=== PATIENT | female | born 1955 | race Asian ===

== ENCOUNTER 2018-09-01 14:28 | Inpatient (IN) | payer MEDICAID ==
[2018-09-01 15:23] LABS: % BASOPHILS 0.1 % (0.0-2.0); % EOSINOPHILS 0.6 % (0.0-5.0); % LYMPHOCYTES 20.6 % (20.0-50.0); % MONOCYTES 8.9 % (2.0-10.0); % NEUTROPHILS 69.8 % (40.0-80.0); HEMATOCRIT 28.8 % (41.0-60); HEMOGLOBIN 9.9 gm/dL (12-16); LYMPHOCYTE ABSOLUTE 0.7 Th/cmm (1.5-3.0); MEAN CELL VOLUME 86.1 fl (81-100); MEAN CORPUSCULAR HEMOGLOBIN 29.5 pg (27.0-31.0); MEAN CORPUSCULAR HGB CONC 34.3 pg (28.0-36.0); MEAN PLATELET VOLUME 7.8 fl; MONOCYTE ABSOLUTE 0.3 Th/cmm (0.3-1.0); NEUTROPHILE ABSOLUTE 2.4 Th/cmm (1.8-8.0); PLATELET COUNT 125 Th/cmm (150-400); RED BLOOD COUNT 3.35 Mil/cmm (3.80-5.10); RED CELL DISTRIBUTION WIDTH 17.7 % (11.5-20.0)
[2018-09-01 15:27] LABS: WHITE BLOOD COUNT 3.4 Th/cmm (4.8-10.8)
[2018-09-01 15:31] LABS: INR 1.22 (0.5-1.4); PROTHROMBIN TIME (TEST) 12.6 SECONDS (9.5-11.5)
[2018-09-01 15:37] LABS: ALB/GLOB RATIO 0.9 (1.0-1.8); ALBUMIN 3.8 gm/dL (3.7-5.3); ANION GAP 12.5 (7.0-16.0); BILIRUBIN,TOTAL 1.5 mg/dL (0.3-1.0); CALCIUM SERUM 9.8 mg/dL (8.6-10.3); CARBON DIOXIDE 23.5 mEq/L (21.0-31.0); CREATININE - SERUM 1.9 mg/dL (0.6-1.2); GFR AFRICAN-AMERICAN 34.4 ml/min (>90); GFR NON AFRICAN-AMERICAN 28.5 ml/min; MAGNESIUM 2.3 mg/dL (1.9-2.7); TOTAL PROTEIN,SERUM 7.9 gm/dL (6.0-8.3)
--- NOTE | 2018-09-01 18:28 | ED Physician Chart ---
ED Chief Complaint/HPI - Patient Information Date Seen:: 09/01/18 Time Seen:: 15:08 Chief Complaint:: facial, LUE & BLE swelling History of Present Illness:: facial, LUE & BLE swelling Allergies:: Allergies Allergy/AdvReac Type Severity Reaction Status Date / Time No Known Allergies Allergy Verified 09/01/18 14:47 Vitals:: Vital Signs - 8 hr 09/01/18 09/01/18 09/01/18 15:08 16:10 16:11 Temp 98.6 F 98.2 F HR 80 78 RR 16 11 BP 144/100 138/95 138/95 O2 Sat % 96 97 Historian:: EMS, Medical Records Review:: Nurse's Note Reviewed, Transfer documents Reviewed ED Review of Systems - Review of Systems General/Constitutional: No fever, No chills, No weight loss, No weakness, No diaphoresis, No edema, No loss of appetite Skin: Other (facial swelling, LUE and BLE swelling) Head: No headache, No light-headedness Eyes: No loss of vision, No pain, No diplopia ENT: No earache, No nasal drainage, No sore throat, No tinnitus Neck: No neck pain, No swelling, No thyromegaly, No stiffness, No mass noted Cardio Vascular: No chest pain, No palpitations, No PND, No orthopnea, No edema Pulmonary: SOB GI: No nausea, No vomiting, No diarrhea, No pain, No melena, No hematochezia, No constipation, No hematemesis G/U: No dysuria, No frequency, No hematuria Musculoskeletal: No bone or joint pain, No back pain, No muscle pain, Other ( LUE and BLE swelling) Endocrine: No polyuria, No polydipsia Psychiatric: No prior psych history, No depression, No anxiety, No suicidal ideation Hematopoietic: No bruising, No lymphadenopathy Allergic/Immuno: No urticaria, No angioedema Neurological: No syncope, No focal symptoms, No weakness, No paresthesia, No headache, No seizure, No dizziness, No confusion, No vertigo ED Past Medical History - Past Medical History Past Medical History: HTN, DM, CVA/TIA, Dyslipidemia, Seizures, Other (chronic kidney disease; atrial fibrillation; iron defician anemia; hemiplegia) Family Medical History - Family Member Mother History Unknown: Yes ED Physical Exam - Physical Examination Head: Atraumatic Eyes: Lids, conjuctiva normal, PERRL, EOMI Other Skin comments:: left radical mastectomy and skin graft to the left supraclavicular area slight erythema of the facial area near the eyelids. ENMT: External ears, nose nl Neck: Nontender, Full ROM w/o pain, No JVD, No nuchal rigidity, No bruit, No mass, No stridor Respiratory: Nl effort/Exclusion, Clear to Auscultation, No Wheeze/Rhonchi/Rales Cardio Vascular: RRR, No murmur, gallop, rubs, NL S1 S2 GI: No tenderness/rebounding/guarding, No organomegaly, No hernia, Normal BS's, Nondistended, No mass/bruits, No McBurney tenderness : No CVA tenderness Extremities: No tenderness or effusion, Full ROM, normal strength in all extremities, No edema, Normal digits & nails Other Extremities comments:: BLE with edema (2+) and tense calves. Equivocal Kerri's sign. NV intact Left upper extremity is swollen and tense. NV intact Neuro/Psych: Alert/oriented Misc: Normal back, No paraspinal tenderness ED Labs/Radiology/EKG Results - Lab Results Results: Laboratory Tests 09/01/18 09/01/18 09/01/18 15:07 15:07 15:07 WBC 3.4 L RBC 3.35 L Hgb 9.9 L Hct 28.8 L MCV 86.1 MCH 29.5 MCHC Differential 34.3 RDW 17.7 Plt Count 125 L MPV 7.8 Neutrophils % 69.8 Lymphocytes % 20.6 Monocytes % 8.9 Eosinophils % 0.6 Basophils % 0.1 PT INR PTT (Actin FS) D-Dimer 1290 H Sodium 135 L Potassium 4.0 Chloride 103 Carbon Dioxide 23.5 Anion Gap 12.5 BUN 35 H Creatinine 1.9 H Est GFR ( Amer) 34.4 Est GFR (Non-Af Amer) 28.5 BUN/Creatinine Ratio 18.4 Glucose 208 H Whole Bld Lactic Acid Calcium 9.8 Phosphorus Magnesium 2.3 Total Bilirubin 1.5 H AST 26 ALT 21 Alkaline Phosphatase 304 H Troponin I B-Natriuretic Peptide 764.0 H Total Protein 7.9 Albumin 3.8 Globulin 4.1 Albumin/Globulin Ratio 0.9 L 09/01/18 09/01/18 09/01/18 15:07 15:07 15:07 WBC RBC Hgb Hct MCV MCH MCHC Differential RDW Plt Count MPV Neutrophils % Lymphocytes % Monocytes % Eosinophils % Basophils % PT 12.6 H INR 1.22 PTT (Actin FS) 30.5 D-Dimer Sodium Potassium Chloride Carbon Dioxide Anion Gap BUN Creatinine Est GFR ( Amer) Est GFR (Non-Af Amer) BUN/Creatinine Ratio Glucose Whole Bld Lactic Acid Calcium Phosphorus 3.6 Magnesium Total Bilirubin AST ALT Alkaline Phosphatase Troponin I 0.02 B-Natriuretic Peptide Total Protein Albumin Globulin Albumin/Globulin Ratio 09/01/18 15:07 WBC RBC Hgb Hct MCV MCH MCHC Differential RDW Plt Count MPV Neutrophils % Lymphocytes % Monocytes % Eosinophils % Basophils % PT INR PTT (Actin FS) D-Dimer Sodium Potassium Chloride Carbon Dioxide Anion Gap BUN Creatinine Est GFR ( Amer) Est GFR (Non-Af Amer) BUN/Creatinine Ratio Glucose Whole Bld Lactic Acid 0.62 Calcium Phosphorus Magnesium Total Bilirubin AST ALT Alkaline Phosphatase Troponin I B-Natriuretic Peptide Total Protein Albumin Globulin Albumin/Globulin Ratio ED Assessment - Assessment General Assessment: EKG from 14:55:46 p.m.: atrial fibrillation, no ischemic changes. movement artifact. Assessment/Comments:: sign out given to Dr. Meraz at 7:10 p.m. Brian (warehouse coordinator) called the nuclear equipment sales engineer in from home. ED Septic Shock - . Is Septic Shock (SBP<90, OR Lactate>4 mmol\L) present?: No - <6hrs of presentation: Vital Signs: Vital Signs - 8 hr 09/01/18 09/01/18 09/01/18 15:08 16:10 16:11 Temp 98.6 F 98.2 F HR 80 78 RR 16 11 BP 144/100 138/95 138/95 O2 Sat % 96 97 ED Reassessment (Disposition) - Reassessment Reassessment Condition:: Improved - Diagnosis Diagnosis:: Contact dermatitis of the face. No clots of the LUE and BLE. Elevated d-dimer with an elevated creatinine. VQ scan ordered to rule out a PE. - Patient Disposition Condition at Disposition:: Stable, Improved
[2018-09-01] MEDS: INSULIN ASPART SLIDING SCALE 100 UNITS/ML UNIT SUBQ SCH (23:40)
[2018-09-02] MEDS ORDERED: Influenza Vaccine (5 yr & older) 0.5 ml Syr IM ONE (01:13)
[2018-09-02 06:33] VITALS: BP 167/97
[2018-09-02] MEDS: INSULIN ASPART SLIDING SCALE 100 UNITS/ML UNIT SUBQ SCH ×4 (06:49→21:09)
--- NOTE | 2018-09-02 08:32 | Diagnostic Imaging Report ---
Bilateral lower extremity Doppler venous ultrasound exam HISTORY: Pain/swelling Sonographic sector images were obtained through the deep venous systems of both legs. Associated Doppler data was obtained. The exam demonstrates patency of the common femoral, superficial femoral, popliteal, and posterior tibial veins bilaterally. Specifically, no thrombus is seen. There are normal compressibility and augmentation responses. IMPRESSION: Negative exam for deep vein thrombophlebitis.
--- NOTE | 2018-09-02 08:32 | Diagnostic Imaging Report ---
Left upper extremity Doppler venous ultrasound exam HISTORY: Swelling Sonographic sector images were obtained through the venous system of the left arm. Associated Doppler data was obtained. The exam demonstrates patency of the left internal jugular, subclavian, axillary, brachial, basilic, and cephalic veins. No thrombus identified. Normal compressibility and augmentation responses. IMPRESSION: No evidence of thrombophlebitis
--- NOTE | 2018-09-02 08:48 | History and Physical ---
History of Present Illness - HPI Chief Complaint: Left Upper Extremity, Bilateral Lower Extremity Edema, with facial swelling HPI: 62 y/o female who presents to [facility] ER for elevated D- dimer, CHF and Diabetes mellitus. Patient has a previous history of lymphoma with presence of skin grafts with lower extremity edema. Patient had a V/Q scan which was negative. Patient has a previous medical history of HTN, DM, CVA/TIA, Dyslipidemia, Seizures, Other (chronic kidney disease; atrial fibrillation; iron defician anemia; hemiplegia Initial labwork revealed WBC 3.4 H/H 9.9/28.8 plat 125 D-dimer 1290 Na 135 K 4.0 Bun/Cr 35/1.9 Glu 208 BNP 764 VQ scan negative chest xray cardiomegaly UE venous doppler neg LE venous doppler neg Patient was subsequently admitted for possible CHF. Vital Signs: Last Vital Signs Temp 99.6 F 09/02/18 04:00 Pulse 79 09/02/18 04:00 Resp 20 09/02/18 04:00 BP 167/97 09/02/18 06:33 Pulse Ox 95 09/02/18 04:00 Past Medical History Cardiovascular: Report: AFIB, CHF, HTN, Hyperlipidemia Pulmonary: Report: No Pertinent Hx USED [employer]: Report: CVA, TIA GI: Report: GI Bleed Psych: Report: No Pertinent Hx Musculoskeletal: Report: No Pertinent Hx Rheumatologic: Report: No pertinent Hx Infectious Disease: Report: No Pertinent Hx Renal/: Report: Chronic Renal Insuff Endocrine: Report: Diabetes Dermatology: Report: No Pertinent Hx Other History: iron deficiency anemia - Past Surgical History Past Surgical History: Mastectomy (radical mastectomy left breast secondary to lymphoma) Family Medical History - Family Member Mother History Unknown: Yes Social History Smoke: No Alcohol: None Drugs: None Lives: Long Term - Medications Home Medications: Home Medication Medication Instructions Recorded Type Atorvastatin Calcium [Lipitor] 80 mg PO HS 09/01/18 History Carvedilol [Coreg] 25 mg PO BID 09/01/18 History Ferrous Sulfate [Iron] 325 mg PO BID 09/01/18 History Hydralazine HCl 100 mg PO TID 09/01/18 History Insulin Lispro [Humalog] 1 unit SQ ACHS 09/01/18 History Levetiracetam [Keppra] 500 mg PO Q12HR 09/01/18 History Melatonin 3 mg PO HS 09/01/18 History Multivitamin w/ Minerals 1 tab PO DAILY 09/01/18 History [Theragran M] Pantoprazole Sodium [Protonix] 40 mg PO AC 09/01/18 History - Allergies Allergies/Adverse Reactions: Allergies Allergy/AdvReac Type Severity Reaction Status Date / Time No Known Allergies Allergy Verified 09/01/18 14:47 Review of Systems - Review of Systems Constitutional: Report: No Significant Eyes: Report: No Significant ENT: Report: No Significant Respiratory: Report: No Significant Cardiovascular: Report: No Significant Gastrointestinal: Report: No Significant Genitourinary: Report: No Significant Musculoskeletal: Report: No Significant Skin: Report: No Significant Neurological: Report: No Significant Physical Exam - Physical Exam HEENT: Report: Ears Nose Throat within normal limits, Pharnyx within normal limits Neck: Report: Within normal limits. Denies: Thyromegaly Cardiovascular Systems: Report: +s1/s2 noted, Regular, Rate and Rhythm Respiratory: Report: Other (decrease breath sounds) Abdomen: Report: Non-tender to palpation Back: Report: Inspection of back is within normal limits. Extremities: Report: Non-tender to palpation. Skin: Report: Color of skin is within normal limits Neuro/Psych: Report: Mood affect is within normal limits - Lab Results All Lab Results last 24 hours: Laboratory Results - last 24 hr 09/01/18 09/01/18 09/01/18 15:07 15:07 15:07 WBC 3.4 L RBC 3.35 L Hgb 9.9 L Hct 28.8 L MCV 86.1 MCH 29.5 MCHC Differential 34.3 RDW 17.7 Plt Count 125 L MPV 7.8 Neutrophils % 69.8 Lymphocytes % 20.6 Monocytes % 8.9 Eosinophils % 0.6 Basophils % 0.1 PT INR PTT (Actin FS) D-Dimer 1290 H Sodium 135 L Potassium 4.0 Chloride 103 Carbon Dioxide 23.5 Anion Gap 12.5 BUN 35 H Creatinine 1.9 H Est GFR ( Amer) 34.4 Est GFR (Non-Af Amer) 28.5 BUN/Creatinine Ratio 18.4 Glucose 208 H POC Glucose Whole Bld Lactic Acid Calcium 9.8 Phosphorus Magnesium 2.3 Total Bilirubin 1.5 H AST 26 ALT 21 Alkaline Phosphatase 304 H Troponin I B-Natriuretic Peptide 764.0 H Total Protein 7.9 Albumin 3.8 Globulin 4.1 Albumin/Globulin Ratio 0.9 L 09/01/18 09/01/18 09/01/18 15:07 15:07 15:07 WBC RBC Hgb Hct MCV MCH MCHC Differential RDW Plt Count MPV Neutrophils % Lymphocytes % Monocytes % Eosinophils % Basophils % PT 12.6 H INR 1.22 PTT (Actin FS) 30.5 D-Dimer Sodium Potassium Chloride Carbon Dioxide Anion Gap BUN Creatinine Est GFR ( Amer) Est GFR (Non-Af Amer) BUN/Creatinine Ratio Glucose POC Glucose Whole Bld Lactic Acid Calcium Phosphorus 3.6 Magnesium Total Bilirubin AST ALT Alkaline Phosphatase Troponin I 0.02 B-Natriuretic Peptide Total Protein Albumin Globulin Albumin/Globulin Ratio 09/01/18 09/02/18 15:07 06:48 WBC RBC Hgb Hct MCV MCH MCHC Differential RDW Plt Count MPV Neutrophils % Lymphocytes % Monocytes % Eosinophils % Basophils % PT INR PTT (Actin FS) D-Dimer Sodium Potassium Chloride Carbon Dioxide Anion Gap BUN Creatinine Est GFR ( Amer) Est GFR (Non-Af Amer) BUN/Creatinine Ratio Glucose POC Glucose 129 H Whole Bld Lactic Acid 0.62 Calcium Phosphorus Magnesium Total Bilirubin AST ALT Alkaline Phosphatase Troponin I B-Natriuretic Peptide Total Protein Albumin Globulin Albumin/Globulin Ratio - Assessment Assessment: CHF HTN Acute on Chronic Renal insuffiency h/o lymphoma diabetes mellitus elevated BNP anemia hyperlipidemia seizure disorder - Plan Plan: Cardiology consult nephrology consult Hem/Onc consult repeat labwork continue home meds
--- NOTE | 2018-09-02 09:32 | Diagnostic Imaging Report ---
Radionuclide perfusion/ventilation lung scan HISTORY: Shortness of breath 3.3 mCi technetium macroaggregated albumin used in the perfusion portion of the exam. 41.0 mCi technetium DTPA aerosol used in the ventilation portion of the study. There is a normal distribution nuclide throughout both lungs on both perfusion and ventilation images. No focal abnormalities. Specifically, no segmental defects. There are no perfusion/ventilation mismatches. Findings consistent with cardiomegaly noted. IMPRESSION: 1. No scintigraphic evidence of pulmonary embolism (low probability) 2. Findings consistent with cardiomegaly
--- NOTE | 2018-09-02 09:32 | Diagnostic Imaging Report ---
Portable chest x-ray HISTORY: Shortness of breath There is marked cardiomegaly. There is a globular cardiac contour. This appearance may be associated with a pericardial effusion, cardiomyopathy, or multivalvular disease. Clinical correlation is needed. There is a degree of pulmonary vascular redistribution consistent with marginal cardiac decompensation. No robyn pulmonary edema. No pleural fluid is seen. Surgical clips noted adjacent to the left chest wall along with deformity of the left shoulder. IMPRESSION: 1. Marked cardiomegaly with a globular cardiac contour. The appearance may be associated with pericardial fluid, cardiomyopathy, or multivalvular disease. Clinical correlation needed. Associated changes consistent with marginal cardiac decompensation without robyn pulmonary edema.
[2018-09-02 09:35] LABS: ALB/GLOB RATIO 0.9 (1.0-1.8); ALBUMIN 3.6 gm/dL (3.7-5.3); ANION GAP 12.7 (7.0-16.0); BILIRUBIN,TOTAL 1.6 mg/dL (0.3-1.0); CARBON DIOXIDE 24.8 mEq/L (21.0-31.0); GFR AFRICAN-AMERICAN 32.5 ml/min (>90); GFR NON AFRICAN-AMERICAN 26.8 ml/min; POTASSIUM SERUM 3.5 mEq/L (3.5-5.1); TOTAL PROTEIN,SERUM 7.6 gm/dL (6.0-8.3)
[2018-09-02] MEDS: Multivitamin w/ Minerals Tab PO SCH (10:21)
[2018-09-02] MEDS: Pantoprazole 40 mg EC Tab PO SCH (10:21)
[2018-09-02] MEDS: Ferrous Sulfate 325 MG TAB PO SCH ×2 (10:21→17:19)
[2018-09-02 10:43] LABS: % BASOPHILS 0.1 % (0.0-2.0); % EOSINOPHILS 0.8 % (0.0-5.0); % LYMPHOCYTES 20.8 % (20.0-50.0); % MONOCYTES 8.1 % (2.0-10.0); % NEUTROPHILS 70.2 % (40.0-80.0); HEMOGLOBIN 9.6 gm/dL (12-16); LYMPHOCYTE ABSOLUTE 0.7 Th/cmm (1.5-3.0); MEAN CELL VOLUME 86.2 fl (81-100); MEAN CORPUSCULAR HEMOGLOBIN 29.6 pg (27.0-31.0); MEAN CORPUSCULAR HGB CONC 34.4 pg (28.0-36.0); MEAN PLATELET VOLUME 8.4 fl; MONOCYTE ABSOLUTE 0.3 Th/cmm (0.3-1.0); NEUTROPHILE ABSOLUTE 2.5 Th/cmm (1.8-8.0); PLATELET COUNT 124 Th/cmm (150-400); RED BLOOD COUNT 3.25 Mil/cmm (3.80-5.10); RED CELL DISTRIBUTION WIDTH 17.2 % (11.5-20.0)
[2018-09-02 10:48] LABS: WHITE BLOOD COUNT 3.5 Th/cmm (4.8-10.8)
[2018-09-02] MEDS ORDERED: Non-Formulary Item 1 EA (Insulin Lispro [Humalog] 1 UNIT) SQ SCH (11:30)
--- NOTE | 2018-09-02 11:56 | Diagnostic Imaging Report ---
Portable chest x-ray HISTORY: Shortness of breath Compared with the prior exam of 09/01/2018, there remains cardiomegaly with a globular cardiac contour previously noted. No focal prominent processes. There is a degree of pulmonary vascular redistribution and may reflect marginal cardiac decompensation. No robyn pulmonary edema. No other focal processes. IMPRESSION: 1. No change from 09/01/2018 as noted above.
--- NOTE | 2018-09-02 14:06 | History & Physical ---
ADMIT DATE: HEMATOLOGY ONCOLOGY CONSULTATION REFERRING PHYSICIAN: Dr. Alonzo Cisneros. REASON FOR CONSULTATION: Lymphoma. HISTORY OF PRESENT ILLNESS: The patient is a 62-year-old female with history of lymphoma in 2013. She presented with a mass in the left breast and she underwent extensive surgery and after removal of the mass, it turned out to be a lymphoma and the patient did not receive any radiation or chemotherapy after that. She presented to the hospital with shortness of breath and found to be in congestive heart failure. Her D-dimer was elevated and a V/Q scan was negative for pulmonary embolism, also upper and lower extremity venous duplex was negative. PAST MEDICAL HISTORY: Hypertension, dyslipidemia, anemia, diabetes. MEDICATIONS: Reviewed including Lipitor, Coreg, iron, insulin, hemoglobin, Keppra. PHYSICAL EXAMINATION: GENERAL: She is awake. Feels less short of breath now, compared to admission. VITAL SIGNS: Diastolic 100, still elevated this morning; systolic 160, afebrile. HEENT: Atraumatic. NECK: No lymphadenopathy. CHEST: Left breast resection with mass with the scar of surgery extensively in supraclavicular area extending to the sternal area. No palpable masses. No peripheral lymphadenopathy. Right breast unremarkable. ABDOMEN: Obese, soft, no masses. EXTREMITIES: No edema in the upper and lower extremities. LABORATORY DATA: Hemoglobin 9.9, white count 3.4, platelets 125, creatinine 1.9. ASSESSMENT: 1. Lymphoma, status post resection. 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 There was no evidence of recurrence since 2013. The patient may be followed with the scan and LDH as outpatient. 2. Mild cytopenia. I will obtain workup, B12, folic acid, and abdominal ultrasound for further evaluation. 3. Chronic kidney disease likely secondary to hypertension and diabetes. We will check the iron studies and determine whether the patient is a candidate for iron supplementation and folate supplementation. 4. Deep venous thrombosis prophylaxis, heparin during the hospital stay. Thank you, Dr. Cisneros for the opportunity to participate in the care of this interesting case. JOB# [id number]
[2018-09-02] MEDS ORDERED: Non-Formulary Item 1 EA (Melatonin [Melatonin] 3 MG) PO SCH (21:00)
[2018-09-03] MEDS: Pantoprazole 40 mg EC Tab PO SCH (06:41)
[2018-09-03 07:16] LABS: ANION GAP 10.9 (7.0-16.0); CALCIUM SERUM 9.8 mg/dL (8.6-10.3); CARBON DIOXIDE 26.6 mEq/L (21.0-31.0); GFR AFRICAN-AMERICAN 32.5 ml/min (>90); GFR NON AFRICAN-AMERICAN 26.8 ml/min; POTASSIUM SERUM 3.5 mEq/L (3.5-5.1)
[2018-09-03] MEDS: INSULIN ASPART SLIDING SCALE 100 UNITS/ML UNIT SUBQ SCH ×4 (08:00→21:12)
[2018-09-03] MEDS: Multivitamin w/ Minerals Tab PO SCH (08:34)
[2018-09-03] MEDS: Ferrous Sulfate 325 MG TAB PO SCH ×2 (08:35→17:00)
--- NOTE | 2018-09-03 08:56 | General Progress Note ---
Subjective - Review of Systems Service Date: 09/03/18 Subjective: Patient was seen and examined this morning. Awake, Alert, no acute distress. denies SOB. slight hematuria this AM. Objective - Results Result Diagrams: 09/02/18 09:15 09/03/18 05:25 Recent Labs: Laboratory Last Values WBC 3.5 Th/cmm (4.8-10.8) L 09/02/18 09:15 RBC 3.25 Mil/cmm (3.80-5.10) L 09/02/18 09:15 Hgb 9.6 gm/dL (12-16) L 09/02/18 09:15 Hct 28.0 % (41.0-60) L 09/02/18 09:15 MCV 86.2 fl (81-100) 09/02/18 09:15 MCH 29.6 pg (27.0-31.0) 09/02/18 09:15 MCHC Differential 34.4 pg (28.0-36.0) 09/02/18 09:15 RDW 17.2 % (11.5-20.0) 09/02/18 09:15 Plt Count 124 Th/cmm (150-400) L 09/02/18 09:15 MPV 8.4 fl 09/02/18 09:15 Neutrophils % 70.2 % (40.0-80.0) 09/02/18 09:15 Lymphocytes % 20.8 % (20.0-50.0) 09/02/18 09:15 Monocytes % 8.1 % (2.0-10.0) 09/02/18 09:15 Eosinophils % 0.8 % (0.0-5.0) 09/02/18 09:15 Basophils % 0.1 % (0.0-2.0) 09/02/18 09:15 PT 12.6 SECONDS (9.5-11.5) H 09/01/18 15:07 INR 1.22 (0.5-1.4) 09/01/18 15:07 PTT (Actin FS) 30.5 SECONDS (26.0-38.0) 09/01/18 15:07 D-Dimer 1290 ng/mL (100-400) H 09/01/18 15:07 Sodium 137 mEq/L (136-145) 09/03/18 05:25 Potassium 3.5 mEq/L (3.5-5.1) 09/03/18 05:25 Chloride 103 mEq/L (98-107) 09/03/18 05:25 Carbon Dioxide 26.6 mEq/L (21.0-31.0) 09/03/18 05:25 Anion Gap 10.9 (7.0-16.0) 09/03/18 05:25 BUN 32 mg/dL (7-25) H 09/03/18 05:25 Creatinine 2.0 mg/dL (0.6-1.2) H 09/03/18 05:25 Est GFR ( Amer) 32.5 ml/min (>90) 09/03/18 05:25 Est GFR (Non-Af Amer) 26.8 ml/min 09/03/18 05:25 BUN/Creatinine Ratio 16.0 09/03/18 05:25 Glucose 171 mg/dL (70-105) H 09/03/18 05:25 POC Glucose 172 MG/DL (70 - 105) H 09/03/18 05:55 Whole Bld Lactic Acid 0.62 mmol/L (0.60-1.99) 09/01/18 15:07 Calcium 9.8 mg/dL (8.6-10.3) 09/03/18 05:25 Phosphorus 3.6 mg/dL (2.5-5.0) 09/01/18 15:07 Magnesium 2.3 mg/dL (1.9-2.7) 09/01/18 15:07 Total Bilirubin 1.6 mg/dL (0.3-1.0) H 09/02/18 09:15 AST 23 U/L (13-39) 09/02/18 09:15 ALT 18 U/L (7-52) 09/02/18 09:15 Alkaline Phosphatase 275 U/L (34-104) H 09/02/18 09:15 Troponin I 0.02 ng/mL (0.01-0.05) 09/01/18 15:07 B-Natriuretic Peptide 832.0 pg/mL (5.0-100.0) H 09/03/18 05:25 Total Protein 7.6 gm/dL (6.0-8.3) 09/02/18 09:15 Albumin 3.6 gm/dL (3.7-5.3) L 09/02/18 09:15 Globulin 4.0 gm/dL 09/02/18 09:15 Albumin/Globulin Ratio 0.9 (1.0-1.8) L 09/02/18 09:15 Triglycerides 58 mg/dL (<150) 09/02/18 09:15 Cholesterol 107 mg/dL (<200) 09/02/18 09:15 LDL Cholesterol Direct 32 mg/dL (75-193) L 09/02/18 09:15 HDL Cholesterol 49 mg/dL (23-92) 09/02/18 09:15 TSH 5.66 uIU/ml (0.34-5.60) H 09/02/18 09:15 - Physical Exam Vitals and I&O: Vital Signs Temp 99.7 F 09/03/18 08:00 Pulse 87 09/03/18 08:35 Resp 18 09/03/18 08:00 BP 131/80 09/03/18 08:35 Pulse Ox 98 09/03/18 08:00 Intake & Output 09/02/18 09/03/18 09/03/18 18:59 06:59 18:59 Intake Total 950 240 Output Total 1200 350 Balance -250 -110 Weight (lbs) 83.461 kg 83.461 kg Intake: Oral 950 240 Output: Urine 1200 350 Other: # Bowel Movements 0 Weight Source Bedscale Bedscale Active Medications: Current Medications Atorvastatin Calcium (Lipitor) 80 mg PO HS [facility]; Protocol Stop: 11/01/18 20:59 Last Admin: 09/02/18 21:02 Dose: 80 mg Carvedilol (Coreg) 25 mg PO BID [facility] Stop: 11/01/18 08:59 Last Admin: 09/03/18 08:35 Dose: 25 mg Ferrous Sulfate (Iron) 325 mg PO BID [facility] Stop: 11/01/18 08:59 Last Admin: 09/03/18 08:35 Dose: 325 mg Heparin Sodium (Porcine) (Heparin) 5,000 units SUBQ Q12HR [facility] Stop: 11/01/18 10:59 Last Admin: 09/03/18 08:44 Dose: Not Given Hydralazine HCl (Apresoline) 100 mg PO TID [facility] Stop: 11/01/18 08:59 Last Admin: 09/03/18 08:34 Dose: 100 mg Insulin Aspart (Novolog Insulin Sliding Scale) 0 units SUBQ ACHS [facility]; Protocol Stop: 11/01/18 11:29 Last Admin: 09/03/18 08:00 Dose: 2 units Levetiracetam (Keppra) 500 mg PO Q12HR [facility] Stop: 11/01/18 08:59 Last Admin: 09/03/18 08:34 Dose: 500 mg Miscellaneous (Melatonin [Melatonin]) 3 mg PO HS [facility] Stop: 11/01/18 20:59 Pantoprazole Sodium (Protonix) 40 mg PO QDAC [facility] Stop: 11/01/18 08:59 Last Admin: 09/03/18 06:41 Dose: 40 mg General: Alert, Oriented x3 HEENT: Atraumatic, PERRLA, EOMI Neck: Supple Cardiovascular: Regular rate, Normal S1, Normal S2 Lungs: Clear to auscultation Abdomen: Bowel sounds, Soft Extremities: Edema (+1), no Clubbing, no Cyanosis Assessment/Plan - Assessment Assessment: CHF HTN Acute on Chronic Renal insuffiency h/o lymphoma diabetes mellitus elevated BNP anemia hyperlipidemia seizure disorder hematuria - Plan Plan: Cardiology consult nephrology consult Hem/Onc consult CBC this AM will hold Heparin continue home meds Nutritional Asmnt/Malnutr-PDOC - Dietary Evaluation Malnutrition Findings (Please click <Entered> for more info): Nutritional Asmnt/Malnutrition Start: 09/02/18 15: 42 Text: Status: Complete Freq: Protocol: Document 09/02/18 15:53 ALICIA (Rec: 09/02/18 16:37 ALICIA DOYLE) Nutritional Asmnt/Malnutrition Patient General Information Nutritional Screening High Risk Consult Diagnosis Possible CHF Pertinent Medical Hx/Surgical Hx lymphoma, HTN, dyslipidemia, anemia, DM, CVA/TIA, seizures, chronic kidney disease, atrial fibrillation, hemiplegia Subjective Information Pt was sleeping in bed at time of visit. Pt was NPO at lunch d/t U/S scheduled in the afternoon. Current Diet Order/ Nutrition Support CCHO 45g Pertinent Medications lipitor, iron, heparin, novolog, keppra, protonix Pertinent Labs 09/02: glucose 166, BUN 33, Cr 2.0, POC 129, Alb 3.6 09/01: Na 135, BUN 35, Cr 1.9, glucose 208 Nutritional Hx/Data Height 1.6 m Height (Calculated Centimeters) 160.0 Current Weight (lbs) 83.461 kg Weight (Calculated Kilograms) 83.5 Weight (Calculated Grams) 75918.0 [place] Body Weight 115 lb Body Mass Index (BMI) 32.5 Weight Status Obese GI Symptoms GI Symptoms None Last BM none noted Difficult in: None Food Allergies No Skin Integrity/Comment: reddened left foot, pressure area to right foot, non- pitting 3+ edema to right leg, non-pitting 3+ edema to left arm Estimated Nutritional Goals BEE in Kcals: Using Current wt Calories/Kcals/Kg 20-25 Kcals Calculated 2797-1923 Protein: Using Current wt Protein g/k.8 Protein Calculated 67 g Fluid: ml per MD Nutritional Problem 1. Problem Problem Altered nutrition related lab values Etiology possible renal dysfunction Signs/Symptoms: BUN 33, Cr 2.0 Malnutrition Alert Is there a minimum of two criteria No selected? Query Text:Check all the applicable criteria. A minimum of two criteria are recommended for diagnosis of either severe or non-severe malnutrition. Malnutrition Related to Morbid Obesity Malnutrition related to morbid obesity No Intervention/Recommendation Comments 1. Recommend to start low sodium (2 gm) diet in combination with current CCHO 45g diet order d/t non-pitting 3+ edema to right leg and non -pitting 3+ edema to left arm 2. Monitor renal labs and edema of left arm and right leg 3. F/U as moderate risk, 09/05 -09/07; PO check 09/04 Expected Outcomes/Goals Expected Outcomes/Goals 1. PO intake at least 75% of all meals. 2. Renal labs to approach normal limits and reduction of edema on left arm and right leg Reviewed by Mikaela Jensen
[2018-09-03 09:09] LABS: % EOSINOPHILS 0.7 % (0.0-5.0); % LYMPHOCYTES 23.6 % (20.0-50.0); % MONOCYTES 9.7 % (2.0-10.0); HEMATOCRIT 27.8 % (41.0-60); HEMOGLOBIN 9.5 gm/dL (12-16); LYMPHOCYTE ABSOLUTE 0.9 Th/cmm (1.5-3.0); MEAN CELL VOLUME 87.1 fl (81-100); MEAN CORPUSCULAR HEMOGLOBIN 29.6 pg (27.0-31.0); MEAN PLATELET VOLUME 8.2 fl; MONOCYTE ABSOLUTE 0.4 Th/cmm (0.3-1.0); NEUTROPHILE ABSOLUTE 2.5 Th/cmm (1.8-8.0); PLATELET COUNT 129 Th/cmm (150-400); RED BLOOD COUNT 3.19 Mil/cmm (3.80-5.10); RED CELL DISTRIBUTION WIDTH 17.6 % (11.5-20.0)
[2018-09-03 09:17] LABS: WHITE BLOOD COUNT 3.8 Th/cmm (4.8-10.8)
--- NOTE | 2018-09-03 11:28 | Diagnostic Imaging Report ---
Abdominal ultrasound HISTORY: Splenomegaly, pain The liver is enlarged. There is a heterogeneous parenchyma. No obvious focal lesions are seen. Small amount of ascites noted. The exam of the gallbladder demonstrates generalized wall thickening. The findings may be associated with ascites and hyperproteinemia. A 5 mm intraluminal density is noted along the dependent wall. A small calculus or possibly a cholesterol polyp cannot be excluded. The common bile duct could not be visualized. Pancreas cannot be well seen due to bowel gas. The right kidney is generous in size (12.0 x 5.7 x 6.5 cm). No definite focal lesions or hydronephrosis. Suboptimal delineation of the entire margins of the left kidney. No definite focal lesions or hydronephrosis. The spleen measures 10.9 x 5.5 x 4.1 cm. No other retroperitoneal or intra-abdominal abnormalities. IMPRESSION: 1. Small amount of ascites 2. Hepatomegaly along with a heterogeneous hepatic parenchyma. The finding should be correlated with liver function tests. 3. 5 mm intraluminal density within the gallbladder. Question small calculus or possibly a cholesterol polyp.
--- NOTE | 2018-09-03 14:01 | Cardiology ---
09/02/[address] Cisneros. M-MODE ECHOCARDIOGRAM: Mitral valve, anterior leaflet of mitral valve shows normal excursion, EF velocity. Posterior leaflet of the mitral valve shows normal excursion. Left ventricular posterior wall shows increased thickness, normal excursion. Interventricular septum shows increased thickness, normal excursion, hypertrophy of the left ventricle, ejection fraction 70%. Left atrium enlarged 5.4 cm. Aortic root showed normal dimension, normal excursion of aortic leaflets. CONCLUSION: Hypertrophy of the left ventricle, left atrial enlargement, ejection fraction 70%. 2D ECHO: Long axis view showed normal sized left ventricle with hypertrophy of the left ventricle. Left atrium enlarged. Aortic root shows normal dimension, normal excursion of aortic leaflets. Short axis view of mitral valve normal. Short axis view of aortic valve normal. Apical four chamber view showed normal sized left ventricle with hypertrophy of the left ventricle. Left atrium enlarged. Right ventricular cavity normal. Right atrial enlargement, right ventricle enlarged. Right atrial enlargement. CONCLUSION: Left atrial enlargement, right atrial enlargement, right ventricle enlargement. Hypertrophy of the left ventricle, ejection fraction 70%. Doppler study shows moderate mitral regurgitation, severe tricuspid regurgitation, moderate pulmonary regurgitation, right ventricular systolic pressure 68 mmHg with severe pulmonary hypertension. JOB# [id number]
[2018-09-03 14:23] LABS: FERRITIN 332 ng/mL (15-150); FOLIC ACID >20.0 ng/mL (>3.0); IRON LC 51 ug/dL (27-139); TIBC (LC) 268 ug/dL (250-450); UIBC 217 ug/dL (118-369)
--- NOTE | 2018-09-03 16:55 | General Progress Note ---
Subjective - Review of Systems Service Date: 09/03/18 Objective - Results Result Diagrams: 09/03/18 05:25 09/03/18 05:25 Recent Labs: Laboratory Last Values WBC 3.8 Th/cmm (4.8-10.8) L 09/03/18 05:25 RBC 3.19 Mil/cmm (3.80-5.10) L 09/03/18 05:25 Hgb 9.5 gm/dL (12-16) L 09/03/18 05:25 Hct 27.8 % (41.0-60) L 09/03/18 05:25 MCV 87.1 fl (81-100) 09/03/18 05:25 MCH 29.6 pg (27.0-31.0) 09/03/18 05:25 MCHC Differential 34.0 pg (28.0-36.0) 09/03/18 05:25 RDW 17.6 % (11.5-20.0) 09/03/18 05:25 Plt Count 129 Th/cmm (150-400) L 09/03/18 05:25 MPV 8.2 fl 09/03/18 05:25 Neutrophils % 66.0 % (40.0-80.0) 09/03/18 05:25 Lymphocytes % 23.6 % (20.0-50.0) 09/03/18 05:25 Monocytes % 9.7 % (2.0-10.0) 09/03/18 05:25 Eosinophils % 0.7 % (0.0-5.0) 09/03/18 05:25 Basophils % 0.0 % (0.0-2.0) 09/03/18 05:25 PT 12.6 SECONDS (9.5-11.5) H 09/01/18 15:07 INR 1.22 (0.5-1.4) 09/01/18 15:07 PTT (Actin FS) 30.5 SECONDS (26.0-38.0) 09/01/18 15:07 D-Dimer 1290 ng/mL (100-400) H 09/01/18 15:07 Sodium 137 mEq/L (136-145) 09/03/18 05:25 Potassium 3.5 mEq/L (3.5-5.1) 09/03/18 05:25 Chloride 103 mEq/L (98-107) 09/03/18 05:25 Carbon Dioxide 26.6 mEq/L (21.0-31.0) 09/03/18 05:25 Anion Gap 10.9 (7.0-16.0) 09/03/18 05:25 BUN 32 mg/dL (7-25) H 09/03/18 05:25 Creatinine 2.0 mg/dL (0.6-1.2) H 09/03/18 05:25 Est GFR ( Amer) 32.5 ml/min (>90) 09/03/18 05:25 Est GFR (Non-Af Amer) 26.8 ml/min 09/03/18 05:25 BUN/Creatinine Ratio 16.0 09/03/18 05:25 Glucose 171 mg/dL (70-105) H 09/03/18 05:25 POC Glucose 144 MG/DL (70 - 105) H 09/03/18 12:00 Whole Bld Lactic Acid 0.62 mmol/L (0.60-1.99) 09/01/18 15:07 Calcium 9.8 mg/dL (8.6-10.3) 09/03/18 05:25 Phosphorus 3.6 mg/dL (2.5-5.0) 09/01/18 15:07 Magnesium 2.3 mg/dL (1.9-2.7) 09/01/18 15:07 Iron 51 ug/dL (27-139) 09/02/18 09:15 TIBC 268 ug/dL (250-450) 09/02/18 09:15 Iron Saturation 19 % (15-55) 09/02/18 09:15 Unsaturated IBC 217 ug/dL (118-369) 09/02/18 09:15 Ferritin 332 ng/mL (15-150) H 09/02/18 09:15 Total Bilirubin 1.6 mg/dL (0.3-1.0) H 09/02/18 09:15 AST 23 U/L (13-39) 09/02/18 09:15 ALT 18 U/L (7-52) 09/02/18 09:15 Alkaline Phosphatase 275 U/L (34-104) H 09/02/18 09:15 Troponin I 0.02 ng/mL (0.01-0.05) 09/01/18 15:07 B-Natriuretic Peptide 832.0 pg/mL (5.0-100.0) H 09/03/18 05:25 Total Protein 7.6 gm/dL (6.0-8.3) 09/02/18 09:15 Albumin 3.6 gm/dL (3.7-5.3) L 09/02/18 09:15 Globulin 4.0 gm/dL 09/02/18 09:15 Albumin/Globulin Ratio 0.9 (1.0-1.8) L 09/02/18 09:15 Triglycerides 58 mg/dL (<150) 09/02/18 09:15 Cholesterol 107 mg/dL (<200) 09/02/18 09:15 LDL Cholesterol Direct 32 mg/dL (75-193) L 09/02/18 09:15 HDL Cholesterol 49 mg/dL (23-92) 09/02/18 09:15 Vitamin B12 970 pg/mL (232-1245) 09/02/18 09:15 Folic Acid >20.0 ng/mL (>3.0) 09/02/18 09:15 TSH 5.66 uIU/ml (0.34-5.60) H 09/02/18 09:15 - Physical Exam Vitals and I&O: Vital Signs Temp 98.4 F 09/03/18 12:00 Pulse 82 09/03/18 13:17 Resp 18 09/03/18 12:00 BP 140/69 09/03/18 13:17 Pulse Ox 98 09/03/18 12:00 Intake & Output 09/02/18 09/03/18 09/03/18 18:59 06:59 18:59 Intake Total 950 240 Output Total 1200 350 Balance -250 -110 Weight (lbs) 83.461 kg 83.461 kg Intake: Oral 950 240 Output: Urine 1200 350 Other: # Bowel Movements 0 Weight Source Bedscale Bedscale Active Medications: Current Medications Atorvastatin Calcium (Lipitor) 80 mg PO HS [facility]; Protocol Stop: 11/01/18 20:59 Last Admin: 09/02/18 21:02 Dose: 80 mg Carvedilol (Coreg) 25 mg PO BID [facility] Stop: 11/01/18 08:59 Last Admin: 09/03/18 08:35 Dose: 25 mg Ferrous Sulfate (Iron) 325 mg PO BID [facility] Stop: 11/01/18 08:59 Last Admin: 09/03/18 08:35 Dose: 325 mg Furosemide (Lasix) 40 mg IVP DAILY [facility] Stop: 11/03/18 08:59 Hydralazine HCl (Apresoline) 100 mg PO TID [facility] Stop: 11/01/18 08:59 Last Admin: 09/03/18 13:17 Dose: 100 mg Insulin Aspart (Novolog Insulin Sliding Scale) 0 units SUBQ ACHS [facility]; Protocol Stop: 11/01/18 11:29 Last Admin: 09/03/18 13:13 Dose: Not Given Levetiracetam (Keppra) 500 mg PO Q12HR [facility] Stop: 11/01/18 08:59 Last Admin: 09/03/18 08:34 Dose: 500 mg Miscellaneous (Melatonin [Melatonin]) 3 mg PO HS [facility] Stop: 11/01/18 20:59 Mupirocin (Bactroban Oint) 1 appl NS BID [facility] Stop: 09/08/18 09:01 Pantoprazole Sodium (Protonix) 40 mg PO QDAC [facility] Stop: 11/01/18 08:59 Last Admin: 09/03/18 06:41 Dose: 40 mg General: Alert, Oriented x3 HEENT: Atraumatic, PERRLA, EOMI Neck: Supple Cardiovascular: Regular rate, Normal S1, Normal S2 Lungs: Clear to auscultation Abdomen: Bowel sounds, Soft Extremities: Edema (+1), no Clubbing, no Cyanosis Assessment/Plan - Assessment Assessment: *H/O lymphoma; MARIBETH *CYtopenia; normal size spleen, follow B12, folate *Monitor cbc Nutritional Asmnt/Malnutr-PDOC - Dietary Evaluation Malnutrition Findings (Please click <Entered> for more info): Nutritional Asmnt/Malnutrition Start: 09/02/18 15: 42 Text: Status: Complete Freq: Protocol: Document 09/02/18 15:53 ALICIA (Rec: 09/02/18 16:37 ALICIA DOYLE) Nutritional Asmnt/Malnutrition Patient General Information Nutritional Screening High Risk Consult Diagnosis Possible CHF Pertinent Medical Hx/Surgical Hx lymphoma, HTN, dyslipidemia, anemia, DM, CVA/TIA, seizures, chronic kidney disease, atrial fibrillation, hemiplegia Subjective Information Pt was sleeping in bed at time of visit. Pt was NPO at lunch d/t U/S scheduled in the afternoon. Current Diet Order/ Nutrition Support CCHO 45g Pertinent Medications lipitor, iron, heparin, novolog, keppra, protonix Pertinent Labs 09/02: glucose 166, BUN 33, Cr 2.0, POC 129, Alb 3.6 09/01: Na 135, BUN 35, Cr 1.9, glucose 208 Nutritional Hx/Data Height 1.6 m Height (Calculated Centimeters) 160.0 Current Weight (lbs) 83.461 kg Weight (Calculated Kilograms) 83.5 Weight (Calculated Grams) 04328.0 Mobile Body Weight 115 lb Body Mass Index (BMI) 32.5 Weight Status Obese GI Symptoms GI Symptoms None Last BM none noted Difficult in: None Food Allergies No Skin Integrity/Comment: reddened left foot, pressure area to right foot, non- pitting 3+ edema to right leg, non-pitting 3+ edema to left arm Estimated Nutritional Goals BEE in Kcals: Using Current wt Calories/Kcals/Kg 20-25 Kcals Calculated 4083-0655 Protein: Using Current wt Protein g/k.8 Protein Calculated 67 g Fluid: ml per MD Nutritional Problem 1. Problem Problem Altered nutrition related lab values Etiology possible renal dysfunction Signs/Symptoms: BUN 33, Cr 2.0 Malnutrition Alert Is there a minimum of two criteria No selected? Query Text:Check all the applicable criteria. A minimum of two criteria are recommended for diagnosis of either severe or non-severe malnutrition. Malnutrition Related to Morbid Obesity Malnutrition related to morbid obesity No Intervention/Recommendation Comments 1. Recommend to start low sodium (2 gm) diet in combination with current CCHO 45g diet order d/t non-pitting 3+ edema to right leg and non -pitting 3+ edema to left arm 2. Monitor renal labs and edema of left arm and right leg 3. F/U as moderate risk, 09/05 -09/07; PO check 09/04 Expected Outcomes/Goals Expected Outcomes/Goals 1. PO intake at least 75% of all meals. 2. Renal labs to approach normal limits and reduction of edema on left arm and right leg Reviewed by Mikaela Jensen
--- NOTE | 2018-09-03 18:00 | Consultation ---
DATE OF CONSULTATION: 09/02/2018 The patient Alonzo Cisneros. HISTORY OF PRESENT ILLNESS: This is a 62-year-old female patient who came to the Emergency Room complaining of shortness of breath. The patient has no history of PND, orthopnea. The patient had a V/Q scan, which is negative. Following this, the patient has been admitted. 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 FAMILY HISTORY: Unremarkable. SOCIAL HISTORY: No history of smoking, alcohol abuse. ALLERGIES: No known allergies. PHYSICAL EXAMINATION: VITAL SIGNS: Blood pressure 160/90, pulse 70, respirations 20. HEAD: Normocephalic. No lumps or bumps. EYES: Pupils equal, reactive to light. Fundi show AV nicking, sclerae white, conjunctivae pink. NECK: Carotid 2+. Normal upstroke. JVD 10 cm above sternal angle. Thyroid not palpable. Lymph nodes not palpable. CHEST: Shows increased AP diameter. No kyphosis, scoliosis. LUNGS: Bilateral rales. Decreased breath sounds both the bases. HEART: PMI sixth intercostal space with lateral to midclavicular line. S1, S2, S3, S4, soft systolic murmur radiating to left axilla. ABDOMEN: Soft. Liver, spleen not palpable. Hepatojugular reflux positive. EXTREMITIES: Peripheral pulses 1+, no pedal edema. CLINICAL IMPRESSION: Congestive heart failure, diastolic dysfunction, acute atrial fibrillation, hypertension, hyperlipidemia, cerebrovascular accident with late effect, lymphoma, diabetes mellitus type 2 insulin-dependent, hypothyroidism, iron deficiency anemia, and seizure disorder. PLAN: Admit the patient. We will continue present care. Diuretics. The patient's echocardiogram showed ejection fraction 70%, left ventricular hypertrophy with moderate mitral regurgitation, moderate pulmonary regurgitation, severe tricuspid regurgitation, right ventricular systolic pressure 67 mmHg with severe pulmonary hypertension. Plan, we will continue present care. Give Lasix. Monitor the patient closely on telemetry bed. JOB# [id number]
--- NOTE | 2018-09-03 20:19 | Consultation ---
DATE OF CONSULTATION: 09/03/2018 ATTENDING PHYSICIAN: Alonzo Cisneros MD FOX RAISER: Dr. Roderick Fontenot. REASON FOR CONSULTATION: Worsening kidney function, electrolyte imbalance, and fluid management. HISTORY OF PRESENT ILLNESS: This is a 62-year-old Citizen Of [place] with past medical history of chronic kidney disease, who came in because of respiratory distress. A few hours prior to admission, the patient experienced progressive shortness of breath. This was associated with facial and bilateral lower extremity edema. A few hours prior to admission, her condition worsened. She was subsequently brought to the Emergency Room. A chest x-ray revealed a globular heart with marginal cardiac decompensation. Bilateral lower extremity duplex scan was negative for DVT. V/Q scan showed low probability for PE. Her BNP level was 626. She had a history of chronic kidney disease. Labs drawn a month ago showed a BUN/creatinine of 36/1.5. She was admitted with a BUN/creatinine of 33/2. Her BUN/creatinine today were 32/2. She denied any nausea and vomiting as well as diarrhea. PAST MEDICAL HISTORY: 1. Chronic kidney disease. 2. Type 2 diabetes mellitus. 3. Essential hypertension. 4. Epilepsy. 5. Iron deficiency anemia. 6. Status post CVA with right hemiparesis. 7. Dyslipidemia. 8. DJD. 9. GERD. 10. Mild lymphoma. 11. Paroxysmal AFib. PAST SURGICAL HISTORY: Status post radical left mastectomy. CURRENT MEDICATIONS: She is currently on atorvastatin, carvedilol, ferrous sulfate, furosemide, hydralazine, levetiracetam, mupirocin, melatonin, pantoprazole. ALLERGIES: No known drug allergies. SOCIAL HISTORY: Denied any history of alcohol or tobacco abuse. 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 FAMILY HISTORY: Noncontributory to present illness. REVIEW OF SYSTEMS: GENERAL: She does have occasional weakness. Appetite had been fair. No fever or chills. HEENT: No headaches, no dizziness. She has blurry vision as well as diminished hearing acuity due to her age. CARDIORESPIRATORY: She has a history of hypertension, paroxysmal AFib, status post CVA with right hemiplegia. However, she did complain of shortness of breath, but no chest pain, palpitations, diaphoresis, nor cough. GASTROINTESTINAL: She had no nausea, vomiting, abdominal pain or cramping, hematemesis, melena, hematochezia, nor diarrhea. She has GERD. MUSCULOSKELETAL: She has DJD. ENDOCRINE: She has a history of diabetes and dyslipidemia, but no thyroid abnormalities. HEMATOLOGIC: Iron deficiency anemia as well as mild form of lymphoma. NEUROPSYCH: History of epilepsy. However, she does not have any recent seizure activity, no neuropathy. PHYSICAL EXAMINATION: GENERAL: The patient is alert, in mild respiratory distress. VITAL SIGNS: Her blood pressure is 125/75, pulse 95, temperature 98.9 degrees. SKIN: Poor turgor, warm, no rash, no jaundice appreciated. HEENT: Head normocephalic, atraumatic. Eyes: Extraocular muscles intact. Pupils equal, round, reactive to light and accommodates. Anicteric sclerae. Pale conjunctivae. Nose, midline nasal septum. Mouth, dry mucosa. Poor dentition. NECK: Supple, no adenopathy, no thyromegaly, no bruits, no JVD. CHEST AND CARDIOVASCULAR: S1, S2. No rub, murmur, or gallop appreciated. Point of maximal impulse fifth intercostal space, left midclavicular line. No abdominal or femoral bruits appreciated. LUNGS: Equal expansion. No use of accessory muscles. No supraclavicular retractions, few rhonchi, but no rales nor wheezes appreciated. Right breast, no discharge. Left chest, she has had extensive scar, although away from the left axillary to supraclavicular area. ABDOMEN: Obese, soft, positive for bowel sounds. No bruits either diastolic or systolic. RECTAL: The patient refused. GENITOURINARY: Normal appearing female genitalia with indwelling Lai catheter. Urine at this point is coffee colored. EXTREMITIES: No evidence of any edema, cyanosis nor clubbing with palpable femoral, but unable to fully appreciate popliteal and dorsalis pedis pulses. MUSCULOSKELETAL: No effusions present in her joints with adequate range of motion. NEUROLOGIC: The patient is alert, verbal, motor is 5/5. Cranial nerves 3-12 intact. Sensory intact. LABORATORY DATA: Did reveal white count 3.8, hemoglobin 9.6, hematocrit 27.8, platelets 129. Sodium 137, potassium 3.5, chloride 103, bicarbonate 26, BUN 32, creatinine is 2, glucose 171, calcium 9.8. BNP 832. IMPRESSION: 1. Chronic kidney disease, MDRD GFR of 26 mL per minute, stage 4. The patient's chronic kidney disease is secondary to diabetic nephropathy with some underlying hypertensive nephrosclerosis. The possibility of membranous glomerulonephritis should be considered with history of carcinoma in the past. 2. Respiratory distress secondary to severe pulmonary hypertension as well as mild congestive heart failure. 3. Globular cardiac contour secondary to multivalvular disease and severe pulmonary hypertension. 4. Elevated BNP secondary to chronic kidney disease, severe pulmonary hypertension, valvular heart disease as well as mild congestive heart failure. 5. Gross hematuria secondary to trauma with heparin. 6. Mild form of lymphoma, status post resection. 7. Type 2 diabetes mellitus with chronic kidney disease. 8. Essential hypertension with chronic kidney disease. 9. Epilepsy. 10. Iron deficiency anemia. 11. Status post cerebrovascular accident with right hemiplegia. 12. Dyslipidemia. 13. Degenerative joint disease. 14. Gastroesophageal reflux disease. 15. Paroxysmal atrial fibrillation. PLAN: 1. Continue with diuretics for now. 2. Urinalysis. 3. Urine spot sodium, eosinophils, and creatinine. 4. Urine microalbumin to creatinine ratio. 5. Fluid restriction. 6. Daily weights. 7. Add nitrates to hopefully decrease preload. 8. Follow up chest x-ray. JOB# [id number]
[2018-09-03 22:39] LABS: URINE SOURCE FOLEY PORT
[2018-09-03 22:41] LABS: URINE BILIRUBIN NEGATIVE (NEGATIVE); URINE BLOOD SMALL (NEGATIVE); URINE GLUCOSE (UA) NEGATIVE (NEGATIVE); URINE KETONE NEGATIVE (NEGATIVE); URINE LEUKOCYTE ESTERASE NEGATIVE (NEGATIVE); URINE MICROSCOPIC INDICATED? YES; URINE NITRATE NEGATIVE (NEGATIVE); URINE PH 5.5 (4.6 - 8.0); URINE PROTEIN 30 mg/dL (NEGATIVE); URINE UROBILINOGEN 0.2 E.U./dL (0.2 - 1.0)
[2018-09-03 22:54] LABS: URINE CLARITY HAZY (CLEAR); URINE COLOR YELLOW
[2018-09-03 22:56] LABS: URINE BACTERIA NONE SEEN /hpf (NONE SEEN); URINE EPITHELIAL CELLS OCCASIONAL /lpf (FEW); URINE WBC 0-2 /hpf (0-5)
[2018-09-04 05:17] LABS: % BASOPHILS 0.2 % (0.0-2.0); % EOSINOPHILS 1.4 % (0.0-5.0); % MONOCYTES 9.8 % (2.0-10.0); % NEUTROPHILS 64.6 % (40.0-80.0); EOSINOPHILE ABSOLUTE 0.1 Th/cmm (0.1-0.4); HEMATOCRIT 28.8 % (41.0-60); HEMOGLOBIN 9.7 gm/dL (12-16); LYMPHOCYTE ABSOLUTE 0.9 Th/cmm (1.5-3.0); MEAN CELL VOLUME 86.7 fl (81-100); MEAN CORPUSCULAR HEMOGLOBIN 29.2 pg (27.0-31.0); MEAN CORPUSCULAR HGB CONC 33.6 pg (28.0-36.0); MEAN PLATELET VOLUME 7.3 fl; MONOCYTE ABSOLUTE 0.4 Th/cmm (0.3-1.0); NEUTROPHILE ABSOLUTE 2.3 Th/cmm (1.8-8.0); PLATELET COUNT 135 Th/cmm (150-400); RED BLOOD COUNT 3.32 Mil/cmm (3.80-5.10); RED CELL DISTRIBUTION WIDTH 17.4 % (11.5-20.0)
[2018-09-04 05:22] LABS: EOSINOPHIL SMEAR SOURCE URINE; EOSINOPHILS SMEAR COUNT NONE SEEN (NONE SEEN)
[2018-09-04 05:23] LABS: WHITE BLOOD COUNT 3.7 Th/cmm (4.8-10.8)
[2018-09-04 06:06] LABS: CALCIUM SERUM 9.5 mg/dL (8.6-10.3); CARBON DIOXIDE 26.5 mEq/L (21.0-31.0); CREATININE - SERUM 1.9 mg/dL (0.6-1.2); GFR AFRICAN-AMERICAN 34.4 ml/min (>90); GFR NON AFRICAN-AMERICAN 28.5 ml/min; MAGNESIUM 2.2 mg/dL (1.9-2.7); PHOSPHOROUS 3.2 mg/dL (2.5-5.0); POTASSIUM SERUM 3.5 mEq/L (3.5-5.1)
[2018-09-04] MEDS: INSULIN ASPART SLIDING SCALE 100 UNITS/ML UNIT SUBQ SCH ×3 (06:53→17:04)
[2018-09-04] MEDS: Pantoprazole 40 mg EC Tab PO SCH (06:56)
--- NOTE | 2018-09-04 08:20 | General Progress Note ---
Subjective - Review of Systems Service Date: 09/04/18 Subjective: Patient was seen and examined this morning. Awake, Alert, no acute distress. denies SOB. clinically stable. feeling better. Objective - Results Result Diagrams: 09/04/18 04:45 09/04/18 04:45 Recent Labs: Laboratory Last Values WBC 3.7 Th/cmm (4.8-10.8) L 09/04/18 04:45 RBC 3.32 Mil/cmm (3.80-5.10) L 09/04/18 04:45 Hgb 9.7 gm/dL (12-16) L 09/04/18 04:45 Hct 28.8 % (41.0-60) L 09/04/18 04:45 MCV 86.7 fl (81-100) 09/04/18 04:45 MCH 29.2 pg (27.0-31.0) 09/04/18 04:45 MCHC Differential 33.6 pg (28.0-36.0) 09/04/18 04:45 RDW 17.4 % (11.5-20.0) 09/04/18 04:45 Plt Count 135 Th/cmm (150-400) L 09/04/18 04:45 MPV 7.3 fl 09/04/18 04:45 Neutrophils % 64.6 % (40.0-80.0) 09/04/18 04:45 Lymphocytes % 24.0 % (20.0-50.0) 09/04/18 04:45 Monocytes % 9.8 % (2.0-10.0) 09/04/18 04:45 Eosinophils % 1.4 % (0.0-5.0) 09/04/18 04:45 Basophils % 0.2 % (0.0-2.0) 09/04/18 04:45 Eos Smear Source URINE 09/03/18 22:28 Eos Smear Total Cells NONE SEEN (NONE SEEN) 09/03/18 22:28 PT 12.6 SECONDS (9.5-11.5) H 09/01/18 15:07 INR 1.22 (0.5-1.4) 09/01/18 15:07 PTT (Actin FS) 30.5 SECONDS (26.0-38.0) 09/01/18 15:07 D-Dimer 1290 ng/mL (100-400) H 09/01/18 15:07 Sodium 136 mEq/L (136-145) 09/04/18 04:45 Potassium 3.5 mEq/L (3.5-5.1) 09/04/18 04:45 Chloride 102 mEq/L (98-107) 09/04/18 04:45 Carbon Dioxide 26.5 mEq/L (21.0-31.0) 09/04/18 04:45 Anion Gap 11.0 (7.0-16.0) 09/04/18 04:45 BUN 34 mg/dL (7-25) H 09/04/18 04:45 Creatinine 1.9 mg/dL (0.6-1.2) H 09/04/18 04:45 Est GFR ( Amer) 34.4 ml/min (>90) 09/04/18 04:45 Est GFR (Non-Af Amer) 28.5 ml/min 09/04/18 04:45 BUN/Creatinine Ratio 17.9 09/04/18 04:45 Glucose 136 mg/dL (70-105) H 09/04/18 04:45 POC Glucose 139 MG/DL (70 - 105) H 09/04/18 05:53 Whole Bld Lactic Acid 0.62 mmol/L (0.60-1.99) 09/01/18 15:07 Calcium 9.5 mg/dL (8.6-10.3) 09/04/18 04:45 Phosphorus 3.2 mg/dL (2.5-5.0) 09/04/18 04:45 Magnesium 2.2 mg/dL (1.9-2.7) 09/04/18 04:45 Iron 51 ug/dL (27-139) 09/02/18 09:15 TIBC 268 ug/dL (250-450) 09/02/18 09:15 Iron Saturation 19 % (15-55) 09/02/18 09:15 Unsaturated IBC 217 ug/dL (118-369) 09/02/18 09:15 Ferritin 332 ng/mL (15-150) H 09/02/18 09:15 Total Bilirubin 1.6 mg/dL (0.3-1.0) H 09/02/18 09:15 AST 23 U/L (13-39) 09/02/18 09:15 ALT 18 U/L (7-52) 09/02/18 09:15 Alkaline Phosphatase 275 U/L (34-104) H 09/02/18 09:15 Troponin I 0.02 ng/mL (0.01-0.05) 09/01/18 15:07 B-Natriuretic Peptide 786.0 pg/mL (5.0-100.0) H 09/04/18 04:45 Total Protein 7.6 gm/dL (6.0-8.3) 09/02/18 09:15 Albumin 3.6 gm/dL (3.7-5.3) L 09/02/18 09:15 Globulin 4.0 gm/dL 09/02/18 09:15 Albumin/Globulin Ratio 0.9 (1.0-1.8) L 09/02/18 09:15 Triglycerides 58 mg/dL (<150) 09/02/18 09:15 Cholesterol 107 mg/dL (<200) 09/02/18 09:15 LDL Cholesterol Direct 32 mg/dL (75-193) L 09/02/18 09:15 HDL Cholesterol 49 mg/dL (23-92) 09/02/18 09:15 Vitamin B12 970 pg/mL (232-1245) 09/02/18 09:15 Folic Acid >20.0 ng/mL (>3.0) 09/02/18 09:15 TSH 5.66 uIU/ml (0.34-5.60) H 09/02/18 09:15 Urine Source [place] 09/03/18 22:28 Urine Color YELLOW 09/03/18 22:28 Urine Clarity HAZY (CLEAR) 09/03/18 22:28 Urine pH 5.5 (4.6 - 8.0) 09/03/18 22:28 Ur Specific [place] 1.025 (1.005-1.030) 09/03/18 22:28 Urine Protein 30 mg/dL (NEGATIVE) H 09/03/18 22:28 Urine Glucose (UA) NEGATIVE mg/dL (NEGATIVE) 09/03/18 22:28 Urine Ketones NEGATIVE mg/dL (NEGATIVE) 09/03/18 22:28 Urine Blood SMALL (NEGATIVE) H 09/03/18 22:28 Urine Nitrate NEGATIVE (NEGATIVE) 09/03/18 22:28 Urine Bilirubin NEGATIVE (NEGATIVE) 09/03/18 22:28 Urine Urobilinogen 0.2 E.U./dL (0.2 - 1.0) 09/03/18 22:28 Ur Leukocyte Esterase NEGATIVE (NEGATIVE) 09/03/18 22:28 Urine RBC 5-10 /hpf (0-5) H 09/03/18 22:28 Urine WBC 0-2 /hpf (0-5) 09/03/18 22:28 Ur Epithelial Cells OCCASIONAL /lpf (FEW) 09/03/18 22:28 Urine Bacteria NONE SEEN /hpf (NONE SEEN) 09/03/18 22:28 Ur Random Sodium 85 mmol/L 09/03/18 22:28 Urine Creatinine 87.0 mg/dl (28.0-217.0) 09/03/18 22:28 - Physical Exam Vitals and I&O: Vital Signs Temp 98.1 F 09/04/18 04:00 Pulse 75 09/04/18 04:00 Resp 18 09/04/18 04:00 BP 148/88 09/04/18 04:00 Pulse Ox 98 09/04/18 04:00 Intake & Output 09/03/18 09/04/18 09/04/18 18:59 06:59 18:59 Intake Total 600 360 Output Total 350 550 Balance 250 -190 Weight (lbs) 83.461 kg 85.91 kg Intake: Oral 600 360 Output: Urine 350 550 Other: # Bowel Movements 0 Weight Source Bedscale Bedscale Active Medications: Current Medications Atorvastatin Calcium (Lipitor) 80 mg PO HS [facility]; Protocol Stop: 11/01/18 20:59 Last Admin: 09/03/18 21:12 Dose: 80 mg Carvedilol (Coreg) 25 mg PO BID [facility] Stop: 11/01/18 08:59 Last Admin: 09/03/18 17:00 Dose: 25 mg Diphenhydramine HCl (Benadryl) 25 mg PO Q6HR PRN PRN Reason: Itching Stop: 11/03/18 03:05 Last Admin: 09/04/18 04:14 Dose: 25 mg Ferrous Sulfate (Iron) 325 mg PO BID [facility] Stop: 11/01/18 08:59 Last Admin: 09/03/18 17:00 Dose: 325 mg Furosemide (Lasix) 40 mg IVP DAILY [facility] Stop: 11/03/18 08:59 Hydralazine HCl (Apresoline) 100 mg PO TID [facility] Stop: 11/01/18 08:59 Last Admin: 09/03/18 21:12 Dose: 100 mg Insulin Aspart (Novolog Insulin Sliding Scale) 0 units SUBQ ACHS [facility]; Protocol Stop: 11/01/18 11:29 Last Admin: 09/04/18 06:53 Dose: Not Given Isosorbide Dinitrate (Isordil) 20 mg PO BID [facility] Stop: 11/02/18 19:59 Last Admin: 09/04/18 01:18 Dose: Not Given Levetiracetam (Keppra) 500 mg PO Q12HR [facility] Stop: 11/01/18 08:59 Last Admin: 09/03/18 21:12 Dose: 500 mg Miscellaneous (Melatonin [Melatonin]) 3 mg PO HS [facility] Stop: 11/01/18 20:59 Mupirocin (Bactroban Oint) 1 appl NS BID [facility] Stop: 09/08/18 09:01 Last Admin: 09/03/18 17:15 Dose: 1 appl Pantoprazole Sodium (Protonix) 40 mg PO QDAC [facility] Stop: 11/01/18 08:59 Last Admin: 09/04/18 06:56 Dose: 40 mg General: Alert, Oriented x3 HEENT: Atraumatic, PERRLA, EOMI Neck: Supple Cardiovascular: Regular rate, Normal S1, Normal S2 Lungs: Clear to auscultation Abdomen: Bowel sounds, Soft Extremities: Edema (+1), no Clubbing, no Cyanosis Assessment/Plan - Assessment Assessment: CHF pulmonary hypertension HTN Acute on Chronic Renal insufficiency 2 to Diabetic Neuropathy CVA w/ Right hemiplegia DJD GERD paroxsymal Atrial Fib h/o lymphoma diabetes mellitus elevated BNP anemia hyperlipidemia seizure disorder hematuria - Plan Plan: will discharge patient to SNF continue home meds. Nutritional Asmnt/Malnutr-PDOC - Dietary Evaluation Malnutrition Findings (Please click <Entered> for more info): Nutritional Asmnt/Malnutrition Start: 09/02/18 15: 42 Text: Status: Complete Freq: Protocol: Document 09/02/18 15:53 ALICIA (Rec: 09/02/18 16:37 ALICIA DOYLE) Nutritional Asmnt/Malnutrition Patient General Information Nutritional Screening High Risk Consult Diagnosis Possible CHF Pertinent Medical Hx/Surgical Hx lymphoma, HTN, dyslipidemia, anemia, DM, CVA/TIA, seizures, chronic kidney disease, atrial fibrillation, hemiplegia Subjective Information Pt was sleeping in bed at time of visit. Pt was NPO at lunch d/t U/S scheduled in the afternoon. Current Diet Order/ Nutrition Support CCHO 45g Pertinent Medications lipitor, iron, heparin, novolog, keppra, protonix Pertinent Labs 09/02: glucose 166, BUN 33, Cr 2.0, POC 129, Alb 3.6 09/01: Na 135, BUN 35, Cr 1.9, glucose 208 Nutritional Hx/Data Height 1.6 m Height (Calculated Centimeters) 160.0 Current Weight (lbs) 83.461 kg Weight (Calculated Kilograms) 83.5 Weight (Calculated Grams) 60032.0 [place] Body Weight 115 lb Body Mass Index (BMI) 32.5 Weight Status Obese GI Symptoms GI Symptoms None Last BM none noted Difficult in: None Food Allergies No Skin Integrity/Comment: reddened left foot, pressure area to right foot, non- pitting 3+ edema to right leg, non-pitting 3+ edema to left arm Estimated Nutritional Goals BEE in Kcals: Using Current wt Calories/Kcals/Kg 20-25 Kcals Calculated 2960-1170 Protein: Using Current wt Protein g/k.8 Protein Calculated 67 g Fluid: ml per MD Nutritional Problem 1. Problem Problem Altered nutrition related lab values Etiology possible renal dysfunction Signs/Symptoms: BUN 33, Cr 2.0 Malnutrition Alert Is there a minimum of two criteria No selected? Query Text:Check all the applicable criteria. A minimum of two criteria are recommended for diagnosis of either severe or non-severe malnutrition. Malnutrition Related to Morbid Obesity Malnutrition related to morbid obesity No Intervention/Recommendation Comments 1. Recommend to start low sodium (2 gm) diet in combination with current CCHO 45g diet order d/t non-pitting 3+ edema to right leg and non -pitting 3+ edema to left arm 2. Monitor renal labs and edema of left arm and right leg 3. F/U as moderate risk, 09/05 -09/07; PO check 09/04 Expected Outcomes/Goals Expected Outcomes/Goals 1. PO intake at least 75% of all meals. 2. Renal labs to approach normal limits and reduction of edema on left arm and right leg Reviewed by Mikaela Jensen
[2018-09-04] MEDS: Multivitamin w/ Minerals Tab PO SCH (08:44)
[2018-09-04] MEDS: Ferrous Sulfate 325 MG TAB PO SCH ×2 (08:45→16:22)
--- NOTE | 2018-09-04 09:00 | Diagnostic Imaging Report ---
CHEST X-RAY: AP view INDICATION: CHF COMPARISON: 09/02/2018 Findings: Mild increased initial lung markings are noted. No focal consolidation or effusions. Marked cardiomegaly is noted. Postsurgical changes are noted. IMPRESSION: No focal consolidation identified. There may be a marginal degree of congestion Marked cardiomegaly. Please correlate clinically.
--- NOTE | 2018-09-04 10:18 | General Progress Note ---
Subjective - Review of Systems Service Date: 09/04/18 Objective - Results Result Diagrams: 09/04/18 04:45 09/04/18 04:45 Recent Labs: Laboratory Last Values WBC 3.7 Th/cmm (4.8-10.8) L 09/04/18 04:45 RBC 3.32 Mil/cmm (3.80-5.10) L 09/04/18 04:45 Hgb 9.7 gm/dL (12-16) L 09/04/18 04:45 Hct 28.8 % (41.0-60) L 09/04/18 04:45 MCV 86.7 fl (81-100) 09/04/18 04:45 MCH 29.2 pg (27.0-31.0) 09/04/18 04:45 MCHC Differential 33.6 pg (28.0-36.0) 09/04/18 04:45 RDW 17.4 % (11.5-20.0) 09/04/18 04:45 Plt Count 135 Th/cmm (150-400) L 09/04/18 04:45 MPV 7.3 fl 09/04/18 04:45 Neutrophils % 64.6 % (40.0-80.0) 09/04/18 04:45 Lymphocytes % 24.0 % (20.0-50.0) 09/04/18 04:45 Monocytes % 9.8 % (2.0-10.0) 09/04/18 04:45 Eosinophils % 1.4 % (0.0-5.0) 09/04/18 04:45 Basophils % 0.2 % (0.0-2.0) 09/04/18 04:45 Eos Smear Source URINE 09/03/18 22:28 Eos Smear Total Cells NONE SEEN (NONE SEEN) 09/03/18 22:28 PT 12.6 SECONDS (9.5-11.5) H 09/01/18 15:07 INR 1.22 (0.5-1.4) 09/01/18 15:07 PTT (Actin FS) 30.5 SECONDS (26.0-38.0) 09/01/18 15:07 D-Dimer 1290 ng/mL (100-400) H 09/01/18 15:07 Sodium 136 mEq/L (136-145) 09/04/18 04:45 Potassium 3.5 mEq/L (3.5-5.1) 09/04/18 04:45 Chloride 102 mEq/L (98-107) 09/04/18 04:45 Carbon Dioxide 26.5 mEq/L (21.0-31.0) 09/04/18 04:45 Anion Gap 11.0 (7.0-16.0) 09/04/18 04:45 BUN 34 mg/dL (7-25) H 09/04/18 04:45 Creatinine 1.9 mg/dL (0.6-1.2) H 09/04/18 04:45 Est GFR ( Amer) 34.4 ml/min (>90) 09/04/18 04:45 Est GFR (Non-Af Amer) 28.5 ml/min 09/04/18 04:45 BUN/Creatinine Ratio 17.9 09/04/18 04:45 Glucose 136 mg/dL (70-105) H 09/04/18 04:45 POC Glucose 139 MG/DL (70 - 105) H 09/04/18 05:53 Whole Bld Lactic Acid 0.62 mmol/L (0.60-1.99) 09/01/18 15:07 Calcium 9.5 mg/dL (8.6-10.3) 09/04/18 04:45 Phosphorus 3.2 mg/dL (2.5-5.0) 09/04/18 04:45 Magnesium 2.2 mg/dL (1.9-2.7) 09/04/18 04:45 Iron 51 ug/dL (27-139) 09/02/18 09:15 TIBC 268 ug/dL (250-450) 09/02/18 09:15 Iron Saturation 19 % (15-55) 09/02/18 09:15 Unsaturated IBC 217 ug/dL (118-369) 09/02/18 09:15 Ferritin 332 ng/mL (15-150) H 09/02/18 09:15 Total Bilirubin 1.6 mg/dL (0.3-1.0) H 09/02/18 09:15 AST 23 U/L (13-39) 09/02/18 09:15 ALT 18 U/L (7-52) 09/02/18 09:15 Alkaline Phosphatase 275 U/L (34-104) H 09/02/18 09:15 Troponin I 0.02 ng/mL (0.01-0.05) 09/01/18 15:07 B-Natriuretic Peptide 786.0 pg/mL (5.0-100.0) H 09/04/18 04:45 Total Protein 7.6 gm/dL (6.0-8.3) 09/02/18 09:15 Albumin 3.6 gm/dL (3.7-5.3) L 09/02/18 09:15 Globulin 4.0 gm/dL 09/02/18 09:15 Albumin/Globulin Ratio 0.9 (1.0-1.8) L 09/02/18 09:15 Triglycerides 58 mg/dL (<150) 09/02/18 09:15 Cholesterol 107 mg/dL (<200) 09/02/18 09:15 LDL Cholesterol Direct 32 mg/dL (75-193) L 09/02/18 09:15 HDL Cholesterol 49 mg/dL (23-92) 09/02/18 09:15 Vitamin B12 970 pg/mL (232-1245) 09/02/18 09:15 Folic Acid >20.0 ng/mL (>3.0) 09/02/18 09:15 TSH 5.66 uIU/ml (0.34-5.60) H 09/02/18 09:15 Urine Source [place] 09/03/18 22:28 Urine Color YELLOW 09/03/18 22:28 Urine Clarity HAZY (CLEAR) 09/03/18 22:28 Urine pH 5.5 (4.6 - 8.0) 09/03/18 22:28 Ur Specific [place] 1.025 (1.005-1.030) 09/03/18 22:28 Urine Protein 30 mg/dL (NEGATIVE) H 09/03/18 22:28 Urine Glucose (UA) NEGATIVE mg/dL (NEGATIVE) 09/03/18 22:28 Urine Ketones NEGATIVE mg/dL (NEGATIVE) 09/03/18 22:28 Urine Blood SMALL (NEGATIVE) H 09/03/18 22:28 Urine Nitrate NEGATIVE (NEGATIVE) 09/03/18 22:28 Urine Bilirubin NEGATIVE (NEGATIVE) 09/03/18 22:28 Urine Urobilinogen 0.2 E.U./dL (0.2 - 1.0) 09/03/18 22:28 Ur Leukocyte Esterase NEGATIVE (NEGATIVE) 09/03/18 22:28 Urine RBC 5-10 /hpf (0-5) H 09/03/18 22:28 Urine WBC 0-2 /hpf (0-5) 09/03/18 22:28 Ur Epithelial Cells OCCASIONAL /lpf (FEW) 09/03/18 22:28 Urine Bacteria NONE SEEN /hpf (NONE SEEN) 09/03/18 22:28 Ur Random Sodium 85 mmol/L 09/03/18 22:28 Urine Creatinine 87.0 mg/dl (28.0-217.0) 09/03/18 22:28 - Physical Exam Vitals and I&O: Vital Signs Temp 97.9 F 09/04/18 08:00 Pulse 80 09/04/18 08:45 Resp 18 09/04/18 08:00 BP 154/94 09/04/18 08:46 Pulse Ox 94 09/04/18 08:00 Intake & Output 09/03/18 09/04/18 09/04/18 18:59 06:59 18:59 Intake Total 600 360 Output Total 350 550 Balance 250 -190 Weight (lbs) 83.461 kg 85.91 kg Intake: Oral 600 360 Output: Urine 350 550 Other: # Bowel Movements 0 Weight Source Bedscale Bedscale Active Medications: Current Medications Atorvastatin Calcium (Lipitor) 80 mg PO HS [facility]; Protocol Stop: 11/01/18 20:59 Last Admin: 09/03/18 21:12 Dose: 80 mg Carvedilol (Coreg) 25 mg PO BID [facility] Stop: 11/01/18 08:59 Last Admin: 09/04/18 08:44 Dose: 25 mg Diphenhydramine HCl (Benadryl) 25 mg PO Q6HR PRN PRN Reason: Itching Stop: 11/03/18 03:05 Last Admin: 09/04/18 04:14 Dose: 25 mg Ferrous Sulfate (Iron) 325 mg PO BID [facility] Stop: 11/01/18 08:59 Last Admin: 09/04/18 08:45 Dose: 325 mg Furosemide (Lasix) 40 mg IVP DAILY [facility] Stop: 11/03/18 08:59 Last Admin: 09/04/18 08:46 Dose: 40 mg Hydralazine HCl (Apresoline) 100 mg PO TID [facility] Stop: 11/01/18 08:59 Last Admin: 09/04/18 08:45 Dose: 100 mg Insulin Aspart (Novolog Insulin Sliding Scale) 0 units SUBQ ACHS [facility]; Protocol Stop: 11/01/18 11:29 Last Admin: 09/04/18 06:53 Dose: Not Given Isosorbide Dinitrate (Isordil) 20 mg PO BID [facility] Stop: 11/02/18 19:59 Last Admin: 09/04/18 08:45 Dose: 20 mg Levetiracetam (Keppra) 500 mg PO Q12HR [facility] Stop: 11/01/18 08:59 Last Admin: 09/04/18 08:45 Dose: 500 mg Miscellaneous (Melatonin [Melatonin]) 3 mg PO HS [facility] Stop: 11/01/18 20:59 Mupirocin (Bactroban Oint) 1 appl NS BID [facility] Stop: 09/08/18 09:01 Last Admin: 09/04/18 09:00 Dose: 1 appl Pantoprazole Sodium (Protonix) 40 mg PO QDAC [facility] Stop: 11/01/18 08:59 Last Admin: 09/04/18 06:56 Dose: 40 mg General: Alert, Oriented x3 HEENT: Atraumatic, PERRLA, EOMI Neck: Supple Cardiovascular: Regular rate, Normal S1, Normal S2 Lungs: Clear to auscultation Abdomen: Bowel sounds, Soft Extremities: Edema (+1), no Clubbing, no Cyanosis Assessment/Plan - Assessment Assessment: *H/O lymphoma; MARIBETH *CYtopenia; normal size spleen, follow B12, folate *hematuria improved off heparin Nutritional Asmnt/Malnutr-PDOC - Dietary Evaluation Malnutrition Findings (Please click <Entered> for more info): Nutritional Asmnt/Malnutrition Start: 09/02/18 15: 42 Text: Status: Complete Freq: Protocol: Document 09/02/18 15:53 ALICIA (Rec: 09/02/18 16:37 ALICIA DOYLE) Nutritional Asmnt/Malnutrition Patient General Information Nutritional Screening High Risk Consult Diagnosis Possible CHF Pertinent Medical Hx/Surgical Hx lymphoma, HTN, dyslipidemia, anemia, DM, CVA/TIA, seizures, chronic kidney disease, atrial fibrillation, hemiplegia Subjective Information Pt was sleeping in bed at time of visit. Pt was NPO at lunch d/t U/S scheduled in the afternoon. Current Diet Order/ Nutrition Support CCHO 45g Pertinent Medications lipitor, iron, heparin, novolog, keppra, protonix Pertinent Labs 09/02: glucose 166, BUN 33, Cr 2.0, POC 129, Alb 3.6 09/01: Na 135, BUN 35, Cr 1.9, glucose 208 Nutritional Hx/Data Height 1.6 m Height (Calculated Centimeters) 160.0 Current Weight (lbs) 83.461 kg Weight (Calculated Kilograms) 83.5 Weight (Calculated Grams) 69654.0 [place] Body Weight 115 lb Body Mass Index (BMI) 32.5 Weight Status Obese GI Symptoms GI Symptoms None Last BM none noted Difficult in: None Food Allergies No Skin Integrity/Comment: reddened left foot, pressure area to right foot, non- pitting 3+ edema to right leg, non-pitting 3+ edema to left arm Estimated Nutritional Goals BEE in Kcals: Using Current wt Calories/Kcals/Kg 20-25 Kcals Calculated 0104-1128 Protein: Using Current wt Protein g/k.8 Protein Calculated 67 g Fluid: ml per MD Nutritional Problem 1. Problem Problem Altered nutrition related lab values Etiology possible renal dysfunction Signs/Symptoms: BUN 33, Cr 2.0 Malnutrition Alert Is there a minimum of two criteria No selected? Query Text:Check all the applicable criteria. A minimum of two criteria are recommended for diagnosis of either severe or non-severe malnutrition. Malnutrition Related to Morbid Obesity Malnutrition related to morbid obesity No Intervention/Recommendation Comments 1. Recommend to start low sodium (2 gm) diet in combination with current CCHO 45g diet order d/t non-pitting 3+ edema to right leg and non -pitting 3+ edema to left arm 2. Monitor renal labs and edema of left arm and right leg 3. F/U as moderate risk, 09/05 -09/07; PO check 09/04 Expected Outcomes/Goals Expected Outcomes/Goals 1. PO intake at least 75% of all meals. 2. Renal labs to approach normal limits and reduction of edema on left arm and right leg Reviewed by Mikaela Jensen
--- NOTE | 2018-09-04 14:13 | General Progress Note ---
Subjective - Review of Systems Service Date: 09/04/18 Subjective: alert, denied sob Objective - Results Result Diagrams: 09/04/18 04:45 09/04/18 04:45 Recent Labs: Laboratory Last Values WBC 3.7 Th/cmm (4.8-10.8) L 09/04/18 04:45 RBC 3.32 Mil/cmm (3.80-5.10) L 09/04/18 04:45 Hgb 9.7 gm/dL (12-16) L 09/04/18 04:45 Hct 28.8 % (41.0-60) L 09/04/18 04:45 MCV 86.7 fl (81-100) 09/04/18 04:45 MCH 29.2 pg (27.0-31.0) 09/04/18 04:45 MCHC Differential 33.6 pg (28.0-36.0) 09/04/18 04:45 RDW 17.4 % (11.5-20.0) 09/04/18 04:45 Plt Count 135 Th/cmm (150-400) L 09/04/18 04:45 MPV 7.3 fl 09/04/18 04:45 Neutrophils % 64.6 % (40.0-80.0) 09/04/18 04:45 Lymphocytes % 24.0 % (20.0-50.0) 09/04/18 04:45 Monocytes % 9.8 % (2.0-10.0) 09/04/18 04:45 Eosinophils % 1.4 % (0.0-5.0) 09/04/18 04:45 Basophils % 0.2 % (0.0-2.0) 09/04/18 04:45 Eos Smear Source URINE 09/03/18 22:28 Eos Smear Total Cells NONE SEEN (NONE SEEN) 09/03/18 22:28 PT 12.6 SECONDS (9.5-11.5) H 09/01/18 15:07 INR 1.22 (0.5-1.4) 09/01/18 15:07 PTT (Actin FS) 30.5 SECONDS (26.0-38.0) 09/01/18 15:07 D-Dimer 1290 ng/mL (100-400) H 09/01/18 15:07 Sodium 136 mEq/L (136-145) 09/04/18 04:45 Potassium 3.5 mEq/L (3.5-5.1) 09/04/18 04:45 Chloride 102 mEq/L (98-107) 09/04/18 04:45 Carbon Dioxide 26.5 mEq/L (21.0-31.0) 09/04/18 04:45 Anion Gap 11.0 (7.0-16.0) 09/04/18 04:45 BUN 34 mg/dL (7-25) H 09/04/18 04:45 Creatinine 1.9 mg/dL (0.6-1.2) H 09/04/18 04:45 Est GFR ( Amer) 34.4 ml/min (>90) 09/04/18 04:45 Est GFR (Non-Af Amer) 28.5 ml/min 09/04/18 04:45 BUN/Creatinine Ratio 17.9 09/04/18 04:45 Glucose 136 mg/dL (70-105) H 09/04/18 04:45 POC Glucose 183 MG/DL (70 - 105) H 09/04/18 11:25 Whole Bld Lactic Acid 0.62 mmol/L (0.60-1.99) 09/01/18 15:07 Calcium 9.5 mg/dL (8.6-10.3) 09/04/18 04:45 Phosphorus 3.2 mg/dL (2.5-5.0) 09/04/18 04:45 Magnesium 2.2 mg/dL (1.9-2.7) 09/04/18 04:45 Iron 51 ug/dL (27-139) 09/02/18 09:15 TIBC 268 ug/dL (250-450) 09/02/18 09:15 Iron Saturation 19 % (15-55) 09/02/18 09:15 Unsaturated IBC 217 ug/dL (118-369) 09/02/18 09:15 Ferritin 332 ng/mL (15-150) H 09/02/18 09:15 Total Bilirubin 1.6 mg/dL (0.3-1.0) H 09/02/18 09:15 AST 23 U/L (13-39) 09/02/18 09:15 ALT 18 U/L (7-52) 09/02/18 09:15 Alkaline Phosphatase 275 U/L (34-104) H 09/02/18 09:15 Troponin I 0.02 ng/mL (0.01-0.05) 09/01/18 15:07 B-Natriuretic Peptide 786.0 pg/mL (5.0-100.0) H 09/04/18 04:45 Total Protein 7.6 gm/dL (6.0-8.3) 09/02/18 09:15 Albumin 3.6 gm/dL (3.7-5.3) L 09/02/18 09:15 Globulin 4.0 gm/dL 09/02/18 09:15 Albumin/Globulin Ratio 0.9 (1.0-1.8) L 09/02/18 09:15 Triglycerides 58 mg/dL (<150) 09/02/18 09:15 Cholesterol 107 mg/dL (<200) 09/02/18 09:15 LDL Cholesterol Direct 32 mg/dL (75-193) L 09/02/18 09:15 HDL Cholesterol 49 mg/dL (23-92) 09/02/18 09:15 Vitamin B12 970 pg/mL (232-1245) 09/02/18 09:15 Folic Acid >20.0 ng/mL (>3.0) 09/02/18 09:15 TSH 5.66 uIU/ml (0.34-5.60) H 09/02/18 09:15 Urine Source [place] 09/03/18 22:28 Urine Color YELLOW 09/03/18 22:28 Urine Clarity HAZY (CLEAR) 09/03/18 22:28 Urine pH 5.5 (4.6 - 8.0) 09/03/18 22:28 Ur Specific [place] 1.025 (1.005-1.030) 09/03/18 22:28 Urine Protein 30 mg/dL (NEGATIVE) H 09/03/18 22:28 Urine Glucose (UA) NEGATIVE mg/dL (NEGATIVE) 09/03/18 22:28 Urine Ketones NEGATIVE mg/dL (NEGATIVE) 09/03/18 22:28 Urine Blood SMALL (NEGATIVE) H 09/03/18 22:28 Urine Nitrate NEGATIVE (NEGATIVE) 09/03/18 22:28 Urine Bilirubin NEGATIVE (NEGATIVE) 09/03/18 22:28 Urine Urobilinogen 0.2 E.U./dL (0.2 - 1.0) 09/03/18 22:28 Ur Leukocyte Esterase NEGATIVE (NEGATIVE) 09/03/18 22:28 Urine RBC 5-10 /hpf (0-5) H 09/03/18 22:28 Urine WBC 0-2 /hpf (0-5) 09/03/18 22:28 Ur Epithelial Cells OCCASIONAL /lpf (FEW) 09/03/18 22:28 Urine Bacteria NONE SEEN /hpf (NONE SEEN) 09/03/18 22:28 Ur Random Sodium 85 mmol/L 09/03/18 22:28 Urine Creatinine 87.0 mg/dl (28.0-217.0) 09/03/18 22:28 - Physical Exam Vitals and I&O: Vital Signs Temp 98.9 F 09/04/18 12:08 Pulse 85 09/04/18 12:08 Resp 18 09/04/18 12:08 BP 135/81 09/04/18 12:08 Pulse Ox 97 09/04/18 12:08 Intake & Output 09/03/18 09/04/18 09/04/18 18:59 06:59 18:59 Intake Total 600 360 Output Total 350 550 Balance 250 -190 Weight (lbs) 83.461 kg 85.91 kg Intake: Oral 600 360 Output: Urine 350 550 Other: # Bowel Movements 0 Weight Source Bedscale Bedscale Active Medications: Current Medications Atorvastatin Calcium (Lipitor) 80 mg PO HS [facility]; Protocol Stop: 11/01/18 20:59 Last Admin: 09/03/18 21:12 Dose: 80 mg Carvedilol (Coreg) 25 mg PO BID [facility] Stop: 11/01/18 08:59 Last Admin: 09/04/18 08:44 Dose: 25 mg Diphenhydramine HCl (Benadryl) 25 mg PO Q6HR PRN PRN Reason: Itching Stop: 11/03/18 03:05 Last Admin: 09/04/18 04:14 Dose: 25 mg Ferrous Sulfate (Iron) 325 mg PO BID [facility] Stop: 11/01/18 08:59 Last Admin: 09/04/18 08:45 Dose: 325 mg Furosemide (Lasix) 40 mg IVP DAILY [facility] Stop: 11/03/18 08:59 Last Admin: 10/10/18 08:46 Dose: 40 mg Hydralazine HCl (Apresoline) 100 mg PO TID [facility] Stop: 11/01/18 08:59 Last Admin: 09/04/18 08:45 Dose: 100 mg Insulin Aspart (Novolog Insulin Sliding Scale) 0 units SUBQ ACHS [facility]; Protocol Stop: 11/01/18 11:29 Last Admin: 09/04/18 12:58 Dose: 2 units Isosorbide Dinitrate (Isordil) 20 mg PO BID [facility] Stop: 11/02/18 19:59 Last Admin: 09/04/18 08:45 Dose: 20 mg Levetiracetam (Keppra) 500 mg PO Q12HR [facility] Stop: 11/01/18 08:59 Last Admin: 09/04/18 08:45 Dose: 500 mg Miscellaneous (Melatonin [Melatonin]) 3 mg PO HS [facility] Stop: 11/01/18 20:59 Mupirocin (Bactroban Oint) 1 appl NS BID [facility] Stop: 09/08/18 09:01 Last Admin: 09/04/18 09:00 Dose: 1 appl Pantoprazole Sodium (Protonix) 40 mg PO QDAC [facility] Stop: 11/01/18 08:59 Last Admin: 09/04/18 06:56 Dose: 40 mg General: Alert, Oriented x3 HEENT: Atraumatic, PERRLA, EOMI Neck: Supple Cardiovascular: Regular rate, Normal S1, Normal S2 Lungs: Clear to auscultation Abdomen: Bowel sounds, Soft Extremities: Edema (+1), no Clubbing, no Cyanosis Neurological: Sensation intact Skin: no Rash Psych/Mental Status: Mood NL Assessment/Plan - Assessment Assessment: CKD Severe Pulm Htn Globular Cardiac contour Gross hematuria resolved mild form of Lymphoma - Plan Plan: Lab - Result Diagrams 09/04/18 04:45 09/04/18 04:45 Current Medications Atorvastatin Calcium (Lipitor) 80 mg PO HS [facility]; Protocol Stop: 11/01/18 20:59 Last Admin: 09/03/18 21:12 Dose: 80 mg Carvedilol (Coreg) 25 mg PO BID [facility] Stop: 11/01/18 08:59 Last Admin: 09/04/18 08:44 Dose: 25 mg Diphenhydramine HCl (Benadryl) 25 mg PO Q6HR PRN PRN Reason: Itching Stop: 11/03/18 03:05 Last Admin: 09/04/18 04:14 Dose: 25 mg Ferrous Sulfate (Iron) 325 mg PO BID [facility] Stop: 11/01/18 08:59 Last Admin: 09/04/18 08:45 Dose: 325 mg Furosemide (Lasix) 40 mg IVP DAILY [facility] Stop: 11/03/18 08:59 Last Admin: 09/04/18 08:46 Dose: 40 mg Hydralazine HCl (Apresoline) 100 mg PO TID [facility] Stop: 11/01/18 08:59 Last Admin: 09/04/18 08:45 Dose: 100 mg Insulin Aspart (Novolog Insulin Sliding Scale) 0 units SUBQ ACHS [facility]; Protocol Stop: 11/01/18 11:29 Last Admin: 09/04/18 12:58 Dose: 2 units Isosorbide Dinitrate (Isordil) 20 mg PO BID [facility] Stop: 11/02/18 19:59 Last Admin: 09/04/18 08:45 Dose: 20 mg Levetiracetam (Keppra) 500 mg PO Q12HR [facility] Stop: 11/01/18 08:59 Last Admin: 09/04/18 08:45 Dose: 500 mg Miscellaneous (Melatonin [Melatonin]) 3 mg PO HS [facility] Stop: 11/01/18 20:59 Mupirocin (Bactroban Oint) 1 appl NS BID SCHkidney fnc basically the same w/ BUN/CR of Pantoprazole Sodium (Protonix) 40 mg PO QDAC [facility] Stop: 11/01/18 08:59 Last Admin: 09/04/18 06:56 Dose: 40 mg Lab - Result Diagrams 09/04/18 04:45 09/04/18 04:45 kidney fnc basically the same w/ BUN/CR of 34/1.9 possible DC today continue lasix 40 mg po x 3 days f/u w/ me Nutritional Asmnt/Malnutr-PDOC - Dietary Evaluation Malnutrition Findings (Please click <Entered> for more info): Nutritional Asmnt/Malnutrition Start: 09/02/18 15: 42 Text: Status: Complete Freq: Protocol: Document 09/02/18 15:53 ALICIA (Rec: 09/02/18 16:37 ALICIA DOYLE) Nutritional Asmnt/Malnutrition Patient General Information Nutritional Screening High Risk Consult Diagnosis Possible CHF Pertinent Medical Hx/Surgical Hx lymphoma, HTN, dyslipidemia, anemia, DM, CVA/TIA, seizures, chronic kidney disease, atrial fibrillation, hemiplegia Subjective Information Pt was sleeping in bed at time of visit. Pt was NPO at lunch d/t U/S scheduled in the afternoon. Current Diet Order/ Nutrition Support CCHO 45g Pertinent Medications lipitor, iron, heparin, novolog, keppra, protonix Pertinent Labs 09/02: glucose 166, BUN 33, Cr 2.0, POC 129, Alb 3.6 09/01: Na 135, BUN 35, Cr 1.9, glucose 208 Nutritional Hx/Data Height 1.6 m Height (Calculated Centimeters) 160.0 Current Weight (lbs) 83.461 kg Weight (Calculated Kilograms) 83.5 Weight (Calculated Grams) 82595.0 [place] Body Weight 115 lb Body Mass Index (BMI) 32.5 Weight Status Obese GI Symptoms GI Symptoms None Last BM none noted Difficult in: None Food Allergies No Skin Integrity/Comment: reddened left foot, pressure area to right foot, non- pitting 3+ edema to right leg, non-pitting 3+ edema to left arm Estimated Nutritional Goals BEE in Kcals: Using Current wt Calories/Kcals/Kg 20-25 Kcals Calculated [id number] Protein: Using Current wt Protein g/k.8 Protein Calculated 67 g Fluid: ml per MD Nutritional Problem 1. Problem Problem Altered nutrition related lab values Etiology possible renal dysfunction Signs/Symptoms: BUN 33, Cr 2.0 Malnutrition Alert Is there a minimum of two criteria No selected? Query Text:Check all the applicable criteria. A minimum of two criteria are recommended for diagnosis of either severe or non-severe malnutrition. Malnutrition Related to Morbid Obesity Malnutrition related to morbid obesity No Intervention/Recommendation Comments 1. Recommend to start low sodium (2 gm) diet in combination with current CCHO 45g diet order d/t non-pitting 3+ edema to right leg and non -pitting 3+ edema to left arm 2. Monitor renal labs and edema of left arm and right leg 3. F/U as moderate risk, 09/05 -09/07; PO check 09/04 Expected Outcomes/Goals Expected Outcomes/Goals 1. PO intake at least 75% of all meals. 2. Renal labs to approach normal limits and reduction of edema on left arm and right leg Reviewed by Mikaela Jensen
== END 2018-09-04 16:30 | DRG 194 ==
LOC: ER 14:28 → TELE 21:10
PROVIDERS: ADMIT Family Medicine; ATTEND Family Medicine
DX: I13.0 Hypertensive heart and chronic kidney disease with heart failure and stage 1 through stage 4 chronic kidney disease, or unspecified chronic kidney disease (principal); E11.21 Type 2 diabetes mellitus with diabetic nephropathy; E11.40 Type 2 diabetes mellitus with diabetic neuropathy, unspecified; I08.1 Rheumatic disorders of both mitral and tricuspid valves; N18.4 Chronic kidney disease, stage 4 (severe); I27.20 Pulmonary hypertension, unspecified; I48.0 Paroxysmal atrial fibrillation; G40.909 Epilepsy, unspecified, not intractable, without status epilepticus; I50.33 Acute on chronic diastolic (congestive) heart failure; D50.9 Iron deficiency anemia, unspecified; E11.22 Type 2 diabetes mellitus with diabetic chronic kidney disease; I69.951 Hemiplegia and hemiparesis following unspecified cerebrovascular disease affecting right dominant side; M19.90 Unspecified osteoarthritis, unspecified site; D75.9 Disease of blood and blood-forming organs, unspecified; E78.5 Hyperlipidemia, unspecified; R31.9 Hematuria, unspecified; L25.9 Unspecified contact dermatitis, unspecified cause; Z90.12 Acquired absence of left breast and nipple; Z79.4 Long term (current) use of insulin; Z85.72 Personal history of non-Hodgkin lymphomas
CPT/HCPCS: 36415-UA; 71045-TC; 76700-TC; 80048-TC; 80053-TC; 80061-TC; 81001-TC; 81015-TC; 82043-90; 82570-TC; 82607-90; 82728-90; 82746-90; 82948-90; 83036-90; 83540-90; 83550-90; 83605; 83735-TC; 83880-TC; 84100-TC; 84300-TC; 84443-TC; 84484-TC; 85025-TC; 85379-TC; 85610-TC; 93005; 93970-TC-50; 96374; 97971-TC-LT; A9540; A9567; J1644; J1815; J1940; Z7610

== ENCOUNTER 2018-10-25 13:07 | Inpatient (IN) | payer MEDICAID ==
--- NOTE | 2018-10-25 13:42 | ED Physician Chart ---
ED Chief Complaint/HPI - Patient Information Date Seen:: 10/25/18 Time Seen:: 13:17 Chief Complaint:: abd distention & dyspnea History of Present Illness:: abd distention & dyspnea in a patient who had chronic renal insufficiency which is worsening. She also has a h/o cardiomegaly and CHF which is worsening. She has scleral edema today. Denies dysuria. No N, Allergies:: Allergies Allergy/AdvReac Type Severity Reaction Status Date / Time No Known Allergies Allergy Verified 09/01/18 14:47 Vitals:: Vital Signs - 8 hr 10/25/18 13:17 Temp 97.6 F HR 82 RR 17 BP 142/92 O2 Sat % 96 Historian:: Patient, Family Member Review:: Nurse's Note Reviewed, Transfer documents Reviewed ED Review of Systems - Review of Systems General/Constitutional: No fever, No chills, No weight loss, No weakness, No diaphoresis, No edema, No loss of appetite Skin: No skin lesions, No rash, No bruising Head: No headache, No light-headedness Eyes: No loss of vision, No pain, No diplopia ENT: No earache, No nasal drainage, No sore throat, No tinnitus Neck: No neck pain, No swelling, No thyromegaly, No stiffness, No mass noted Cardio Vascular: No chest pain, No palpitations, No PND, No orthopnea, No edema Pulmonary: No SOB, No cough, No sputum, No wheezing GI: Other (abd distention) G/U: No dysuria, No frequency, No hematuria Musculoskeletal: No bone or joint pain, No back pain, No muscle pain Endocrine: No polyuria, No polydipsia Psychiatric: No prior psych history, No depression, No anxiety, No suicidal ideation Hematopoietic: No bruising, No lymphadenopathy Allergic/Immuno: No urticaria, No angioedema Neurological: No syncope, No focal symptoms, No weakness, No paresthesia, No headache, No seizure, No dizziness, No confusion, No vertigo ED Past Medical History - Past Medical History Obtainable: No Past Medical History: HTN, DM, CAD, CHF, Dyslipidemia, Seizures, Other ( paroxysmal atrial fibrillation; chronic kidney disease; iron deficiency anemia; hemipelgai following CVA R side) Surgical History: other (left radical mastectomy secondary to lymphoma) Family Medical History - Family Member Mother History Unknown: Yes ED Physical Exam - Physical Examination General/Constitutional: Awake Other Gen/Cons comments:: chronically ill appearing female who is slightly jaundiced and pale appearing. Head: Atraumatic Eyes: PERRL, EOMI Other Eyes comments:: sclerae slightly edematous. Other Skin comments:: slightly jaundiced. L neck scarring. ENMT: External ears, nose nl Neck: Nontender, No nuchal rigidity, No stridor Other Respiratory comments:: rales bilaterally. Other Cardio Vascular comments:: irregularly irregular GI: No tenderness/rebounding/guarding, No organomegaly, No hernia, Normal BS's, Nondistended, No mass/bruits Other GI comments:: very distended. Nontender throughout (patient states that she is hungry). : No CVA tenderness Other Extremities comments:: 4+ pitting edema. Edema more on the right than on the left. tender calves to palpation. RLE looks larger on the right than on the left. Neuro/Psych: Alert/oriented, Mood normal Other Neuro/Psych comments:: RUE contracture. Misc: Normal back ED Assessment - Assessment General Assessment: EKG from 13:38:59 p.m. reveals atrial fibrillation with poor r wave progression. BLE ultrasound came back negative for DVT. CXR: CHF. presented case to Dr. Cisneros who will admit the patient to med/surg. ED Septic Shock - . Is Septic Shock (SBP<90, OR Lactate>4 mmol\L) present?: No - <6hrs of presentation: Vital Signs: Vital Signs - 8 hr 10/25/18 13:17 Temp 97.6 F HR 82 RR 17 BP 142/92 O2 Sat % 96 ED Reassessment (Disposition) - Reassessment Reassessment Condition:: Unchanged - Diagnosis Diagnosis:: Worsening CHF Renal failure in a setting of chronic kidney disease; Paroxysmal atrial fibrillation iron deficiency anemia hemipelgia following CVA R side Diabetes mellitus Unspecified convulsions Hypertension Hyperlipidemia Osteoarthritis - Patient Disposition Discharge/Transfer:: Acute Care w/in this hosp Admitted to:: Med/Surg Condition at Disposition:: Stable, Unchanged
[2018-10-25 13:53] LABS: % BASOPHILS 0.5 % (0.0-2.0); % EOSINOPHILS 0.7 % (0.0-5.0); % LYMPHOCYTES 12.4 % (20.0-50.0); % MONOCYTES 8.9 % (2.0-10.0); % NEUTROPHILS 77.5 % (40.0-80.0); HEMATOCRIT 26.4 % (41.0-60); HEMOGLOBIN 9.1 gm/dL (12-16); LYMPHOCYTE ABSOLUTE 0.5 Th/cmm (1.5-3.0); MEAN CELL VOLUME 89.9 fl (81-100); MEAN CORPUSCULAR HEMOGLOBIN 31.1 pg (27.0-31.0); MEAN CORPUSCULAR HGB CONC 34.6 pg (28.0-36.0); MEAN PLATELET VOLUME 7.4 fl; MONOCYTE ABSOLUTE 0.4 Th/cmm (0.3-1.0); NEUTROPHILE ABSOLUTE 3.1 Th/cmm (1.8-8.0); PLATELET COUNT 128 Th/cmm (150-400); RED BLOOD COUNT 2.93 Mil/cmm (3.80-5.10); RED CELL DISTRIBUTION WIDTH 16.8 % (11.5-20.0)
[2018-10-25 14:06] LABS: ALBUMIN 3.8 gm/dL (3.7-5.3); ANION GAP 15.7 (7.0-16.0); BILIRUBIN,TOTAL 1.8 mg/dL (0.3-1.0); CALCIUM SERUM 9.6 mg/dL (8.6-10.3); CARBON DIOXIDE 23.4 mEq/L (21.0-31.0); GFR AFRICAN-AMERICAN 20.3 ml/min (>90); GFR NON AFRICAN-AMERICAN 16.8 ml/min; MAGNESIUM 3.2 mg/dL (1.9-2.7); PHOSPHOROUS 3.8 mg/dL (2.5-5.0); POTASSIUM SERUM 5.1 mEq/L (3.5-5.1); TOTAL PROTEIN,SERUM 7.5 gm/dL (6.0-8.3)
[2018-10-25 14:16] LABS: AMYLASE SERUM 67 U/L (29-103); LIPASE 59 U/L (11-82)
--- NOTE | 2018-10-25 14:17 | Diagnostic Imaging Report ---
CHEST X-RAY: AP view INDICATION: Shortness of breath COMPARISON: 09/04/2018 FINDINGS: Mild increased interstitial lung markings are noted. There is no focal consolidation or pleural effusions postsurgical changes of the left axillary region and left neck region are noted. Marked cardiomegaly is noted. Degenerative changes of the spine are noted. IMPRESSION: Mild increased interstitial lung markings which may represent a slight degree of congestion. Please correlate clinically. No focal consolidation identified Marked cardiomegaly. Postsurgical changes.
--- NOTE | 2018-10-25 14:32 | Diagnostic Imaging Report ---
Bilateral lower extremity DVT study HISTORY: Bilateral lower extremity swelling COMPARISON: None Technique: Longitudinal and transverse sonographic images of the bilateral lower extremity veins were obtained with doppler analysis. FINDINGS: There is normal compressibility, augmentation and phasicity of the bilateral common femoral, superficial femoral, popliteal, and posterior tibial veins. No thrombus is visualized. IMPRESSION: No evidence of thrombus within the bilateral lower extremity veins.
[2018-10-25 14:39] LABS: INR 1.25 (0.5-1.4); PROTHROMBIN TIME (TEST) 12.9 SECONDS (9.5-11.5)
[2018-10-25 15:48] LABS: URINE SOURCE CATH
[2018-10-25 16:17] LABS: URINE BILIRUBIN NEGATIVE (NEGATIVE); URINE BLOOD NEGATIVE (NEGATIVE); URINE GLUCOSE (UA) NEGATIVE (NEGATIVE); URINE KETONE NEGATIVE (NEGATIVE); URINE LEUKOCYTE ESTERASE NEGATIVE (NEGATIVE); URINE NITRATE NEGATIVE (NEGATIVE); URINE PH 5.5 (4.6 - 8.0); URINE PROTEIN 30 mg/dL (NEGATIVE); URINE UROBILINOGEN 0.2 E.U./dL (0.2 - 1.0)
[2018-10-25 16:18] LABS: URINE CLARITY CLOUDY (CLEAR); URINE COLOR YELLOW; URINE MICROSCOPIC INDICATED? YES
[2018-10-25 16:22] LABS: URINE RBC NONE SEEN /hpf (0-5); URINE WBC 0-2 /hpf (0-5)
[2018-10-25 16:23] LABS: URINE AMORPHOUS SEDIMENT FEW URATES (NONE SEEN); URINE BACTERIA MODERATE /hpf (NONE SEEN); URINE EPITHELIAL CELLS FEW /lpf (FEW)
[2018-10-25 16:24] LABS: AMPHETAMINE URINE NEGATIVE (NEGATIVE); BARBITURATES URINE NEGATIVE (NEGATIVE); BENZODIAZEPINES QUAL URINE NEGATIVE (NEGATIVE); CANNABINOID THC NEGATIVE (NEGATIVE); COCAINE METABOLITE QUAL URINE NEGATIVE (NEGATIVE); METHADONE URINE NEGATIVE (NEGATIVE); METHAMPHETAMINES QUAL URINE NEGATIVE (NEGATIVE); OPIATES (MORPHINE) QUAL. URINE NEGATIVE (NEGATIVE); PHENCYCLIDINE (PCP) URINE NEGATIVE (NEGATIVE); TRICYCLICS (TCA) QUAL. URINE NEGATIVE (NEGATIVE)
[2018-10-25] MEDS ORDERED: Sodium Chloride 0.9% 1,000 ML IV SCH (18:45)
[2018-10-25 18:47] VITALS: BP 123/88
[2018-10-25] MEDS: INSULIN ASPART SLIDING SCALE 100 UNITS/ML UNIT SUBQ SCH (21:28)
--- NOTE | 2018-10-26 06:37 | History and Physical ---
History of Present Illness - HPI Chief Complaint: abd distention & dyspnea HPI: 62 y/o female who presents to [facility] ER from SNF for increasing abdominal distension and dyspnea noted by the nursing staff and increased scleral icterus. Patient has a previous history of HTN, DM, CAD, CHF, Dyslipidemia, Seizure disorder, Paraxysmal AF, Chronic Kidney Disease, Iron Deficiency anemia, CVA with right sided weakness. Initial labwork revealed ... WBC 4.0 H/h 9.1/26.4 plat 128K Na 132 K 5.1 Bun/Cr 72/3.0 glu 207 Ammonia 137 BNP 1020 UA cloudy bact moderate CXR revealed ... 1) mild increased interstitial lung markings which may represent a slight degree of congestion 2) no focal consolidation 3) marked cardiomegaly Doppler US Lower ext revealed ... 1)no evidence of thrombus within the bilateral lower extremity Patient was subsequently admitted for further evaluation and treatment. 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 GI: Report: Other (hepatic encephalopathy) Psych: Report: No Pertinent Hx Musculoskeletal: Report: No Pertinent Hx Rheumatologic: Report: No pertinent Hx Infectious Disease: Report: No Pertinent Hx Renal/: Report: Acute Renal Failure, Chronic Renal Failure, UTI Endocrine: Report: Diabetes Dermatology: Report: No Pertinent Hx - Past Surgical History Past Surgical History: No pertinent Hx Family Medical History - Family Member Mother History Unknown: Yes Social History Smoke: No Alcohol: None Drugs: None Lives: Jail - Medications Home Medications: Home Medication Medication Instructions Recorded Type Atorvastatin Calcium [Lipitor] 80 mg PO HS 09/01/18 History Carvedilol [Coreg] 25 mg PO BID 09/01/18 History Ferrous Sulfate [Iron] 325 mg PO BID 09/01/18 History Hydralazine HCl 100 mg PO TID 09/01/18 History Insulin Lispro [Humalog] 1 unit SQ ACHS 09/01/18 History Levetiracetam [Keppra] 500 mg PO Q12HR 09/01/18 History Multivitamin w/ Minerals 1 tab PO DAILY 09/01/18 History [Theragran M] Pantoprazole Sodium [Protonix] 40 mg PO DAILY 09/01/18 History Acetaminophen [Tylenol] 650 mg PO Q6H PRN 10/25/18 History Dextrose [Glucose Gel] 15 gm PO PRN PRN 10/25/18 History Folic Acid [Folate*] 1 mg PO DAILY 10/25/18 History Glucagon,Human Recombinant 1 mg IJ PRN PRN 10/25/18 History [Glucagon Emergency Kit] Mylanta 30 ml PO Q6H PRN 10/25/18 History - Allergies Allergies/Adverse Reactions: Allergies Allergy/AdvReac Type Severity Reaction Status Date / Time No Known Allergies Allergy Verified 09/01/18 14:47 Review of Systems - Review of Systems Constitutional: Report: No Significant Eyes: Report: No Significant ENT: Report: No Significant Respiratory: Report: Shortness of Breath Cardiovascular: Report: No Significant Gastrointestinal: Report: No Significant, Other (abd distension) Genitourinary: Report: No Significant Musculoskeletal: Report: No Significant Skin: Report: No Significant Neurological: Report: No Significant Physical Exam - Physical Exam HEENT: Report: Ears Nose Throat within normal limits, Pharnyx within normal limits, Ectectic Sclera Neck: Report: Within normal limits Cardiovascular Systems: Report: +s1/s2 noted, Regular, Rate and Rhythm Respiratory: Report: Breath Sounds are within normal limits Abdomen: Report: Other (abd distension) Back: Report: Inspection of back is within normal limits. Extremities: Report: Non-tender to palpation. Skin: Report: Color of skin is within normal limits Neuro/Psych: Report: Mood affect is within normal limits, A+Ox3 - Lab Results All Lab Results last 24 hours: Laboratory Results - last 24 hr 10/25/18 10/25/18 10/25/18 13:40 13:40 13:40 WBC 4.0 L RBC 2.93 L Hgb 9.1 L Hct 26.4 L MCV 89.9 MCH 31.1 H MCHC Differential 34.6 RDW 16.8 Plt Count 128 L MPV 7.4 Neutrophils % 77.5 Lymphocytes % 12.4 L Monocytes % 8.9 Eosinophils % 0.7 Basophils % 0.5 PT INR PTT (Actin FS) Sodium 132 L Potassium 5.1 Chloride 98 Carbon Dioxide 23.4 Anion Gap 15.7 BUN 72 H Creatinine 3.0 H Est GFR ( Amer) 20.3 Est GFR (Non-Af Amer) 16.8 BUN/Creatinine Ratio 24.0 Glucose 207 H POC Glucose Whole Bld Lactic Acid Calcium 9.6 Phosphorus 3.8 Magnesium 3.2 H Total Bilirubin 1.8 H AST 31 ALT 22 Alkaline Phosphatase 299 H Ammonia Troponin I B-Natriuretic Peptide 1020.0 H Total Protein 7.5 Albumin 3.8 Globulin 3.7 Albumin/Globulin Ratio 1.0 Amylase Lipase Urine Source Urine Color Urine Clarity Urine pH Ur Specific [place] Urine Protein Urine Glucose (UA) Urine Ketones Urine Blood Urine Nitrate Urine Bilirubin Urine Urobilinogen Ur Leukocyte Esterase Urine RBC Urine WBC Ur Epithelial Cells Amorphous Sediment Urine Bacteria Urine Opiates Screen Urine Methadone Screen Ur Barbiturates Screen Ur Tricyclics Screen Ur Phencyclidine Scrn Amphetamines Screen U Methamphetamines Scrn U Benzodiazepines Scrn U Cocaine Metab Screen U Cannabinoids Screen 10/25/18 10/25/18 10/25/18 13:40 13:40 13:40 WBC RBC Hgb Hct MCV MCH MCHC Differential RDW Plt Count MPV Neutrophils % Lymphocytes % Monocytes % Eosinophils % Basophils % PT INR PTT (Actin FS) Sodium Potassium Chloride Carbon Dioxide Anion Gap BUN Creatinine Est GFR ( Amer) Est GFR (Non-Af Amer) BUN/Creatinine Ratio Glucose POC Glucose Whole Bld Lactic Acid 0.77 Calcium Phosphorus Magnesium Total Bilirubin AST ALT Alkaline Phosphatase Ammonia 137 H Troponin I 0.02 B-Natriuretic Peptide Total Protein Albumin Globulin Albumin/Globulin Ratio Amylase Lipase Urine Source Urine Color Urine Clarity Urine pH Ur Specific [place] Urine Protein Urine Glucose (UA) Urine Ketones Urine Blood Urine Nitrate Urine Bilirubin Urine Urobilinogen Ur Leukocyte Esterase Urine RBC Urine WBC Ur Epithelial Cells Amorphous Sediment Urine Bacteria Urine Opiates Screen Urine Methadone Screen Ur Barbiturates Screen Ur Tricyclics Screen Ur Phencyclidine Scrn Amphetamines Screen U Methamphetamines Scrn U Benzodiazepines Scrn U Cocaine Metab Screen U Cannabinoids Screen 10/25/18 10/25/18 10/25/18 13:40 13:40 15:20 WBC RBC Hgb Hct MCV MCH MCHC Differential RDW Plt Count MPV Neutrophils % Lymphocytes % Monocytes % Eosinophils % Basophils % PT 12.9 H INR 1.25 PTT (Actin FS) 29.2 Sodium Potassium Chloride Carbon Dioxide Anion Gap BUN Creatinine Est GFR ( Amer) Est GFR (Non-Af Amer) BUN/Creatinine Ratio Glucose POC Glucose Whole Bld Lactic Acid Calcium Phosphorus Magnesium Total Bilirubin AST ALT Alkaline Phosphatase Ammonia Troponin I B-Natriuretic Peptide Total Protein Albumin Globulin Albumin/Globulin Ratio Amylase 67 Lipase 59 Urine Source Urine Color Urine Clarity Urine pH Ur Specific [place] Urine Protein Urine Glucose (UA) Urine Ketones Urine Blood Urine Nitrate Urine Bilirubin Urine Urobilinogen Ur Leukocyte Esterase Urine RBC Urine WBC Ur Epithelial Cells Amorphous Sediment Urine Bacteria Urine Opiates Screen NEGATIVE Urine Methadone Screen NEGATIVE Ur Barbiturates Screen NEGATIVE Ur Tricyclics Screen NEGATIVE Ur Phencyclidine Scrn NEGATIVE Amphetamines Screen NEGATIVE U Methamphetamines Scrn NEGATIVE U Benzodiazepines Scrn NEGATIVE U Cocaine Metab Screen NEGATIVE U Cannabinoids Screen NEGATIVE 10/25/18 10/25/18 15:20 21:23 WBC RBC Hgb Hct MCV MCH MCHC Differential RDW Plt Count MPV Neutrophils % Lymphocytes % Monocytes % Eosinophils % Basophils % PT INR PTT (Actin FS) Sodium Potassium Chloride Carbon Dioxide Anion Gap BUN Creatinine Est GFR ( Amer) Est GFR (Non-Af Amer) BUN/Creatinine Ratio Glucose POC Glucose 232 H Whole Bld Lactic Acid Calcium Phosphorus Magnesium Total Bilirubin AST ALT Alkaline Phosphatase Ammonia Troponin I B-Natriuretic Peptide Total Protein Albumin Globulin Albumin/Globulin Ratio Amylase Lipase Urine Source CATH Urine Color YELLOW Urine Clarity CLOUDY H Urine pH 5.5 Ur Specific [place] 1.025 Urine Protein 30 H Urine Glucose (UA) NEGATIVE Urine Ketones NEGATIVE Urine Blood NEGATIVE Urine Nitrate NEGATIVE Urine Bilirubin NEGATIVE Urine Urobilinogen 0.2 Ur Leukocyte Esterase NEGATIVE Urine RBC NONE SEEN Urine WBC 0-2 Ur Epithelial Cells FEW Amorphous Sediment FEW URATES Urine Bacteria MODERATE H Urine Opiates Screen Urine Methadone Screen Ur Barbiturates Screen Ur Tricyclics Screen Ur Phencyclidine Scrn Amphetamines Screen U Methamphetamines Scrn U Benzodiazepines Scrn U Cocaine Metab Screen U Cannabinoids Screen - Assessment Assessment: Current Active Problems Problem Status Onset ABDOMINAL DISTENTION Acute elevated BNP CHF JODIE w/ CKD hyponatremia UTI Paroxysmal atrial fibrillation iron deficiency anemia hemipelgia following CVA R side Diabetes mellitus Unspecified convulsions Hypertension Hyperlipidemia Osteoarthritis hepatic encephalopathy - Plan Plan: will order CBC,CMP,ammonia,BNP u/s abd Renal consult Cardiology consult GI consult
[2018-10-26] MEDS ORDERED: Non-Formulary Item 1 EA (Glucagon,Human Recombinant [Glucagon Emergency Kit] 1 MG) IJ PRN (06:43)
[2018-10-26] MEDS ORDERED: Non-Formulary Item 1 EA (Acetaminophen [Tylenol] 650 MG) PO PRN (06:43)
[2018-10-26 06:58] LABS: HEMOGLOBIN 8.5 gm/dL (12-16); MEAN CELL VOLUME 91.6 fl (81-100); MEAN CORPUSCULAR HEMOGLOBIN 31.3 pg (27.0-31.0); MEAN CORPUSCULAR HGB CONC 34.2 pg (28.0-36.0); MEAN PLATELET VOLUME 7.7 fl; PLATELET COUNT 127 Th/cmm (150-400); RED BLOOD COUNT 2.73 Mil/cmm (3.80-5.10); RED CELL DISTRIBUTION WIDTH 17.3 % (11.5-20.0)
[2018-10-26 07:12] LABS: WHITE BLOOD COUNT 3.5 Th/cmm (4.8-10.8)
[2018-10-26] MEDS ORDERED: GLUCAGON HCl 1 MG KIT IM PRN (07:25)
[2018-10-26] MEDS ORDERED: Non-Formulary Item 1 EA (Insulin Lispro [Humalog] 1 UNIT) SQ SCH (07:30)
[2018-10-26] MEDS ORDERED: INSULIN ASPART SLIDING SCALE 100 UNITS/ML UNIT SUBQ SCH (07:30)
[2018-10-26 07:52] LABS: ALBUMIN 3.7 gm/dL (3.7-5.3); ANION GAP 14.4 (7.0-16.0); BILIRUBIN,TOTAL 1.4 mg/dL (0.3-1.0); CALCIUM SERUM 9.4 mg/dL (8.6-10.3); CARBON DIOXIDE 24.5 mEq/L (21.0-31.0); CREATININE - SERUM 3.1 mg/dL (0.6-1.2); GFR AFRICAN-AMERICAN 19.6 ml/min (>90); GFR NON AFRICAN-AMERICAN 16.2 ml/min; POTASSIUM SERUM 4.9 mEq/L (3.5-5.1); TOTAL PROTEIN,SERUM 7.3 gm/dL (6.0-8.3)
[2018-10-26 08:26] LABS: BAND NEUTROPHILE 0 % (0-10); EOSINOPHIL 2 % (0-5); LYMPHOCYTE 20 % (20-50); MONOCYTE 9 % (2-10); NEUTROPHILS 69 % (40-80)
[2018-10-26 08:27] LABS: BASOPHIL 0 % (0-3)
[2018-10-26] MEDS: INSULIN ASPART SLIDING SCALE 100 UNITS/ML UNIT SUBQ SCH ×4 (08:27→21:41)
[2018-10-26] MEDS ORDERED: Non-Formulary Item 1 EA (Carvedilol [Coreg] 25 MG) PO SCH (09:00)
[2018-10-26] MEDS ORDERED: PANTOPRAZOLE SODIUM 40 MG PO SCH (09:00)
[2018-10-26] MEDS ORDERED: Non-Formulary Item 1 EA (Hydralazine Hcl [Hydralazine Hcl] 100 MG) PO SCH (09:00)
[2018-10-26] MEDS: Ferrous Sulfate 325 MG TAB PO SCH ×3 (09:28→17:36)
[2018-10-26] MEDS: Lactulose 10 Gm/15 mL 30mL UDC PO SCH ×2 (09:29→09:37)
[2018-10-26] MEDS: Pantoprazole 40 mg/Packet PO SCH ×2 (09:30→09:42)
--- NOTE | 2018-10-26 18:42 | Consultation ---
DATE OF CONSULTATION: 10/26/2018 ATTENDING PHYSICIAN: Milagros Cisneros MD LINOTYPE MACHINIST: Dr. Roderick Fontenot. REASON FOR CONSULTATION: Worsening kidney function, electrolyte imbalance, and fluid management. HISTORY OF PRESENT ILLNESS: This is a 62-year-old Ethiopian with past medical history of chronic kidney disease, who came in because of abdominal distention. One week prior to admission, the patient developed increasing abdominal girth. Five days prior to admission, she had a good bowel movement. Since then, she had several bowel movements, but consisted mostly of small rounded stools. A few hours prior to admission, her abdominal girth has increased significantly associated this time with shortness of breath. She noted that she had to use more pillows as well as wakes up at night due to progressive shortness of breath. Thus, she was brought to the Emergency Room. Chest x-ray revealed increasing interstitial markings. BNP level was 1020 with a troponin of 0.02. She also had bilateral lower extremity edema, which turned out to be negative for DVT on duplex scan. She denied any chest pain, palpitations, diaphoresis, cough nor congestion. She has a history of coronary artery disease and was admitted this time around with a BUN/creatinine of 72/3. Repeat labs today revealed a BUN/creatinine of 76/3.1. PAST MEDICAL HISTORY: 1. Chronic kidney disease. 2. Essential hypertension. 3. Type 2 diabetes mellitus. 4. Coronary artery disease. 5. History of CHF. 6. Dyslipidemia. 7. Epilepsy. 8. Paroxysmal atrial fibrillation. 9. Iron deficiency anemia. 10. Status post cerebrovascular accident with right hemiparesis. 11. Left upper extremity lymphoma. 12. Morbid obesity. CURRENT MEDICATIONS: She is currently on acetaminophen, carvedilol, ferrous sulfate, furosemide, glucagon, hydralazine, insulin aspart, lactulose, levetiracetam, morphine sulfate, pantoprazole, temazepam. ALLERGIES: No known drug allergies. SOCIAL HISTORY: Denied any history of alcohol or tobacco use. She currently resides at [facility]. FAMILY HISTORY: Noncontributory to present illness. REVIEW OF SYSTEMS: GENERAL: She still has occasional weakness. No fever or chills. Appetite had deteriorated due to her abdominal distention. HEENT: Denied any headaches, no dizziness. CARDIORESPIRATORY: She does have shortness of breath with lying supine. This is occasionally associated with some wheezing. She denied any chest pain, palpitations, or diaphoresis. PULMONARY: No cough nor congestion. GASTROINTESTINAL: She came in complaining of increasing abdominal girth. This is associated with discomfort. Bowel movement has diminished. However, she did not have any diarrhea. No mention of hematochezia, nor melena. GENITOURINARY: She has a history of kidney failure likely due to her diabetes. At this point, denied any dysuria nor hematuria. ENDOCRINE: Has a history of diabetes and dyslipidemia, but no thyroid abnormalities. MUSCULOSKELETAL: Multiple joint arthralgias. HEMATOLOGIC: History of iron deficiency anemia, on chronic disease. NEUROPSYCH: No syncopal episode nor seizure activity. She has diabetic neuropathy. PHYSICAL EXAMINATION: GENERAL: The patient is obese, she is in mild respiratory distress. VITAL SIGNS: Blood pressure is 128/71, pulse 71, temperature 98 degrees. SKIN: Good turgor, warm, no rash, no jaundice appreciated. HEENT: Head normocephalic, atraumatic. Eyes: Extraocular muscles intact. Pupils equal, round, reactive to light and accommodates. Anicteric sclerae. Pale conjunctivae. Nose, midline nasal septum. Mouth: Dry mucosa, adequate dentition. NECK: Supple, no adenopathy, no thyromegaly, no bruits. Trachea palpated in the midline. CHEST AND CARDIOVASCULAR: S1, S2. Distant heart sound, but no rub, murmur nor gallop appreciated. Point of maximal impulse, unable to assess due to size. LUNGS: Equal expansion. Minimal to moderate use of accessory muscles. No supraclavicular retractions. She has some expiratory wheezes on auscultation. BREASTS: She has a left mastectomy and right breast has no drainage. ABDOMEN: Obese, firm, diminished bowel sounds, nonspecific diffuse tenderness on palpation, but no muscle guarding nor rebound. No bruits either diastolic or systolic. RECTAL: She refused. GENITOURINARY: Normal appearing female genitalia. MUSCULOSKELETAL: No effusions present in her joints, but unable to assess her range of motion. EXTREMITIES: She has edema on her left upper extremity, no edema on the right upper extremity. She has also no edema on both lower extremities. She has a palpable femoral, but unable to fully appreciate popliteal and dorsalis pedis pulses. NEUROLOGIC: The patient is alert, verbal. Motor: Right side is about I would say 3/5. Left side is about 5/5. Sensory intact. Cranial nerves 2-12 intact. LABORATORY DATA: Labs did reveal white count of 3.5, hemoglobin 8.5, hematocrit 25, platelets 127, sodium 134, potassium 4.9, chloride 100, CO2 of 24, BUN 76, creatinine 3.1, glucose 209. Lactic acid 0.77, calcium 9.4, phosphorus 3.8, magnesium 3.2, total bili 1.4, AST 30, ALT 22, alkaline phosphatase 288, albumin 3.7, ammonia 137. IMPRESSION: 1. Chronic kidney disease, MDRD GFR 16.2 mL per minute, stage 4. The patient's BUN/creatinine are reflective of a natural progression of the patient's chronic kidney disease. This is likely due to longstanding history of diabetes giving rise to diabetic nephropathy. She may also have some underlying hypertensive nephrosclerosis. 2. Abdominal distention secondary to constipation brought about by diabetic gastroparesis, or ileus or even her long list of medications. 3. Acute decompensated on chronic congestive heart failure. 4. Possible obesity hypoventilation syndrome/obstructive sleep apnea. 5. Pancytopenia secondary to chronic disease such as kidney failure, liver failure. 6. Elevated ammonia with possible hepatic encephalopathy. 7. Chronic extrahepatic cholestasis. 8. Essential hypertension with chronic kidney disease. 9. Type 2 diabetes mellitus with chronic kidney disease. 10. Coronary artery disease. 11. Dyslipidemia. 12. Epilepsy. 13. Paroxysmal atrial fibrillation. 14. Iron deficiency anemia. 15. Status post cerebrovascular accident with right hemiparesis. 16. 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 17. Morbid obesity. PLAN: 1. Urine sodium, eosinophils, and creatinine. 2. Urine microalbumin to creatinine ratio. 3. KUB. 4. Continue gentle diuresis due to decompensated congestive heart failure, but expect patient's kidney function to deteriorate. 5. Left upper extremity duplex scan. 6. Follow up electrolytes, CBC, and GGT. Thank you, Dr. Cisneros, for this consult. We will follow the patient closely with you. JOB# [id number]
--- NOTE | 2018-10-26 18:45 | Consultation ---
DATE OF CONSULTATION: 10/26/[address] Alonzo Cisneros. HISTORY OF PRESENT ILLNESS: This is a 62-year-old female patient who was brought in from SNF due to abdominal distention, shortness of breath, no complaint of chest pain, no palpitation. PAST MEDICAL HISTORY: The patient has history of hypertension, diabetes mellitus type 2, diabetic CKD stage IV, hyperlipidemia, congestive heart failure, seizure disorder, lymphoma, chronic atrial fibrillation, iron deficiency anemia, CVA with late effect, right-sided weakness, and hepatic encephalopathy. FAMILY HISTORY: Unremarkable. SOCIAL HISTORY: No history of smoking, alcohol abuse. ALLERGIES: No known allergies. PHYSICAL EXAMINATION: VITAL SIGNS: Blood pressure 134/80, pulse 60 irregular, respirations 28. HEAD: Normocephalic. No lumps or bumps. EYES: Pupils equal, reactive to light. Fundi show AV nicking, sclerae white, conjunctivae pink. NECK: Carotid 2+. Normal upstroke. JVD 10 cm above sternal angle. Thyroid not palpable. Lymph nodes not palpable. CHEST: Shows increased AP diameter. No kyphosis, scoliosis. LUNGS: Bilateral rales. Decreased breath sounds both the bases. HEART: PMI sixth intercostal space with lateral to midclavicular line. S1, S2, S3, S4. S1 irregular. Systolic murmur, grade 2/6, lower left sternal border without radiation. ABDOMEN: Soft. There is distention. NEUROLOGIC: Right-sided weakness. EXTREMITIES: Peripheral pulses 1+, pedal edema 2+. CLINICAL IMPRESSION: Abdominal distention, etiology unknown; congestive heart failure, diastolic dysfunction acute; chronic atrial fibrillation; hypertension; diabetes mellitus type 2; diabetic chronic kidney disease stage IV; hyperlipidemia; seizure disorder; lymphoma; iron deficiency anemia; CVA with right-sided weakness; and hepatic encephalopathy. PLAN: The patient to get on Lasix, lactulose, echocardiogram, control the heart rate and anticoagulate the patient due to chronic atrial fibrillation and a history of stroke. JOB# [id number]
[2018-10-26] MEDS ORDERED: Albuterol/Ipratropium Neb 3 ML AERS HHN SCH (19:00)
[2018-10-26] MEDS: Albuterol/Ipratropium Neb 3 ML AERS HHN SCH (19:19)
[2018-10-26] MEDS: Morphine Sulfate 2 mg/mL 1mL Syr IV PRN (21:21)
--- NOTE | 2018-10-26 23:39 | Consultation ---
DATE OF CONSULTATION: 10/26/2018 GASTROENTEROLOGY CONSULTATION REQUESTING PHYSICIAN: Alonzo Cisneros M.D. REASON FOR CONSULTATION: Abdominal distention. HISTORY OF PRESENT ILLNESS: A 62-year-old female with a chronic kidney disease, previously on dialysis last being about a year ago, presenting with a 3-day history of increased abdominal girth and distention. She already has obesity. She had some mild shortness of breath. She is also noted to have scleral icterus. PAST MEDICAL HISTORY: Notable for diabetes mellitus, hypertension, coronary artery disease, CHF, dyslipidemia, seizure disorder, paroxysmal atrial fibrillation, chronic kidney disease, chronic anemia, old stroke with right-sided weakness, lymphoma, status post left mastectomy. MEDICATIONS: Here are DuoNeb nebulizer, carvedilol, iron, Lasix 40 mg IV push daily, hydralazine, insulin sliding scale, lactulose 30 grams daily, Keppra, morphine, Protonix, Restoril p.r.n. ALLERGIES: No known drug allergies. SOCIAL HISTORY: No recent tobacco, alcohol or drugs. FAMILY HISTORY: Noncontributory. REVIEW OF SYSTEMS: Negative. PHYSICAL EXAMINATION: VITAL SIGNS: Temperature of 98.1, blood pressure 121/78, pulse of 70, respirations 17, O2 sat 99%. GENERAL: The patient is well-developed, obese female, in no acute distress. HEENT: Sclerae nonicteric. Oropharynx is clear. CARDIOVASCULAR: Regular rate and rhythm. LUNGS: With occasional rhonchi at the bases. ABDOMEN: Soft, nontender, slightly distended, obese habitus. Mild subcutaneous edema. EXTREMITIES: Pedal edema. RECTAL: Deferred. LABORATORY DATA AND IMAGING: WBC 3.5, hemoglobin 8.5, platelet count is 127. INR is 1.25, BUN 76, creatinine 3.1, bilirubin 1.4, AST 30, ALT 22, alkaline phosphatase 288 and ammonia is 135. BNP 1020. Amylase and lipase normal. Urine toxicology screen negative. IMPRESSION: 1. Abdominal distention, rule out ascites versus anasarca, perhaps for fluid overload. 2. History of congestive heart failure. 3. History of diabetes mellitus. 4. Hypertension. 5. Chronic kidney disease. 6. History of lymphoma, status post mastectomy. 7. Chronic anemia. 8. History of hyperlipidemia. 9. Mildly abnormal liver enzymes, perhaps from nonalcoholic steatohepatitis and/or liver congestion. 10. History of seizure disorder. RECOMMENDATIONS: 1. Check CT of the abdomen and pelvis. 2. Diuresis as per Nephrology. 3. May need hemodialysis as per Nephrology. 4. Check liver labs. 5. 2 gram sodium diet. 6. Check anemia labs and stool OB. 7. Consider endoscopic workup if not done previously. This can also be done as an outpatient. Thank you, Dr. Alonzo Cisneros for involving us in the care of your patient. If you have any further questions, please call us. JOB# [id number]
--- NOTE | 2018-10-27 05:40 | General Progress Note ---
Subjective - Review of Systems Service Date: 10/27/18 Subjective: 62 y/o awake, alert. no acute distress. for U/S and CT abd/pelvis pending. LUE doppler U/S pending . KUB. results pending. abd pain. Objective - Results Result Diagrams: 10/26/18 05:16 10/26/18 05:16 Recent Labs: Laboratory Last Values WBC 3.5 Th/cmm (4.8-10.8) L 10/26/18 05:16 RBC 2.73 Mil/cmm (3.80-5.10) L 10/26/18 05:16 Hgb 8.5 gm/dL (12-16) L 10/26/18 05:16 Hct 25.0 % (41.0-60) L 10/26/18 05:16 MCV 91.6 fl (81-100) 10/26/18 05:16 MCH 31.3 pg (27.0-31.0) H 10/26/18 05:16 MCHC Differential 34.2 pg (28.0-36.0) 10/26/18 05:16 RDW 17.3 % (11.5-20.0) 10/26/18 05:16 Plt Count 127 Th/cmm (150-400) L 10/26/18 05:16 MPV 7.7 fl 10/26/18 05:16 Add Manual Diff YES 10/26/18 05:16 Neutrophils % 77.5 % (40.0-80.0) 10/25/18 13:40 Band Neutrophils % 0 % (0-10) 10/26/18 05:16 Lymphocytes % 12.4 % (20.0-50.0) L 10/25/18 13:40 Monocytes % 8.9 % (2.0-10.0) 10/25/18 13:40 Eosinophils % 0.7 % (0.0-5.0) 10/25/18 13:40 Basophils % 0.5 % (0.0-2.0) 10/25/18 13:40 Neutrophils (Manual) 69 % (40-80) 10/26/18 05:16 Lymphocytes 20 % (20-50) 10/26/18 05:16 Monocytes 9 % (2-10) 10/26/18 05:16 Eosinophils 2 % (0-5) 10/26/18 05:16 Basophils 0 % (0-3) 10/26/18 05:16 PT 12.9 SECONDS (9.5-11.5) H 10/25/18 13:40 INR 1.25 (0.5-1.4) 10/25/18 13:40 PTT (Actin FS) 29.2 SECONDS (26.0-38.0) 10/25/18 13:40 Sodium 134 mEq/L (136-145) L 10/26/18 05:16 Potassium 4.9 mEq/L (3.5-5.1) 10/26/18 05:16 Chloride 100 mEq/L (98-107) 10/26/18 05:16 Carbon Dioxide 24.5 mEq/L (21.0-31.0) 10/26/18 05:16 Anion Gap 14.4 (7.0-16.0) 10/26/18 05:16 BUN 76 mg/dL (7-25) H 10/26/18 05:16 Creatinine 3.1 mg/dL (0.6-1.2) H 10/26/18 05:16 Est GFR ( Amer) 19.6 ml/min (>90) 10/26/18 05:16 Est GFR (Non-Af Amer) 16.2 ml/min 10/26/18 05:16 BUN/Creatinine Ratio 24.5 10/26/18 05:16 Glucose 209 mg/dL (70-105) H 10/26/18 05:16 POC Glucose 170 MG/DL (70 - 105) H 10/26/18 21:37 Whole Bld Lactic Acid 0.77 mmol/L (0.60-1.99) 10/25/18 13:40 Calcium 9.4 mg/dL (8.6-10.3) 10/26/18 05:16 Phosphorus 3.8 mg/dL (2.5-5.0) 10/25/18 13:40 Magnesium 3.2 mg/dL (1.9-2.7) H 10/25/18 13:40 Total Bilirubin 1.4 mg/dL (0.3-1.0) H 10/26/18 05:16 AST 30 U/L (13-39) 10/26/18 05:16 ALT 22 U/L (7-52) 10/26/18 05:16 Alkaline Phosphatase 288 U/L (34-104) H 10/26/18 05:16 Ammonia 135 umol/L (16-53) H 10/26/18 05:16 Troponin I 0.02 ng/mL (0.01-0.05) 10/25/18 13:40 B-Natriuretic Peptide 734.0 pg/mL (5.0-100.0) H 10/26/18 05:16 Total Protein 7.3 gm/dL (6.0-8.3) 10/26/18 05:16 Albumin 3.7 gm/dL (3.7-5.3) 10/26/18 05:16 Globulin 3.6 gm/dL 10/26/18 05:16 Albumin/Globulin Ratio 1.0 (1.0-1.8) 10/26/18 05:16 Amylase 67 U/L (29-103) 10/25/18 13:40 Lipase 59 U/L (11-82) 10/25/18 13:40 Urine Source CATH 10/25/18 15:20 Urine Color YELLOW 10/25/18 15:20 Urine Clarity CLOUDY (CLEAR) H 10/25/18 15:20 Urine pH 5.5 (4.6 - 8.0) 10/25/18 15:20 Ur Specific [place] 1.025 (1.005-1.030) 10/25/18 15:20 Urine Protein 30 mg/dL (NEGATIVE) H 10/25/18 15:20 Urine Glucose (UA) NEGATIVE mg/dL (NEGATIVE) 10/25/18 15:20 Urine Ketones NEGATIVE mg/dL (NEGATIVE) 10/25/18 15:20 Urine Blood NEGATIVE (NEGATIVE) 10/25/18 15:20 Urine Nitrate NEGATIVE (NEGATIVE) 10/25/18 15:20 Urine Bilirubin NEGATIVE (NEGATIVE) 10/25/18 15:20 Urine Urobilinogen 0.2 E.U./dL (0.2 - 1.0) 10/25/18 15:20 Ur Leukocyte Esterase NEGATIVE (NEGATIVE) 10/25/18 15:20 Urine RBC NONE SEEN /hpf (0-5) 10/25/18 15:20 Urine WBC 0-2 /hpf (0-5) 10/25/18 15:20 Ur Epithelial Cells FEW /lpf (FEW) 10/25/18 15:20 Amorphous Sediment FEW URATES (NONE SEEN) 10/25/18 15:20 Urine Bacteria MODERATE /hpf (NONE SEEN) H 10/25/18 15:20 Urine Opiates Screen NEGATIVE (NEGATIVE) 10/25/18 15:20 Urine Methadone Screen NEGATIVE (NEGATIVE) 10/25/18 15:20 Ur Barbiturates Screen NEGATIVE (NEGATIVE) 10/25/18 15:20 Ur Tricyclics Screen NEGATIVE (NEGATIVE) 10/25/18 15:20 Ur Phencyclidine Scrn NEGATIVE (NEGATIVE) 10/25/18 15:20 Amphetamines Screen NEGATIVE (NEGATIVE) 10/25/18 15:20 U Methamphetamines Scrn NEGATIVE (NEGATIVE) 10/25/18 15:20 U Benzodiazepines Scrn NEGATIVE (NEGATIVE) 10/25/18 15:20 U Cocaine Metab Screen NEGATIVE (NEGATIVE) 10/25/18 15:20 U Cannabinoids Screen NEGATIVE (NEGATIVE) 10/25/18 15:20 - Physical Exam Vitals and I&O: Vital Signs Temp 98 F 10/27/18 04:00 Pulse 69 10/27/18 04:00 Resp 18 10/27/18 04:00 BP 127/84 10/27/18 04:00 Pulse Ox 100 10/27/18 04:00 Intake & Output 10/26/18 10/26/18 10/27/18 06:59 18:59 06:59 Intake Total 440 500 Balance 440 500 Weight (lbs) 95.708 kg 95.708 kg 94.801 kg Intake: Oral 440 500 Other: # Voids 1 3 # Bowel Movements 0 1 Weight Source Bedscale Bedscale Bedscale Active Medications: Current Medications Acetaminophen (Tylenol) 650 mg PO Q6H PRN PRN Reason: Milid Pain 1-3 or Fever >101 Stop: 12/24/18 18:46 Last Admin: 10/26/18 00:11 Dose: 650 mg Albuterol/Ipratropium (Duoneb Neb) 3 ml HHN Q6HRT [facility] Stop: 12/25/18 18:59 Last Admin: 10/26/18 19:19 Dose: 3 ml Carvedilol (Coreg) 25 mg PO BID [facility] Stop: 12/24/18 19:59 Last Admin: 12/01/18 17:36 Dose: 25 mg Dextrose (Glutose 40%) 15 gm PO PRN PRN PRN Reason: BLOOD GLUCOSE <60 Stop: 12/25/18 06:42 Ferrous Sulfate (Iron) 325 mg PO BID [facility] Stop: 12/25/18 08:59 Last Admin: 10/26/18 17:36 Dose: 325 mg Furosemide (Lasix) 40 mg IVP DAILY [facility] Stop: 12/26/18 08:59 Glucagon (Glucagen) 1 mg IM PRN PRN PRN Reason: BLOOD GLUCOSE < 60 Stop: 12/25/18 07:24 Hydralazine HCl (Apresoline) 100 mg PO TID [facility] Stop: 12/24/18 20:59 Last Admin: 10/26/18 20:42 Dose: 100 mg Insulin Aspart (Novolog Insulin Sliding Scale) 0 units SUBQ ACHS [facility]; Protocol Stop: 12/24/18 20:59 Last Admin: 10/26/18 21:41 Dose: 2 units Lactulose (Cephulac) 30 gm PO DAILY [facility] Stop: 12/25/18 08:59 Last Admin: 10/26/18 09:37 Dose: 30 gm Levetiracetam (Keppra) 500 mg PO BID [facility] Stop: 12/24/18 19:59 Last Admin: 10/26/18 17:36 Dose: 500 mg Morphine Sulfate (Morphine) 1 mg IV Q4HR PRN PRN Reason: Abdominal Pain Stop: 12/25/18 12:48 Last Admin: 10/26/18 21:21 Dose: 1 mg Pantoprazole Sodium (Protonix) 40 mg PO DAILY [facility] Stop: 12/26/18 08:59 Temazepam (Restoril) 15 mg PO HS PRN; Protocol PRN Reason: Insomnia Stop: 12/25/18 00:39 General: Alert, No acute distress HEENT: Atraumatic, PERRLA Neck: Supple Cardiovascular: Regular rate, Normal S1, Normal S2 Lungs: Clear to auscultation Abdomen: Bowel sounds, Distended Extremities: Edema Assessment/Plan - Problem List Patient Problems: All Active Problems ABDOMINAL DISTENTION (Acute) - Assessment Assessment: Current Active Problems Problem Status Onset ABDOMINAL DISTENTION Acute elevated BNP abd pain CHF JODIE w/ CKD hyponatremia UTI Paroxysmal atrial fibrillation iron deficiency anemia hemipelgia following CVA R side Diabetes mellitus Unspecified convulsions Hypertension Hyperlipidemia Osteoarthritis hepatic encephalopathy - Plan Plan: continue current treatment.
[2018-10-27] MEDS: INSULIN ASPART SLIDING SCALE 100 UNITS/ML UNIT SUBQ SCH ×4 (06:37→21:39)
[2018-10-27] MEDS: Albuterol/Ipratropium Neb 3 ML AERS HHN SCH ×3 (06:52→18:41)
[2018-10-27 07:02] LABS: % BASOPHILS 0.4 % (0.0-2.0); % EOSINOPHILS 1.3 % (0.0-5.0); % LYMPHOCYTES 15.4 % (20.0-50.0); % MONOCYTES 11.5 % (2.0-10.0); % NEUTROPHILS 71.4 % (40.0-80.0); HEMATOCRIT 26.5 % (41.0-60); HEMOGLOBIN 8.8 gm/dL (12-16); LYMPHOCYTE ABSOLUTE 0.6 Th/cmm (1.5-3.0); MEAN CELL VOLUME 92.6 fl (81-100); MEAN CORPUSCULAR HEMOGLOBIN 30.9 pg (27.0-31.0); MEAN CORPUSCULAR HGB CONC 33.3 pg (28.0-36.0); MONOCYTE ABSOLUTE 0.4 Th/cmm (0.3-1.0); NEUTROPHILE ABSOLUTE 2.6 Th/cmm (1.8-8.0); PLATELET COUNT 132 Th/cmm (150-400); RED BLOOD COUNT 2.86 Mil/cmm (3.80-5.10)
[2018-10-27 07:06] LABS: WHITE BLOOD COUNT 3.6 Th/cmm (4.8-10.8)
[2018-10-27 08:05] LABS: HEP A AB IGM Negative (Negative); HEP B CORE IGM Negative (Negative); HEP B SURFACE AG QL Negative (Negative); HEP C ANTIBODY 0.1 s/co ratio (0.0-0.9)
[2018-10-27 08:23] LABS: ALB/GLOB RATIO 0.9 (1.0-1.8); ALBUMIN 3.7 gm/dL (3.7-5.3); ANION GAP 13.9 (7.0-16.0); BILIRUBIN,TOTAL 1.5 mg/dL (0.3-1.0); CALCIUM SERUM 9.5 mg/dL (8.6-10.3); CREATININE - SERUM 2.9 mg/dL (0.6-1.2); GFR AFRICAN-AMERICAN 21.1 ml/min (>90); GFR NON AFRICAN-AMERICAN 17.5 ml/min; MAGNESIUM 3.3 mg/dL (1.9-2.7); POTASSIUM SERUM 4.9 mEq/L (3.5-5.1)
[2018-10-27] MEDS: Pantoprazole 40 mg EC Tab PO SCH (08:58)
[2018-10-27] MEDS: Lactulose 10 Gm/15 mL 30mL UDC PO SCH ×3 (08:58→21:37)
[2018-10-27] MEDS: Ferrous Sulfate 325 MG TAB PO SCH ×2 (08:58→16:24)
--- NOTE | 2018-10-27 09:46 | Diagnostic Imaging Report ---
KUB single view HISTORY: Distention. COMPARISON: CT abdomen and pelvis on 10/27/2018 FINDINGS: There is copious amount of stool throughout the colon. Exam is limited body habitus. Degenerative changes of the spine are noted. IMPRESSION: Copious amount of stool throughout the colon. Correlate clinically for constipation.
--- NOTE | 2018-10-27 09:50 | Diagnostic Imaging Report ---
Ultrasound abdomen HISTORY: Abdominal distention COMPARISON: Abdominal ultrasound on 09/02/2018 Technique: Sonography of the abdomen was performed in multiple planes. FINDINGS: Exam is limited due to body habitus and bowel gas. The liver demonstrates mildly heterogeneous echotexture measures 19.6 cm. No discrete focal lesions. Mild to moderate Ascites is noted. There is generalized gallbladder wall thickening measuring up to 7 mm with small echogenic foci along the gallbladder wall measuring up to 5 mm. The common bile duct was not visualized. The pancreas is also not well visualized. There is also suboptimal assessment of the kidneys. No evidence of hydronephrosis. The spleen measures 11.7 cm. Atherosclerosis is noted. IMPRESSION: Limited exam. Mild to moderate ascites is noted Hepatomegaly with heterogenous echogenicity which may be reflect hepatocellular disease, correlate clinically. Small echogenic foci along the gallbladder wall which may represent gallbladder wall polyps. Nonmobile gallstones are less likely. Consider short-term follow-up repeat ultrasound. Thickened gallbladder wall measuring up to 7 mm. This is nonspecific and may be related to patient's ascites. Suboptimal assessment of the kidneys. Atherosclerosis.
--- NOTE | 2018-10-27 11:29 | Diagnostic Imaging Report ---
CT abdomen and pelvis without intravenous contrast Indication: Abdominal pain and distention Comparison: Ultrasound abdomen on 10/26/2018, Technique: Axial images were obtained from the lung bases to the bilateral proximal femurs without IV contrast. Coronal reconstructions were made. total DLP: [id number], CTDI18.5 FINDINGS: Hypoventilatory and atelectatic changes of lung bases are seen with minimal passive atelectatic changes. Exam is limited due to body habitus and patient positioning. Assessment of the solid organs also limited due to lack of IV contrast. Hepatomegaly is noted. No discrete focal hepatic lesions. Punctate calcification of the splenic hilum may be vascular. Assessment of pancreas and adrenal glands is nondiagnostic. No evidence of hydronephrosis or nephrolithiasis. Diverticulosis is noted. Assessment for diverticulitis is limited due to patient's diffuse ascites. The appendix is not well-visualized. Diffuse abdominal and pelvic ascites is noted. Diffuse anasarca is noted. Degenerative changes of the spine are noted with. Uterine calcifications are noted which may be due to fibrotic changes.. Degenerative changes of pelvis are noted. IMPRESSION: Diffuse abdominal and pelvic ascites and extensive anasarca. Diverticulosis. Hepatomegaly Uterine calcifications which may be due to fibroid changes. Atherosclerotic vascular disease.
--- NOTE | 2018-10-27 12:53 | General Progress Note ---
Subjective - Review of Systems Service Date: 10/27/18 Subjective: alert, still has noyola, abd discomfort Objective - Results Result Diagrams: 10/27/18 05:41 10/27/18 05:41 Recent Labs: Laboratory Last Values WBC 3.6 Th/cmm (4.8-10.8) L 10/27/18 05:41 RBC 2.86 Mil/cmm (3.80-5.10) L 10/27/18 05:41 Hgb 8.8 gm/dL (12-16) L 10/27/18 05:41 Hct 26.5 % (41.0-60) L 10/27/18 05:41 MCV 92.6 fl (81-100) 10/27/18 05:41 MCH 30.9 pg (27.0-31.0) 10/27/18 05:41 MCHC Differential 33.3 pg (28.0-36.0) 10/27/18 05:41 RDW 17.0 % (11.5-20.0) 10/27/18 05:41 Plt Count 132 Th/cmm (150-400) L 10/27/18 05:41 MPV 8.0 fl 10/27/18 05:41 Add Manual Diff YES 10/26/18 05:16 Neutrophils % 71.4 % (40.0-80.0) 10/27/18 05:41 Band Neutrophils % 0 % (0-10) 10/26/18 05:16 Lymphocytes % 15.4 % (20.0-50.0) L 10/27/18 05:41 Monocytes % 11.5 % (2.0-10.0) H 10/27/18 05:41 Eosinophils % 1.3 % (0.0-5.0) 10/27/18 05:41 Basophils % 0.4 % (0.0-2.0) 10/27/18 05:41 Neutrophils (Manual) 69 % (40-80) 10/26/18 05:16 Lymphocytes 20 % (20-50) 10/26/18 05:16 Monocytes 9 % (2-10) 10/26/18 05:16 Eosinophils 2 % (0-5) 10/26/18 05:16 Basophils 0 % (0-3) 10/26/18 05:16 PT 12.9 SECONDS (9.5-11.5) H 10/25/18 13:40 INR 1.25 (0.5-1.4) 10/25/18 13:40 PTT (Actin FS) 29.2 SECONDS (26.0-38.0) 10/25/18 13:40 Sodium 133 mEq/L (136-145) L 10/27/18 05:41 Potassium 4.9 mEq/L (3.5-5.1) 10/27/18 05:41 Chloride 99 mEq/L (98-107) 10/27/18 05:41 Carbon Dioxide 25.0 mEq/L (21.0-31.0) 10/27/18 05:41 Anion Gap 13.9 (7.0-16.0) 10/27/18 05:41 BUN 76 mg/dL (7-25) H 10/27/18 05:41 Creatinine 2.9 mg/dL (0.6-1.2) H 10/27/18 05:41 Est GFR ( Amer) 21.1 ml/min (>90) 10/27/18 05:41 Est GFR (Non-Af Amer) 17.5 ml/min 10/27/18 05:41 BUN/Creatinine Ratio 26.2 10/27/18 05:41 Glucose 141 mg/dL (70-105) H 10/27/18 05:41 POC Glucose 193 MG/DL (70 - 105) H 10/27/18 11:14 Whole Bld Lactic Acid 0.77 mmol/L (0.60-1.99) 10/25/18 13:40 Calcium 9.5 mg/dL (8.6-10.3) 10/27/18 05:41 Phosphorus 4.0 mg/dL (2.5-5.0) 10/27/18 05:41 Magnesium 3.3 mg/dL (1.9-2.7) H 10/27/18 05:41 Total Bilirubin 1.5 mg/dL (0.3-1.0) H 10/27/18 05:41 AST 27 U/L (13-39) 10/27/18 05:41 ALT 21 U/L (7-52) 10/27/18 05:41 Alkaline Phosphatase 286 U/L (34-104) H 10/27/18 05:41 Ammonia 176 umol/L (16-53) H 10/27/18 05:45 Troponin I 0.02 ng/mL (0.01-0.05) 10/25/18 13:40 B-Natriuretic Peptide 1140.0 pg/mL (5.0-100.0) H 10/27/18 05:41 Total Protein 8.0 gm/dL (6.0-8.3) 10/27/18 05:41 Albumin 3.7 gm/dL (3.7-5.3) 10/27/18 05:41 Globulin 4.3 gm/dL 10/27/18 05:41 Albumin/Globulin Ratio 0.9 (1.0-1.8) L 10/27/18 05:41 Amylase 67 U/L (29-103) 10/25/18 13:40 Lipase 59 U/L (11-82) 10/27/18 05:41 Urine Source CATH 10/25/18 15:20 Urine Color YELLOW 10/25/18 15:20 Urine Clarity CLOUDY (CLEAR) H 10/25/18 15:20 Urine pH 5.5 (4.6 - 8.0) 10/25/18 15:20 Ur Specific [place] 1.025 (1.005-1.030) 10/25/18 15:20 Urine Protein 30 mg/dL (NEGATIVE) H 10/25/18 15:20 Urine Glucose (UA) NEGATIVE mg/dL (NEGATIVE) 10/25/18 15:20 Urine Ketones NEGATIVE mg/dL (NEGATIVE) 10/25/18 15:20 Urine Blood NEGATIVE (NEGATIVE) 10/25/18 15:20 Urine Nitrate NEGATIVE (NEGATIVE) 10/25/18 15:20 Urine Bilirubin NEGATIVE (NEGATIVE) 10/25/18 15:20 Urine Urobilinogen 0.2 E.U./dL (0.2 - 1.0) 10/25/18 15:20 Ur Leukocyte Esterase NEGATIVE (NEGATIVE) 10/25/18 15:20 Urine RBC NONE SEEN /hpf (0-5) 10/25/18 15:20 Urine WBC 0-2 /hpf (0-5) 10/25/18 15:20 Ur Epithelial Cells FEW /lpf (FEW) 10/25/18 15:20 Amorphous Sediment FEW URATES (NONE SEEN) 10/25/18 15:20 Urine Bacteria MODERATE /hpf (NONE SEEN) H 10/25/18 15:20 Urine Opiates Screen NEGATIVE (NEGATIVE) 10/25/18 15:20 Urine Methadone Screen NEGATIVE (NEGATIVE) 10/25/18 15:20 Ur Barbiturates Screen NEGATIVE (NEGATIVE) 10/25/18 15:20 Ur Tricyclics Screen NEGATIVE (NEGATIVE) 10/25/18 15:20 Ur Phencyclidine Scrn NEGATIVE (NEGATIVE) 10/25/18 15:20 Amphetamines Screen NEGATIVE (NEGATIVE) 10/25/18 15:20 U Methamphetamines Scrn NEGATIVE (NEGATIVE) 10/25/18 15:20 U Benzodiazepines Scrn NEGATIVE (NEGATIVE) 10/25/18 15:20 U Cocaine Metab Screen NEGATIVE (NEGATIVE) 10/25/18 15:20 U Cannabinoids Screen NEGATIVE (NEGATIVE) 10/25/18 15:20 Hepatitis A IgM Ab Negative (Negative) 10/26/18 07:43 Hep Bs Antigen Negative (Negative) 10/26/18 07:43 Hep B Core IgM Ab Negative (Negative) 10/26/18 07:43 Hepatitis C Antibody 0.1 s/co ratio (0.0-0.9) 10/26/18 07:43 - Physical Exam Vitals and I&O: Vital Signs Temp 97.9 F 10/27/18 12:00 Pulse 68 10/27/18 12:00 Resp 18 10/27/18 12:00 BP 118/67 10/27/18 12:00 Pulse Ox 100 10/27/18 12:00 Intake & Output 10/26/18 10/27/18 10/27/18 18:59 06:59 18:59 Intake Total 500 Balance 500 Weight (lbs) 95.708 kg 94.801 kg Intake: Oral 500 Other: # Voids 3 # Bowel Movements 1 Weight Source Bedscale Bedscale Active Medications: Current Medications Acetaminophen (Tylenol) 650 mg PO Q6H PRN PRN Reason: Milid Pain 1-3 or Fever >101 Stop: 12/24/18 18:46 Last Admin: 10/26/18 00:11 Dose: 650 mg Albuterol/Ipratropium (Duoneb Neb) 3 ml HHN Q6HRT [facility] Stop: 12/25/18 18:59 Last Admin: 10/27/18 06:52 Dose: 3 ml Carvedilol (Coreg) 25 mg PO BID [facility] Stop: 12/24/18 19:59 Last Admin: 10/27/18 08:58 Dose: 25 mg Dextrose (Glutose 40%) 15 gm PO PRN PRN PRN Reason: BLOOD GLUCOSE <60 Stop: 12/25/18 06:42 Ferrous Sulfate (Iron) 325 mg PO BID [facility] Stop: 12/25/18 08:59 Last Admin: 10/27/18 08:58 Dose: 325 mg Furosemide (Lasix) 40 mg IVP DAILY [facility] Stop: 12/26/18 08:59 Last Admin: 10/27/18 08:57 Dose: 40 mg Glucagon (Glucagen) 1 mg IM PRN PRN PRN Reason: BLOOD GLUCOSE < 60 Stop: 12/25/18 07:24 Hydralazine HCl (Apresoline) 100 mg PO TID [facility] Stop: 12/24/18 20:59 Last Admin: 10/27/18 08:58 Dose: 100 mg Insulin Aspart (Novolog Insulin Sliding Scale) 0 units SUBQ ACHS [facility]; Protocol Stop: 12/24/18 20:59 Last Admin: 10/27/18 11:55 Dose: 2 units Lactulose (Cephulac) 30 gm PO TID [facility] Stop: 12/26/18 13:59 Levetiracetam (Keppra) 500 mg PO BID [facility] Stop: 12/24/18 19:59 Last Admin: 10/27/18 08:58 Dose: 500 mg Morphine Sulfate (Morphine) 1 mg IV Q4HR PRN PRN Reason: Abdominal Pain Stop: 12/25/18 12:48 Last Admin: 10/26/18 21:21 Dose: 1 mg Pantoprazole Sodium (Protonix) 40 mg PO DAILY [facility] Stop: 12/26/18 08:59 Last Admin: 10/27/18 08:58 Dose: 40 mg Temazepam (Restoril) 15 mg PO HS PRN; Protocol PRN Reason: Insomnia Stop: 12/25/18 00:39 General: Alert, Mild distress HEENT: Atraumatic, PERRLA, Mucous membr. moist/pink Neck: Supple, +2 carotid pulse wo bruit Cardiovascular: Regular rate, Normal S1, Normal S2, Systolic murmurs Lungs: Other (decreased BS, few rhonchi) Abdomen: Bowel sounds, Soft (left UE), Distended Extremities: Edema Neurological: Sensation intact Skin: no Rash Psych/Mental Status: Mood NL Assessment/Plan - Problem List Patient Problems: All Active Problems ABDOMINAL DISTENTION (Acute) - Assessment Assessment: CKD Abd Distension Constipation OHS/ALDA Pancytopenia Elevated NH3 Chronic Extrahepatic Cholestasis Obesity Ascites Constipation - Plan Plan: Lab - Result Diagrams 10/27/18 05:41 10/27/18 05:41 Current Medications Acetaminophen (Tylenol) 650 mg PO Q6H PRN PRN Reason: Milid Pain 1-3 or Fever >101 Stop: 12/24/18 18:46 Last Admin: 10/26/18 00:11 Dose: 650 mg Albuterol/Ipratropium (Duoneb Neb) 3 ml HHN Q6HRT [facility] Stop: 12/25/18 18:59 Last Admin: 10/27/18 06:52 Dose: 3 ml Carvedilol (Coreg) 25 mg PO BID [facility] Stop: 12/24/18 19:59 Last Admin: 10/27/18 08:58 Dose: 25 mg Dextrose (Glutose 40%) 15 gm PO PRN PRN PRN Reason: BLOOD GLUCOSE <60 Stop: 12/25/18 06:42 Ferrous Sulfate (Iron) 325 mg PO BID [facility] Stop: 12/25/18 08:59 Last Admin: 10/27/18 08:58 Dose: 325 mg Furosemide (Lasix) 40 mg IVP DAILY [facility] Stop: 12/26/18 08:59 Last Admin: 10/27/18 08:57 Dose: 40 mg Glucagon (Glucagen) 1 mg IM PRN PRN PRN Reason: BLOOD GLUCOSE < 60 Stop: 12/25/18 07:24 Hydralazine HCl (Apresoline) 100 mg PO TID [facility] Stop: 12/24/18 20:59 Last Admin: 10/27/18 08:58 Dose: 100 mg Insulin Aspart (Novolog Insulin Sliding Scale) 0 units SUBQ ACHS [facility]; Protocol Stop: 12/24/18 20:59 Last Admin: 10/27/18 11:55 Dose: 2 units Lactulose (Cephulac) 30 gm PO TID [facility] Stop: 12/26/18 13:59 Levetiracetam (Keppra) 500 mg PO BID [facility] Stop: 12/24/18 19:59 Last Admin: 10/27/18 08:58 Dose: 500 mg Morphine Sulfate (Morphine) 1 mg IV Q4HR PRN PRN Reason: Abdominal Pain Stop: 12/25/18 12:48 Last Admin: 10/26/18 21:21 Dose: 1 mg Pantoprazole Sodium (Protonix) 40 mg PO DAILY [facility] Stop: 12/26/18 08:59 Last Admin: 10/27/18 08:58 Dose: 40 mg Temazepam (Restoril) 15 mg PO HS PRN; Protocol PRN Reason: Insomnia Stop: 12/25/18 00:39 Lab - Result Diagrams 10/27/18 05:41 10/27/18 05:41 no change kidney fnc w/ BUN/CR of 76/2.9 increase Lactulose for hyperammonemia, constiption liver failure workup in [place] continue Lasix for now due to persisitent CHF f/u electrolytes, cbc, CXR
[2018-10-27 18:43] LABS: EOSINOPHIL SMEAR SOURCE URINE
[2018-10-27 18:44] LABS: EOSINOPHILS SMEAR COUNT NONE SEEN (NONE SEEN)
--- NOTE | 2018-10-27 21:27 | GI Progress Note ---
Subjective - Review of Systems Service Date: 10/27/18 Subjective: EVENTS NOTED. Objective - Results Result Diagrams: 10/27/18 05:41 10/27/18 05:41 Recent Labs: Laboratory Last Values WBC 3.6 Th/cmm (4.8-10.8) L 10/27/18 05:41 RBC 2.86 Mil/cmm (3.80-5.10) L 10/27/18 05:41 Hgb 8.8 gm/dL (12-16) L 10/27/18 05:41 Hct 26.5 % (41.0-60) L 10/27/18 05:41 MCV 92.6 fl (81-100) 10/27/18 05:41 MCH 30.9 pg (27.0-31.0) 10/27/18 05:41 MCHC Differential 33.3 pg (28.0-36.0) 10/27/18 05:41 RDW 17.0 % (11.5-20.0) 10/27/18 05:41 Plt Count 132 Th/cmm (150-400) L 10/27/18 05:41 MPV 8.0 fl 10/27/18 05:41 Add Manual Diff YES 10/26/18 05:16 Neutrophils % 71.4 % (40.0-80.0) 10/27/18 05:41 Band Neutrophils % 0 % (0-10) 10/26/18 05:16 Lymphocytes % 15.4 % (20.0-50.0) L 10/27/18 05:41 Monocytes % 11.5 % (2.0-10.0) H 10/27/18 05:41 Eosinophils % 1.3 % (0.0-5.0) 10/27/18 05:41 Basophils % 0.4 % (0.0-2.0) 10/27/18 05:41 Neutrophils (Manual) 69 % (40-80) 10/26/18 05:16 Lymphocytes 20 % (20-50) 10/26/18 05:16 Monocytes 9 % (2-10) 10/26/18 05:16 Eosinophils 2 % (0-5) 10/26/18 05:16 Basophils 0 % (0-3) 10/26/18 05:16 Eos Smear Source URINE 10/27/18 17:00 Eos Smear Total Cells NONE SEEN (NONE SEEN) 10/27/18 17:00 PT 12.9 SECONDS (9.5-11.5) H 10/25/18 13:40 INR 1.25 (0.5-1.4) 10/25/18 13:40 PTT (Actin FS) 29.2 SECONDS (26.0-38.0) 10/25/18 13:40 Sodium 133 mEq/L (136-145) L 10/27/18 05:41 Potassium 4.9 mEq/L (3.5-5.1) 10/27/18 05:41 Chloride 99 mEq/L (98-107) 10/27/18 05:41 Carbon Dioxide 25.0 mEq/L (21.0-31.0) 10/27/18 05:41 Anion Gap 13.9 (7.0-16.0) 10/27/18 05:41 BUN 76 mg/dL (7-25) H 10/27/18 05:41 Creatinine 2.9 mg/dL (0.6-1.2) H 10/27/18 05:41 Est GFR ( Amer) 21.1 ml/min (>90) 10/27/18 05:41 Est GFR (Non-Af Amer) 17.5 ml/min 10/27/18 05:41 BUN/Creatinine Ratio 26.2 10/27/18 05:41 Glucose 141 mg/dL (70-105) H 10/27/18 05:41 POC Glucose 182 MG/DL (70 - 105) H 10/27/18 16:18 Whole Bld Lactic Acid 0.77 mmol/L (0.60-1.99) 10/25/18 13:40 Calcium 9.5 mg/dL (8.6-10.3) 10/27/18 05:41 Phosphorus 4.0 mg/dL (2.5-5.0) 10/27/18 05:41 Magnesium 3.3 mg/dL (1.9-2.7) H 10/27/18 05:41 Total Bilirubin 1.5 mg/dL (0.3-1.0) H 10/27/18 05:41 AST 27 U/L (13-39) 10/27/18 05:41 ALT 21 U/L (7-52) 10/27/18 05:41 Alkaline Phosphatase 286 U/L (34-104) H 10/27/18 05:41 Ammonia 176 umol/L (16-53) H 10/27/18 05:45 Troponin I 0.02 ng/mL (0.01-0.05) 10/25/18 13:40 B-Natriuretic Peptide 1140.0 pg/mL (5.0-100.0) H 10/27/18 05:41 Total Protein 8.0 gm/dL (6.0-8.3) 10/27/18 05:41 Albumin 3.7 gm/dL (3.7-5.3) 10/27/18 05:41 Globulin 4.3 gm/dL 10/27/18 05:41 Albumin/Globulin Ratio 0.9 (1.0-1.8) L 10/27/18 05:41 Amylase 67 U/L (29-103) 10/25/18 13:40 Lipase 59 U/L (11-82) 10/27/18 05:41 Urine Source CATH 10/25/18 15:20 Urine Color YELLOW 10/25/18 15:20 Urine Clarity CLOUDY (CLEAR) H 10/25/18 15:20 Urine pH 5.5 (4.6 - 8.0) 10/25/18 15:20 Ur Specific [place] 1.025 (1.005-1.030) 10/25/18 15:20 Urine Protein 30 mg/dL (NEGATIVE) H 10/25/18 15:20 Urine Glucose (UA) NEGATIVE mg/dL (NEGATIVE) 10/25/18 15:20 Urine Ketones NEGATIVE mg/dL (NEGATIVE) 10/25/18 15:20 Urine Blood NEGATIVE (NEGATIVE) 10/25/18 15:20 Urine Nitrate NEGATIVE (NEGATIVE) 10/25/18 15:20 Urine Bilirubin NEGATIVE (NEGATIVE) 10/25/18 15:20 Urine Urobilinogen 0.2 E.U./dL (0.2 - 1.0) 10/25/18 15:20 Ur Leukocyte Esterase NEGATIVE (NEGATIVE) 10/25/18 15:20 Urine RBC NONE SEEN /hpf (0-5) 10/25/18 15:20 Urine WBC 0-2 /hpf (0-5) 10/25/18 15:20 Ur Epithelial Cells FEW /lpf (FEW) 10/25/18 15:20 Amorphous Sediment FEW URATES (NONE SEEN) 10/25/18 15:20 Urine Bacteria MODERATE /hpf (NONE SEEN) H 10/25/18 15:20 Ur Random Sodium 41 mmol/L 10/27/18 17:00 Urine Creatinine 78.0 mg/dl (28.0-217.0) 10/27/18 17:00 Urine Opiates Screen NEGATIVE (NEGATIVE) 10/25/18 15:20 Urine Methadone Screen NEGATIVE (NEGATIVE) 10/25/18 15:20 Ur Barbiturates Screen NEGATIVE (NEGATIVE) 10/25/18 15:20 Ur Tricyclics Screen NEGATIVE (NEGATIVE) 10/25/18 15:20 Ur Phencyclidine Scrn NEGATIVE (NEGATIVE) 10/25/18 15:20 Amphetamines Screen NEGATIVE (NEGATIVE) 10/25/18 15:20 U Methamphetamines Scrn NEGATIVE (NEGATIVE) 10/25/18 15:20 U Benzodiazepines Scrn NEGATIVE (NEGATIVE) 10/25/18 15:20 U Cocaine Metab Screen NEGATIVE (NEGATIVE) 10/25/18 15:20 U Cannabinoids Screen NEGATIVE (NEGATIVE) 10/25/18 15:20 Hepatitis A IgM Ab Negative (Negative) 10/26/18 07:43 Hep Bs Antigen Negative (Negative) 10/26/18 07:43 Hep B Core IgM Ab Negative (Negative) 10/26/18 07:43 Hepatitis C Antibody 0.1 s/co ratio (0.0-0.9) 10/26/18 07:43 - Physical Exam Vitals and I&O: Vital Signs Temp 97.6 F 10/27/18 15:59 Pulse 77 10/27/18 18:41 Resp 20 10/27/18 18:41 BP 111/66 10/27/18 16:24 Pulse Ox 100 10/27/18 18:41 Intake & Output 10/27/18 10/27/18 10/28/18 06:59 18:59 06:59 Intake Total 500 Output Total 850 Balance -350 Weight (lbs) 94.801 kg 94.801 kg Intake: Oral 500 Output: Urine 850 Other: # Bowel Movements 1 Weight Source Bedscale Bedscale Active Medications: Current Medications Acetaminophen (Tylenol) 650 mg PO Q6H PRN PRN Reason: Milid Pain 1-3 or Fever >101 Stop: 12/24/18 18:46 Last Admin: 10/26/18 00:11 Dose: 650 mg Albuterol/Ipratropium (Duoneb Neb) 3 ml HHN Q6HRT [facility] Stop: 12/25/18 18:59 Last Admin: 10/27/18 18:41 Dose: 3 ml Carvedilol (Coreg) 25 mg PO BID [facility] Stop: 12/24/18 19:59 Last Admin: 10/27/18 16:24 Dose: 25 mg Dextrose (Glutose 40%) 15 gm PO PRN PRN PRN Reason: BLOOD GLUCOSE <60 Stop: 12/25/18 06:42 Epoetin [place] (Epogen) 10,000 units SUBQ MoWeFr [facility] Stop: 12/27/18 13:05 Ferrous Sulfate (Iron) 325 mg PO BID [facility] Stop: 12/25/18 08:59 Last Admin: 10/27/18 16:24 Dose: 325 mg Furosemide (Lasix) 40 mg IVP DAILY [facility] Stop: 12/26/18 08:59 Last Admin: 10/27/18 08:57 Dose: 40 mg Glucagon (Glucagen) 1 mg IM PRN PRN PRN Reason: BLOOD GLUCOSE < 60 Stop: 12/25/18 07:24 Hydralazine HCl (Apresoline) 100 mg PO TID [facility] Stop: 12/24/18 20:59 Last Admin: 10/27/18 13:49 Dose: 100 mg Insulin Aspart (Novolog Insulin Sliding Scale) 0 units SUBQ ACHS [facility]; Protocol Stop: 12/24/18 20:59 Last Admin: 10/27/18 16:55 Dose: 2 units Lactulose (Cephulac) 30 gm PO TID [facility] Stop: 12/26/18 13:59 Last Admin: 10/27/18 13:49 Dose: 30 gm Levetiracetam (Keppra) 500 mg PO BID [facility] Stop: 12/24/18 19:59 Last Admin: 10/27/18 16:24 Dose: 500 mg Morphine Sulfate (Morphine) 1 mg IV Q4HR PRN PRN Reason: Abdominal Pain Stop: 12/25/18 12:48 Last Admin: 10/26/18 21:21 Dose: 1 mg Pantoprazole Sodium (Protonix) 40 mg PO DAILY [facility] Stop: 12/26/18 08:59 Last Admin: 10/27/18 08:58 Dose: 40 mg Temazepam (Restoril) 15 mg PO HS PRN; Protocol PRN Reason: Insomnia Stop: 12/25/18 00:39 General: Alert, Mild distress HEENT: Atraumatic, Mucous membr. moist/pink Neck: Supple Cardiovascular: Regular rate Lungs: Normal air movement Abdomen: Bowel sounds, Soft (left UE), Distended, no Tender Extremities: Edema Skin: no Rash Assessment/Plan - Problem List Patient Problems: All Active Problems ABDOMINAL DISTENTION (Acute) - Assessment Assessment: IMPRESSION: 1. Abdominal distention, rule out ascites versus anasarca, perhaps for fluid overload. Likely due to renal failure and/or CHF and/or chronic liver disease. CT A/P showed ascites and anasarca. 2. History of congestive heart failure. 3. History of diabetes mellitus. 4. Hypertension. 5. Chronic kidney disease. 6. History of lymphoma, status post mastectomy. 7. Chronic anemia. 8. History of hyperlipidemia. 9. Mildly abnormal liver enzymes, perhaps from nonalcoholic steatohepatitis and/or liver congestion. Rule out chronic liver disease or cirrhosis. 10. History of seizure disorder. RECOMMENDATIONS: 1. Consider paracentesis if feasible as per Rads. 2. Diuresis as per Nephrology. 3. May need hemodialysis as per Nephrology. 4. Check liver labs. 5. 2 gram sodium diet. 6. Check anemia labs and stool OB. 7. Consider endoscopic workup if not done previously. This can also be done as an outpatient once anasarca is better.
[2018-10-27] MEDS: Morphine Sulfate 2 mg/mL 1mL Syr IV PRN (21:36)
[2018-10-28] MEDS: Albuterol/Ipratropium Neb 3 ML AERS HHN SCH ×4 (00:44→18:53)
[2018-10-28 04:57] LABS: % BASOPHILS 0.7 % (0.0-2.0); % EOSINOPHILS 1.3 % (0.0-5.0); % LYMPHOCYTES 13.9 % (20.0-50.0); % MONOCYTES 10.2 % (2.0-10.0); % NEUTROPHILS 73.9 % (40.0-80.0); EOSINOPHILE ABSOLUTE 0.1 Th/cmm (0.1-0.4); HEMATOCRIT 25.1 % (41.0-60); HEMOGLOBIN 8.6 gm/dL (12-16); LYMPHOCYTE ABSOLUTE 0.6 Th/cmm (1.5-3.0); MEAN CELL VOLUME 91.8 fl (81-100); MEAN CORPUSCULAR HEMOGLOBIN 31.6 pg (27.0-31.0); MEAN CORPUSCULAR HGB CONC 34.4 pg (28.0-36.0); MEAN PLATELET VOLUME 7.4 fl; MONOCYTE ABSOLUTE 0.4 Th/cmm (0.3-1.0); NEUTROPHILE ABSOLUTE 2.9 Th/cmm (1.8-8.0); PLATELET COUNT 131 Th/cmm (150-400); RED BLOOD COUNT 2.73 Mil/cmm (3.80-5.10); RED CELL DISTRIBUTION WIDTH 17.3 % (11.5-20.0)
[2018-10-28 05:29] LABS: ALB/GLOB RATIO 0.8 (1.0-1.8); ALBUMIN 3.6 gm/dL (3.7-5.3); ANION GAP 12.9 (7.0-16.0); BILIRUBIN,TOTAL 1.5 mg/dL (0.3-1.0); CALCIUM SERUM 9.6 mg/dL (8.6-10.3); CARBON DIOXIDE 25.5 mEq/L (21.0-31.0); GFR AFRICAN-AMERICAN 20.3 ml/min (>90); GFR NON AFRICAN-AMERICAN 16.8 ml/min; POTASSIUM SERUM 4.4 mEq/L (3.5-5.1); TOTAL PROTEIN,SERUM 7.9 gm/dL (6.0-8.3)
--- NOTE | 2018-10-28 07:01 | GI Progress Note ---
Subjective - Review of Systems Service Date: 10/28/18 Subjective: EVENTS NOTED. FEELS BETTER. INALL RENAL DIET. Objective - Results Result Diagrams: 10/28/18 04:30 10/28/18 04:30 Recent Labs: Laboratory Last Values WBC 4.0 Th/cmm (4.8-10.8) L 10/28/18 04:30 RBC 2.73 Mil/cmm (3.80-5.10) L 10/28/18 04:30 Hgb 8.6 gm/dL (12-16) L 10/28/18 04:30 Hct 25.1 % (41.0-60) L 10/28/18 04:30 MCV 91.8 fl (81-100) 10/28/18 04:30 MCH 31.6 pg (27.0-31.0) H 10/28/18 04:30 MCHC Differential 34.4 pg (28.0-36.0) 10/28/18 04:30 RDW 17.3 % (11.5-20.0) 10/28/18 04:30 Plt Count 131 Th/cmm (150-400) L 10/28/18 04:30 MPV 7.4 fl 10/28/18 04:30 Add Manual Diff YES 10/26/18 05:16 Neutrophils % 73.9 % (40.0-80.0) 10/28/18 04:30 Band Neutrophils % 0 % (0-10) 10/26/18 05:16 Lymphocytes % 13.9 % (20.0-50.0) L 10/28/18 04:30 Monocytes % 10.2 % (2.0-10.0) H 10/28/18 04:30 Eosinophils % 1.3 % (0.0-5.0) 10/28/18 04:30 Basophils % 0.7 % (0.0-2.0) 10/28/18 04:30 Neutrophils (Manual) 69 % (40-80) 10/26/18 05:16 Lymphocytes 20 % (20-50) 10/26/18 05:16 Monocytes 9 % (2-10) 10/26/18 05:16 Eosinophils 2 % (0-5) 10/26/18 05:16 Basophils 0 % (0-3) 10/26/18 05:16 Eos Smear Source URINE 10/27/18 17:00 Eos Smear Total Cells NONE SEEN (NONE SEEN) 10/27/18 17:00 PT 12.9 SECONDS (9.5-11.5) H 10/25/18 13:40 INR 1.25 (0.5-1.4) 10/25/18 13:40 PTT (Actin FS) 29.2 SECONDS (26.0-38.0) 10/25/18 13:40 Sodium 134 mEq/L (136-145) L 10/28/18 04:30 Potassium 4.4 mEq/L (3.5-5.1) 10/28/18 04:30 Chloride 100 mEq/L (98-107) 10/28/18 04:30 Carbon Dioxide 25.5 mEq/L (21.0-31.0) 10/28/18 04:30 Anion Gap 12.9 (7.0-16.0) 10/28/18 04:30 BUN 77 mg/dL (7-25) H 10/28/18 04:30 Creatinine 3.0 mg/dL (0.6-1.2) H 10/28/18 04:30 Est GFR ( Amer) 20.3 ml/min (>90) 10/28/18 04:30 Est GFR (Non-Af Amer) 16.8 ml/min 10/28/18 04:30 BUN/Creatinine Ratio 25.7 10/28/18 04:30 Glucose 139 mg/dL (70-105) H 10/28/18 04:30 POC Glucose 131 MG/DL (70 - 105) H 10/28/18 05:59 Whole Bld Lactic Acid 0.77 mmol/L (0.60-1.99) 10/25/18 13:40 Calcium 9.6 mg/dL (8.6-10.3) 10/28/18 04:30 Phosphorus 4.0 mg/dL (2.5-5.0) 10/27/18 05:41 Magnesium 3.3 mg/dL (1.9-2.7) H 10/27/18 05:41 Total Bilirubin 1.5 mg/dL (0.3-1.0) H 10/28/18 04:30 AST 30 U/L (13-39) 10/28/18 04:30 ALT 23 U/L (7-52) 10/28/18 04:30 Alkaline Phosphatase 297 U/L (34-104) H 10/28/18 04:30 Ammonia 176 umol/L (16-53) H 10/27/18 05:45 Troponin I 0.02 ng/mL (0.01-0.05) 10/25/18 13:40 B-Natriuretic Peptide 941.0 pg/mL (5.0-100.0) H 10/28/18 04:30 Total Protein 7.9 gm/dL (6.0-8.3) 10/28/18 04:30 Albumin 3.6 gm/dL (3.7-5.3) L 10/28/18 04:30 Globulin 4.3 gm/dL 10/28/18 04:30 Albumin/Globulin Ratio 0.8 (1.0-1.8) L 10/28/18 04:30 Amylase 67 U/L (29-103) 10/25/18 13:40 Lipase 59 U/L (11-82) 10/27/18 05:41 Urine Source CATH 10/25/18 15:20 Urine Color YELLOW 10/25/18 15:20 Urine Clarity CLOUDY (CLEAR) H 10/25/18 15:20 Urine pH 5.5 (4.6 - 8.0) 10/25/18 15:20 Ur Specific [place] 1.025 (1.005-1.030) 10/25/18 15:20 Urine Protein 30 mg/dL (NEGATIVE) H 10/25/18 15:20 Urine Glucose (UA) NEGATIVE mg/dL (NEGATIVE) 10/25/18 15:20 Urine Ketones NEGATIVE mg/dL (NEGATIVE) 10/25/18 15:20 Urine Blood NEGATIVE (NEGATIVE) 10/25/18 15:20 Urine Nitrate NEGATIVE (NEGATIVE) 10/25/18 15:20 Urine Bilirubin NEGATIVE (NEGATIVE) 10/25/18 15:20 Urine Urobilinogen 0.2 E.U./dL (0.2 - 1.0) 10/25/18 15:20 Ur Leukocyte Esterase NEGATIVE (NEGATIVE) 10/25/18 15:20 Urine RBC NONE SEEN /hpf (0-5) 10/25/18 15:20 Urine WBC 0-2 /hpf (0-5) 10/25/18 15:20 Ur Epithelial Cells FEW /lpf (FEW) 10/25/18 15:20 Amorphous Sediment FEW URATES (NONE SEEN) 10/25/18 15:20 Urine Bacteria MODERATE /hpf (NONE SEEN) H 10/25/18 15:20 Ur Random Sodium 41 mmol/L 10/27/18 17:00 Urine Creatinine 78.0 mg/dl (28.0-217.0) 10/27/18 17:00 Urine Opiates Screen NEGATIVE (NEGATIVE) 10/25/18 15:20 Urine Methadone Screen NEGATIVE (NEGATIVE) 10/25/18 15:20 Ur Barbiturates Screen NEGATIVE (NEGATIVE) 10/25/18 15:20 Ur Tricyclics Screen NEGATIVE (NEGATIVE) 10/25/18 15:20 Ur Phencyclidine Scrn NEGATIVE (NEGATIVE) 10/25/18 15:20 Amphetamines Screen NEGATIVE (NEGATIVE) 10/25/18 15:20 U Methamphetamines Scrn NEGATIVE (NEGATIVE) 10/25/18 15:20 U Benzodiazepines Scrn NEGATIVE (NEGATIVE) 10/25/18 15:20 U Cocaine Metab Screen NEGATIVE (NEGATIVE) 10/25/18 15:20 U Cannabinoids Screen NEGATIVE (NEGATIVE) 10/25/18 15:20 Hepatitis A IgM Ab Negative (Negative) 10/26/18 07:43 Hep Bs Antigen Negative (Negative) 10/26/18 07:43 Hep B Core IgM Ab Negative (Negative) 10/26/18 07:43 Hepatitis C Antibody 0.1 s/co ratio (0.0-0.9) 10/26/18 07:43 - Physical Exam Vitals and I&O: Vital Signs Temp 97.3 F 10/28/18 00:00 Pulse 79 10/28/18 00:45 Resp 18 10/28/18 00:45 BP 115/84 10/28/18 00:00 Pulse Ox 98 10/28/18 00:45 Intake & Output 10/27/18 10/27/18 10/28/18 06:59 18:59 06:59 Intake Total 500 Output Total 850 Balance -350 Weight (lbs) 94.801 kg 94.801 kg Intake: Oral 500 Output: Urine 850 Other: # Bowel Movements 1 Weight Source Bedscale Bedscale Active Medications: Current Medications Acetaminophen (Tylenol) 650 mg PO Q6H PRN PRN Reason: Milid Pain 1-3 or Fever >101 Stop: 01/29/19 18:46 Last Admin: 10/26/18 00:11 Dose: 650 mg Albuterol/Ipratropium (Duoneb Neb) 3 ml HHN Q6HRT [facility] Stop: 12/25/18 18:59 Last Admin: 10/28/18 00:44 Dose: 3 ml Carvedilol (Coreg) 25 mg PO BID [facility] Stop: 12/24/18 19:59 Last Admin: 10/27/18 16:24 Dose: 25 mg Dextrose (Glutose 40%) 15 gm PO PRN PRN PRN Reason: BLOOD GLUCOSE <60 Stop: 12/25/18 06:42 Epoetin [place] (Epogen) 10,000 units SUBQ MoWeFr [facility] Stop: 12/27/18 13:05 Ferrous Sulfate (Iron) 325 mg PO BID [facility] Stop: 12/25/18 08:59 Last Admin: 10/27/18 16:24 Dose: 325 mg Furosemide (Lasix) 40 mg IVP DAILY [facility] Stop: 12/26/18 08:59 Last Admin: 10/27/18 08:57 Dose: 40 mg Glucagon (Glucagen) 1 mg IM PRN PRN PRN Reason: BLOOD GLUCOSE < 60 Stop: 12/25/18 07:24 Hydralazine HCl (Apresoline) 100 mg PO TID [facility] Stop: 12/24/18 20:59 Last Admin: 10/27/18 21:37 Dose: 100 mg Insulin Aspart (Novolog Insulin Sliding Scale) 0 units SUBQ ACHS [facility]; Protocol Stop: 12/24/18 20:59 Last Admin: 10/27/18 21:39 Dose: 2 units Lactulose (Cephulac) 30 gm PO TID [facility] Stop: 12/26/18 13:59 Last Admin: 10/27/18 21:37 Dose: 30 gm Levetiracetam (Keppra) 500 mg PO BID [facility] Stop: 12/24/18 19:59 Last Admin: 10/27/18 16:24 Dose: 500 mg Morphine Sulfate (Morphine) 1 mg IV Q4HR PRN PRN Reason: Abdominal Pain Stop: 12/25/18 12:48 Last Admin: 10/27/18 21:36 Dose: 1 mg Pantoprazole Sodium (Protonix) 40 mg PO DAILY [facility] Stop: 12/26/18 08:59 Last Admin: 10/27/18 08:58 Dose: 40 mg Temazepam (Restoril) 15 mg PO HS PRN; Protocol PRN Reason: Insomnia Stop: 12/25/18 00:39 General: Alert, Mild distress HEENT: Atraumatic, Mucous membr. moist/pink Neck: Supple Cardiovascular: Regular rate Lungs: Normal air movement Abdomen: Bowel sounds, Soft (left UE), Distended, no Tender Extremities: Edema Neurological: Sensation intact Skin: no Rash Psych/Mental Status: Mood NL Assessment/Plan - Problem List Patient Problems: All Active Problems ABDOMINAL DISTENTION (Acute) - Assessment Assessment: IMPRESSION: 1. Abdominal distention, rule out ascites versus anasarca, perhaps for fluid overload. Likely due to renal failure and/or CHF and less likely chronic liver disease. CT A/P showed ascites and anasarca. 2. History of congestive heart failure, perhaps R sided from obesity/ALDA. 3. History of diabetes mellitus. 4. Hypertension. 5. Chronic kidney disease. 6. History of lymphoma, status post mastectomy. 7. Chronic anemia. 8. History of hyperlipidemia. 9. Mildly abnormal liver enzymes, perhaps from nonalcoholic steatohepatitis and/or liver congestion from R CHF. Less likely chronic liver disease or cirrhosis. 10. History of seizure disorder. RECOMMENDATIONS: 1. May need paracentesis if feasible as per Rads. 2. Diuresis as per Nephrology. 3. May need hemodialysis as per Nephrology. 4. F/U chronic liver labs. 5. 2 gram sodium diet/Renal diet. 6. F/U anemia labs and stool OB. 7. Consider endoscopic workup if not done previously. This is best done as an outpatient once anasarca is better.
[2018-10-28] MEDS: INSULIN ASPART SLIDING SCALE 100 UNITS/ML UNIT SUBQ SCH ×4 (07:30→20:50)
--- NOTE | 2018-10-28 08:16 | General Progress Note ---
Subjective - Review of Systems Service Date: 10/28/18 Subjective: 62 y/o awake, alert. no acute distress. Objective - Results Result Diagrams: 10/28/18 04:30 10/28/18 04:30 Recent Labs: Laboratory Last Values WBC 4.0 Th/cmm (4.8-10.8) L 10/28/18 04:30 RBC 2.73 Mil/cmm (3.80-5.10) L 10/28/18 04:30 Hgb 8.6 gm/dL (12-16) L 10/28/18 04:30 Hct 25.1 % (41.0-60) L 10/28/18 04:30 MCV 91.8 fl (81-100) 10/28/18 04:30 MCH 31.6 pg (27.0-31.0) H 10/28/18 04:30 MCHC Differential 34.4 pg (28.0-36.0) 10/28/18 04:30 RDW 17.3 % (11.5-20.0) 10/28/18 04:30 Plt Count 131 Th/cmm (150-400) L 10/28/18 04:30 MPV 7.4 fl 10/28/18 04:30 Add Manual Diff YES 10/26/18 05:16 Neutrophils % 73.9 % (40.0-80.0) 10/28/18 04:30 Band Neutrophils % 0 % (0-10) 10/26/18 05:16 Lymphocytes % 13.9 % (20.0-50.0) L 10/28/18 04:30 Monocytes % 10.2 % (2.0-10.0) H 10/28/18 04:30 Eosinophils % 1.3 % (0.0-5.0) 10/28/18 04:30 Basophils % 0.7 % (0.0-2.0) 10/28/18 04:30 Neutrophils (Manual) 69 % (40-80) 10/26/18 05:16 Lymphocytes 20 % (20-50) 10/26/18 05:16 Monocytes 9 % (2-10) 10/26/18 05:16 Eosinophils 2 % (0-5) 10/26/18 05:16 Basophils 0 % (0-3) 10/26/18 05:16 Eos Smear Source URINE 10/27/18 17:00 Eos Smear Total Cells NONE SEEN (NONE SEEN) 10/27/18 17:00 PT 12.9 SECONDS (9.5-11.5) H 10/25/18 13:40 INR 1.25 (0.5-1.4) 10/25/18 13:40 PTT (Actin FS) 29.2 SECONDS (26.0-38.0) 10/25/18 13:40 Sodium 134 mEq/L (136-145) L 10/28/18 04:30 Potassium 4.4 mEq/L (3.5-5.1) 10/28/18 04:30 Chloride 100 mEq/L (98-107) 10/28/18 04:30 Carbon Dioxide 25.5 mEq/L (21.0-31.0) 10/28/18 04:30 Anion Gap 12.9 (7.0-16.0) 10/28/18 04:30 BUN 77 mg/dL (7-25) H 10/28/18 04:30 Creatinine 3.0 mg/dL (0.6-1.2) H 10/28/18 04:30 Est GFR ( Amer) 20.3 ml/min (>90) 10/28/18 04:30 Est GFR (Non-Af Amer) 16.8 ml/min 10/28/18 04:30 BUN/Creatinine Ratio 25.7 10/28/18 04:30 Glucose 139 mg/dL (70-105) H 10/28/18 04:30 POC Glucose 131 MG/DL (70 - 105) H 10/28/18 05:59 Whole Bld Lactic Acid 0.77 mmol/L (0.60-1.99) 10/25/18 13:40 Calcium 9.6 mg/dL (8.6-10.3) 10/28/18 04:30 Phosphorus 4.0 mg/dL (2.5-5.0) 10/27/18 05:41 Magnesium 3.3 mg/dL (1.9-2.7) H 10/27/18 05:41 Total Bilirubin 1.5 mg/dL (0.3-1.0) H 10/28/18 04:30 GGTP 642 IU/L (0-60) H 10/27/18 05:41 AST 30 U/L (13-39) 10/28/18 04:30 ALT 23 U/L (7-52) 10/28/18 04:30 Alkaline Phosphatase 297 U/L (34-104) H 10/28/18 04:30 Ammonia 176 umol/L (16-53) H 10/27/18 05:45 Troponin I 0.02 ng/mL (0.01-0.05) 10/25/18 13:40 B-Natriuretic Peptide 941.0 pg/mL (5.0-100.0) H 10/28/18 04:30 Total Protein 7.9 gm/dL (6.0-8.3) 10/28/18 04:30 Albumin 3.6 gm/dL (3.7-5.3) L 10/28/18 04:30 Globulin 4.3 gm/dL 10/28/18 04:30 Albumin/Globulin Ratio 0.8 (1.0-1.8) L 10/28/18 04:30 Amylase 67 U/L (29-103) 10/25/18 13:40 Lipase 59 U/L (11-82) 10/27/18 05:41 Urine Source CATH 10/25/18 15:20 Urine Color YELLOW 10/25/18 15:20 Urine Clarity CLOUDY (CLEAR) H 10/25/18 15:20 Urine pH 5.5 (4.6 - 8.0) 10/25/18 15:20 Ur Specific [place] 1.025 (1.005-1.030) 10/25/18 15:20 Urine Protein 30 mg/dL (NEGATIVE) H 10/25/18 15:20 Urine Glucose (UA) NEGATIVE mg/dL (NEGATIVE) 10/25/18 15:20 Urine Ketones NEGATIVE mg/dL (NEGATIVE) 10/25/18 15:20 Urine Blood NEGATIVE (NEGATIVE) 10/25/18 15:20 Urine Nitrate NEGATIVE (NEGATIVE) 10/25/18 15:20 Urine Bilirubin NEGATIVE (NEGATIVE) 10/25/18 15:20 Urine Urobilinogen 0.2 E.U./dL (0.2 - 1.0) 10/25/18 15:20 Ur Leukocyte Esterase NEGATIVE (NEGATIVE) 10/25/18 15:20 Urine RBC NONE SEEN /hpf (0-5) 10/25/18 15:20 Urine WBC 0-2 /hpf (0-5) 10/25/18 15:20 Ur Epithelial Cells FEW /lpf (FEW) 10/25/18 15:20 Amorphous Sediment FEW URATES (NONE SEEN) 10/25/18 15:20 Urine Bacteria MODERATE /hpf (NONE SEEN) H 10/25/18 15:20 Ur Random Sodium 41 mmol/L 10/27/18 17:00 Urine Creatinine 78.0 mg/dl (28.0-217.0) 10/27/18 17:00 Microalb/Creat Ratio 317.5 mg/g creat (0.0-30.0) H 10/27/18 17:00 Urine Opiates Screen NEGATIVE (NEGATIVE) 10/25/18 15:20 Urine Methadone Screen NEGATIVE (NEGATIVE) 10/25/18 15:20 Ur Barbiturates Screen NEGATIVE (NEGATIVE) 10/25/18 15:20 Ur Tricyclics Screen NEGATIVE (NEGATIVE) 10/25/18 15:20 Ur Phencyclidine Scrn NEGATIVE (NEGATIVE) 10/25/18 15:20 Amphetamines Screen NEGATIVE (NEGATIVE) 10/25/18 15:20 U Methamphetamines Scrn NEGATIVE (NEGATIVE) 10/25/18 15:20 U Benzodiazepines Scrn NEGATIVE (NEGATIVE) 10/25/18 15:20 U Cocaine Metab Screen NEGATIVE (NEGATIVE) 10/25/18 15:20 U Cannabinoids Screen NEGATIVE (NEGATIVE) 10/25/18 15:20 Hepatitis A IgM Ab Negative (Negative) 10/26/18 07:43 Hep Bs Antigen Negative (Negative) 10/26/18 07:43 Hep B Core IgM Ab Negative (Negative) 10/26/18 07:43 Hepatitis C Antibody 0.1 s/co ratio (0.0-0.9) 10/26/18 07:43 - Physical Exam Vitals and I&O: Vital Signs Temp 97.4 F 10/28/18 07:41 Pulse 72 10/28/18 07:41 Resp 18 10/28/18 07:41 BP 115/72 10/28/18 07:41 Pulse Ox 100 10/28/18 07:41 Intake & Output 10/27/18 10/28/18 10/28/18 18:59 06:59 18:59 Intake Total 740 Output Total 1200 Balance -460 Weight (lbs) 94.347 kg Intake: Oral 740 Output: Urine 1200 Other: # Bowel Movements 2 Stool Characteristics Soft Black Weight Source Bedscale Active Medications: Current Medications Acetaminophen (Tylenol) 650 mg PO Q6H PRN PRN Reason: Milid Pain 1-3 or Fever >101 Stop: 12/24/18 18:46 Last Admin: 10/26/18 00:11 Dose: 650 mg Albuterol/Ipratropium (Duoneb Neb) 3 ml HHN Q6HRT [facility] Stop: 12/25/18 18:59 Last Admin: 10/28/18 07:02 Dose: 3 ml Carvedilol (Coreg) 25 mg PO BID [facility] Stop: 12/24/18 19:59 Last Admin: 10/27/18 16:24 Dose: 25 mg Dextrose (Glutose 40%) 15 gm PO PRN PRN PRN Reason: BLOOD GLUCOSE <60 Stop: 12/25/18 06:42 Epoetin [place] (Epogen) 10,000 units SUBQ MoWeFr [facility] Stop: 12/27/18 13:05 Ferrous Sulfate (Iron) 325 mg PO BID [facility] Stop: 12/25/18 08:59 Last Admin: 10/27/18 16:24 Dose: 325 mg Furosemide (Lasix) 40 mg IVP DAILY [facility] Stop: 12/26/18 08:59 Last Admin: 10/27/18 08:57 Dose: 40 mg Glucagon (Glucagen) 1 mg IM PRN PRN PRN Reason: BLOOD GLUCOSE < 60 Stop: 12/25/18 07:24 Hydralazine HCl (Apresoline) 100 mg PO TID [facility] Stop: 12/24/18 20:59 Last Admin: 10/27/18 21:37 Dose: 100 mg Insulin Aspart (Novolog Insulin Sliding Scale) 0 units SUBQ ACHS [facility]; Protocol Stop: 12/24/18 20:59 Last Admin: 10/28/18 07:30 Dose: Not Given Lactulose (Cephulac) 30 gm PO TID [facility] Stop: 12/26/18 13:59 Last Admin: 10/27/18 21:37 Dose: 30 gm Levetiracetam (Keppra) 500 mg PO BID [facility] Stop: 12/24/18 19:59 Last Admin: 10/27/18 16:24 Dose: 500 mg Morphine Sulfate (Morphine) 1 mg IV Q4HR PRN PRN Reason: Abdominal Pain Stop: 12/25/18 12:48 Last Admin: 10/27/18 21:36 Dose: 1 mg Pantoprazole Sodium (Protonix) 40 mg PO DAILY [facility] Stop: 12/26/18 08:59 Last Admin: 10/27/18 08:58 Dose: 40 mg Temazepam (Restoril) 15 mg PO HS PRN; Protocol PRN Reason: Insomnia Stop: 12/25/18 00:39 General: Alert, Mild distress HEENT: Atraumatic, Mucous membr. moist/pink Neck: Supple Cardiovascular: Regular rate Lungs: Normal air movement Abdomen: Bowel sounds, Soft (left UE), Distended, no Tender Extremities: Edema Neurological: Sensation intact Skin: no Rash Psych/Mental Status: Mood NL Assessment/Plan - Problem List Patient Problems: All Active Problems ABDOMINAL DISTENTION (Acute) - Assessment Assessment: Current Active Problems Problem Status Onset ABDOMINAL DISTENTION Acute elevated BNP abd pain CHF JODIE w/ CKD hyponatremia UTI Paroxysmal atrial fibrillation iron deficiency anemia hemipelgia following CVA R side Diabetes mellitus Unspecified convulsions Hypertension Hyperlipidemia Osteoarthritis hepatic encephalopathy - Plan Plan: continue current treatment.
--- NOTE | 2018-10-28 08:29 | Diagnostic Imaging Report ---
Portable chest x-ray Time: 0 [id number] History: Infiltrate Results evidence for cardiomegaly No focal pulmonary parenchymal processes. No hilar or mediastinal abnormalities. Impression: No acute abnormalities. Cardiomegaly.
[2018-10-28] MEDS: Pantoprazole 40 mg EC Tab PO SCH (08:54)
[2018-10-28] MEDS: Lactulose 10 Gm/15 mL 30mL UDC PO SCH ×3 (08:55→21:07)
[2018-10-28] MEDS: Ferrous Sulfate 325 MG TAB PO SCH ×2 (08:56→16:59)
--- NOTE | 2018-10-28 09:15 | Diagnostic Imaging Report ---
Left upper extremity Doppler venous ultrasound exam HISTORY: Swelling Sonographic sector images were obtained through the venous system of the left arm. Associated Doppler data was obtained. The exam demonstrates patency of the left internal jugular, subclavian, axillary, brachial, basilic, and cephalic veins. No thrombus identified. Normal compressibility and augmentation responses. IMPRESSION: Negative exam for thrombophlebitis
[2018-10-28] MEDS ORDERED: Epoetin Alfa 20000 Units/mL Vial SUBQ SCH (13:06)
--- NOTE | 2018-10-28 15:08 | General Progress Note ---
Subjective - Review of Systems Service Date: 10/28/18 Subjective: alert, still has noyola, abd discomfort, had BM last nite Objective - Results Result Diagrams: 10/28/18 04:30 10/28/18 04:30 Recent Labs: Laboratory Last Values WBC 4.0 Th/cmm (4.8-10.8) L 10/28/18 04:30 RBC 2.73 Mil/cmm (3.80-5.10) L 10/28/18 04:30 Hgb 8.6 gm/dL (12-16) L 10/28/18 04:30 Hct 25.1 % (41.0-60) L 10/28/18 04:30 MCV 91.8 fl (81-100) 10/28/18 04:30 MCH 31.6 pg (27.0-31.0) H 10/28/18 04:30 MCHC Differential 34.4 pg (28.0-36.0) 10/28/18 04:30 RDW 17.3 % (11.5-20.0) 10/28/18 04:30 Plt Count 131 Th/cmm (150-400) L 10/28/18 04:30 MPV 7.4 fl 10/28/18 04:30 Add Manual Diff YES 10/26/18 05:16 Neutrophils % 73.9 % (40.0-80.0) 10/28/18 04:30 Band Neutrophils % 0 % (0-10) 10/26/18 05:16 Lymphocytes % 13.9 % (20.0-50.0) L 10/28/18 04:30 Monocytes % 10.2 % (2.0-10.0) H 10/28/18 04:30 Eosinophils % 1.3 % (0.0-5.0) 10/28/18 04:30 Basophils % 0.7 % (0.0-2.0) 10/28/18 04:30 Neutrophils (Manual) 69 % (40-80) 10/26/18 05:16 Lymphocytes 20 % (20-50) 10/26/18 05:16 Monocytes 9 % (2-10) 10/26/18 05:16 Eosinophils 2 % (0-5) 10/26/18 05:16 Basophils 0 % (0-3) 10/26/18 05:16 Eos Smear Source URINE 10/27/18 17:00 Eos Smear Total Cells NONE SEEN (NONE SEEN) 10/27/18 17:00 PT 12.9 SECONDS (9.5-11.5) H 10/25/18 13:40 INR 1.25 (0.5-1.4) 10/25/18 13:40 PTT (Actin FS) 29.2 SECONDS (26.0-38.0) 10/25/18 13:40 Sodium 134 mEq/L (136-145) L 10/28/18 04:30 Potassium 4.4 mEq/L (3.5-5.1) 10/28/18 04:30 Chloride 100 mEq/L (98-107) 10/28/18 04:30 Carbon Dioxide 25.5 mEq/L (21.0-31.0) 10/28/18 04:30 Anion Gap 12.9 (7.0-16.0) 10/28/18 04:30 BUN 77 mg/dL (7-25) H 10/28/18 04:30 Creatinine 3.0 mg/dL (0.6-1.2) H 10/28/18 04:30 Est GFR ( Amer) 20.3 ml/min (>90) 10/28/18 04:30 Est GFR (Non-Af Amer) 16.8 ml/min 10/28/18 04:30 BUN/Creatinine Ratio 25.7 10/28/18 04:30 Glucose 139 mg/dL (70-105) H 10/28/18 04:30 POC Glucose 167 MG/DL (70 - 105) H 10/28/18 11:58 Whole Bld Lactic Acid 0.77 mmol/L (0.60-1.99) 10/25/18 13:40 Calcium 9.6 mg/dL (8.6-10.3) 10/28/18 04:30 Phosphorus 4.0 mg/dL (2.5-5.0) 10/27/18 05:41 Magnesium 3.3 mg/dL (1.9-2.7) H 10/27/18 05:41 Total Bilirubin 1.5 mg/dL (0.3-1.0) H 10/28/18 04:30 GGTP 642 IU/L (0-60) H 10/27/18 05:41 AST 30 U/L (13-39) 10/28/18 04:30 ALT 23 U/L (7-52) 10/28/18 04:30 Alkaline Phosphatase 297 U/L (34-104) H 10/28/18 04:30 Ammonia 176 umol/L (16-53) H 10/27/18 05:45 Troponin I 0.02 ng/mL (0.01-0.05) 10/25/18 13:40 B-Natriuretic Peptide 941.0 pg/mL (5.0-100.0) H 10/28/18 04:30 Total Protein 7.9 gm/dL (6.0-8.3) 10/28/18 04:30 Albumin 3.6 gm/dL (3.7-5.3) L 10/28/18 04:30 Globulin 4.3 gm/dL 10/28/18 04:30 Albumin/Globulin Ratio 0.8 (1.0-1.8) L 10/28/18 04:30 Amylase 67 U/L (29-103) 10/25/18 13:40 Lipase 59 U/L (11-82) 10/27/18 05:41 Urine Source CATH 10/25/18 15:20 Urine Color YELLOW 10/25/18 15:20 Urine Clarity CLOUDY (CLEAR) H 10/25/18 15:20 Urine pH 5.5 (4.6 - 8.0) 10/25/18 15:20 Ur Specific [place] 1.025 (1.005-1.030) 10/25/18 15:20 Urine Protein 30 mg/dL (NEGATIVE) H 10/25/18 15:20 Urine Glucose (UA) NEGATIVE mg/dL (NEGATIVE) 10/25/18 15:20 Urine Ketones NEGATIVE mg/dL (NEGATIVE) 10/25/18 15:20 Urine Blood NEGATIVE (NEGATIVE) 10/25/18 15:20 Urine Nitrate NEGATIVE (NEGATIVE) 10/25/18 15:20 Urine Bilirubin NEGATIVE (NEGATIVE) 10/25/18 15:20 Urine Urobilinogen 0.2 E.U./dL (0.2 - 1.0) 10/25/18 15:20 Ur Leukocyte Esterase NEGATIVE (NEGATIVE) 10/25/18 15:20 Urine RBC NONE SEEN /hpf (0-5) 10/25/18 15:20 Urine WBC 0-2 /hpf (0-5) 10/25/18 15:20 Ur Epithelial Cells FEW /lpf (FEW) 10/25/18 15:20 Amorphous Sediment FEW URATES (NONE SEEN) 10/25/18 15:20 Urine Bacteria MODERATE /hpf (NONE SEEN) H 10/25/18 15:20 Ur Random Sodium 41 mmol/L 10/27/18 17:00 Urine Creatinine 78.0 mg/dl (28.0-217.0) 10/27/18 17:00 Microalb/Creat Ratio 317.5 mg/g creat (0.0-30.0) H 10/27/18 17:00 Urine Opiates Screen NEGATIVE (NEGATIVE) 10/25/18 15:20 Urine Methadone Screen NEGATIVE (NEGATIVE) 10/25/18 15:20 Ur Barbiturates Screen NEGATIVE (NEGATIVE) 10/25/18 15:20 Ur Tricyclics Screen NEGATIVE (NEGATIVE) 10/25/18 15:20 Ur Phencyclidine Scrn NEGATIVE (NEGATIVE) 10/25/18 15:20 Amphetamines Screen NEGATIVE (NEGATIVE) 10/25/18 15:20 U Methamphetamines Scrn NEGATIVE (NEGATIVE) 10/25/18 15:20 U Benzodiazepines Scrn NEGATIVE (NEGATIVE) 10/25/18 15:20 U Cocaine Metab Screen NEGATIVE (NEGATIVE) 10/25/18 15:20 U Cannabinoids Screen NEGATIVE (NEGATIVE) 10/25/18 15:20 Hepatitis A IgM Ab Negative (Negative) 10/26/18 07:43 Hep Bs Antigen Negative (Negative) 10/26/18 07:43 Hep B Core IgM Ab Negative (Negative) 10/26/18 07:43 Hepatitis C Antibody 0.1 s/co ratio (0.0-0.9) 10/26/18 07:43 - Physical Exam Vitals and I&O: Vital Signs Temp 97.3 F 10/28/18 11:55 Pulse 64 10/28/18 13:32 Resp 18 10/28/18 13:32 BP 120/74 10/28/18 11:55 Pulse Ox 96 10/28/18 13:32 Intake & Output 10/27/18 10/28/18 10/28/18 18:59 06:59 18:59 Intake Total 740 Output Total 1200 Balance -460 Weight (lbs) 94.347 kg Intake: Oral 740 Output: Urine 1200 Other: # Bowel Movements 2 Stool Characteristics Soft Soft Black Black Weight Source Bedscale Active Medications: Current Medications Acetaminophen (Tylenol) 650 mg PO Q6H PRN PRN Reason: Milid Pain 1-3 or Fever >101 Stop: 12/24/18 18:46 Last Admin: 10/26/18 00:11 Dose: 650 mg Albuterol/Ipratropium (Duoneb Neb) 3 ml HHN Q6HRT [facility] Stop: 12/25/18 18:59 Last Admin: 10/28/18 13:32 Dose: 3 ml Carvedilol (Coreg) 25 mg PO BID [facility] Stop: 12/24/18 19:59 Last Admin: 10/28/18 08:54 Dose: 25 mg Dextrose (Glutose 40%) 15 gm PO PRN PRN PRN Reason: BLOOD GLUCOSE <60 Stop: 12/25/18 06:42 Epoetin [place] (Epogen) 10,000 units SUBQ MoWeFr [facility] Stop: 12/27/18 13:05 Ferrous Sulfate (Iron) 325 mg PO BID [facility] Stop: 12/25/18 08:59 Last Admin: 10/28/18 08:56 Dose: 325 mg Furosemide (Lasix) 40 mg IVP DAILY [facility] Stop: 12/26/18 08:59 Last Admin: 10/28/18 08:55 Dose: 40 mg Glucagon (Glucagen) 1 mg IM PRN PRN PRN Reason: BLOOD GLUCOSE < 60 Stop: 12/25/18 07:24 Hydralazine HCl (Apresoline) 100 mg PO TID [facility] Stop: 12/24/18 20:59 Last Admin: 10/28/18 08:53 Dose: 100 mg Insulin Aspart (Novolog Insulin Sliding Scale) 0 units SUBQ ACHS [facility]; Protocol Stop: 12/24/18 20:59 Last Admin: 10/28/18 12:09 Dose: 2 units Lactulose (Cephulac) 30 gm PO TID [facility] Stop: 12/26/18 13:59 Last Admin: 10/28/18 08:55 Dose: 30 gm Levetiracetam (Keppra) 500 mg PO BID [facility] Stop: 12/24/18 19:59 Last Admin: 10/28/18 08:54 Dose: 500 mg Morphine Sulfate (Morphine) 1 mg IV Q4HR PRN PRN Reason: Abdominal Pain Stop: 12/25/18 12:48 Last Admin: 10/27/18 21:36 Dose: 1 mg Pantoprazole Sodium (Protonix) 40 mg PO DAILY [facility] Stop: 12/26/18 08:59 Last Admin: 10/28/18 08:54 Dose: 40 mg Temazepam (Restoril) 15 mg PO HS PRN; Protocol PRN Reason: Insomnia Stop: 12/25/18 00:39 General: Alert, Mild distress HEENT: Atraumatic, Mucous membr. moist/pink Neck: Supple Cardiovascular: Regular rate Lungs: Normal air movement Abdomen: Bowel sounds, Soft (left UE), Distended, no Tender Extremities: Edema Neurological: Sensation intact Skin: no Rash Psych/Mental Status: Mood NL Assessment/Plan - Problem List Patient Problems: All Active Problems ABDOMINAL DISTENTION (Acute) - Assessment Assessment: CKD Abd Distension Constipation OHS/ALDA Pancytopenia Elevated NH3 Chronic Extrahepatic Cholestasis Obesity Ascites Constipation - Plan Plan: Lab - Result Diagrams 10/27/18 05:41 10/27/18 05:41 Current Medications Acetaminophen (Tylenol) 650 mg PO Q6H PRN PRN Reason: Milid Pain 1-3 or Fever >101 Stop: 12/24/18 18:46 Last Admin: 10/26/18 00:11 Dose: 650 mg Albuterol/Ipratropium (Duoneb Neb) 3 ml HHN Q6HRT [facility] Stop: 12/25/18 18:59 Last Admin: 10/27/18 06:52 Dose: 3 ml Carvedilol (Coreg) 25 mg PO BID [facility] Stop: 12/24/18 19:59 Last Admin: 10/27/18 08:58 Dose: 25 mg Dextrose (Glutose 40%) 15 gm PO PRN PRN PRN Reason: BLOOD GLUCOSE <60 Stop: 12/25/18 06:42 Ferrous Sulfate (Iron) 325 mg PO BID [facility] Stop: 12/25/18 08:59 Last Admin: 10/27/18 08:58 Dose: 325 mg Furosemide (Lasix) 40 mg IVP DAILY [facility] Stop: 12/26/18 08:59 Last Admin: 10/27/18 08:57 Dose: 40 mg Glucagon (Glucagen) 1 mg IM PRN PRN PRN Reason: BLOOD GLUCOSE < 60 Stop: 12/25/18 07:24 Hydralazine HCl (Apresoline) 100 mg PO TID [facility] Stop: 12/24/18 20:59 Last Admin: 10/27/18 08:58 Dose: 100 mg Insulin Aspart (Novolog Insulin Sliding Scale) 0 units SUBQ ACHS [facility]; Protocol Stop: 12/24/18 20:59 Last Admin: 10/27/18 11:55 Dose: 2 units Lactulose (Cephulac) 30 gm PO TID [facility] Stop: 12/26/18 13:59 Levetiracetam (Keppra) 500 mg PO BID [facility] Stop: 12/24/18 19:59 Last Admin: 10/27/18 08:58 Dose: 500 mg Morphine Sulfate (Morphine) 1 mg IV Q4HR PRN PRN Reason: Abdominal Pain Stop: 12/25/18 12:48 Last Admin: 10/26/18 21:21 Dose: 1 mg Pantoprazole Sodium (Protonix) 40 mg PO DAILY [facility] Stop: 12/26/18 08:59 Last Admin: 10/27/18 08:58 Dose: 40 mg Temazepam (Restoril) 15 mg PO HS PRN; Protocol PRN Reason: Insomnia Stop: 12/25/18 00:39 Lab - Result Diagrams 10/28/18 04:30 10/28/18 04:30 no change kidney fnc w/ BUN/CR of 77/3 increase Lactulose for hyperammonemia, constipation liver failure workup in [facility] consider taper/ DC Lasix for now because of improvement of CXR f/u electrolytes, cbc, CXR
[2018-10-28] MEDS: Morphine Sulfate 2 mg/mL 1mL Syr IV PRN (21:15)
[2018-10-29] MEDS: Albuterol/Ipratropium Neb 3 ML AERS HHN SCH ×3 (01:13→12:03)
[2018-10-29 04:48] LABS: % EOSINOPHILS 1.6 % (0.0-5.0); % LYMPHOCYTES 12.5 % (20.0-50.0); % MONOCYTES 9.8 % (2.0-10.0); % NEUTROPHILS 75.1 % (40.0-80.0); EOSINOPHILE ABSOLUTE 0.1 Th/cmm (0.1-0.4); HEMATOCRIT 25.6 % (41.0-60); HEMOGLOBIN 8.8 gm/dL (12-16); LYMPHOCYTE ABSOLUTE 0.6 Th/cmm (1.5-3.0); MEAN CELL VOLUME 93.2 fl (81-100); MEAN CORPUSCULAR HEMOGLOBIN 31.9 pg (27.0-31.0); MEAN CORPUSCULAR HGB CONC 34.3 pg (28.0-36.0); MEAN PLATELET VOLUME 7.7 fl; MONOCYTE ABSOLUTE 0.4 Th/cmm (0.3-1.0); NEUTROPHILE ABSOLUTE 3.4 Th/cmm (1.8-8.0); PLATELET COUNT 135 Th/cmm (150-400); RED BLOOD COUNT 2.74 Mil/cmm (3.80-5.10); RED CELL DISTRIBUTION WIDTH 16.2 % (11.5-20.0); WHITE BLOOD COUNT 4.5 Th/cmm (4.8-10.8)
[2018-10-29 05:55] LABS: ALB/GLOB RATIO 0.8 (1.0-1.8); ALBUMIN 3.6 gm/dL (3.7-5.3); ANION GAP 14.5 (7.0-16.0); BILIRUBIN,TOTAL 1.5 mg/dL (0.3-1.0); CALCIUM SERUM 9.6 mg/dL (8.6-10.3); CARBON DIOXIDE 24.9 mEq/L (21.0-31.0); GFR AFRICAN-AMERICAN 20.3 ml/min (>90); GFR NON AFRICAN-AMERICAN 16.8 ml/min; POTASSIUM SERUM 4.4 mEq/L (3.5-5.1); TOTAL PROTEIN,SERUM 7.9 gm/dL (6.0-8.3)
[2018-10-29] MEDS: INSULIN ASPART SLIDING SCALE 100 UNITS/ML UNIT SUBQ SCH ×2 (08:02→11:30)
--- NOTE | 2018-10-29 08:27 | General Progress Note ---
Subjective - Review of Systems Service Date: 10/29/18 Subjective: 62 y/o awake, alert. no acute distress. resting comfortably in bed. Objective - Results Result Diagrams: 10/29/18 04:20 10/29/18 04:20 Recent Labs: Laboratory Last Values WBC 4.5 Th/cmm (4.8-10.8) L 10/29/18 04:20 RBC 2.74 Mil/cmm (3.80-5.10) L 10/29/18 04:20 Hgb 8.8 gm/dL (12-16) L 10/29/18 04:20 Hct 25.6 % (41.0-60) L 10/29/18 04:20 MCV 93.2 fl (81-100) 10/29/18 04:20 MCH 31.9 pg (27.0-31.0) H 10/29/18 04:20 MCHC Differential 34.3 pg (28.0-36.0) 10/29/18 04:20 RDW 16.2 % (11.5-20.0) 10/29/18 04:20 Plt Count 135 Th/cmm (150-400) L 10/29/18 04:20 MPV 7.7 fl 10/29/18 04:20 Add Manual Diff YES 10/26/18 05:16 Neutrophils % 75.1 % (40.0-80.0) 10/29/18 04:20 Band Neutrophils % 0 % (0-10) 10/26/18 05:16 Lymphocytes % 12.5 % (20.0-50.0) L 10/29/18 04:20 Monocytes % 9.8 % (2.0-10.0) 10/29/18 04:20 Eosinophils % 1.6 % (0.0-5.0) 10/29/18 04:20 Basophils % 1.0 % (0.0-2.0) 10/29/18 04:20 Neutrophils (Manual) 69 % (40-80) 10/26/18 05:16 Lymphocytes 20 % (20-50) 10/26/18 05:16 Monocytes 9 % (2-10) 10/26/18 05:16 Eosinophils 2 % (0-5) 10/26/18 05:16 Basophils 0 % (0-3) 10/26/18 05:16 Eos Smear Source URINE 10/27/18 17:00 Eos Smear Total Cells NONE SEEN (NONE SEEN) 10/27/18 17:00 PT 12.9 SECONDS (9.5-11.5) H 10/25/18 13:40 INR 1.25 (0.5-1.4) 10/25/18 13:40 PTT (Actin FS) 29.2 SECONDS (26.0-38.0) 10/25/18 13:40 Sodium 135 mEq/L (136-145) L 10/29/18 04:20 Potassium 4.4 mEq/L (3.5-5.1) 10/29/18 04:20 Chloride 100 mEq/L (98-107) 10/29/18 04:20 Carbon Dioxide 24.9 mEq/L (21.0-31.0) 10/29/18 04:20 Anion Gap 14.5 (7.0-16.0) 10/29/18 04:20 BUN 79 mg/dL (7-25) H 10/29/18 04:20 Creatinine 3.0 mg/dL (0.6-1.2) H 10/29/18 04:20 Est GFR ( Amer) 20.3 ml/min (>90) 10/29/18 04:20 Est GFR (Non-Af Amer) 16.8 ml/min 10/29/18 04:20 BUN/Creatinine Ratio 26.3 10/29/18 04:20 Glucose 160 mg/dL (70-105) H 10/29/18 04:20 POC Glucose 150 MG/DL (70 - 105) H 10/29/18 07:55 Whole Bld Lactic Acid 0.77 mmol/L (0.60-1.99) 10/25/18 13:40 Calcium 9.6 mg/dL (8.6-10.3) 10/29/18 04:20 Phosphorus 4.0 mg/dL (2.5-5.0) 10/27/18 05:41 Magnesium 3.3 mg/dL (1.9-2.7) H 10/27/18 05:41 Total Bilirubin 1.5 mg/dL (0.3-1.0) H 10/29/18 04:20 GGTP 642 IU/L (0-60) H 10/27/18 05:41 AST 27 U/L (13-39) 10/29/18 04:20 ALT 22 U/L (7-52) 10/29/18 04:20 Alkaline Phosphatase 304 U/L (34-104) H 10/29/18 04:20 Ammonia 176 umol/L (16-53) H 10/27/18 05:45 Troponin I 0.02 ng/mL (0.01-0.05) 10/25/18 13:40 B-Natriuretic Peptide 808.0 pg/mL (5.0-100.0) H 10/29/18 04:20 Total Protein 7.9 gm/dL (6.0-8.3) 10/29/18 04:20 Albumin 3.6 gm/dL (3.7-5.3) L 10/29/18 04:20 Globulin 4.3 gm/dL 10/29/18 04:20 Albumin/Globulin Ratio 0.8 (1.0-1.8) L 10/29/18 04:20 Amylase 67 U/L (29-103) 10/25/18 13:40 Lipase 59 U/L (11-82) 10/27/18 05:41 Urine Source CATH 10/25/18 15:20 Urine Color YELLOW 10/25/18 15:20 Urine Clarity CLOUDY (CLEAR) H 10/25/18 15:20 Urine pH 5.5 (4.6 - 8.0) 10/25/18 15:20 Ur Specific [place] 1.025 (1.005-1.030) 10/25/18 15:20 Urine Protein 30 mg/dL (NEGATIVE) H 10/25/18 15:20 Urine Glucose (UA) NEGATIVE mg/dL (NEGATIVE) 10/25/18 15:20 Urine Ketones NEGATIVE mg/dL (NEGATIVE) 10/25/18 15:20 Urine Blood NEGATIVE (NEGATIVE) 10/25/18 15:20 Urine Nitrate NEGATIVE (NEGATIVE) 10/25/18 15:20 Urine Bilirubin NEGATIVE (NEGATIVE) 10/25/18 15:20 Urine Urobilinogen 0.2 E.U./dL (0.2 - 1.0) 10/25/18 15:20 Ur Leukocyte Esterase NEGATIVE (NEGATIVE) 10/25/18 15:20 Urine RBC NONE SEEN /hpf (0-5) 10/25/18 15:20 Urine WBC 0-2 /hpf (0-5) 10/25/18 15:20 Ur Epithelial Cells FEW /lpf (FEW) 10/25/18 15:20 Amorphous Sediment FEW URATES (NONE SEEN) 10/25/18 15:20 Urine Bacteria MODERATE /hpf (NONE SEEN) H 10/25/18 15:20 Ur Random Sodium 41 mmol/L 10/27/18 17:00 Urine Creatinine 78.0 mg/dl (28.0-217.0) 10/27/18 17:00 Microalb/Creat Ratio 317.5 mg/g creat (0.0-30.0) H 10/27/18 17:00 Urine Opiates Screen NEGATIVE (NEGATIVE) 10/25/18 15:20 Urine Methadone Screen NEGATIVE (NEGATIVE) 10/25/18 15:20 Ur Barbiturates Screen NEGATIVE (NEGATIVE) 10/25/18 15:20 Ur Tricyclics Screen NEGATIVE (NEGATIVE) 10/25/18 15:20 Ur Phencyclidine Scrn NEGATIVE (NEGATIVE) 10/25/18 15:20 Amphetamines Screen NEGATIVE (NEGATIVE) 10/25/18 15:20 U Methamphetamines Scrn NEGATIVE (NEGATIVE) 10/25/18 15:20 U Benzodiazepines Scrn NEGATIVE (NEGATIVE) 10/25/18 15:20 U Cocaine Metab Screen NEGATIVE (NEGATIVE) 10/25/18 15:20 U Cannabinoids Screen NEGATIVE (NEGATIVE) 10/25/18 15:20 Hepatitis A IgM Ab Negative (Negative) 10/26/18 07:43 Hep Bs Antigen Negative (Negative) 10/26/18 07:43 Hep B Core IgM Ab Negative (Negative) 10/26/18 07:43 Hepatitis C Antibody 0.1 s/co ratio (0.0-0.9) 10/26/18 07:43 - Physical Exam Vitals and I&O: Vital Signs Temp 98.1 F 10/29/18 07:50 Pulse 75 10/29/18 07:50 Resp 18 10/29/18 07:50 BP 117/59 10/29/18 07:50 Pulse Ox 100 10/29/18 07:50 Intake & Output 10/28/18 10/29/18 10/29/18 18:59 06:59 18:59 Intake Total 500 150 Output Total 1000 350 Balance -500 -200 Weight (lbs) 94.347 kg 93.576 kg Intake: Oral 500 150 Output: Urine 1000 350 Other: # Bowel Movements 0 2 Stool Characteristics Soft Soft Black Black Weight Source Bedscale Bedscale Active Medications: Current Medications Acetaminophen (Tylenol) 650 mg PO Q6H PRN PRN Reason: Milid Pain 1-3 or Fever >101 Stop: 12/24/18 18:46 Last Admin: 10/26/18 00:11 Dose: 650 mg Albuterol/Ipratropium (Duoneb Neb) 3 ml HHN Q6HRT [facility] Stop: 12/25/18 18:59 Last Admin: 10/29/18 07:40 Dose: 3 ml Carvedilol (Coreg) 25 mg PO BID [facility] Stop: 12/24/18 19:59 Last Admin: 10/28/18 16:59 Dose: 25 mg Dextrose (Glutose 40%) 15 gm PO PRN PRN PRN Reason: BLOOD GLUCOSE <60 Stop: 12/25/18 06:42 Epoetin [place] (Epogen) 10,000 units SUBQ MoWeFr [facility] Stop: 12/27/18 13:05 Last Admin: 10/28/18 14:30 Dose: 10,000 units Ferrous Sulfate (Iron) 325 mg PO BID [facility] Stop: 12/25/18 08:59 Last Admin: 10/28/18 16:59 Dose: 325 mg Furosemide (Lasix) 40 mg IVP DAILY [facility] Stop: 12/26/18 08:59 Last Admin: 10/28/18 08:55 Dose: 40 mg Glucagon (Glucagen) 1 mg IM PRN PRN PRN Reason: BLOOD GLUCOSE < 60 Stop: 12/25/18 07:24 Hydralazine HCl (Apresoline) 100 mg PO TID [facility] Stop: 12/24/18 20:59 Last Admin: 10/28/18 21:03 Dose: 100 mg Insulin Aspart (Novolog Insulin Sliding Scale) 0 units SUBQ ACHS [facility]; Protocol Stop: 12/24/18 20:59 Last Admin: 10/29/18 08:02 Dose: Not Given Lactulose (Cephulac) 30 gm PO TID [facility] Stop: 12/26/18 13:59 Last Admin: 10/28/18 21:07 Dose: 30 gm Levetiracetam (Keppra) 500 mg PO BID [facility] Stop: 12/24/18 19:59 Last Admin: 10/28/18 16:59 Dose: 500 mg Morphine Sulfate (Morphine) 1 mg IV Q4HR PRN PRN Reason: Abdominal Pain Stop: 12/25/18 12:48 Last Admin: 10/28/18 21:15 Dose: 1 mg Pantoprazole Sodium (Protonix) 40 mg PO DAILY [facility] Stop: 12/26/18 08:59 Last Admin: 10/28/18 08:54 Dose: 40 mg Temazepam (Restoril) 15 mg PO HS PRN; Protocol PRN Reason: Insomnia Stop: 12/25/18 00:39 General: Alert, Mild distress HEENT: Atraumatic, Mucous membr. moist/pink Neck: Supple Cardiovascular: Regular rate Lungs: Normal air movement Abdomen: Bowel sounds, Soft (left UE), Distended, no Tender Extremities: Edema Neurological: Sensation intact Skin: no Rash Psych/Mental Status: Mood NL Assessment/Plan - Problem List Patient Problems: All Active Problems ABDOMINAL DISTENTION (Acute) - Assessment Assessment: Current Active Problems Problem Status Onset ABDOMINAL DISTENTION Acute elevated BNP abdominal distension CHF JODIE w/ CKD hyponatremia UTI Paroxysmal atrial fibrillation iron deficiency anemia hemipelgia following CVA R side Diabetes mellitus Unspecified convulsions Hypertension Hyperlipidemia Osteoarthritis hepatic encephalopathy Chronic anemia History of lymphoma, status post mastectomy. Mildly abnormal liver enzymes, perhaps from nonalcoholic steatohepatitis and/or liver congestion from R CHF. Less likely chronic liver disease or cirrhosis. - Plan Plan: continue current treatment. 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 Subjective Information Pt seen sitting in bed and eating lunch by herself at time of visit. Pt stated appetite is ok, like fresh fruits. BUN/Crea elevated noted. Per nurse note, pt had loos stool x 2 today. Discussed renal diet with pt, pt stated she has been following renal diet at care facility and understand the diet restrictions. Per EMR, PO intake 50-75%. Current Diet Order/ Nutrition Support renal fluid restriction 1200ml Pertinent Medications iron, lasix, glucagen, novolog , protonix Pertinent Labs 10/28 Na 134, BUN 77, Cr 3.0, glucose 139, POC 131-167 12 Na 133, BUN 76, Cr 2.9, glucose 141, POC 128-193 Nutritional Hx/Data Height 1.6 m Height (Calculated Centimeters) 160.0 Current Weight (lbs) 94.347 kg Weight (Calculated Kilograms) 94.3 Weight (Calculated Grams) 18955.2 [place] Body Weight 115 Body Mass Index (BMI) 36.8 Weight Status Obese GI Symptoms GI Symptoms None Last BM 10/28 x 2 Difficult in: None Usual diet at home renal diet Skin Integrity/Comment: intact, 2+ edema to left arm per nurse note 10/28 Current %PO Good (75-100%) Estimated Nutritional Goals BEE in Kcals: Adj wt of IBW Calories/Kcals/Kg 25-30 Kcals Calculated 5342-2206 Protein: Adj wt of IBW Protein g/k.6-0.75 monitor renal labs Protein Calculated 38-47 Fluid: ml fluid restriction 1200ml per MD Nutritional Problem 1. Problem Problem altered nutrition related labs Etiology hx of CKD, renal failure, endocrine dysfunction Signs/Symptoms: BUN 77, Cr 3.0, glucose 139- 207 Malnutrition Alert Is there a minimum of two criteria No selected? Query Text:Check all the applicable criteria. A minimum of two criteria are recommended for diagnosis of either severe or non-severe malnutrition. Malnutrition Related to Morbid Obesity Malnutrition related to morbid obesity No Intervention/Recommendation Comments 1. Continue with renal diet ( standard 60g protein) with fluid restriction as ordered considering PO intake only 50- 75%. Reassess protein needs if pt starts on dialysis. 2. Monitor PO intake, wt, labs and skin integrity 3. F/U as high risk in 2-3 days, 10/30-10/31 Expected Outcomes/Goals Expected Outcomes/Goals 1. PO intake to meet at least 75% of nutritional needs. 2. Wt stability, skin to remain intact, labs to approach WNL.
[2018-10-29] MEDS: Lactulose 10 Gm/15 mL 30mL UDC PO SCH ×2 (08:45→13:42)
[2018-10-29] MEDS: Pantoprazole 40 mg EC Tab PO SCH (08:46)
[2018-10-29] MEDS: Ferrous Sulfate 325 MG TAB PO SCH (08:47)
--- NOTE | 2018-10-29 09:30 | GI Progress Note ---
Subjective - Review of Systems Service Date: 10/29/18 Subjective: EVENTS NOTED. FEELS BETTER. NIALL RENAL DIET. Objective - Results Result Diagrams: 10/29/18 04:20 10/29/18 04:20 Recent Labs: Laboratory Last Values WBC 4.5 Th/cmm (4.8-10.8) L 10/29/18 04:20 RBC 2.74 Mil/cmm (3.80-5.10) L 10/29/18 04:20 Hgb 8.8 gm/dL (12-16) L 10/29/18 04:20 Hct 25.6 % (41.0-60) L 10/29/18 04:20 MCV 93.2 fl (81-100) 10/29/18 04:20 MCH 31.9 pg (27.0-31.0) H 10/29/18 04:20 MCHC Differential 34.3 pg (28.0-36.0) 10/29/18 04:20 RDW 16.2 % (11.5-20.0) 10/29/18 04:20 Plt Count 135 Th/cmm (150-400) L 10/29/18 04:20 MPV 7.7 fl 10/29/18 04:20 Add Manual Diff YES 10/26/18 05:16 Neutrophils % 75.1 % (40.0-80.0) 10/29/18 04:20 Band Neutrophils % 0 % (0-10) 10/26/18 05:16 Lymphocytes % 12.5 % (20.0-50.0) L 10/29/18 04:20 Monocytes % 9.8 % (2.0-10.0) 10/29/18 04:20 Eosinophils % 1.6 % (0.0-5.0) 10/29/18 04:20 Basophils % 1.0 % (0.0-2.0) 10/29/18 04:20 Neutrophils (Manual) 69 % (40-80) 10/26/18 05:16 Lymphocytes 20 % (20-50) 10/26/18 05:16 Monocytes 9 % (2-10) 10/26/18 05:16 Eosinophils 2 % (0-5) 10/26/18 05:16 Basophils 0 % (0-3) 10/26/18 05:16 Eos Smear Source URINE 10/27/18 17:00 Eos Smear Total Cells NONE SEEN (NONE SEEN) 10/27/18 17:00 PT 12.9 SECONDS (9.5-11.5) H 10/25/18 13:40 INR 1.25 (0.5-1.4) 10/25/18 13:40 PTT (Actin FS) 29.2 SECONDS (26.0-38.0) 10/25/18 13:40 Sodium 135 mEq/L (136-145) L 10/29/18 04:20 Potassium 4.4 mEq/L (3.5-5.1) 10/29/18 04:20 Chloride 100 mEq/L (98-107) 10/29/18 04:20 Carbon Dioxide 24.9 mEq/L (21.0-31.0) 10/29/18 04:20 Anion Gap 14.5 (7.0-16.0) 10/29/18 04:20 BUN 79 mg/dL (7-25) H 10/29/18 04:20 Creatinine 3.0 mg/dL (0.6-1.2) H 10/29/18 04:20 Est GFR ( Amer) 20.3 ml/min (>90) 10/29/18 04:20 Est GFR (Non-Af Amer) 16.8 ml/min 10/29/18 04:20 BUN/Creatinine Ratio 26.3 10/29/18 04:20 Glucose 160 mg/dL (70-105) H 10/29/18 04:20 POC Glucose 150 MG/DL (70 - 105) H 10/29/18 07:55 Whole Bld Lactic Acid 0.77 mmol/L (0.60-1.99) 10/25/18 13:40 Calcium 9.6 mg/dL (8.6-10.3) 10/29/18 04:20 Phosphorus 4.0 mg/dL (2.5-5.0) 10/27/18 05:41 Magnesium 3.3 mg/dL (1.9-2.7) H 10/27/18 05:41 Total Bilirubin 1.5 mg/dL (0.3-1.0) H 10/29/18 04:20 GGTP 642 IU/L (0-60) H 10/27/18 05:41 AST 27 U/L (13-39) 10/29/18 04:20 ALT 22 U/L (7-52) 10/29/18 04:20 Alkaline Phosphatase 304 U/L (34-104) H 10/29/18 04:20 Ammonia 176 umol/L (16-53) H 10/27/18 05:45 Troponin I 0.02 ng/mL (0.01-0.05) 10/25/18 13:40 B-Natriuretic Peptide 808.0 pg/mL (5.0-100.0) H 10/29/18 04:20 Total Protein 7.9 gm/dL (6.0-8.3) 10/29/18 04:20 Albumin 3.6 gm/dL (3.7-5.3) L 10/29/18 04:20 Globulin 4.3 gm/dL 10/29/18 04:20 Albumin/Globulin Ratio 0.8 (1.0-1.8) L 10/29/18 04:20 Amylase 67 U/L (29-103) 10/25/18 13:40 Lipase 59 U/L (11-82) 10/27/18 05:41 Urine Source CATH 10/25/18 15:20 Urine Color YELLOW 10/25/18 15:20 Urine Clarity CLOUDY (CLEAR) H 10/25/18 15:20 Urine pH 5.5 (4.6 - 8.0) 10/25/18 15:20 Ur Specific [place] 1.025 (1.005-1.030) 10/25/18 15:20 Urine Protein 30 mg/dL (NEGATIVE) H 10/25/18 15:20 Urine Glucose (UA) NEGATIVE mg/dL (NEGATIVE) 10/25/18 15:20 Urine Ketones NEGATIVE mg/dL (NEGATIVE) 10/25/18 15:20 Urine Blood NEGATIVE (NEGATIVE) 10/25/18 15:20 Urine Nitrate NEGATIVE (NEGATIVE) 10/25/18 15:20 Urine Bilirubin NEGATIVE (NEGATIVE) 10/25/18 15:20 Urine Urobilinogen 0.2 E.U./dL (0.2 - 1.0) 10/25/18 15:20 Ur Leukocyte Esterase NEGATIVE (NEGATIVE) 10/25/18 15:20 Urine RBC NONE SEEN /hpf (0-5) 10/25/18 15:20 Urine WBC 0-2 /hpf (0-5) 10/25/18 15:20 Ur Epithelial Cells FEW /lpf (FEW) 10/25/18 15:20 Amorphous Sediment FEW URATES (NONE SEEN) 10/25/18 15:20 Urine Bacteria MODERATE /hpf (NONE SEEN) H 10/25/18 15:20 Ur Random Sodium 41 mmol/L 10/27/18 17:00 Urine Creatinine 78.0 mg/dl (28.0-217.0) 10/27/18 17:00 Microalb/Creat Ratio 317.5 mg/g creat (0.0-30.0) H 10/27/18 17:00 Urine Opiates Screen NEGATIVE (NEGATIVE) 10/25/18 15:20 Urine Methadone Screen NEGATIVE (NEGATIVE) 10/25/18 15:20 Ur Barbiturates Screen NEGATIVE (NEGATIVE) 10/25/18 15:20 Ur Tricyclics Screen NEGATIVE (NEGATIVE) 10/25/18 15:20 Ur Phencyclidine Scrn NEGATIVE (NEGATIVE) 10/25/18 15:20 Amphetamines Screen NEGATIVE (NEGATIVE) 10/25/18 15:20 U Methamphetamines Scrn NEGATIVE (NEGATIVE) 10/25/18 15:20 U Benzodiazepines Scrn NEGATIVE (NEGATIVE) 10/25/18 15:20 U Cocaine Metab Screen NEGATIVE (NEGATIVE) 10/25/18 15:20 U Cannabinoids Screen NEGATIVE (NEGATIVE) 10/25/18 15:20 Hepatitis A IgM Ab Negative (Negative) 10/26/18 07:43 Hep Bs Antigen Negative (Negative) 10/26/18 07:43 Hep B Core IgM Ab Negative (Negative) 10/26/18 07:43 Hepatitis C Antibody 0.1 s/co ratio (0.0-0.9) 10/26/18 07:43 - Physical Exam Vitals and I&O: Vital Signs Temp 98.1 F 10/29/18 07:50 Pulse 75 10/29/18 08:46 Resp 18 10/29/18 07:50 BP 117/59 10/29/18 08:47 Pulse Ox 100 10/29/18 07:50 Intake & Output 10/28/18 10/29/18 10/29/18 18:59 06:59 18:59 Intake Total 500 150 Output Total 1000 350 Balance -500 -200 Weight (lbs) 94.347 kg 93.576 kg Intake: Oral 500 150 Output: Urine 1000 350 Other: # Bowel Movements 0 2 Stool Characteristics Soft Soft Black Black Weight Source Bedscale Bedscale Active Medications: Current Medications Acetaminophen (Tylenol) 650 mg PO Q6H PRN PRN Reason: Milid Pain 1-3 or Fever >101 Stop: 12/24/18 18:46 Last Admin: 10/26/18 00:11 Dose: 650 mg Albuterol/Ipratropium (Duoneb Neb) 3 ml HHN Q6HRT [facility] Stop: 12/25/18 18:59 Last Admin: 10/29/18 07:40 Dose: 3 ml Carvedilol (Coreg) 25 mg PO BID [facility] Stop: 12/24/18 19:59 Last Admin: 10/29/18 08:45 Dose: 25 mg Dextrose (Glutose 40%) 15 gm PO PRN PRN PRN Reason: BLOOD GLUCOSE <60 Stop: 12/25/18 06:42 Epoetin [place] (Epogen) 10,000 units SUBQ MoWeFr [facility] Stop: 12/27/18 13:05 Last Admin: 10/28/18 14:30 Dose: 10,000 units Ferrous Sulfate (Iron) 325 mg PO BID [facility] Stop: 12/25/18 08:59 Last Admin: 10/29/18 08:47 Dose: 325 mg Furosemide (Lasix) 40 mg IVP DAILY [facility] Stop: 12/26/18 08:59 Last Admin: 10/29/18 08:47 Dose: 40 mg Glucagon (Glucagen) 1 mg IM PRN PRN PRN Reason: BLOOD GLUCOSE < 60 Stop: 12/25/18 07:24 Hydralazine HCl (Apresoline) 100 mg PO TID [facility] Stop: 12/24/18 20:59 Last Admin: 10/29/18 08:46 Dose: 100 mg Insulin Aspart (Novolog Insulin Sliding Scale) 0 units SUBQ ACHS [facility]; Protocol Stop: 12/24/18 20:59 Last Admin: 10/29/18 08:02 Dose: Not Given Lactulose (Cephulac) 30 gm PO TID [facility] Stop: 12/26/18 13:59 Last Admin: 10/29/18 08:45 Dose: 30 gm Levetiracetam (Keppra) 500 mg PO BID [facility] Stop: 12/24/18 19:59 Last Admin: 10/29/18 08:47 Dose: 500 mg Morphine Sulfate (Morphine) 1 mg IV Q4HR PRN PRN Reason: Abdominal Pain Stop: 12/25/18 12:48 Last Admin: 10/28/18 21:15 Dose: 1 mg Pantoprazole Sodium (Protonix) 40 mg PO DAILY [facility] Stop: 12/26/18 08:59 Last Admin: 10/29/18 08:46 Dose: 40 mg Temazepam (Restoril) 15 mg PO HS PRN; Protocol PRN Reason: Insomnia Stop: 12/25/18 00:39 General: Alert, Mild distress HEENT: Atraumatic, Mucous membr. moist/pink Neck: Supple Cardiovascular: Regular rate Lungs: Normal air movement Abdomen: Bowel sounds, Soft (left UE), Distended, no Tender Extremities: Edema Neurological: Sensation intact Skin: no Rash Psych/Mental Status: Mood NL Assessment/Plan - Problem List Patient Problems: All Active Problems ABDOMINAL DISTENTION (Acute) - Assessment Assessment: IMPRESSION: 1. Abdominal distention, rule out ascites versus anasarca, perhaps for fluid overload. Likely due to renal failure and/or CHF and less likely chronic liver disease. CT A/P showed ascites and anasarca. 2. History of congestive heart failure, perhaps R sided from obesity/ALDA. 3. History of diabetes mellitus. 4. Hypertension. 5. Chronic kidney disease. 6. History of lymphoma, status post mastectomy. 7. Chronic anemia. 8. History of hyperlipidemia. 9. Mildly abnormal liver enzymes, perhaps from nonalcoholic steatohepatitis and/or liver congestion from R CHF. Less likely chronic liver disease or cirrhosis. 10. History of seizure disorder. RECOMMENDATIONS: 1. Diuresis as per Nephrology. 2. Paracentesis by US guidance if enough fluid. 3. May need hemodialysis as per Nephrology. 4. F/U chronic liver labs - neg to date. 5. 2 gram sodium diet/Renal diet. 6. F/U anemia labs and stool OB. 7. Consider endoscopic workup if not done previously. This is best done as an outpatient once anasarca is better.
[2018-10-29 10:16] LABS: CERULOPLASMIN 29.7 mg/dL (19.0-39.0); MITOCHONDRIAL AB 7.8 Units (0.0-20.0)
--- NOTE | 2018-10-29 14:01 | General Progress Note ---
Subjective - Review of Systems Service Date: 10/29/18 Subjective: alert, min WEISS Objective - Results Result Diagrams: 10/29/18 04:20 10/29/18 04:20 Recent Labs: Laboratory Last Values WBC 4.5 Th/cmm (4.8-10.8) L 10/29/18 04:20 RBC 2.74 Mil/cmm (3.80-5.10) L 10/29/18 04:20 Hgb 8.8 gm/dL (12-16) L 10/29/18 04:20 Hct 25.6 % (41.0-60) L 10/29/18 04:20 MCV 93.2 fl (81-100) 10/29/18 04:20 MCH 31.9 pg (27.0-31.0) H 10/29/18 04:20 MCHC Differential 34.3 pg (28.0-36.0) 10/29/18 04:20 RDW 16.2 % (11.5-20.0) 10/29/18 04:20 Plt Count 135 Th/cmm (150-400) L 10/29/18 04:20 MPV 7.7 fl 10/29/18 04:20 Add Manual Diff YES 10/26/18 05:16 Neutrophils % 75.1 % (40.0-80.0) 10/29/18 04:20 Band Neutrophils % 0 % (0-10) 10/26/18 05:16 Lymphocytes % 12.5 % (20.0-50.0) L 10/29/18 04:20 Monocytes % 9.8 % (2.0-10.0) 10/29/18 04:20 Eosinophils % 1.6 % (0.0-5.0) 10/29/18 04:20 Basophils % 1.0 % (0.0-2.0) 10/29/18 04:20 Neutrophils (Manual) 69 % (40-80) 10/26/18 05:16 Lymphocytes 20 % (20-50) 10/26/18 05:16 Monocytes 9 % (2-10) 10/26/18 05:16 Eosinophils 2 % (0-5) 10/26/18 05:16 Basophils 0 % (0-3) 10/26/18 05:16 Eos Smear Source URINE 10/27/18 17:00 Eos Smear Total Cells NONE SEEN (NONE SEEN) 10/27/18 17:00 PT 12.9 SECONDS (9.5-11.5) H 10/25/18 13:40 INR 1.25 (0.5-1.4) 10/25/18 13:40 PTT (Actin FS) 29.2 SECONDS (26.0-38.0) 10/25/18 13:40 Sodium 135 mEq/L (136-145) L 10/29/18 04:20 Potassium 4.4 mEq/L (3.5-5.1) 10/29/18 04:20 Chloride 100 mEq/L (98-107) 10/29/18 04:20 Carbon Dioxide 24.9 mEq/L (21.0-31.0) 10/29/18 04:20 Anion Gap 14.5 (7.0-16.0) 10/29/18 04:20 BUN 79 mg/dL (7-25) H 10/29/18 04:20 Creatinine 3.0 mg/dL (0.6-1.2) H 10/29/18 04:20 Est GFR ( Amer) 20.3 ml/min (>90) 10/29/18 04:20 Est GFR (Non-Af Amer) 16.8 ml/min 10/29/18 04:20 BUN/Creatinine Ratio 26.3 10/29/18 04:20 Glucose 160 mg/dL (70-105) H 10/29/18 04:20 POC Glucose 234 MG/DL (70 - 105) H 10/29/18 11:25 Whole Bld Lactic Acid 0.77 mmol/L (0.60-1.99) 10/25/18 13:40 Calcium 9.6 mg/dL (8.6-10.3) 10/29/18 04:20 Phosphorus 4.0 mg/dL (2.5-5.0) 10/27/18 05:41 Magnesium 3.3 mg/dL (1.9-2.7) H 10/27/18 05:41 Iron 46 ug/dL (27-139) 10/27/18 05:41 TIBC 284 ug/dL (250-450) 10/27/18 05:41 Iron Saturation 16 % (15-55) 10/27/18 05:41 Unsaturated IBC 238 ug/dL (118-369) 10/27/18 05:41 Ferritin 451 ng/mL (15-150) H 10/27/18 05:41 Total Bilirubin 1.5 mg/dL (0.3-1.0) H 10/29/18 04:20 GGTP 642 IU/L (0-60) H 10/27/18 05:41 AST 27 U/L (13-39) 10/29/18 04:20 ALT 22 U/L (7-52) 10/29/18 04:20 Alkaline Phosphatase 304 U/L (34-104) H 10/29/18 04:20 Ammonia 176 umol/L (16-53) H 10/27/18 05:45 Troponin I 0.02 ng/mL (0.01-0.05) 10/25/18 13:40 B-Natriuretic Peptide 808.0 pg/mL (5.0-100.0) H 10/29/18 04:20 Total Protein 7.9 gm/dL (6.0-8.3) 10/29/18 04:20 Albumin 3.6 gm/dL (3.7-5.3) L 10/29/18 04:20 Globulin 4.3 gm/dL 10/29/18 04:20 Albumin/Globulin Ratio 0.8 (1.0-1.8) L 10/29/18 04:20 Zfpge-1-Uzuqabprnaa 178 mg/dL (90-200) 10/27/18 05:41 Ceruloplasmin 29.7 mg/dL (19.0-39.0) 10/27/18 05:41 Amylase 67 U/L (29-103) 10/25/18 13:40 Lipase 59 U/L (11-82) 10/27/18 05:41 Urine Source CATH 10/25/18 15:20 Urine Color YELLOW 10/25/18 15:20 Urine Clarity CLOUDY (CLEAR) H 10/25/18 15:20 Urine pH 5.5 (4.6 - 8.0) 10/25/18 15:20 Ur Specific [place] 1.025 (1.005-1.030) 10/25/18 15:20 Urine Protein 30 mg/dL (NEGATIVE) H 10/25/18 15:20 Urine Glucose (UA) NEGATIVE mg/dL (NEGATIVE) 10/25/18 15:20 Urine Ketones NEGATIVE mg/dL (NEGATIVE) 10/25/18 15:20 Urine Blood NEGATIVE (NEGATIVE) 10/25/18 15:20 Urine Nitrate NEGATIVE (NEGATIVE) 10/25/18 15:20 Urine Bilirubin NEGATIVE (NEGATIVE) 10/25/18 15:20 Urine Urobilinogen 0.2 E.U./dL (0.2 - 1.0) 10/25/18 15:20 Ur Leukocyte Esterase NEGATIVE (NEGATIVE) 10/25/18 15:20 Urine RBC NONE SEEN /hpf (0-5) 10/25/18 15:20 Urine WBC 0-2 /hpf (0-5) 10/25/18 15:20 Ur Epithelial Cells FEW /lpf (FEW) 10/25/18 15:20 Amorphous Sediment FEW URATES (NONE SEEN) 10/25/18 15:20 Urine Bacteria MODERATE /hpf (NONE SEEN) H 10/25/18 15:20 Ur Random Sodium 41 mmol/L 10/27/18 17:00 Urine Creatinine 78.0 mg/dl (28.0-217.0) 10/27/18 17:00 Microalb/Creat Ratio 317.5 mg/g creat (0.0-30.0) H 10/27/18 17:00 Urine Opiates Screen NEGATIVE (NEGATIVE) 10/25/18 15:20 Urine Methadone Screen NEGATIVE (NEGATIVE) 10/25/18 15:20 Ur Barbiturates Screen NEGATIVE (NEGATIVE) 10/25/18 15:20 Ur Tricyclics Screen NEGATIVE (NEGATIVE) 10/25/18 15:20 Levetiracetam 61.8 ug/mL (10.0-40.0) H 10/25/18 13:40 Ur Phencyclidine Scrn NEGATIVE (NEGATIVE) 10/25/18 15:20 Amphetamines Screen NEGATIVE (NEGATIVE) 10/25/18 15:20 U Methamphetamines Scrn NEGATIVE (NEGATIVE) 10/25/18 15:20 U Benzodiazepines Scrn NEGATIVE (NEGATIVE) 10/25/18 15:20 U Cocaine Metab Screen NEGATIVE (NEGATIVE) 10/25/18 15:20 U Cannabinoids Screen NEGATIVE (NEGATIVE) 10/25/18 15:20 Anti-Mitochondrial Ab 7.8 Units (0.0-20.0) 10/27/18 05:41 Smooth Muscle IgG Ab 19 Units (0-19) 10/27/18 05:41 Hepatitis A IgM Ab Negative (Negative) 10/26/18 07:43 Hep Bs Antigen Negative (Negative) 10/26/18 07:43 Hep B Core IgM Ab Negative (Negative) 10/26/18 07:43 Hepatitis C Antibody 0.1 s/co ratio (0.0-0.9) 10/26/18 07:43 - Physical Exam Vitals and I&O: Vital Signs Temp 98.1 F 10/29/18 11:43 Pulse 72 10/29/18 13:42 Resp 18 10/29/18 12:05 BP 113/64 10/29/18 13:42 Pulse Ox 98 10/29/18 12:05 Intake & Output 10/28/18 10/29/18 10/29/18 18:59 06:59 18:59 Intake Total 500 150 Output Total 1000 350 Balance -500 -200 Weight (lbs) 94.347 kg 93.576 kg Intake: Oral 500 150 Output: Urine 1000 350 Other: # Bowel Movements 0 2 Stool Characteristics Soft Soft Soft Black Black Black Weight Source Bedscale Bedscale Active Medications: Current Medications Acetaminophen (Tylenol) 650 mg PO Q6H PRN PRN Reason: Milid Pain 1-3 or Fever >101 Stop: 12/24/18 18:46 Last Admin: 10/26/18 00:11 Dose: 650 mg Albuterol/Ipratropium (Duoneb Neb) 3 ml HHN Q6HRT [facility] Stop: 12/25/18 18:59 Last Admin: 10/29/18 12:03 Dose: 3 ml Carvedilol (Coreg) 25 mg PO BID [facility] Stop: 12/24/18 19:59 Last Admin: 10/29/18 08:45 Dose: 25 mg Dextrose (Glutose 40%) 15 gm PO PRN PRN PRN Reason: BLOOD GLUCOSE <60 Stop: 12/25/18 06:42 Epoetin [place] (Epogen) 10,000 units SUBQ MoWeFr [facility] Stop: 12/27/18 13:05 Last Admin: 10/28/18 14:30 Dose: 10,000 units Ferrous Sulfate (Iron) 325 mg PO BID [facility] Stop: 12/25/18 08:59 Last Admin: 10/29/18 08:47 Dose: 325 mg Furosemide (Lasix) 40 mg IVP DAILY [facility] Stop: 12/26/18 08:59 Last Admin: 10/29/18 08:47 Dose: 40 mg Glucagon (Glucagen) 1 mg IM PRN PRN PRN Reason: BLOOD GLUCOSE < 60 Stop: 12/25/18 07:24 Hydralazine HCl (Apresoline) 100 mg PO TID [facility] Stop: 12/24/18 20:59 Last Admin: 10/29/18 13:42 Dose: 100 mg Insulin Aspart (Novolog Insulin Sliding Scale) 0 units SUBQ ACHS [facility]; Protocol Stop: 12/24/18 20:59 Last Admin: 10/29/18 11:30 Dose: 4 units Lactulose (Cephulac) 30 gm PO TID [facility] Stop: 12/26/18 13:59 Last Admin: 10/29/18 13:42 Dose: 30 gm Levetiracetam (Keppra) 500 mg PO BID [facility] Stop: 12/24/18 19:59 Last Admin: 10/29/18 08:47 Dose: 500 mg Morphine Sulfate (Morphine) 1 mg IV Q4HR PRN PRN Reason: Abdominal Pain Stop: 12/25/18 12:48 Last Admin: 10/28/18 21:15 Dose: 1 mg Pantoprazole Sodium (Protonix) 40 mg PO DAILY [facility] Stop: 12/26/18 08:59 Last Admin: 10/29/18 08:46 Dose: 40 mg Temazepam (Restoril) 15 mg PO HS PRN; Protocol PRN Reason: Insomnia Stop: 12/25/18 00:39 General: Alert, Mild distress HEENT: Atraumatic, Mucous membr. moist/pink Neck: Supple Cardiovascular: Regular rate Lungs: Normal air movement Abdomen: Bowel sounds, Soft (left UE), Distended, no Tender Extremities: Edema Neurological: Sensation intact Skin: no Rash Psych/Mental Status: Mood NL Assessment/Plan - Problem List Patient Problems: All Active Problems ABDOMINAL DISTENTION (Acute) - Assessment Assessment: CKD Abd Distension Constipation OHS/ALDA Pancytopenia Elevated NH3 Chronic Extrahepatic Cholestasis Obesity Ascites Constipation Acute Decomp of Chronic CHF - Plan Plan: Lab - Result Diagrams 10/27/18 05:41 10/27/18 05:41 Current Medications Acetaminophen (Tylenol) 650 mg PO Q6H PRN PRN Reason: Milid Pain 1-3 or Fever >101 Stop: 12/24/18 18:46 Last Admin: 10/26/18 00:11 Dose: 650 mg Albuterol/Ipratropium (Duoneb Neb) 3 ml HHN Q6HRT [facility] Stop: 12/25/18 18:59 Last Admin: 10/27/18 06:52 Dose: 3 ml Carvedilol (Coreg) 25 mg PO BID [facility] Stop: 12/24/18 19:59 Last Admin: 10/27/18 08:58 Dose: 25 mg Dextrose (Glutose 40%) 15 gm PO PRN PRN PRN Reason: BLOOD GLUCOSE <60 Stop: 12/25/18 06:42 Ferrous Sulfate (Iron) 325 mg PO BID [facility] Stop: 12/25/18 08:59 Last Admin: 10/27/18 08:58 Dose: 325 mg Furosemide (Lasix) 40 mg IVP DAILY [facility] Stop: 12/26/18 08:59 Last Admin: 10/27/18 08:57 Dose: 40 mg Glucagon (Glucagen) 1 mg IM PRN PRN PRN Reason: BLOOD GLUCOSE < 60 Stop: 12/25/18 07:24 Hydralazine HCl (Apresoline) 100 mg PO TID [facility] Stop: 12/24/18 20:59 Last Admin: 10/27/18 08:58 Dose: 100 mg Insulin Aspart (Novolog Insulin Sliding Scale) 0 units SUBQ ACHS [facility]; Protocol Stop: 12/24/18 20:59 Last Admin: 10/27/18 11:55 Dose: 2 units Lactulose (Cephulac) 30 gm PO TID [facility] Stop: 12/26/18 13:59 Levetiracetam (Keppra) 500 mg PO BID [facility] Stop: 12/24/18 19:59 Last Admin: 10/27/18 08:58 Dose: 500 mg Morphine Sulfate (Morphine) 1 mg IV Q4HR PRN PRN Reason: Abdominal Pain Stop: 12/25/18 12:48 Last Admin: 10/26/18 21:21 Dose: 1 mg Pantoprazole Sodium (Protonix) 40 mg PO DAILY [facility] Stop: 12/26/18 08:59 Last Admin: 10/27/18 08:58 Dose: 40 mg Temazepam (Restoril) 15 mg PO HS PRN; Protocol PRN Reason: Insomnia Stop: 12/25/18 00:39 Lab - Result Diagrams 10/29/18 04:20 10/29/18 04:20 no change kidney fnc w/ BUN/CR of 79/3 increase Lactulose for hyperammonemia, constipation liver failure workup in [place] possible DC today f/u w/ me in 2-3 wks need to continue Lasix for CHF, ascites, periphera edema Nutritional Asmnt/Malnutr-PDOC - Dietary Evaluation Malnutrition Findings (Please click <Entered> for more info): Nutritional Asmnt/Malnutrition Start: 10/28/18 15: 41 Text: Status: Complete Freq: Protocol: Document 10/28/18 15:41 LCHENG (Rec: 10/28/18 16:32 [email or web address] [id number]) Nutritional Asmnt/Malnutrition Patient General Information Nutritional Screening High Risk Diagnosis adb mistension, renal failure, CHF anemia Pertinent Medical Hx/Surgical Hx HTN, Dm, CAD, CHF, dyslipidemia, seizures, paroxysmal a fib, CKD, iron deficiency anemia, hemipelgai following CVA R side, 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 Subjective Information Pt seen sitting in bed and eating lunch by herself at time of visit. Pt stated appetite is ok, like fresh fruits. BUN/Crea elevated noted. Per nurse note, pt had loos stool x 2 today. Discussed renal diet with pt, pt stated she has been following renal diet at care facility and understand the diet restrictions. Per EMR, PO intake 50-75%. Current Diet Order/ Nutrition Support renal fluid restriction 1200ml Pertinent Medications iron, lasix, glucagen, novolog , protonix Pertinent Labs 10/28 Na 134, BUN 77, Cr 3.0, glucose 139, POC 131-167 10/27 Na 133, BUN 76, Cr 2.9, glucose 141, POC 128-193 Nutritional Hx/Data Height 1.6 m Height (Calculated Centimeters) 160.0 Current Weight (lbs) 94.347 kg Weight (Calculated Kilograms) 94.3 Weight (Calculated Grams) 45457.2 [place] Body Weight 115 Body Mass Index (BMI) 36.8 Weight Status Obese GI Symptoms GI Symptoms None Last BM 10/28 x 2 Difficult in: None Usual diet at home renal diet Skin Integrity/Comment: intact, 2+ edema to left arm per nurse note 10/28 Current %PO Good (75-100%) Estimated Nutritional Goals BEE in Kcals: Adj wt of IBW Calories/Kcals/Kg 25-30 Kcals Calculated 4332-8221 Protein: Adj wt of IBW Protein g/k.6-0.75 monitor renal labs Protein Calculated 38-47 Fluid: ml fluid restriction 1200ml per MD Nutritional Problem 1. Problem Problem altered nutrition related labs Etiology hx of CKD, renal failure, endocrine dysfunction Signs/Symptoms: BUN 77, Cr 3.0, glucose 139- 207 Malnutrition Alert Is there a minimum of two criteria No selected? Query Text:Check all the applicable criteria. A minimum of two criteria are recommended for diagnosis of either severe or non-severe malnutrition. Malnutrition Related to Morbid Obesity Malnutrition related to morbid obesity No Intervention/Recommendation Comments 1. Continue with renal diet ( standard 60g protein) with fluid restriction as ordered considering PO intake only 50- 75%. Reassess protein needs if pt starts on dialysis. 2. Monitor PO intake, wt, labs and skin integrity 3. F/U as high risk in 2-3 days, 10/30-10/31 Expected Outcomes/Goals Expected Outcomes/Goals 1. PO intake to meet at least 75% of nutritional needs. 2. Wt stability, skin to remain intact, labs to approach WNL.
--- NOTE | 2018-10-30 19:10 | Discharge Summary ---
DATE OF DISCHARGE: 10/29/2018 PRELIMINARY DIAGNOSES: 1. Elevated BNP. 2. Congestive heart failure. 3. Acute kidney injury with chronic kidney disease. 4. Hyponatremia. 5. Urinary tract infection. 6. Paroxysmal atrial fibrillation. 7. Iron-deficiency anemia. 8. Hemiplegia with cerebrovascular accident, weakness to the right side. 9. Diabetes mellitus. 10. Unspecified convulsion. 11. Hypertension. 12. Hyperlipidemia. 13. Osteoarthritis. 14. Hepatic encephalopathy. DISCHARGE DIAGNOSES: 1. Congestive heart failure. 2. Hyponatremia. 3. Urinary tract infection. 4. Paroxysmal atrial fibrillation. 5. Iron-deficiency anemia. 6. Hemiplegia with cerebrovascular accident to the right side. 7. Diabetes mellitus. 8. Unspecified convulsions. 9. Hypertension. 10. Hyperlipidemia. 11. Osteoarthritis. 12. Hepatic encephalopathy. 13. History of lymphoma, status post mastectomy. 14. History of abnormal liver enzymes. HISTORY OF PRESENT ILLNESS: This is a 62-year-old female who was transferred from [facility] to [facility] ER for increased abdominal distention and dyspnea noted the nursing staff with increased scleral icterus. The patient has a previous history of hypertension, diabetes mellitus, coronary artery disease, congestive heart failure, dyslipidemia, seizure disorder, paroxysmal atrial fibrillation, chronic kidney disease, iron-deficiency anemia, CVA with right-sided weakness. LABORATORY DATA: The patient's initial lab work revealed a white count of 4.0; hemoglobin 9.1; hematocrit 26.4; platelets 120,000. Sodium was 132, potassium 5.1, BUN 72, creatinine 3.0, glucose 207. Ammonia level was noted to be at 137. BNP 1020. UA was noted to be cloudy with moderate bacteria. Chest x-ray revealed; 1. Mild increased interstitial lung disease, lung markings which may represent a degree of congestion. 2. No focal consolidation. 3. Marked cardiomegaly. 4. Doppler ultrasound of the lower extremities revealed no evidence of any thrombus within bilateral lower extremities. The patient was subsequently admitted for further evaluation and treatment. HOSPITAL COURSE: The patient improved during her hospital stay. The patient was seen and evaluated by Cardiology. See dictated report as well as Nephrology. See dictated report and GI. See dictated report. The patient had a KUB of the abdomen. Results showed ____ stool throughout the abdomen. A CT abdomen and pelvis was ordered, which she was just diffuse abdominal and pelvic ascites, extensive anasarca. Uterine calcifications may be due to fibroids were seen as well. Chest x-ray was ordered during her hospital stay, which showed no acute abnormalities. The patient was subsequently transferred back to retirement facility to continue her current medications for further evaluation and treatment. [facility]# [id number]
== END 2018-10-29 16:15 | DRG 279 ==
LOC: ER 13:07 → MSI 16:50
PROVIDERS: ADMIT Family Medicine; ATTEND Family Medicine
DX: K72.90 Hepatic failure, unspecified without coma (principal); I50.33 Acute on chronic diastolic (congestive) heart failure; D61.818 Other pancytopenia; J84.9 Interstitial pulmonary disease, unspecified; K83.1 Obstruction of bile duct; N18.4 Chronic kidney disease, stage 4 (severe); C85.94 Non-Hodgkin lymphoma, unspecified, lymph nodes of axilla and upper limb; I13.0 Hypertensive heart and chronic kidney disease with heart failure and stage 1 through stage 4 chronic kidney disease, or unspecified chronic kidney disease; N17.9 Acute kidney failure, unspecified; E11.22 Type 2 diabetes mellitus with diabetic chronic kidney disease; K31.84 Gastroparesis; E11.43 Type 2 diabetes mellitus with diabetic autonomic (poly)neuropathy; I48.0 Paroxysmal atrial fibrillation; E87.1 Hypo-osmolality and hyponatremia; D50.9 Iron deficiency anemia, unspecified; G40.909 Epilepsy, unspecified, not intractable, without status epilepticus; N39.0 Urinary tract infection, site not specified; I25.10 Atherosclerotic heart disease of native coronary artery without angina pectoris; E78.5 Hyperlipidemia, unspecified; M19.90 Unspecified osteoarthritis, unspecified site; K59.00 Constipation, unspecified; E66.2 Morbid (severe) obesity with alveolar hypoventilation; R18.8 Other ascites; D25.9 Leiomyoma of uterus, unspecified; I69.351 Hemiplegia and hemiparesis following cerebral infarction affecting right dominant side; Z68.36 Body mass index [BMI] 36.0-36.9, adult; Z90.11 Acquired absence of right breast and nipple; Z79.4 Long term (current) use of insulin
CPT/HCPCS: 36415-UA; 71045-TC; 74000-TC; 76700-TC; 80053-TC; 80074-90; 80299-90; 80307; 81001-TC; 81015-TC; 82043-90; 82103-90; 82140-TC; 82150-TC; 82390-90; 82570-TC; 82728-90; 82948-90; 82977-90; 83036-90; 83516-90; 83540-90; 83550-90; 83605; 83690-TC; 83735-TC; 83880-TC; 84100-TC; 84300-TC; 84484-TC; 85007-TC; 85025-TC; 85610-TC; 86255-90; 87086-90; 93005; 93970-TC-50; 94640; 94760; 97971-TC-LT; J0885; J1815; J1940; J2270; J7030; Z7610

== ENCOUNTER 2018-10-31 14:14 | Inpatient (IN) | payer MEDICAID ==
--- NOTE | 2018-10-31 14:39 | ED Physician Chart ---
ED Chief Complaint/HPI - Patient Information Date Seen:: 10/31/18 Time Seen:: 14:20 Chief Complaint:: abdominal distention and generalized weakness History of Present Illness:: Patient states she's felt weak since yesterday. She's had a abdominal distention for an unspecified length of time. She was discharged to this hospital 2 days ago. Patient had a CAT scan 10/27/18 of the abdomen and pelvis which showed diffuse abdominal and pelvic ascites and extensive anasarca. No abdominal pain. No vomiting or diarrhea. Allergies:: Allergies Allergy/AdvReac Type Severity Reaction Status Date / Time No Known Allergies Allergy Verified 10/31/18 14:25 Historian:: Patient, Family Member Review:: Nurse's Note Reviewed ED Review of Systems - Review of Systems General/Constitutional: No fever, No chills, Weakness Skin: No skin lesions Head: No headache Eyes: No loss of vision ENT: No earache Neck: No neck pain, No swelling Cardio Vascular: No chest pain, No palpitations Pulmonary: No SOB, No cough GI: No nausea, No vomiting, No diarrhea, Other (abdominal distention) G/U: No dysuria Musculoskeletal: No bone or joint pain, No back pain, No muscle pain Psychiatric: No prior psych history Hematopoietic: No bruising, No lymphadenopathy Allergic/Immuno: No urticaria, No angioedema Neurological: No syncope, No focal symptoms ED Past Medical History - Past Medical History Past Medical History: HTN, DM Family History: Heart disease, Diabetes Melitus, HTN Social History: Non Smoker, No Alcohol Surgical History: other (left mastectomy) Psychiatricy History: None Medication: Reviewed Family Medical History - Family Member Mother History Unknown: Yes ED Physical Exam - Physical Examination General/Constitutional: Alert, No distress Other Gen/Cons comments:: Chronically ill-appearing Head: Atraumatic Eyes: Lids, conjuctiva normal, PERRL Skin: No rash ENMT: External ears, nose nl Other ENMT comments:: Edentulous Neck: No nuchal rigidity Respiratory: Nl effort/Exclusion, Clear to Auscultation, No Wheeze/Rhonchi/Rales Other Cardio Vascular comments:: Irregular rhythm with a 3/6 holosystolic scratchy murmur heard best along the left sternal border GI: No tenderness/rebounding/guarding, No organomegaly, No hernia, Normal BS's Other GI comments:: 2.5 out of 4 distended Other Extremities comments:: 2.5 out of 4 pitting edema of upper extremities and 2.5 out of 4 pretibial pitting edema Neuro/Psych: Alert/oriented ED Labs/Radiology/EKG Results - Lab Results Results: Abnormal Lab Results 10/31/18 10/31/18 10/31/18 14:34 14:34 14:34 WBC 4.0 L RBC 2.85 L Hgb 8.9 L Hct 26.5 L MCV 93.2 MCH 31.2 H MCHC Differential 33.4 RDW 16.3 Plt Count 156 MPV 7.5 Neutrophils % 72.9 Lymphocytes % 16.9 L Monocytes % 8.0 Eosinophils % 0.9 Basophils % 1.3 Sodium 134 L Potassium 4.0 Chloride 100 Carbon Dioxide 26.5 Anion Gap 11.5 BUN 80 H Creatinine 2.8 H Est GFR ( Amer) 22.0 Est GFR (Non-Af Amer) 18.2 BUN/Creatinine Ratio 28.6 Glucose 238 H Whole Bld Lactic Acid Calcium 9.4 Total Bilirubin 1.4 H AST 20 ALT 17 Alkaline Phosphatase 323 H B-Natriuretic Peptide 1070.0 H Total Protein 7.4 Albumin 3.4 L Globulin 4.0 Albumin/Globulin Ratio 0.9 L 10/31/18 14:34 WBC RBC Hgb Hct MCV MCH MCHC Differential RDW Plt Count MPV Neutrophils % Lymphocytes % Monocytes % Eosinophils % Basophils % Sodium Potassium Chloride Carbon Dioxide Anion Gap BUN Creatinine Est GFR ( Amer) Est GFR (Non-Af Amer) BUN/Creatinine Ratio Glucose Whole Bld Lactic Acid 0.69 Calcium Total Bilirubin AST ALT Alkaline Phosphatase B-Natriuretic Peptide Total Protein Albumin Globulin Albumin/Globulin Ratio - EKG Interpretations Rate & Rhythm: atrial fibrillation with a rate of 74 [place]: normal Comments:: T flattening inferior and anterior leads ED Septic Shock - . Is Septic Shock (SBP<90, OR Lactate>4 mmol\L) present?: No ED Reassessment (Disposition) - Reassessment Reassessment Condition:: Unchanged - Diagnosis Diagnosis:: Congestive heart failure; anasarca; anemia; neutropenia; hypoalbuminemia; renal insufficiency - Aftercare/Follow up Instructions Aftercare/Follow-Up Instructions:: Counseled pt regarding lab results/diagnosis & need follow up - Patient Disposition Spoke to:: Alonzo Balacuit Admitting Medical Physician:: Alonzo Cisneros
[2018-10-31 14:45] LABS: % BASOPHILS 1.3 % (0.0-2.0); % EOSINOPHILS 0.9 % (0.0-5.0); % LYMPHOCYTES 16.9 % (20.0-50.0); % NEUTROPHILS 72.9 % (40.0-80.0); BASOPHILE ABSOLUTE 0.1 Th/cumm (0-0.2); HEMATOCRIT 26.5 % (41.0-60); HEMOGLOBIN 8.9 gm/dL (12-16); LYMPHOCYTE ABSOLUTE 0.7 Th/cmm (1.5-3.0); MEAN CELL VOLUME 93.2 fl (81-100); MEAN CORPUSCULAR HEMOGLOBIN 31.2 pg (27.0-31.0); MEAN CORPUSCULAR HGB CONC 33.4 pg (28.0-36.0); MEAN PLATELET VOLUME 7.5 fl; MONOCYTE ABSOLUTE 0.3 Th/cmm (0.3-1.0); NEUTROPHILE ABSOLUTE 2.9 Th/cmm (1.8-8.0); PLATELET COUNT 156 Th/cmm (150-400); RED BLOOD COUNT 2.85 Mil/cmm (3.80-5.10); RED CELL DISTRIBUTION WIDTH 16.3 % (11.5-20.0)
[2018-10-31 15:01] LABS: ALB/GLOB RATIO 0.9 (1.0-1.8); ALBUMIN 3.4 gm/dL (3.7-5.3); ANION GAP 11.5 (7.0-16.0); BILIRUBIN,TOTAL 1.4 mg/dL (0.3-1.0); CALCIUM SERUM 9.4 mg/dL (8.6-10.3); CARBON DIOXIDE 26.5 mEq/L (21.0-31.0); CREATININE - SERUM 2.8 mg/dL (0.6-1.2); GFR NON AFRICAN-AMERICAN 18.2 ml/min; TOTAL PROTEIN,SERUM 7.4 gm/dL (6.0-8.3)
[2018-10-31 17:28] LABS: URINE SOURCE CATH
[2018-10-31 17:29] LABS: URINE BILIRUBIN NEGATIVE (NEGATIVE); URINE BLOOD LARGE (NEGATIVE); URINE GLUCOSE (UA) NEGATIVE (NEGATIVE); URINE KETONE NEGATIVE (NEGATIVE); URINE LEUKOCYTE ESTERASE LARGE (NEGATIVE); URINE MICROSCOPIC INDICATED? YES; URINE NITRATE POSITIVE (NEGATIVE); URINE PH 5.5 (4.6 - 8.0); URINE PROTEIN 30 mg/dL (NEGATIVE); URINE UROBILINOGEN 0.2 E.U./dL (0.2 - 1.0)
[2018-10-31 17:41] LABS: URINE CLARITY CLOUDY (CLEAR); URINE COLOR YELLOW
[2018-10-31 17:44] LABS: URINE WBC 50-100 /hpf (0-5)
[2018-10-31 17:45] VITALS: BP 136/79
[2018-10-31 17:45] LABS: URINE BACTERIA MANY /hpf (NONE SEEN); URINE EPITHELIAL CELLS MODERATE /lpf (FEW)
[2018-10-31] MEDS: cefTRIAXone 1 GM in Sodium Chloride 0.9% 50 ML IV SCH (21:49)
[2018-10-31] MEDS: Levetiracetam 500 mg/5mL 5mL UDSyr *for ORAL USE ONLY PO SCH (22:05)
[2018-10-31] MEDS: INSULIN ASPART SLIDING SCALE 100 UNITS/ML UNIT SUBQ SCH (22:14)
--- NOTE | 2018-11-01 04:52 | Consultation ---
DATE OF CONSULTATION: 10/31/2018 HISTORY OF PRESENT ILLNESS: This is a 62-year-old female, who was seen and examined at the courtesy of Dr. Cisneros. The patient was admitted here, transferred here from [facility] with increasing abdominal distention, shortness of breath and yellow eyes. 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 On asking the patient, there are no chest pains, some shortness of breath, no palpitations, no dizziness, no syncope, history of seizures, no history of cough, no history of fever, no history of hemoptysis, history of some abdominal discomfort and distention, no nausea or vomiting, no hematemesis. 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 PAST MEDICAL HISTORY: As mentioned above. FAMILY HISTORY: Not significant. SOCIAL HISTORY: Denies smoking or drinking. It should be mentioned that the patient is not a very good historian right now and not answering questions very clearly. PHYSICAL EXAMINATION: VITAL SIGNS: Heart rate was 71, blood pressure was 122/69, temperature 97.1, respirations 19, O2 saturation 99%. SKIN: Normal. HEAD: Normocephalic. EYES: Conjunctivae were pink. There is possible icterus. NECK: There is no increased jugular venous distention, no thyromegaly, no lymphadenopathy. Carotids equal on both sides. CHEST: Bilaterally symmetrical, moved well with respiration. Respiratory movements equal on both sides. Trachea is central. There is note to percussion. Breath sounds, few basilar rales. CARDIOVASCULAR SYSTEM: PMI not well localized. There is no pulsation or thrill. No parasternal heave. S1 normal, S2 physiologic. No definite S3. No rub. ABDOMEN: Soft, no tenderness, no rigidity, no guarding and no organomegaly. Bowel sounds normal. Possibility of free fluid. EXTREMITIES: Trace edema. No calf tenderness. Peripheral pulses slightly diminished. HOME MEDICATIONS: Include Lasix 40 mg daily, ferrous sulfate 325 b.i.d., atorvastatin 80 mg daily, multivitamin, Protonix, Coreg 25 mg p.o. b.i.d., hydralazine 100 mg t.i.d., Keppra, Catapres 0.1 p.r.n. and the patient was also on sliding scale. LABORATORY DATA: On looking at the labs, urine shows WBC 50-100, RBC 5-10, the patient was having hematuria according to the nurse, bacteria many, blood was large quantity. BNP is 1070. WBC count was 4, hemoglobin 8.9, hematocrit 26.5, MCV 93.2, MCH 31.2, MCHC 33.4, platelet count 156, sodium 134, potassium 4.0, chloride 100, CO2 26.5, glucose 238, BUN 80, creatinine 2.8, GFR 18-20. Total protein 7.4, albumin 3.4, globulin 4, bilirubin total of 1.4, SGOT 20, SGPT 17, alkaline phosphatase 323. DIAGNOSTIC STUDIES: EKG shows atrial fibrillation, low voltage and nonspecific ST-T wave changes. IMPRESSION: Abdominal distention and abdominal discomfort, history of liver cirrhosis. The patient has history of anasarca, acute renal failure on chronic kidney disease, congestive heart failure, history of coronary artery disease, hepatic encephalopathy, history of coronary artery disease, atrial fibrillation, hypertension, diabetes mellitus, dyslipidemia, anemia, urinary tract infection with hematuria, status post left mastectomy, history of seizures, history of gastroesophageal reflux disease. DISCUSSION: Suggest to continue present management. We will get repeat EKG in the morning. We will get echocardiogram to evaluate left ventricular function and valvular structure and also get chest x-ray, abdominal ultrasound and lab. We will get ammonia level, thyroid profile, TSH, T3, T4. I suspect that the patient probably may be hypothyroid. Lipid profile in a.m. BNP in a.m. Further recommendation will be made depending on the rest of the tests available. JOB# [id number]
--- NOTE | 2018-11-01 05:01 | Consultation ---
DATE OF CONSULTATION: 10/31/2018 ADDENDUM TO THE CONSULTATION FINAL DISCUSSION: It should be mentioned here that the patient does have atrial fibrillation with history of congestive heart failure, hypertension, and diabetes. In view of the atrial fibrillation, the patient should be on long-term anticoagulation. The patient does have liver cirrhosis. So we will have to check with the GI whether the patient will be able to tolerate long-term anticoagulation either with Eliquis 5 mg b.i.d. I will discuss this with primary care doctor also. [facility]# [id number]
[2018-11-01 06:31] LABS: % BASOPHILS 0.8 % (0.0-2.0); % EOSINOPHILS 1.2 % (0.0-5.0); % LYMPHOCYTES 14.9 % (20.0-50.0); % NEUTROPHILS 76.1 % (40.0-80.0); EOSINOPHILE ABSOLUTE 0.1 Th/cmm (0.1-0.4); HEMATOCRIT 26.4 % (41.0-60); HEMOGLOBIN 8.9 gm/dL (12-16); LYMPHOCYTE ABSOLUTE 0.7 Th/cmm (1.5-3.0); MEAN CELL VOLUME 92.3 fl (81-100); MEAN CORPUSCULAR HEMOGLOBIN 30.9 pg (27.0-31.0); MEAN CORPUSCULAR HGB CONC 33.5 pg (28.0-36.0); MEAN PLATELET VOLUME 7.5 fl; MONOCYTE ABSOLUTE 0.3 Th/cmm (0.3-1.0); NEUTROPHILE ABSOLUTE 3.5 Th/cmm (1.8-8.0); PLATELET COUNT 159 Th/cmm (150-400); RED BLOOD COUNT 2.86 Mil/cmm (3.80-5.10); RED CELL DISTRIBUTION WIDTH 16.8 % (11.5-20.0); WHITE BLOOD COUNT 4.6 Th/cmm (4.8-10.8)
[2018-11-01 06:47] LABS: ALB/GLOB RATIO 0.9 (1.0-1.8); ALBUMIN 3.4 gm/dL (3.7-5.3); BILIRUBIN,TOTAL 1.3 mg/dL (0.3-1.0); CALCIUM SERUM 9.5 mg/dL (8.6-10.3); CARBON DIOXIDE 26.2 mEq/L (21.0-31.0); CREATININE - SERUM 2.7 mg/dL (0.6-1.2); POTASSIUM SERUM 4.2 mEq/L (3.5-5.1); TOTAL PROTEIN,SERUM 7.3 gm/dL (6.0-8.3)
--- NOTE | 2018-11-01 08:30 | History and Physical ---
History of Present Illness - HPI Chief Complaint: abdominal distension and generalized weakness HPI: 62 year old female who presents to [facility] ER for abdominal distension and generalized weakness. Patient has a previous history of HTN,DM, CAD,CHF,Dyslipidemia,Sz disorder, paroxysmal AF, CKD, Iron deficiency, CVA w/ right sided weakness. Patient had a recent CT abd which revealed diffuse abdominal and pelvic ascites with extensive anasarca. No abd pain or nausea or vomiting noted. Initial labwork revealed WBC 4.6 H/H 8.9/26.4 plat 159K Na 138 K 4.2 Bun/Cr 79/2.7 glu 234 alk phos 320 ammonia 105 BNP 1140 TSH 9.55 Patient was subsequently admitted for further evaluation and treatment. 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: CVA (w/ right hemiparesis) GI: Report: Other (liver cirrhosis) Psych: Report: No Pertinent Hx Musculoskeletal: Report: No Pertinent Hx Rheumatologic: Report: No pertinent Hx Infectious Disease: Report: No Pertinent Hx Renal/: Report: Chronic Renal Failure Endocrine: Report: Diabetes Dermatology: Report: No Pertinent Hx - Past Surgical History Past Surgical History: No pertinent Hx Family Medical History - Family Member Mother History Unknown: Yes Ethnicity: Non- Living Status: Social History Smoke: No Alcohol: None Drugs: None Lives: Fpc - Medications Home Medications: Home Medication Medication Instructions Recorded Type Atorvastatin Calcium [Lipitor] 80 mg PO HS 09/01/18 History Multivitamin w/ Minerals 1 tab PO DAILY 09/01/18 History [Theragran M] Carvedilol [Coreg] 25 mg PO BID tab 10/29/18 Rx Ferrous Sulfate [Iron] 325 mg PO BID tab 10/29/18 Rx Hydralazine [Apresoline*] 100 mg PO TID tab 10/29/18 Rx Pantoprazole [Protonix] 40 mg PO DAILY ect 10/29/18 Rx Furosemide [Lasix] 40 mg PO DAILY 10/31/18 History Insulin Lispro [Admelog] See Protocol SQ ACHS 10/31/18 History Levetiracetam [Keppra] 500 mg PO Q12H 10/31/18 History cloNIDine HCl [Catapres] 0.1 mg PO Q6H PRN 10/31/18 History - Allergies Allergies/Adverse Reactions: Allergies Allergy/AdvReac Type Severity Reaction Status Date / Time No Known Allergies Allergy Verified 10/31/18 14:25 Review of Systems - Review of Systems Constitutional: Report: No Significant Eyes: Report: No Significant ENT: Report: No Significant Respiratory: Report: No Significant Cardiovascular: Report: No Significant Gastrointestinal: Report: Other (abdominal distension) Genitourinary: Report: No Significant Musculoskeletal: Report: No Significant Skin: Report: No Significant Neurological: Report: No Significant Physical Exam - Physical Exam HEENT: Report: Ears Nose Throat within normal limits, Pharnyx within normal limits Neck: Report: Within normal limits Cardiovascular Systems: Report: +s1/s2 noted, Regular, Rate and Rhythm Respiratory: Report: Breath Sounds are within normal limits Back: Report: Inspection of back is within normal limits. Extremities: Report: Non-tender to palpation. - Lab Results All Lab Results last 24 hours: Laboratory Results - last 24 hr 10/31/18 10/31/18 10/31/18 14:34 14:34 14:34 WBC 4.0 L RBC 2.85 L Hgb 8.9 L Hct 26.5 L MCV 93.2 MCH 31.2 H MCHC Differential 33.4 RDW 16.3 Plt Count 156 MPV 7.5 Neutrophils % 72.9 Lymphocytes % 16.9 L Monocytes % 8.0 Eosinophils % 0.9 Basophils % 1.3 Sodium 134 L Potassium 4.0 Chloride 100 Carbon Dioxide 26.5 Anion Gap 11.5 BUN 80 H Creatinine 2.8 H Est GFR ( Amer) 22.0 Est GFR (Non-Af Amer) 18.2 BUN/Creatinine Ratio 28.6 Glucose 238 H POC Glucose Whole Bld Lactic Acid Calcium 9.4 Total Bilirubin 1.4 H AST 20 ALT 17 Alkaline Phosphatase 323 H Ammonia B-Natriuretic Peptide 1070.0 H Total Protein 7.4 Albumin 3.4 L Globulin 4.0 Albumin/Globulin Ratio 0.9 L Triglycerides Cholesterol LDL Cholesterol Direct HDL Cholesterol TSH Urine Source Urine Color Urine Clarity Urine pH Ur Specific [place] Urine Protein Urine Glucose (UA) Urine Ketones Urine Blood Urine Nitrate Urine Bilirubin Urine Urobilinogen Ur Leukocyte Esterase Urine RBC Urine WBC Ur Epithelial Cells Urine Bacteria 10/31/18 10/31/18 10/31/18 14:34 17:03 22:09 WBC RBC Hgb Hct MCV MCH MCHC Differential RDW Plt Count MPV Neutrophils % Lymphocytes % Monocytes % Eosinophils % Basophils % Sodium Potassium Chloride Carbon Dioxide Anion Gap BUN Creatinine Est GFR ( Amer) Est GFR (Non-Af Amer) BUN/Creatinine Ratio Glucose POC Glucose 237 H Whole Bld Lactic Acid 0.69 Calcium Total Bilirubin AST ALT Alkaline Phosphatase Ammonia B-Natriuretic Peptide Total Protein Albumin Globulin Albumin/Globulin Ratio Triglycerides Cholesterol LDL Cholesterol Direct HDL Cholesterol TSH Urine Source CATH Urine Color YELLOW Urine Clarity CLOUDY H Urine pH 5.5 Ur Specific [place] 1.020 Urine Protein 30 H Urine Glucose (UA) NEGATIVE Urine Ketones NEGATIVE Urine Blood LARGE H Urine Nitrate POSITIVE H Urine Bilirubin NEGATIVE Urine Urobilinogen 0.2 Ur Leukocyte Esterase LARGE H Urine RBC 5-10 H Urine WBC 50-100 H Ur Epithelial Cells MODERATE Urine Bacteria MANY H 11/01/18 11/01/18 11/01/18 06:10 06:10 06:10 WBC 4.6 L RBC 2.86 L Hgb 8.9 L Hct 26.4 L MCV 92.3 MCH 30.9 MCHC Differential 33.5 RDW 16.8 Plt Count 159 MPV 7.5 Neutrophils % 76.1 Lymphocytes % 14.9 L Monocytes % 7.0 Eosinophils % 1.2 Basophils % 0.8 Sodium 138 Potassium 4.2 Chloride 103 Carbon Dioxide 26.2 Anion Gap 13.0 BUN 79 H Creatinine 2.7 H Est GFR ( Amer) 23.0 Est GFR (Non-Af Amer) 19.0 BUN/Creatinine Ratio 29.3 Glucose 234 H POC Glucose Whole Bld Lactic Acid Calcium 9.5 Total Bilirubin 1.3 H AST 20 ALT 16 Alkaline Phosphatase 320 H Ammonia 105 H B-Natriuretic Peptide Total Protein 7.3 Albumin 3.4 L Globulin 3.9 Albumin/Globulin Ratio 0.9 L Triglycerides 50 Cholesterol 104 LDL Cholesterol Direct 39 L HDL Cholesterol 45 TSH Urine Source Urine Color Urine Clarity Urine pH Ur Specific [place] Urine Protein Urine Glucose (UA) Urine Ketones Urine Blood Urine Nitrate Urine Bilirubin Urine Urobilinogen Ur Leukocyte Esterase Urine RBC Urine WBC Ur Epithelial Cells Urine Bacteria 11/01/18 11/01/18 11/01/18 06:10 06:10 06:44 WBC RBC Hgb Hct MCV MCH MCHC Differential RDW Plt Count MPV Neutrophils % Lymphocytes % Monocytes % Eosinophils % Basophils % Sodium Potassium Chloride Carbon Dioxide Anion Gap BUN Creatinine Est GFR ( Amer) Est GFR (Non-Af Amer) BUN/Creatinine Ratio Glucose POC Glucose 204 H Whole Bld Lactic Acid Calcium Total Bilirubin AST ALT Alkaline Phosphatase Ammonia B-Natriuretic Peptide 1140.0 H Total Protein Albumin Globulin Albumin/Globulin Ratio Triglycerides Cholesterol LDL Cholesterol Direct HDL Cholesterol TSH 9.55 H Urine Source Urine Color Urine Clarity Urine pH Ur Specific [place] Urine Protein Urine Glucose (UA) Urine Ketones Urine Blood Urine Nitrate Urine Bilirubin Urine Urobilinogen Ur Leukocyte Esterase Urine RBC Urine WBC Ur Epithelial Cells Urine Bacteria - Assessment Assessment: abdominal distension generalized weakness UTI hepatic encephalopathy new onset hypothyrodism HTN DM CAD CHF Dyslipidemia Sz disorder paroxysmal AF CKD Iron deficiency CVA w/ right sided weakness - Plan Plan: repeat labwork cardiology consult nephrology consult gi consult
[2018-11-01] MEDS ORDERED: cefTRIAXone 1 GM in Sodium Chloride 0.9% 50 ML IV SCH (08:45)
[2018-11-01] MEDS: INSULIN ASPART SLIDING SCALE 100 UNITS/ML UNIT SUBQ SCH ×4 (08:52→20:48)
[2018-11-01] MEDS ORDERED: VTE Chemical Prophylaxis Screen/Admission MC PRN (09:00)
[2018-11-01 09:05] LABS: INR 1.23 (0.5-1.4); PROTHROMBIN TIME (TEST) 12.7 SECONDS (9.5-11.5)
[2018-11-01] MEDS: Ferrous Sulfate 325 MG TAB PO SCH ×2 (09:06→17:53)
[2018-11-01] MEDS: Levetiracetam 500 mg/5mL 5mL UDSyr *for ORAL USE ONLY PO SCH ×2 (09:07→20:50)
[2018-11-01] MEDS: Lactulose 10 Gm/15 mL 30mL UDC PO SCH ×2 (09:07→13:41)
[2018-11-01] MEDS: Multivitamin w/ Minerals Tab PO SCH (09:07)
--- NOTE | 2018-11-01 09:10 | Diagnostic Imaging Report ---
Portable chest x-ray HISTORY: Shortness of breath Compared with prior exam of October 28, 2018, there remains marked cardiomegaly with a globular cardiac contour. No focal pulmonary processes. No hilar or mediastinal abnormalities. IMPRESSION: 1. No focal pulmonary processes 2. Persistent marked cardiomegaly with a globular cardiac contour. The finding may be associated with pericardial fluid, cardiomyopathy, or multivalvular disease. Clinical correlation is needed.
[2018-11-01] MEDS ORDERED: Probiotic Screen MC PRN (10:53)
[2018-11-01] MEDS: Levothyroxine 0.025 Mg Tab PO SCH (13:36)
[2018-11-01] MEDS: Pantoprazole 40 mg EC Tab PO SCH (13:36)
[2018-11-01 15:29] LABS: BF APPEARANCE BLOODY; BF COLOR RED; BODY FLUID SOURCE PARACENTHESIS
[2018-11-01] MEDS: Epoetin Alfa 20000 Units/mL Vial SUBQ SCH (15:45)
--- NOTE | 2018-11-01 18:05 | Consultation ---
DATE OF CONSULTATION: 11/01/2018 GASTROENTEROLOGY CONSULTATION REQUESTING PHYSICIAN: Alonzo Cisneros M.D. REASON FOR CONSULTATION: Abdominal distention. HISTORY OF PRESENT ILLNESS: A 62-year-old obese female with diabetes mellitus, hypertension, coronary artery disease, CHF, hyperlipidemia, seizure disorder, paroxysmal atrial fibrillation and chronic kidney disease. She also has chronic anemia without overt GI bleeding. She has a history of old stroke and right-sided weakness. She had a recent hospital stay last week for anasarca, deemed secondary to congestive heart failure and/or chronic kidney disease. She was diuresed. She felt better. She went home. Previous ultrasound showed mild to moderate ascites, but last time it was deemed insufficient for paracentesis. The patient was readmitted for abdominal distention and a paracentesis has been reordered. She denies abdominal pain, nausea or vomiting. MEDICATIONS: Here are Tylenol, carvedilol, Rocephin, Benadryl, iron b.i.d., Lasix 40 mg daily, subcutaneous heparin, hydralazine, insulin sliding scale, lactobacillus, lactulose 30 grams daily, Keppra, Synthroid, Protonix, probiotics. ALLERGIES: No known drug allergies. SOCIAL HISTORY: No recent tobacco, alcohol or drugs. FAMILY HISTORY: Noncontributory. REVIEW OF SYSTEMS: Negative. PHYSICAL EXAMINATION: VITAL SIGNS: Temperature of 97.3, blood pressure is 139/82, pulse of 69, respirations 17, O2 sat 96% on 2 liters. GENERAL: The patient is well-developed, well-nourished, obese female in no acute distress, alert and oriented x 4. HEENT: Sclerae nonicteric. Oropharynx is clear. CARDIOVASCULAR: Regular rate and rhythm. LUNGS: Clear to auscultation bilaterally. ABDOMEN: Soft, nontender, obese habitus, mild distention, cannot tell if there is any ascites based on body habitus. EXTREMITIES: Mild pitting pedal edema. RECTAL: Deferred. LABORATORY DATA AND IMAGING: WBC 4.6, hemoglobin 8.9, MCV is 92, platelet count is 159. INR is 1.2. Creatinine is 2.7. Liver enzymes are normal except alkaline phosphatase is mildly elevated to 320. Ammonia level is mildly elevated to 105, albumin 3.4. IMPRESSION: 1. Ascites, rule out chronic liver disease from SU versus other etiology. Of note, the patient had a previous liver workup which showed hepatitis panel negativity, antimitochondrial antibody negativity, antismooth muscle antibody equivocal, but negative. Iron indices unremarkable. Abdominal ultrasound done last week showed mild to moderate ascites, hepatomegaly with heterogeneous echogenicity and possible gallbladder wall polyps. 2. Morbid obesity. 3. Possible history of congestive heart failure. 4. Chronic kidney disease. 5. Anemia, likely chronic and multifactorial. RECOMMENDATIONS: 1. Ultrasound-guided paracentesis today with fluid analysis if possible. 2. Diuresis. 3. A 2 g sodium diet. 4. Consider upper endoscopy and colonoscopy in about 2-3 days once anasarca has improved and her breathing is stable. Thank you, Dr. Alonzo Cisneros for involving us in the care of your patient. If you have any further questions, please call us. JOB# [id number]
[2018-11-01] MEDS: cefTRIAXone 1 GM in Sodium Chloride 0.9% 50 ML IV SCH (20:50)
[2018-11-01 21:28] LABS: BF MONOCYTES 20 %; BF RBC 4575 /cumm; BF WBC 124 /cumm
[2018-11-02 05:32] LABS: % BASOPHILS 1.2 % (0.0-2.0); % EOSINOPHILS 1.6 % (0.0-5.0); % LYMPHOCYTES 16.6 % (20.0-50.0); % MONOCYTES 9.2 % (2.0-10.0); % NEUTROPHILS 71.4 % (40.0-80.0); BASOPHILE ABSOLUTE 0.1 Th/cumm (0-0.2); EOSINOPHILE ABSOLUTE 0.1 Th/cmm (0.1-0.4); HEMOGLOBIN 8.8 gm/dL (12-16); LYMPHOCYTE ABSOLUTE 0.7 Th/cmm (1.5-3.0); MEAN CELL VOLUME 91.8 fl (81-100); MEAN CORPUSCULAR HEMOGLOBIN 31.1 pg (27.0-31.0); MEAN CORPUSCULAR HGB CONC 33.9 pg (28.0-36.0); MEAN PLATELET VOLUME 7.3 fl; MONOCYTE ABSOLUTE 0.4 Th/cmm (0.3-1.0); NEUTROPHILE ABSOLUTE 2.9 Th/cmm (1.8-8.0); PLATELET COUNT 164 Th/cmm (150-400); RED BLOOD COUNT 2.83 Mil/cmm (3.80-5.10); RED CELL DISTRIBUTION WIDTH 16.6 % (11.5-20.0); WHITE BLOOD COUNT 4.2 Th/cmm (4.8-10.8)
[2018-11-02 05:52] LABS: ALB/GLOB RATIO 0.8 (1.0-1.8); ALBUMIN 3.2 gm/dL (3.7-5.3); BILIRUBIN,TOTAL 1.2 mg/dL (0.3-1.0); CALCIUM SERUM 9.3 mg/dL (8.6-10.3); CARBON DIOXIDE 27.1 mEq/L (21.0-31.0); CREATININE - SERUM 2.4 mg/dL (0.6-1.2); GFR AFRICAN-AMERICAN 26.3 ml/min (>90); GFR NON AFRICAN-AMERICAN 21.7 ml/min; POTASSIUM SERUM 4.1 mEq/L (3.5-5.1); TOTAL PROTEIN,SERUM 7.1 gm/dL (6.0-8.3)
--- NOTE | 2018-11-02 05:57 | General Progress Note ---
Subjective - Review of Systems Service Date: 11/02/18 Subjective: Patient resting comfortably in bed. no acute distress. S/P paracentesis yesterdy...2500cc. ECHO done yesterday. Objective - Results Result Diagrams: 11/02/18 05:07 11/01/18 06:10 Recent Labs: Laboratory Last Values WBC 4.2 Th/cmm (4.8-10.8) L 11/02/18 05:07 RBC 2.83 Mil/cmm (3.80-5.10) L 11/02/18 05:07 Hgb 8.8 gm/dL (12-16) L 11/02/18 05:07 Hct 26.0 % (41.0-60) L 11/02/18 05:07 MCV 91.8 fl (81-100) 11/02/18 05:07 MCH 31.1 pg (27.0-31.0) H 11/02/18 05:07 MCHC Differential 33.9 pg (28.0-36.0) 11/02/18 05:07 RDW 16.6 % (11.5-20.0) 11/02/18 05:07 Plt Count 164 Th/cmm (150-400) 11/02/18 05:07 MPV 7.3 fl 11/02/18 05:07 Neutrophils % 71.4 % (40.0-80.0) 11/02/18 05:07 Lymphocytes % 16.6 % (20.0-50.0) L 11/02/18 05:07 Monocytes % 9.2 % (2.0-10.0) 11/02/18 05:07 Eosinophils % 1.6 % (0.0-5.0) 11/02/18 05:07 Basophils % 1.2 % (0.0-2.0) 11/02/18 05:07 PT 12.7 SECONDS (9.5-11.5) H 11/01/18 06:10 INR 1.23 (0.5-1.4) 11/01/18 06:10 Sodium 138 mEq/L (136-145) 11/01/18 06:10 Potassium 4.2 mEq/L (3.5-5.1) 11/01/18 06:10 Chloride 103 mEq/L (98-107) 11/01/18 06:10 Carbon Dioxide 26.2 mEq/L (21.0-31.0) 11/01/18 06:10 Anion Gap 13.0 (7.0-16.0) 11/01/18 06:10 BUN 79 mg/dL (7-25) H 11/01/18 06:10 Creatinine 2.7 mg/dL (0.6-1.2) H 11/01/18 06:10 Est GFR ( Amer) 23.0 ml/min (>90) 11/01/18 06:10 Est GFR (Non-Af Amer) 19.0 ml/min 11/01/18 06:10 BUN/Creatinine Ratio 29.3 11/01/18 06:10 Glucose 234 mg/dL (70-105) H 11/01/18 06:10 POC Glucose 226 MG/DL (70 - 105) H 11/01/18 20:46 Whole Bld Lactic Acid 0.69 mmol/L (0.60-1.99) 10/31/18 14:34 Calcium 9.5 mg/dL (8.6-10.3) 11/01/18 06:10 Total Bilirubin 1.3 mg/dL (0.3-1.0) H 11/01/18 06:10 AST 20 U/L (13-39) 11/01/18 06:10 ALT 16 U/L (7-52) 11/01/18 06:10 Alkaline Phosphatase 320 U/L (34-104) H 11/01/18 06:10 Ammonia 105 umol/L (16-53) H 11/01/18 06:10 B-Natriuretic Peptide 1140.0 pg/mL (5.0-100.0) H 11/01/18 06:10 Total Protein 7.3 gm/dL (6.0-8.3) 11/01/18 06:10 Albumin 3.4 gm/dL (3.7-5.3) L 11/01/18 06:10 Globulin 3.9 gm/dL 11/01/18 06:10 Albumin/Globulin Ratio 0.9 (1.0-1.8) L 11/01/18 06:10 Triglycerides 50 mg/dL (<150) 11/01/18 06:10 Cholesterol 104 mg/dL (<200) 11/01/18 06:10 LDL Cholesterol Direct 39 mg/dL (75-193) L 11/01/18 06:10 HDL Cholesterol 45 mg/dL (23-92) 11/01/18 06:10 TSH 9.55 uIU/ml (0.34-5.60) H 11/01/18 06:10 Urine Source CATH 10/31/18 17:03 Urine Color YELLOW 10/31/18 17:03 Urine Clarity CLOUDY (CLEAR) H 10/31/18 17:03 Urine pH 5.5 (4.6 - 8.0) 10/31/18 17:03 Ur Specific [place] 1.020 (1.005-1.030) 10/31/18 17:03 Urine Protein 30 mg/dL (NEGATIVE) H 10/31/18 17:03 Urine Glucose (UA) NEGATIVE mg/dL (NEGATIVE) 10/31/18 17:03 Urine Ketones NEGATIVE mg/dL (NEGATIVE) 10/31/18 17:03 Urine Blood LARGE (NEGATIVE) H 10/31/18 17:03 Urine Nitrate POSITIVE (NEGATIVE) H 10/31/18 17:03 Urine Bilirubin NEGATIVE (NEGATIVE) 10/31/18 17:03 Urine Urobilinogen 0.2 E.U./dL (0.2 - 1.0) 10/31/18 17:03 Ur Leukocyte Esterase LARGE (NEGATIVE) H 10/31/18 17:03 Urine RBC 5-10 /hpf (0-5) H 10/31/18 17:03 Urine WBC 50-100 /hpf (0-5) H 10/31/18 17:03 Ur Epithelial Cells MODERATE /lpf (FEW) 10/31/18 17:03 Urine Bacteria MANY /hpf (NONE SEEN) H 10/31/18 17:03 Fluid Source PARACENTHESIS 11/01/18 14:30 Fluid Color RED 11/01/18 14:30 Fluid Appearance BLOODY 11/01/18 14:30 Fluid WBC 124 /cumm 11/01/18 14:30 Fluid RBC 4575 /cumm 11/01/18 14:30 Fluid Neutrophils 4 % 11/01/18 14:30 Fluid Lymphocytes 76 % 11/01/18 14:30 Fluid Monocytes 20 % 11/01/18 14:30 Fluid Total Protein 4.6 g/dL 11/01/18 14:30 - Physical Exam Vitals and I&O: Vital Signs Temp 97.5 F 11/02/18 00:00 Pulse 82 11/02/18 00:00 Resp 18 11/02/18 00:00 BP 105/81 11/02/18 00:00 Pulse Ox 98 11/02/18 00:00 Intake & Output 11/01/18 11/01/18 11/02/18 06:59 18:59 06:59 Intake Total 150 300 50 Output Total 550 450 Balance -400 -150 50 Weight (lbs) 93.44 kg 93.44 kg Intake: Intake, IV Amount 50 50 cefTRIAXone 1 gm In 50 50 Sodium Chloride 0.9% 50 ml @ 100 mls/hr IV Q24HR [facility] Rx#:[id number] Oral 100 300 Output: Urine 550 450 Other: Weight Source Bedscale Bedscale Active Medications: Current Medications Acetaminophen (Tylenol) 650 mg PO Q8H PRN PRN Reason: Pain (Moderate) LEVEL 4-6 Stop: 12/31/18 00:36 Last Admin: 11/01/18 23:43 Dose: 650 mg Carvedilol (Coreg) 25 mg PO BID [facility] Stop: 12/31/18 08:59 Last Admin: 11/01/18 17:53 Dose: 25 mg Diphenhydramine HCl (Benadryl) 25 mg PO QID PRN PRN Reason: Itching Stop: 12/31/18 00:33 Epoetin [place] (Epogen) 10,000 units SUBQ MoWeFr [facility] Stop: 12/31/18 14:59 Last Admin: 11/01/18 15:45 Dose: 10,000 units Ferrous Sulfate (Iron) 325 mg PO BID [facility] Stop: 12/31/18 08:59 Last Admin: 11/01/18 17:53 Dose: 325 mg Furosemide (Lasix) 40 mg PO DAILY [facility] Stop: 12/31/18 08:59 Last Admin: 11/01/18 09:06 Dose: Not Given Heparin Sodium (Porcine) (Heparin) 5,000 units SUBQ Q12H [facility] Stop: 12/31/18 08:59 Last Admin: 11/01/18 20:50 Dose: 5,000 units Hydralazine HCl (Apresoline) 100 mg PO TID [facility] Stop: 12/31/18 08:59 Last Admin: 11/01/18 21:00 Dose: Not Given Ceftriaxone Sodium 1 gm/ (Sodium Chloride) 50 mls @ 100 mls/hr IV Q24HR [facility] Stop: 12/30/18 19:59 Last Infusion: 11/01/18 21:20 Dose: Infused Insulin Aspart (Novolog Insulin Sliding Scale) 0 units SUBQ ACHS [facility]; Protocol Stop: 12/30/18 20:59 Last Admin: 11/01/18 20:48 Dose: 4 units Lactobacillus Rhamnosus (Culturelle 15b) 1 each PO DAILY [facility] Stop: 01/01/19 08:59 Lactulose (Cephulac) 30 gm PO DAILY [facility] Stop: 12/31/18 08:59 Last Admin: 11/01/18 13:41 Dose: 30 gm Levetiracetam (Keppra) 500 mg PO Q12HR [facility] Stop: 12/30/18 20:59 Last Admin: 11/01/18 20:50 Dose: 500 mg Levothyroxine Sodium (Synthroid) 0.025 mg PO QDAC [facility] Stop: 12/31/18 11:29 Last Admin: 11/01/18 13:36 Dose: 0.025 mg Miscellaneous (Vte Chemical Prophylaxis Screen/ Admission) 1 ea PRN PRN PRN Reason: PROTOCOL Stop: 12/31/18 08:59 Miscellaneous (Probiotic Screen) 1 [facility] PRN PRN PRN Reason: PROTOCOL Stop: 12/31/18 10:52 Pantoprazole Sodium (Protonix) 40 mg PO QDAC [facility] Stop: 12/31/18 11:29 Last Admin: 11/01/18 13:36 Dose: 40 mg General: Alert, Oriented x3, No acute distress HEENT: Atraumatic, PERRLA Neck: Supple Cardiovascular: Regular rate, Normal S1, Normal S2 Lungs: Clear to auscultation Abdomen: Bowel sounds, Obese Extremities: no Clubbing, no Cyanosis, no Edema Neurological: Normal gait, Normal speech Assessment/Plan - Assessment Assessment: abdominal distension s/p paracentesis generalized weakness UTI hepatic encephalopathy new onset hypothyrodism HTN DM CAD CHF Dyslipidemia Sz disorder paroxysmal AF CKD Iron deficiency CVA w/ right sided weakness - Plan Plan: repeat labwork cardiology consult nephrology consult gi consult Nutritional Asmnt/Malnutr-PDOC - Dietary Evaluation Malnutrition Findings (Please click <Entered> for more info): Nutritional Asmnt/Malnutrition Start: 11/01/18 14: 20 Text: Status: Complete Freq: Protocol: Document 11/01/18 14:20 ALICIA (Rec: 11/01/18 14:30 ALICIA [id number]) Nutritional Asmnt/Malnutrition Patient General Information Nutritional Screening High Risk Diagnosis anasarca, CHF, hypoalbuminemia , acute kidney injury Pertinent Medical Hx/Surgical Hx HTN, DM, CAD, CHF, dyslipidemia, Sz disorder, paroxysmal AF, CKD, iron deficiency, CVA w/ right sided weakness, cirrhosis Subjective Information Received nutrition consult for DM. Pt resting in bed w/ daughter at bedside during visit. Pt's daughter states pt follows diet given by [facility], but does not know which diet. Discussed renal diet limitations and pt verbalized understanding; pt states she will follow diet restrictions. Per EMR, pt finished 100% dinner last night. Current Diet Order/ Nutrition Support renal Pertinent Medications iron, lasix, heparin, novolog, culturelle, synthroid, protonix Pertinent Labs 11/01: glucose 234, Na 138, BUN 79, Cr 2.7, POC 204, Alb 3.4, GFR 19.0 10/31: glucose 238, Na 134, BUN 80, Cr 2.8, POC 237, Alb 3.4, GFR 18.2 Nutritional Hx/Data Height 1.57 m Height (Calculated Centimeters) 157.5 Current Weight (lbs) 93.44 kg Weight (Calculated Kilograms) 93.4 Weight (Calculated Grams) 84332.0 [place] Body Weight 110 lb Body Mass Index (BMI) 37.6 Weight Status Obese GI Symptoms GI Symptoms None Last BM none noted Difficult in: None Food Allergies No Skin Integrity/Comment: reddened lower abdomen and left groin, scar on left chest , kirill 15 Estimated Nutritional Goals BEE in Kcals: Adj wt of IBW Calories/Kcals/Kg 25-30 (based on adj wt 60.9 kg ) Kcals Calculated 8555-1995 Protein: Adj wt of IBW Protein g/k.8-1 (based on IBW 50 kg) Protein Calculated 40-50 g Fluid: ml 1200 ml (per MD) Nutritional Problem 1. Problem Problem Altered nutrition related lab values Etiology endocrine dysfunction, renal dysfunction Signs/Symptoms: glucose 234, BUN 79, Cr 2.7, POC 204, GFR 19.0 Intervention/Recommendation Comments 1. Recommend to start CCHO 60 gm diet d/t elevated bs and hx of DM 2. Continue with renal diet as ordered. Limit protein to 50 g/day d/t elevated renal labs and pt not on HD 3. Monitor PO intake, wt, labs and skin integrity 4. F/U as high risk in 2-3 days, 11/03- Expected Outcomes/Goals Expected Outcomes/Goals 1. PO intake to meet at least 75% of all meals 2. Wt stability, skin integrity to improve, labs to approach normal limits
[2018-11-02 08:06] LABS: EOSINOPHIL SMEAR SOURCE URINE; EOSINOPHILS SMEAR COUNT NONE SEEN (NONE SEEN)
[2018-11-02 08:11] LABS: T3 FREE 1.6 pg/mL (2.0-4.4); T4 FREE 1.5 ng/dL (0.82-1.77)
[2018-11-02] MEDS: Lactulose 10 Gm/15 mL 30mL UDC PO SCH (08:16)
[2018-11-02] MEDS: Ferrous Sulfate 325 MG TAB PO SCH ×2 (08:18→16:59)
[2018-11-02] MEDS: Multivitamin w/ Minerals Tab PO SCH (08:18)
[2018-11-02] MEDS: Lactobacillus Rhamnosus GG 15 Billion CFU CAP.SPRINK PO SCH (08:18)
[2018-11-02] MEDS: Pantoprazole 40 mg EC Tab PO SCH (08:18)
[2018-11-02] MEDS: Levothyroxine 0.025 Mg Tab PO SCH (08:19)
[2018-11-02] MEDS: Levetiracetam 500 mg/5mL 5mL UDSyr *for ORAL USE ONLY PO SCH ×2 (08:19→21:18)
[2018-11-02] MEDS: INSULIN ASPART SLIDING SCALE 100 UNITS/ML UNIT SUBQ SCH ×4 (08:20→21:31)
--- NOTE | 2018-11-02 09:00 | Consultation ---
DATE OF CONSULTATION: 11/01/2018 REASON FOR CONSULTATION: Worsening kidney function, electrolyte imbalance, and fluid management. HISTORY OF PRESENT ILLNESS: This is a 62-year-old [place] past medical history of chronic kidney disease, who came in because of generalized weakness. Two days prior to admission, the patient was discharged from the hospital, but she continued to have generalized weakness. A few hours prior to admission, she also complained of increasing abdominal girth and worsening discomfort. Thus, she was brought to the Emergency Room. Her white count was 4. Chest x-ray revealed cardiomegaly with globular cardiac contour. Previous CT scan of the abdomen/pelvis revealed diffuse abdominal/pelvic ascites with extensive anasarca. She denied any nausea or vomiting as well as diarrhea. Her bowel movement was about 2 days ago. PAST MEDICAL HISTORY: 1. Chronic kidney disease. 2. Essential hypertension. 3. Type 2 diabetes mellitus. 4. Coronary artery disease. 5. History of CHF. 6. Dyslipidemia. 7. Epilepsy. 8. Paroxysmal atrial fibrillation. 9. Iron deficiency anemia on chronic disease. 10. Status post CVA with right hemiparesis. 11. Chronic liver disease. 12. History of hepatic encephalopathy. 13. Lymphoma. PAST SURGICAL HISTORY: Status post left mastectomy. CURRENT MEDICATIONS: She is currently on acetaminophen, carvedilol, ceftriaxone, clonidine, diphenhydramine, Epogen, ferrous sulfate, furosemide, hydralazine, aspart, lactulose, Keppra, levothyroxine, multivitamins, pantoprazole. ALLERGIES: No known drug allergies. SOCIAL HISTORY: Denied any history of alcohol or tobacco use. Resides at an extended care facility. FAMILY HISTORY: Noncontributory to present illness. REVIEW OF SYSTEMS: CONSTITUTIONAL: The patient's appetite had deteriorated, no fever or chills, progressive generalized weakness. HEENT: No headaches nor dizziness, has blurring of vision and decreased hearing acuity. CARDIORESPIRATORY: Denied any chest pain, palpitations, cough; however, she has some dyspnea on exertion. GASTROINTESTINAL: She did complain of increasing abdominal girth associated with discomfort and pain. She has a history of constipation as well as liver failure. Her last BM was 2 days ago. Denied any nausea, vomiting, nor diarrhea. MUSCULOSKELETAL: Multiple joint arthralgias. GENITOURINARY: History of chronic kidney disease. Possible ongoing UTI. HEMATOLOGIC: History of anemia of iron deficiency on chronic disease. NEUROPSYCH: History of epilepsy, but no recent seizure activity. She does have diabetic neuropathy. PHYSICAL EXAMINATION: GENERAL: The patient is awake, in distress secondary to abdominal discomfort on the obese side. VITAL SIGNS: Her blood pressure is 140/72, pulse 68, temperature 97.5 degrees. SKIN: Poor turgor, warm, no rash, no jaundice appreciated. HEENT: Head normocephalic, atraumatic. Eyes: Extraocular muscles intact. Pupils equal, round, reactive to light and accommodates. Icteric sclerae. Pale conjunctivae. Nose, midline nasal septum. Mouth: Dry mucosa, adequate dentition. NECK: Supple, no adenopathy, no thyromegaly, no bruits. Trachea palpated in the midline. CHEST AND CARDIOVASCULAR: Distant heart sounds. S1, S2. No rub, murmur, no gallop appreciated. Point of maximal impulse difficult to determine due to the patient's size. No abdominal or femoral bruits appreciated. LUNGS: Equal expansion. Minimal use of accessory muscles. No supraclavicular retractions. few rhonchi, but no rales nor wheezes appreciated. BREASTS: Right breast pendulous, no discharge. She has a left mastectomy. ABDOMEN: Obese, tense, diminished bowel sounds, tender on palpation with some muscle guarding, but no rebound. RECTAL: The patient refused. GENITOURINARY: Normal appearing female genitalia. MUSCULOSKELETAL: No effusions present in her joints, but unable to assess her range of motion. EXTREMITIES: No evidence of any edema, cyanosis, nor clubbing with palpable femoral, but unable to fully appreciate popliteal or dorsalis pedis pulses. NEUROLOGIC: The patient is awake, verbal, motor is 5/5. Cranial nerves 3-12 intact. Sensory intact. LABORATORY DATA: Labs did reveal white count 4.6, hemoglobin 8.9, hematocrit 26.4, platelets 159, polys 76.1%. PT 12.3, INR 1.23. Sodium 138, potassium 4.2, chloride 103, bicarbonate 26, BUN 79, creatinine 2.7, glucose 234, calcium 9.5. BNP is 1140, albumin 3.4. TSH is 9.55. IMPRESSION: 1. Chronic kidney disease. GFR of 19 mL per minute, stage 4. The patient's kidney function is basically the same as her previous labs during her last admission. Her chronic kidney disease is secondary to longstanding history of diabetes giving rise to diabetic nephropathy and also some underlying hypertensive nephrosclerosis. 2. Abdominal distention secondary to worsening ascites. 3. History of liver failure. 4. History of hepatic encephalopathy. 5. Elevated BNP secondary to kidney failure. 6. Complicated urinary tract infection. 7. Lymphoma, status post left mastectomy. 8. Essential hypertension with chronic kidney disease. 9. Type 2 diabetes mellitus with chronic kidney disease. 10. Coronary artery disease. 11. History of congestive heart failure. 12. Dyslipidemia. 13. Epilepsy. 14. Paroxysmal atrial fibrillation. 15. Iron deficiency anemia on chronic disease. 16. Status post cerebrovascular accident with right hemiparesis. PLAN: 1. Urinalysis. 2. Urine spot sodium, eosinophils, and creatinine. 3. Urine microalbumin to creatinine ratio. 4. Continue on with gentle diuresis mainly for anasarca as well as ascites, the patient in decompensated heart failure. 5. Follow up cultures. 6. Continue on with antibiotics. 7. Therapeutic paracentesis. 8. Follow up liver workup done previously. 9. Continue lactulose. JOB# [id number]
--- NOTE | 2018-11-02 09:54 | Diagnostic Imaging Report ---
Exam: Ultrasound guided paracentesis. HISTORY cholecystitis. Findings: After obtaining informed consent the patient was prepped and draped in sterile fashion. Utilizing ultrasonographic guidance approximately 2500 cc of fluid was aspirated from the right lower quadrant. Patient tolerated procedure well without complications. IMPRESSION: successful right lower quadrant paracentesis 2500 cc of fluid obtained.
--- NOTE | 2018-11-02 11:33 | GI Progress Note ---
Subjective - Review of Systems Service Date: 11/02/18 Events since last encounter: S/P paracentesis Subjective: Abd pain Objective - Results Result Diagrams: 11/02/18 05:07 11/02/18 05:07 Recent Labs: Laboratory Last Values WBC 4.2 Th/cmm (4.8-10.8) L 11/02/18 05:07 RBC 2.83 Mil/cmm (3.80-5.10) L 11/02/18 05:07 Hgb 8.8 gm/dL (12-16) L 11/02/18 05:07 Hct 26.0 % (41.0-60) L 11/02/18 05:07 MCV 91.8 fl (81-100) 11/02/18 05:07 MCH 31.1 pg (27.0-31.0) H 11/02/18 05:07 MCHC Differential 33.9 pg (28.0-36.0) 11/02/18 05:07 RDW 16.6 % (11.5-20.0) 11/02/18 05:07 Plt Count 164 Th/cmm (150-400) 11/02/18 05:07 MPV 7.3 fl 11/02/18 05:07 Neutrophils % 71.4 % (40.0-80.0) 11/02/18 05:07 Lymphocytes % 16.6 % (20.0-50.0) L 11/02/18 05:07 Monocytes % 9.2 % (2.0-10.0) 11/02/18 05:07 Eosinophils % 1.6 % (0.0-5.0) 11/02/18 05:07 Basophils % 1.2 % (0.0-2.0) 11/02/18 05:07 Eos Smear Source URINE 11/02/18 05:50 Eos Smear Total Cells NONE SEEN (NONE SEEN) 11/02/18 05:50 PT 12.7 SECONDS (9.5-11.5) H 11/01/18 06:10 INR 1.23 (0.5-1.4) 11/01/18 06:10 Sodium 137 mEq/L (136-145) 11/02/18 05:07 Potassium 4.1 mEq/L (3.5-5.1) 11/02/18 05:07 Chloride 103 mEq/L (98-107) 11/02/18 05:07 Carbon Dioxide 27.1 mEq/L (21.0-31.0) 11/02/18 05:07 Anion Gap 11.0 (7.0-16.0) 11/02/18 05:07 BUN 73 mg/dL (7-25) H 11/02/18 05:07 Creatinine 2.4 mg/dL (0.6-1.2) H 11/02/18 05:07 Est GFR ( Amer) 26.3 ml/min (>90) 11/02/18 05:07 Est GFR (Non-Af Amer) 21.7 ml/min 11/02/18 05:07 BUN/Creatinine Ratio 30.4 11/02/18 05:07 Glucose 155 mg/dL (70-105) H D 11/02/18 05:07 POC Glucose 213 MG/DL (70 - 105) H 11/02/18 11:05 Whole Bld Lactic Acid 0.69 mmol/L (0.60-1.99) 10/31/18 14:34 Calcium 9.3 mg/dL (8.6-10.3) 11/02/18 05:07 Total Bilirubin 1.2 mg/dL (0.3-1.0) H 11/02/18 05:07 AST 29 U/L (13-39) 11/02/18 05:07 ALT 21 U/L (7-52) 11/02/18 05:07 Alkaline Phosphatase 330 U/L (34-104) H 11/02/18 05:07 Ammonia 121 umol/L (16-53) H 11/02/18 05:07 B-Natriuretic Peptide 1100.0 pg/mL (5.0-100.0) H 11/02/18 05:07 Total Protein 7.1 gm/dL (6.0-8.3) 11/02/18 05:07 Albumin 3.2 gm/dL (3.7-5.3) L 11/02/18 05:07 Globulin 3.9 gm/dL 11/02/18 05:07 Albumin/Globulin Ratio 0.8 (1.0-1.8) L 11/02/18 05:07 Triglycerides 50 mg/dL (<150) 11/01/18 06:10 Cholesterol 104 mg/dL (<200) 11/01/18 06:10 LDL Cholesterol Direct 39 mg/dL (75-193) L 11/01/18 06:10 HDL Cholesterol 45 mg/dL (23-92) 11/01/18 06:10 Free T4 1.50 ng/dL (0.82-1.77) 11/01/18 06:10 Free T3 1.6 pg/mL (2.0-4.4) L 11/01/18 06:10 TSH 9.55 uIU/ml (0.34-5.60) H 11/01/18 06:10 Urine Source CATH 10/31/18 17:03 Urine Color YELLOW 10/31/18 17:03 Urine Clarity CLOUDY (CLEAR) H 10/31/18 17:03 Urine pH 5.5 (4.6 - 8.0) 10/31/18 17:03 Ur Specific [place] 1.020 (1.005-1.030) 10/31/18 17:03 Urine Protein 30 mg/dL (NEGATIVE) H 10/31/18 17:03 Urine Glucose (UA) NEGATIVE mg/dL (NEGATIVE) 10/31/18 17:03 Urine Ketones NEGATIVE mg/dL (NEGATIVE) 10/31/18 17:03 Urine Blood LARGE (NEGATIVE) H 10/31/18 17:03 Urine Nitrate POSITIVE (NEGATIVE) H 10/31/18 17:03 Urine Bilirubin NEGATIVE (NEGATIVE) 10/31/18 17:03 Urine Urobilinogen 0.2 E.U./dL (0.2 - 1.0) 10/31/18 17:03 Ur Leukocyte Esterase LARGE (NEGATIVE) H 10/31/18 17:03 Urine RBC 5-10 /hpf (0-5) H 10/31/18 17:03 Urine WBC 50-100 /hpf (0-5) H 10/31/18 17:03 Ur Epithelial Cells MODERATE /lpf (FEW) 10/31/18 17:03 Urine Bacteria MANY /hpf (NONE SEEN) H 10/31/18 17:03 Ur Random Sodium 19 mmol/L 11/02/18 05:50 Urine Creatinine 96.0 mg/dl (28.0-217.0) 11/02/18 05:50 Fluid Source PARACENTHESIS 11/01/18 14:30 Fluid Color RED 11/01/18 14:30 Fluid Appearance BLOODY 11/01/18 14:30 Fluid WBC 124 /cumm 11/01/18 14:30 Fluid RBC 4575 /cumm 11/01/18 14:30 Fluid Neutrophils 4 % 11/01/18 14:30 Fluid Lymphocytes 76 % 11/01/18 14:30 Fluid Monocytes 20 % 11/01/18 14:30 Fluid Total Protein 4.6 g/dL 11/01/18 14:30 - Physical Exam Vitals and I&O: Vital Signs Temp 97.9 F 11/02/18 11:17 Pulse 76 11/02/18 11:17 Resp 18 11/02/18 11:17 BP 126/76 11/02/18 11:17 Pulse Ox 99 11/02/18 11:17 Intake & Output 11/01/18 11/02/18 11/02/18 18:59 06:59 18:59 Intake Total 300 250 Output Total 450 650 Balance -150 -400 Weight (lbs) 93.44 kg 93.44 kg Intake: Intake, IV Amount 50 cefTRIAXone 1 gm In 50 Sodium Chloride 0.9% 50 ml @ 100 mls/hr IV Q24HR [facility] Rx#:[id number] Oral 300 200 Output: Urine 450 650 Other: Stool Characteristics Formed Hard Weight Source Bedscale Bedscale Active Medications: Current Medications Acetaminophen (Tylenol) 650 mg PO Q8H PRN PRN Reason: Pain (Moderate) LEVEL 4-6 Stop: 12/31/18 00:36 Last Admin: 11/01/18 23:43 Dose: 650 mg Carvedilol (Coreg) 25 mg PO BID [facility] Stop: 12/31/18 08:59 Last Admin: 11/02/18 08:18 Dose: 25 mg Diphenhydramine HCl (Benadryl) 25 mg PO QID PRN PRN Reason: Itching Stop: 12/31/18 00:33 Epoetin [place] (Epogen) 10,000 units SUBQ MoWeFr [facility] Stop: 12/31/18 14:59 Last Admin: 11/01/18 15:45 Dose: 10,000 units Ferrous Sulfate (Iron) 325 mg PO BID [facility] Stop: 12/31/18 08:59 Last Admin: 11/02/18 08:18 Dose: 325 mg Furosemide (Lasix) 40 mg PO DAILY [facility] Stop: 12/31/18 08:59 Last Admin: 11/02/18 08:18 Dose: 40 mg Heparin Sodium (Porcine) (Heparin) 5,000 units SUBQ Q12H [facility] Stop: 12/31/18 08:59 Last Admin: 11/02/18 08:19 Dose: 5,000 units Hydralazine HCl (Apresoline) 100 mg PO TID [facility] Stop: 12/31/18 08:59 Last Admin: 11/02/18 08:18 Dose: 100 mg Ceftriaxone Sodium 1 gm/ (Sodium Chloride) 50 mls @ 100 mls/hr IV Q24HR [facility] Stop: 12/30/18 19:59 Last Infusion: 11/01/18 21:20 Dose: Infused Insulin Aspart (Novolog Insulin Sliding Scale) 0 units SUBQ ACHS [facility]; Protocol Stop: 12/30/18 20:59 Last Admin: 11/02/18 08:20 Dose: 2 units Lactobacillus Rhamnosus (Culturelle 15b) 1 each PO DAILY [facility] Stop: 01/01/19 08:59 Last Admin: 11/02/18 08:18 Dose: 1 each Lactulose (Cephulac) 30 gm PO DAILY [facility] Stop: 12/31/18 08:59 Last Admin: 11/02/18 08:16 Dose: 30 gm Levetiracetam (Keppra) 500 mg PO Q12HR [facility] Stop: 12/30/18 20:59 Last Admin: 11/02/18 08:19 Dose: 500 mg Levothyroxine Sodium (Synthroid) 0.025 mg PO QDAC [facility] Stop: 12/31/18 11:29 Last Admin: 11/02/18 08:19 Dose: 0.025 mg Miscellaneous (Vte Chemical Prophylaxis Screen/ Admission) 1 ea [facility] PRN PRN PRN Reason: PROTOCOL Stop: 12/31/18 08:59 Miscellaneous (Probiotic Screen) 1 ea PRN PRN PRN Reason: PROTOCOL Stop: 12/31/18 10:52 Pantoprazole Sodium (Protonix) 40 mg PO QDAC [facility] Stop: 12/31/18 11:29 Last Admin: 11/02/18 08:18 Dose: 40 mg General: Alert, Oriented x3, No acute distress Cardiovascular: Regular rate, Normal S1, Normal S2 Lungs: Clear to auscultation Abdomen: Bowel sounds, Soft, Obese Extremities: no Clubbing, no Cyanosis, no Edema Neurological: Normal speech Assessment/Plan - Assessment Assessment: 1. Ascites 2. Anemia - Plan Plan: 1. Ascites S/P paracentesis. High protein most likely due to CHF and renal disease Albumin was not checked Repeat if needed and check Albumin Diuresis. 2. Anemia Most likely multifactorial ( erinn renal disease) Will check on previous W/U
[2018-11-02] MEDS: cefTRIAXone 1 GM in Sodium Chloride 0.9% 50 ML IV SCH (21:15)
--- NOTE | 2018-11-03 06:27 | General Progress Note ---
Subjective - Review of Systems Service Date: 11/03/18 Subjective: Patient resting comfortably in bed. no acute distress. S/P paracentesis yesterdy...2500cc. ECHO done yesterday. Doing much better. less pain to her stomach. UA + E. Coli. Objective - Results Result Diagrams: 11/02/18 05:07 11/02/18 05:07 Recent Labs: Laboratory Last Values WBC 4.2 Th/cmm (4.8-10.8) L 11/02/18 05:07 RBC 2.83 Mil/cmm (3.80-5.10) L 11/02/18 05:07 Hgb 8.8 gm/dL (12-16) L 11/02/18 05:07 Hct 26.0 % (41.0-60) L 11/02/18 05:07 MCV 91.8 fl (81-100) 11/02/18 05:07 MCH 31.1 pg (27.0-31.0) H 11/02/18 05:07 MCHC Differential 33.9 pg (28.0-36.0) 11/02/18 05:07 RDW 16.6 % (11.5-20.0) 11/02/18 05:07 Plt Count 164 Th/cmm (150-400) 11/02/18 05:07 MPV 7.3 fl 11/02/18 05:07 Neutrophils % 71.4 % (40.0-80.0) 11/02/18 05:07 Lymphocytes % 16.6 % (20.0-50.0) L 11/02/18 05:07 Monocytes % 9.2 % (2.0-10.0) 11/02/18 05:07 Eosinophils % 1.6 % (0.0-5.0) 11/02/18 05:07 Basophils % 1.2 % (0.0-2.0) 11/02/18 05:07 Eos Smear Source URINE 11/02/18 05:50 Eos Smear Total Cells NONE SEEN (NONE SEEN) 11/02/18 05:50 PT 12.7 SECONDS (9.5-11.5) H 11/01/18 06:10 INR 1.23 (0.5-1.4) 11/01/18 06:10 Sodium 137 mEq/L (136-145) 11/02/18 05:07 Potassium 4.1 mEq/L (3.5-5.1) 11/02/18 05:07 Chloride 103 mEq/L (98-107) 11/02/18 05:07 Carbon Dioxide 27.1 mEq/L (21.0-31.0) 11/02/18 05:07 Anion Gap 11.0 (7.0-16.0) 11/02/18 05:07 BUN 73 mg/dL (7-25) H 11/02/18 05:07 Creatinine 2.4 mg/dL (0.6-1.2) H 11/02/18 05:07 Est GFR ( Amer) 26.3 ml/min (>90) 11/02/18 05:07 Est GFR (Non-Af Amer) 21.7 ml/min 11/02/18 05:07 BUN/Creatinine Ratio 30.4 11/02/18 05:07 Glucose 155 mg/dL (70-105) H D 11/02/18 05:07 POC Glucose 209 MG/DL (70 - 105) H 11/02/18 21:28 Whole Bld Lactic Acid 0.69 mmol/L (0.60-1.99) 10/31/18 14:34 Calcium 9.3 mg/dL (8.6-10.3) 11/02/18 05:07 Total Bilirubin 1.2 mg/dL (0.3-1.0) H 11/02/18 05:07 AST 29 U/L (13-39) 11/02/18 05:07 ALT 21 U/L (7-52) 11/02/18 05:07 Alkaline Phosphatase 330 U/L (34-104) H 11/02/18 05:07 Ammonia 121 umol/L (16-53) H 11/02/18 05:07 B-Natriuretic Peptide 1100.0 pg/mL (5.0-100.0) H 11/02/18 05:07 Total Protein 7.1 gm/dL (6.0-8.3) 11/02/18 05:07 Albumin 3.2 gm/dL (3.7-5.3) L 11/02/18 05:07 Globulin 3.9 gm/dL 11/02/18 05:07 Albumin/Globulin Ratio 0.8 (1.0-1.8) L 11/02/18 05:07 Triglycerides 50 mg/dL (<150) 11/01/18 06:10 Cholesterol 104 mg/dL (<200) 11/01/18 06:10 LDL Cholesterol Direct 39 mg/dL (75-193) L 11/01/18 06:10 HDL Cholesterol 45 mg/dL (23-92) 11/01/18 06:10 Free T4 1.50 ng/dL (0.82-1.77) 11/01/18 06:10 Free T3 1.6 pg/mL (2.0-4.4) L 11/01/18 06:10 TSH 9.55 uIU/ml (0.34-5.60) H 11/01/18 06:10 Urine Source CATH 10/31/18 17:03 Urine Color YELLOW 10/31/18 17:03 Urine Clarity CLOUDY (CLEAR) H 10/31/18 17:03 Urine pH 5.5 (4.6 - 8.0) 10/31/18 17:03 Ur Specific [place] 1.020 (1.005-1.030) 10/31/18 17:03 Urine Protein 30 mg/dL (NEGATIVE) H 10/31/18 17:03 Urine Glucose (UA) NEGATIVE mg/dL (NEGATIVE) 10/31/18 17:03 Urine Ketones NEGATIVE mg/dL (NEGATIVE) 10/31/18 17:03 Urine Blood LARGE (NEGATIVE) H 10/31/18 17:03 Urine Nitrate POSITIVE (NEGATIVE) H 10/31/18 17:03 Urine Bilirubin NEGATIVE (NEGATIVE) 10/31/18 17:03 Urine Urobilinogen 0.2 E.U./dL (0.2 - 1.0) 10/31/18 17:03 Ur Leukocyte Esterase LARGE (NEGATIVE) H 10/31/18 17:03 Urine RBC 5-10 /hpf (0-5) H 10/31/18 17:03 Urine WBC 50-100 /hpf (0-5) H 10/31/18 17:03 Ur Epithelial Cells MODERATE /lpf (FEW) 10/31/18 17:03 Urine Bacteria MANY /hpf (NONE SEEN) H 10/31/18 17:03 Ur Random Sodium 19 mmol/L 11/02/18 05:50 Urine Creatinine 96.0 mg/dl (28.0-217.0) 11/02/18 05:50 Fluid Source PARACENTHESIS 11/01/18 14:30 Fluid Color RED 11/01/18 14:30 Fluid Appearance BLOODY 11/01/18 14:30 Fluid WBC 124 /cumm 11/01/18 14:30 Fluid RBC 4575 /cumm 11/01/18 14:30 Fluid Neutrophils 4 % 11/01/18 14:30 Fluid Lymphocytes 76 % 11/01/18 14:30 Fluid Monocytes 20 % 11/01/18 14:30 Fluid Total Protein 4.6 g/dL 11/01/18 14:30 - Physical Exam Vitals and I&O: Vital Signs Temp 97.2 F 11/03/18 04:02 Pulse 70 11/03/18 04:02 Resp 18 11/03/18 04:02 BP 121/76 11/03/18 04:02 Pulse Ox 98 11/03/18 04:02 Intake & Output 11/02/18 11/02/18 11/03/18 06:59 18:59 06:59 Intake Total 250 1000 50 Output Total 650 800 Balance -400 200 50 Weight (lbs) 93.44 kg 93.44 kg 93.44 kg Intake: Intake, IV Amount 50 50 cefTRIAXone 1 gm In 50 50 Sodium Chloride 0.9% 50 ml @ 100 mls/hr IV Q24HR [facility] Rx#:[id number] Oral 200 1000 Output: Urine 650 800 Other: # Bowel Movements 2 Stool Characteristics Formed Hard Weight Source Bedscale Bedscale Bedscale Active Medications: Current Medications Acetaminophen (Tylenol) 650 mg PO Q8H PRN PRN Reason: Pain (Moderate) LEVEL 4-6 Stop: 12/31/18 00:36 Last Admin: 11/02/18 16:59 Dose: 650 mg Carvedilol (Coreg) 25 mg PO BID [facility] Stop: 12/31/18 08:59 Last Admin: 11/02/18 16:58 Dose: 25 mg Diphenhydramine HCl (Benadryl) 12.5 mg PO TID PRN PRN Reason: Itching Stop: 12/31/18 00:33 Epoetin [place] (Epogen) 10,000 units SUBQ MoWeFr [facility] Stop: 12/31/18 14:59 Last Admin: 11/01/18 15:45 Dose: 10,000 units Ferrous Sulfate (Iron) 325 mg PO BID [facility] Stop: 12/31/18 08:59 Last Admin: 11/02/18 16:59 Dose: 325 mg Furosemide (Lasix) 40 mg PO DAILY [facility] Stop: 12/31/18 08:59 Last Admin: 11/02/18 08:18 Dose: 40 mg Heparin Sodium (Porcine) (Heparin) 5,000 units SUBQ Q12H [facility] Stop: 12/31/18 08:59 Last Admin: 11/02/18 21:21 Dose: 5,000 units Hydralazine HCl (Apresoline) 25 mg PO BID [facility] Stop: 01/02/19 08:59 Ceftriaxone Sodium 2 gm/ (Sodium Chloride) 100 mls @ 100 mls/hr IV Q24H [facility] Stop: 01/02/19 06:29 Insulin Aspart (Novolog Insulin Sliding Scale) 0 units SUBQ ACHS [facility]; Protocol Stop: 12/30/18 20:59 Last Admin: 11/02/18 21:31 Dose: 4 units Lactobacillus Rhamnosus (Culturelle 15b) 1 each PO DAILY [facility] Stop: 01/01/19 08:59 Last Admin: 11/02/18 08:18 Dose: 1 each Lactulose (Cephulac) 30 gm PO DAILY [facility] Stop: 12/31/18 08:59 Last Admin: 11/02/18 08:16 Dose: 30 gm Levetiracetam (Keppra) 500 mg PO Q12HR [facility] Stop: 12/30/18 20:59 Last Admin: 11/02/18 21:18 Dose: 500 mg Levothyroxine Sodium (Synthroid) 0.025 mg PO QDAC [facility] Stop: 12/31/18 11:29 Last Admin: 11/02/18 08:19 Dose: 0.025 mg Miscellaneous (Vte Chemical Prophylaxis Screen/ Admission) 1 ea PRN PRN PRN Reason: PROTOCOL Stop: 12/31/18 08:59 Miscellaneous (Probiotic Screen) 1 ea PRN PRN PRN Reason: PROTOCOL Stop: 12/31/18 10:52 Pantoprazole Sodium (Protonix) 40 mg PO QDAC [facility] Stop: 12/31/18 11:29 Last Admin: 11/02/18 08:18 Dose: 40 mg General: Alert, Oriented x3, No acute distress HEENT: Atraumatic, PERRLA Neck: Supple Cardiovascular: Regular rate, Normal S1, Normal S2 Lungs: Clear to auscultation Abdomen: Bowel sounds, Soft, Obese Extremities: no Clubbing, no Cyanosis, no Edema Neurological: Normal speech Assessment/Plan - Assessment Assessment: abdominal distension s/p paracentesis generalized weakness UTI +E. coli hepatic encephalopathy new onset hypothyrodism HTN DM CAD CHF Dyslipidemia Sz disorder paroxysmal AF CKD Iron deficiency CVA w/ right sided weakness - Plan Plan: repeat labwork cardiology consult nephrology consult gi consult continue current treatment will increase Rocephin 2gm IV daily Nutritional Asmnt/Malnutr-PDOC - Dietary Evaluation Malnutrition Findings (Please click <Entered> for more info): Nutritional Asmnt/Malnutrition Start: 11/01/18 14: 20 Text: Status: Complete Freq: Protocol: Document 11/01/18 14:20 ALICIA (Rec: 11/01/18 14:30 ALICIA [id number]) Nutritional Asmnt/Malnutrition Patient General Information Nutritional Screening High Risk Diagnosis anasarca, CHF, hypoalbuminemia , acute kidney injury Pertinent Medical Hx/Surgical Hx HTN, DM, CAD, CHF, dyslipidemia, Sz disorder, paroxysmal AF, CKD, iron deficiency, CVA w/ right sided weakness, cirrhosis Subjective Information Received nutrition consult for DM. Pt resting in bed w/ daughter at bedside during visit. Pt's daughter states pt follows diet given by assisted, but does not know which diet. Discussed renal diet limitations and pt verbalized understanding; pt states she will follow diet restrictions. Per EMR, pt finished 100% dinner last night. Current Diet Order/ Nutrition Support renal Pertinent Medications iron, lasix, heparin, novolog, culturelle, synthroid, protonix Pertinent Labs 11/01: glucose 234, Na 138, BUN 79, Cr 2.7, POC 204, Alb 3.4, GFR 19.0 10/31: glucose 238, Na 134, BUN 80, Cr 2.8, POC 237, Alb 3.4, GFR 18.2 Nutritional Hx/Data Height 1.57 m Height (Calculated Centimeters) 157.5 Current Weight (lbs) 93.44 kg Weight (Calculated Kilograms) 93.4 Weight (Calculated Grams) 45921.0 [place] Body Weight 110 lb Body Mass Index (BMI) 37.6 Weight Status Obese GI Symptoms GI Symptoms None Last BM none noted Difficult in: None Food Allergies No Skin Integrity/Comment: reddened lower abdomen and left groin, scar on left chest , kirill 15 Estimated Nutritional Goals BEE in Kcals: Adj wt of IBW Calories/Kcals/Kg 25-30 (based on adj wt 60.9 kg ) Kcals Calculated 0711-6499 Protein: Adj wt of IBW Protein g/k.8-1 (based on IBW 50 kg) Protein Calculated 40-50 g Fluid: ml 1200 ml (per MD) Nutritional Problem 1. Problem Problem Altered nutrition related lab values Etiology endocrine dysfunction, renal dysfunction Signs/Symptoms: glucose 234, BUN 79, Cr 2.7, POC 204, GFR 19.0 Intervention/Recommendation Comments 1. Recommend to start CCHO 60 gm diet d/t elevated bs and hx of DM 2. Continue with renal diet as ordered. Limit protein to 50 g/day d/t elevated renal labs and pt not on HD 3. Monitor PO intake, wt, labs and skin integrity 4. F/U as high risk in 2-3 days, 11/03- Expected Outcomes/Goals Expected Outcomes/Goals 1. PO intake to meet at least 75% of all meals 2. Wt stability, skin integrity to improve, labs to approach normal limits
[2018-11-03] MEDS: INSULIN ASPART SLIDING SCALE 100 UNITS/ML UNIT SUBQ SCH ×4 (06:40→21:16)
[2018-11-03 06:44] LABS: % BASOPHILS 0.8 % (0.0-2.0); % EOSINOPHILS 2.1 % (0.0-5.0); % MONOCYTES 7.2 % (2.0-10.0); % NEUTROPHILS 73.9 % (40.0-80.0); EOSINOPHILE ABSOLUTE 0.1 Th/cmm (0.1-0.4); HEMATOCRIT 27.8 % (41.0-60); HEMOGLOBIN 9.5 gm/dL (12-16); LYMPHOCYTE ABSOLUTE 0.7 Th/cmm (1.5-3.0); MEAN CELL VOLUME 92.5 fl (81-100); MEAN CORPUSCULAR HEMOGLOBIN 31.6 pg (27.0-31.0); MEAN CORPUSCULAR HGB CONC 34.2 pg (28.0-36.0); MEAN PLATELET VOLUME 7.6 fl; MONOCYTE ABSOLUTE 0.3 Th/cmm (0.3-1.0); PLATELET COUNT 168 Th/cmm (150-400); RED BLOOD COUNT 3.01 Mil/cmm (3.80-5.10); RED CELL DISTRIBUTION WIDTH 16.5 % (11.5-20.0); WHITE BLOOD COUNT 4.1 Th/cmm (4.8-10.8)
[2018-11-03] MEDS: Levothyroxine 0.025 Mg Tab PO SCH (06:47)
[2018-11-03] MEDS: Pantoprazole 40 mg EC Tab PO SCH (06:48)
[2018-11-03 07:13] LABS: ALB/GLOB RATIO 0.8 (1.0-1.8); ALBUMIN 3.2 gm/dL (3.7-5.3); ANION GAP 12.2 (7.0-16.0); BILIRUBIN,TOTAL 1.3 mg/dL (0.3-1.0); CALCIUM SERUM 9.4 mg/dL (8.6-10.3); CARBON DIOXIDE 26.8 mEq/L (21.0-31.0); CREATININE - SERUM 2.2 mg/dL (0.6-1.2); GFR AFRICAN-AMERICAN 29.1 ml/min (>90); TOTAL PROTEIN,SERUM 7.1 gm/dL (6.0-8.3)
[2018-11-03] MEDS: Multivitamin w/ Minerals Tab PO SCH (09:05)
[2018-11-03] MEDS: cefTRIAXone 2 GM in Sodium Chloride 0.9% 100 ML IV SCH (09:05)
[2018-11-03] MEDS: Lactulose 10 Gm/15 mL 30mL UDC PO SCH (09:06)
[2018-11-03] MEDS: Ferrous Sulfate 325 MG TAB PO SCH ×2 (09:06→17:10)
[2018-11-03] MEDS: Lactobacillus Rhamnosus GG 15 Billion CFU CAP.SPRINK PO SCH (09:06)
[2018-11-03] MEDS: Levetiracetam 500 mg/5mL 5mL UDSyr *for ORAL USE ONLY PO SCH ×2 (09:07→21:07)
--- NOTE | 2018-11-03 10:38 | GI Progress Note ---
Subjective - Review of Systems Service Date: 11/03/18 Events since last encounter: no events Subjective: Mild Abd pain Objective - Results Result Diagrams: 11/03/18 05:48 11/03/18 05:48 Recent Labs: Laboratory Last Values WBC 4.1 Th/cmm (4.8-10.8) L 11/03/18 05:48 RBC 3.01 Mil/cmm (3.80-5.10) L 11/03/18 05:48 Hgb 9.5 gm/dL (12-16) L 11/03/18 05:48 Hct 27.8 % (41.0-60) L 11/03/18 05:48 MCV 92.5 fl (81-100) 11/03/18 05:48 MCH 31.6 pg (27.0-31.0) H 11/03/18 05:48 MCHC Differential 34.2 pg (28.0-36.0) 11/03/18 05:48 RDW 16.5 % (11.5-20.0) 11/03/18 05:48 Plt Count 168 Th/cmm (150-400) 11/03/18 05:48 MPV 7.6 fl 11/03/18 05:48 Neutrophils % 73.9 % (40.0-80.0) 11/03/18 05:48 Lymphocytes % 16.0 % (20.0-50.0) L 11/03/18 05:48 Monocytes % 7.2 % (2.0-10.0) 11/03/18 05:48 Eosinophils % 2.1 % (0.0-5.0) 11/03/18 05:48 Basophils % 0.8 % (0.0-2.0) 11/03/18 05:48 Eos Smear Source URINE 11/02/18 05:50 Eos Smear Total Cells NONE SEEN (NONE SEEN) 11/02/18 05:50 PT 12.7 SECONDS (9.5-11.5) H 11/01/18 06:10 INR 1.23 (0.5-1.4) 11/01/18 06:10 Sodium 139 mEq/L (136-145) 11/03/18 05:48 Potassium 4.0 mEq/L (3.5-5.1) 11/03/18 05:48 Chloride 104 mEq/L (98-107) 11/03/18 05:48 Carbon Dioxide 26.8 mEq/L (21.0-31.0) 11/03/18 05:48 Anion Gap 12.2 (7.0-16.0) 11/03/18 05:48 BUN 66 mg/dL (7-25) H 11/03/18 05:48 Creatinine 2.2 mg/dL (0.6-1.2) H 11/03/18 05:48 Est GFR ( Amer) 29.1 ml/min (>90) 11/03/18 05:48 Est GFR (Non-Af Amer) 24.0 ml/min 11/03/18 05:48 BUN/Creatinine Ratio 30.0 11/03/18 05:48 Glucose 93 mg/dL (70-105) 11/03/18 05:48 POC Glucose 93 MG/DL (70 - 105) 11/03/18 06:39 Whole Bld Lactic Acid 0.69 mmol/L (0.60-1.99) 10/31/18 14:34 Calcium 9.4 mg/dL (8.6-10.3) 11/03/18 05:48 Total Bilirubin 1.3 mg/dL (0.3-1.0) H 11/03/18 05:48 AST 27 U/L (13-39) 11/03/18 05:48 ALT 23 U/L (7-52) 11/03/18 05:48 Alkaline Phosphatase 322 U/L (34-104) H 11/03/18 05:48 Ammonia 77 umol/L (16-53) H 11/03/18 05:48 B-Natriuretic Peptide 1100.0 pg/mL (5.0-100.0) H 11/02/18 05:07 Total Protein 7.1 gm/dL (6.0-8.3) 11/03/18 05:48 Albumin 3.2 gm/dL (3.7-5.3) L 11/03/18 05:48 Globulin 3.9 gm/dL 11/03/18 05:48 Albumin/Globulin Ratio 0.8 (1.0-1.8) L 11/03/18 05:48 Triglycerides 50 mg/dL (<150) 11/01/18 06:10 Cholesterol 104 mg/dL (<200) 11/01/18 06:10 LDL Cholesterol Direct 39 mg/dL (75-193) L 11/01/18 06:10 HDL Cholesterol 45 mg/dL (23-92) 11/01/18 06:10 Free T4 1.50 ng/dL (0.82-1.77) 11/01/18 06:10 Free T3 1.6 pg/mL (2.0-4.4) L 11/01/18 06:10 TSH 9.55 uIU/ml (0.34-5.60) H 11/01/18 06:10 Urine Source CATH 10/31/18 17:03 Urine Color YELLOW 10/31/18 17:03 Urine Clarity CLOUDY (CLEAR) H 10/31/18 17:03 Urine pH 5.5 (4.6 - 8.0) 10/31/18 17:03 Ur Specific [place] 1.020 (1.005-1.030) 10/31/18 17:03 Urine Protein 30 mg/dL (NEGATIVE) H 10/31/18 17:03 Urine Glucose (UA) NEGATIVE mg/dL (NEGATIVE) 10/31/18 17:03 Urine Ketones NEGATIVE mg/dL (NEGATIVE) 10/31/18 17:03 Urine Blood LARGE (NEGATIVE) H 10/31/18 17:03 Urine Nitrate POSITIVE (NEGATIVE) H 10/31/18 17:03 Urine Bilirubin NEGATIVE (NEGATIVE) 10/31/18 17:03 Urine Urobilinogen 0.2 E.U./dL (0.2 - 1.0) 10/31/18 17:03 Ur Leukocyte Esterase LARGE (NEGATIVE) H 10/31/18 17:03 Urine RBC 5-10 /hpf (0-5) H 10/31/18 17:03 Urine WBC 50-100 /hpf (0-5) H 10/31/18 17:03 Ur Epithelial Cells MODERATE /lpf (FEW) 10/31/18 17:03 Urine Bacteria MANY /hpf (NONE SEEN) H 10/31/18 17:03 Ur Random Sodium 19 mmol/L 11/02/18 05:50 Urine Creatinine 96.0 mg/dl (28.0-217.0) 11/02/18 05:50 Microalb/Creat Ratio 307.6 mg/g creat (0.0-30.0) H 11/02/18 06:18 Fluid Source PARACENTHESIS 11/01/18 14:30 Fluid Color RED 11/01/18 14:30 Fluid Appearance BLOODY 11/01/18 14:30 Fluid WBC 124 /cumm 11/01/18 14:30 Fluid RBC 4575 /cumm 11/01/18 14:30 Fluid Neutrophils 4 % 11/01/18 14:30 Fluid Lymphocytes 76 % 11/01/18 14:30 Fluid Monocytes 20 % 11/01/18 14:30 Fluid Total Protein 4.6 g/dL 11/01/18 14:30 - Physical Exam Vitals and I&O: Vital Signs Temp 98.3 F 11/03/18 08:00 Pulse 65 11/03/18 09:06 Resp 18 11/03/18 08:00 BP 118/66 11/03/18 09:06 Pulse Ox 96 11/03/18 08:00 Intake & Output 11/02/18 11/03/18 11/03/18 18:59 06:59 18:59 Intake Total 1000 50 50 Output Total 800 Balance 200 50 50 Weight (lbs) 93.44 kg 93.44 kg 93.803 kg Intake: Intake, IV Amount 50 cefTRIAXone 1 gm In 50 Sodium Chloride 0.9% 50 ml @ 100 mls/hr IV Q24HR [facility] Rx#:[id number] Oral 1000 50 Output: Urine 800 Other: # Voids 3 # Bowel Movements 2 2 Stool Characteristics Formed Hard Weight Source Bedscale Bedscale Bedscale Active Medications: Current Medications Acetaminophen (Tylenol) 650 mg PO Q8H PRN PRN Reason: Pain (Moderate) LEVEL 4-6 Stop: 12/31/18 00:36 Last Admin: 11/02/18 16:59 Dose: 650 mg Carvedilol (Coreg) 25 mg PO BID [facility] Stop: 12/31/18 08:59 Last Admin: 11/03/18 09:06 Dose: 25 mg Diphenhydramine HCl (Benadryl) 12.5 mg PO TID PRN PRN Reason: Itching Stop: 12/31/18 00:33 Epoetin [place] (Epogen) 10,000 units SUBQ MoWeFr [facility] Stop: 12/31/18 14:59 Last Admin: 11/01/18 15:45 Dose: 10,000 units Ferrous Sulfate (Iron) 325 mg PO BID [facility] Stop: 12/31/18 08:59 Last Admin: 11/03/18 09:06 Dose: 325 mg Furosemide (Lasix) 40 mg PO DAILY [facility] Stop: 12/31/18 08:59 Last Admin: 11/03/18 09:05 Dose: 40 mg Heparin Sodium (Porcine) (Heparin) 5,000 units SUBQ Q12H [facility] Stop: 12/31/18 08:59 Last Admin: 11/03/18 09:07 Dose: 5,000 units Hydralazine HCl (Apresoline) 25 mg PO BID [facility] Stop: 01/02/19 08:59 Last Admin: 11/03/18 09:06 Dose: 25 mg Ceftriaxone Sodium 2 gm/ (Sodium Chloride) 100 mls @ 100 mls/hr IV Q24H [facility] Stop: 01/02/19 08:59 Last Admin: 11/03/18 09:05 Dose: 100 mls/hr Insulin Aspart (Novolog Insulin Sliding Scale) 0 units SUBQ ACHS [facility]; Protocol Stop: 12/30/18 20:59 Last Admin: 11/03/18 06:40 Dose: Not Given Lactobacillus Rhamnosus (Culturelle 15b) 1 each PO DAILY [facility] Stop: 01/01/19 08:59 Last Admin: 11/03/18 09:06 Dose: 1 each Lactulose (Cephulac) 30 gm PO DAILY [facility] Stop: 12/31/18 08:59 Last Admin: 11/03/18 09:06 Dose: 30 gm Levetiracetam (Keppra) 500 mg PO Q12HR [facility] Stop: 12/30/18 20:59 Last Admin: 11/03/18 09:07 Dose: 500 mg Levothyroxine Sodium (Synthroid) 0.025 mg PO QDAC [facility] Stop: 12/31/18 11:29 Last Admin: 11/03/18 06:47 Dose: 0.025 mg Miscellaneous (Vte Chemical Prophylaxis Screen/ Admission) 1 ea PRN PRN PRN Reason: PROTOCOL Stop: 12/31/18 08:59 Miscellaneous (Probiotic Screen) 1 ea PRN PRN PRN Reason: PROTOCOL Stop: 12/31/18 10:52 Pantoprazole Sodium (Protonix) 40 mg PO QDAC [facility] Stop: 12/31/18 11:29 Last Admin: 11/03/18 06:48 Dose: 40 mg General: Alert, Oriented x3, No acute distress HEENT: Atraumatic, PERRLA Neck: Supple Cardiovascular: Regular rate, Normal S1, Normal S2 Lungs: Clear to auscultation Abdomen: Bowel sounds, Soft, Obese Extremities: no Clubbing, no Cyanosis, no Edema Neurological: Normal speech Assessment/Plan - Assessment Assessment: 1. Ascites 2. Anemia - Plan Plan: 1. Ascites S/P paracentesis. High protein most likely due to CHF and renal disease Albumin was not checked Repeat if needed and check Albumin Diuretics. 2. Anemia Most likely multifactorial ( erinn renal disease) Will check on previous W/U
[2018-11-04 08:06] LABS: IRON LC 52 ug/dL (27-139); TIBC (LC) 227 ug/dL (250-450); UIBC 175 ug/dL (118-369)
[2018-11-04] MEDS: Lactulose 10 Gm/15 mL 30mL UDC PO SCH ×2 (08:23→08:37)
[2018-11-04] MEDS: Levothyroxine 0.025 Mg Tab PO SCH (08:24)
[2018-11-04] MEDS: Levetiracetam 500 mg/5mL 5mL UDSyr *for ORAL USE ONLY PO SCH ×2 (08:24→20:39)
[2018-11-04] MEDS: Pantoprazole 40 mg EC Tab PO SCH (08:24)
[2018-11-04] MEDS: Ferrous Sulfate 325 MG TAB PO SCH ×2 (08:24→16:39)
--- NOTE | 2018-11-04 08:24 | General Progress Note ---
Subjective - Review of Systems Service Date: 11/04/18 Subjective: Patient resting comfortably in bed. no acute distress. S/P paracentesis yesterdy...2500cc. ECHO done yesterday. Doing much better. less pain to her stomach. UA + E. Coli. Patient complaining of SOB. h/o CHF. Objective - Results Result Diagrams: 11/03/18 05:48 11/03/18 05:48 Recent Labs: Laboratory Last Values WBC 4.1 Th/cmm (4.8-10.8) L 11/03/18 05:48 RBC 3.01 Mil/cmm (3.80-5.10) L 11/03/18 05:48 Hgb 9.5 gm/dL (12-16) L 11/03/18 05:48 Hct 27.8 % (41.0-60) L 11/03/18 05:48 MCV 92.5 fl (81-100) 11/03/18 05:48 MCH 31.6 pg (27.0-31.0) H 11/03/18 05:48 MCHC Differential 34.2 pg (28.0-36.0) 11/03/18 05:48 RDW 16.5 % (11.5-20.0) 11/03/18 05:48 Plt Count 168 Th/cmm (150-400) 11/03/18 05:48 MPV 7.6 fl 11/03/18 05:48 Neutrophils % 73.9 % (40.0-80.0) 11/03/18 05:48 Lymphocytes % 16.0 % (20.0-50.0) L 11/03/18 05:48 Monocytes % 7.2 % (2.0-10.0) 11/03/18 05:48 Eosinophils % 2.1 % (0.0-5.0) 11/03/18 05:48 Basophils % 0.8 % (0.0-2.0) 11/03/18 05:48 Eos Smear Source URINE 11/02/18 05:50 Eos Smear Total Cells NONE SEEN (NONE SEEN) 11/02/18 05:50 PT 12.7 SECONDS (9.5-11.5) H 11/01/18 06:10 INR 1.23 (0.5-1.4) 11/01/18 06:10 Sodium 139 mEq/L (136-145) 11/03/18 05:48 Potassium 4.0 mEq/L (3.5-5.1) 11/03/18 05:48 Chloride 104 mEq/L (98-107) 11/03/18 05:48 Carbon Dioxide 26.8 mEq/L (21.0-31.0) 11/03/18 05:48 Anion Gap 12.2 (7.0-16.0) 11/03/18 05:48 BUN 66 mg/dL (7-25) H 11/03/18 05:48 Creatinine 2.2 mg/dL (0.6-1.2) H 11/03/18 05:48 Est GFR ( Amer) 29.1 ml/min (>90) 11/03/18 05:48 Est GFR (Non-Af Amer) 24.0 ml/min 11/03/18 05:48 BUN/Creatinine Ratio 30.0 11/03/18 05:48 Glucose 93 mg/dL (70-105) 11/03/18 05:48 POC Glucose 157 MG/DL (70 - 105) H 11/04/18 07:43 Whole Bld Lactic Acid 0.69 mmol/L (0.60-1.99) 10/31/18 14:34 Calcium 9.4 mg/dL (8.6-10.3) 11/03/18 05:48 Iron 52 ug/dL (27-139) 11/03/18 05:48 TIBC 227 ug/dL (250-450) L 11/03/18 05:48 Iron Saturation 23 % (15-55) 11/03/18 05:48 Unsaturated IBC 175 ug/dL (118-369) 11/03/18 05:48 Total Bilirubin 1.3 mg/dL (0.3-1.0) H 11/03/18 05:48 AST 27 U/L (13-39) 11/03/18 05:48 ALT 23 U/L (7-52) 11/03/18 05:48 Alkaline Phosphatase 322 U/L (34-104) H 11/03/18 05:48 Ammonia 77 umol/L (16-53) H 11/03/18 05:48 B-Natriuretic Peptide 1100.0 pg/mL (5.0-100.0) H 11/02/18 05:07 Total Protein 7.1 gm/dL (6.0-8.3) 11/03/18 05:48 Albumin 3.2 gm/dL (3.7-5.3) L 11/03/18 05:48 Globulin 3.9 gm/dL 11/03/18 05:48 Albumin/Globulin Ratio 0.8 (1.0-1.8) L 11/03/18 05:48 Triglycerides 50 mg/dL (<150) 11/01/18 06:10 Cholesterol 104 mg/dL (<200) 11/01/18 06:10 LDL Cholesterol Direct 39 mg/dL (75-193) L 11/01/18 06:10 HDL Cholesterol 45 mg/dL (23-92) 11/01/18 06:10 Free T4 1.50 ng/dL (0.82-1.77) 11/01/18 06:10 Free T3 1.6 pg/mL (2.0-4.4) L 11/01/18 06:10 TSH 9.55 uIU/ml (0.34-5.60) H 11/01/18 06:10 Urine Source CATH 10/31/18 17:03 Urine Color YELLOW 10/31/18 17:03 Urine Clarity CLOUDY (CLEAR) H 10/31/18 17:03 Urine pH 5.5 (4.6 - 8.0) 10/31/18 17:03 Ur Specific [place] 1.020 (1.005-1.030) 10/31/18 17:03 Urine Protein 30 mg/dL (NEGATIVE) H 10/31/18 17:03 Urine Glucose (UA) NEGATIVE mg/dL (NEGATIVE) 10/31/18 17:03 Urine Ketones NEGATIVE mg/dL (NEGATIVE) 10/31/18 17:03 Urine Blood LARGE (NEGATIVE) H 10/31/18 17:03 Urine Nitrate POSITIVE (NEGATIVE) H 10/31/18 17:03 Urine Bilirubin NEGATIVE (NEGATIVE) 10/31/18 17:03 Urine Urobilinogen 0.2 E.U./dL (0.2 - 1.0) 10/31/18 17:03 Ur Leukocyte Esterase LARGE (NEGATIVE) H 10/31/18 17:03 Urine RBC 5-10 /hpf (0-5) H 10/31/18 17:03 Urine WBC 50-100 /hpf (0-5) H 10/31/18 17:03 Ur Epithelial Cells MODERATE /lpf (FEW) 10/31/18 17:03 Urine Bacteria MANY /hpf (NONE SEEN) H 10/31/18 17:03 Ur Random Sodium 19 mmol/L 11/02/18 05:50 Urine Creatinine 96.0 mg/dl (28.0-217.0) 11/02/18 05:50 Microalb/Creat Ratio 307.6 mg/g creat (0.0-30.0) H 11/02/18 06:18 Fluid Source PARACENTHESIS 11/01/18 14:30 Fluid Color RED 11/01/18 14:30 Fluid Appearance BLOODY 11/01/18 14:30 Fluid WBC 124 /cumm 11/01/18 14:30 Fluid RBC 4575 /cumm 11/01/18 14:30 Fluid Neutrophils 4 % 11/01/18 14:30 Fluid Lymphocytes 76 % 11/01/18 14:30 Fluid Monocytes 20 % 11/01/18 14:30 Fluid Total Protein 4.6 g/dL 11/01/18 14:30 - Physical Exam Vitals and I&O: Vital Signs Temp 97.5 F 11/04/18 08:14 Pulse 65 11/04/18 08:14 Resp 18 11/04/18 08:14 BP 117/83 11/04/18 08:14 Pulse Ox 99 11/04/18 08:14 Intake & Output 11/03/18 11/04/18 11/04/18 18:59 06:59 18:59 Intake Total 50 600 600 Output Total 600 600 Balance 50 0 0 Weight (lbs) 93.803 kg 93.44 kg 89.868 kg Intake: Intake, IV Amount 100 cefTRIAXone 2 gm In 100 Sodium Chloride 0.9% 100 ml @ 100 mls/hr IV Q24H [facility] Rx#:[id number] Oral 50 500 600 Output: Urine 600 600 Other: # Voids 3 # Bowel Movements 2 1 3 Stool Characteristics Soft Soft Weight Source Bedscale Bedscale Bedscale Active Medications: Current Medications Acetaminophen (Tylenol) 650 mg PO Q8H PRN PRN Reason: Pain (Moderate) LEVEL 4-6 Stop: 12/31/18 00:36 Last Admin: 11/03/18 21:31 Dose: 650 mg Carvedilol (Coreg) 25 mg PO BID [facility] Stop: 12/31/18 08:59 Last Admin: 11/03/18 17:10 Dose: 25 mg Diphenhydramine HCl (Benadryl) 12.5 mg PO TID PRN PRN Reason: Itching Stop: 12/31/18 00:33 Last Admin: 11/03/18 21:31 Dose: 12.5 mg Epoetin [place] (Epogen) 10,000 units SUBQ MoWeFr [facility] Stop: 12/31/18 14:59 Last Admin: 11/01/18 15:45 Dose: 10,000 units Ferrous Sulfate (Iron) 325 mg PO BID [facility] Stop: 12/31/18 08:59 Last Admin: 11/03/18 17:10 Dose: 325 mg Furosemide (Lasix) 40 mg PO DAILY [facility] Stop: 12/31/18 08:59 Last Admin: 11/03/18 09:05 Dose: 40 mg Heparin Sodium (Porcine) (Heparin) 5,000 units SUBQ Q12H [facility] Stop: 12/31/18 08:59 Last Admin: 11/03/18 21:08 Dose: 5,000 units Hydralazine HCl (Apresoline) 25 mg PO BID [facility] Stop: 01/02/19 08:59 Last Admin: 11/03/18 17:10 Dose: 25 mg Ceftriaxone Sodium 2 gm/ (Sodium Chloride) 100 mls @ 100 mls/hr IV Q24H [facility] Stop: 01/02/19 08:59 Last Infusion: 11/04/18 06:21 Dose: Infused Insulin Aspart (Novolog Insulin Sliding Scale) 0 units SUBQ ACHS [facility]; Protocol Stop: 12/30/18 20:59 Last Admin: 11/03/18 21:16 Dose: 4 units Lactobacillus Rhamnosus (Culturelle 15b) 1 each PO DAILY [facility] Stop: 01/01/19 08:59 Last Admin: 11/03/18 09:06 Dose: 1 each Lactulose (Cephulac) 30 gm PO DAILY [facility] Stop: 12/31/18 08:59 Last Admin: 11/03/18 09:06 Dose: 30 gm Levetiracetam (Keppra) 500 mg PO Q12HR [facility] Stop: 12/30/18 20:59 Last Admin: 11/03/18 21:07 Dose: 500 mg Levothyroxine Sodium (Synthroid) 0.025 mg PO QDAC [facility] Stop: 12/31/18 11:29 Last Admin: 11/03/18 06:47 Dose: 0.025 mg Miscellaneous (Vte Chemical Prophylaxis Screen/ Admission) 1 ea PRN PRN PRN Reason: PROTOCOL Stop: 12/31/18 08:59 Miscellaneous (Probiotic Screen) 1 ea PRN PRN PRN Reason: PROTOCOL Stop: 12/31/18 10:52 Pantoprazole Sodium (Protonix) 40 mg PO QDAC [facility] Stop: 12/31/18 11:29 Last Admin: 11/03/18 06:48 Dose: 40 mg General: Alert, Oriented x3, No acute distress HEENT: Atraumatic, PERRLA Neck: Supple Cardiovascular: Regular rate, Normal S1, Normal S2 Lungs: Clear to auscultation Abdomen: Bowel sounds, Soft, Obese Extremities: no Clubbing, no Cyanosis, no Edema Neurological: Normal speech Assessment/Plan - Assessment Assessment: abdominal distension s/p paracentesis generalized weakness UTI +E. coli hepatic encephalopathy new onset hypothyrodism HTN DM CAD CHF Dyslipidemia Sz disorder paroxysmal AF CKD Iron deficiency CVA w/ right sided weakness - Plan Plan: repeat labwork cardiology consult nephrology consult gi consult continue current treatment will increase Rocephin 2gm IV daily chest xray cbc. cmp tomorrow am Nutritional Asmnt/Malnutr-PDOC - Dietary Evaluation Malnutrition Findings (Please click <Entered> for more info): Nutritional Asmnt/Malnutrition Start: 11/01/18 14: 20 Text: Status: Complete Freq: Protocol: Document 11/01/18 14:20 ALICIA (Rec: 11/01/18 14:30 [email or web address]) Nutritional Asmnt/Malnutrition Patient General Information Nutritional Screening High Risk Diagnosis anasarca, CHF, hypoalbuminemia , acute kidney injury Pertinent Medical Hx/Surgical Hx HTN, DM, CAD, CHF, dyslipidemia, Sz disorder, paroxysmal AF, CKD, iron deficiency, CVA w/ right sided weakness, cirrhosis Subjective Information Received nutrition consult for DM. Pt resting in bed w/ daughter at bedside during visit. Pt's daughter states pt follows diet given by shelter, but does not know which diet. Discussed renal diet limitations and pt verbalized understanding; pt states she will follow diet restrictions. Per EMR, pt finished 100% dinner last night. Current Diet Order/ Nutrition Support renal Pertinent Medications iron, lasix, heparin, novolog, culturelle, synthroid, protonix Pertinent Labs 11/01: glucose 234, Na 138, BUN 79, Cr 2.7, POC 204, Alb 3.4, GFR 19.0 10/31: glucose 238, Na 134, BUN 80, Cr 2.8, POC 237, Alb 3.4, GFR 18.2 Nutritional Hx/Data Height 1.57 m Height (Calculated Centimeters) 157.5 Current Weight (lbs) 93.44 kg Weight (Calculated Kilograms) 93.4 Weight (Calculated Grams) 96770.0 [place] Body Weight 110 lb Body Mass Index (BMI) 37.6 Weight Status Obese GI Symptoms GI Symptoms None Last BM none noted Difficult in: None Food Allergies No Skin Integrity/Comment: reddened lower abdomen and left groin, scar on left chest , kirill 15 Estimated Nutritional Goals BEE in Kcals: Adj wt of IBW Calories/Kcals/Kg 25-30 (based on adj wt 60.9 kg ) Kcals Calculated [id number] Protein: Adj wt of IBW Protein g/k.8-1 (based on IBW 50 kg) Protein Calculated 40-50 g Fluid: ml 1200 ml (per MD) Nutritional Problem 1. Problem Problem Altered nutrition related lab values Etiology endocrine dysfunction, renal dysfunction Signs/Symptoms: glucose 234, BUN 79, Cr 2.7, POC 204, GFR 19.0 Intervention/Recommendation Comments 1. Recommend to start CCHO 60 gm diet d/t elevated bs and hx of DM 2. Continue with renal diet as ordered. Limit protein to 50 g/day d/t elevated renal labs and pt not on HD 3. Monitor PO intake, wt, labs and skin integrity 4. F/U as high risk in 2-3 days, 11/03- Expected Outcomes/Goals Expected Outcomes/Goals 1. PO intake to meet at least 75% of all meals 2. Wt stability, skin integrity to improve, labs to approach normal limits
[2018-11-04] MEDS: Lactobacillus Rhamnosus GG 15 Billion CFU CAP.SPRINK PO SCH (08:25)
[2018-11-04] MEDS: Multivitamin w/ Minerals Tab PO SCH (08:25)
[2018-11-04] MEDS: INSULIN ASPART SLIDING SCALE 100 UNITS/ML UNIT SUBQ SCH ×4 (08:25→20:42)
[2018-11-04] MEDS: cefTRIAXone 2 GM in Sodium Chloride 0.9% 100 ML IV SCH (08:26)
--- NOTE | 2018-11-04 10:21 | Diagnostic Imaging Report ---
CHEST X-RAY: AP view INDICATION: Congestion COMPARISON: 11/01/2018 FINDINGS: Mild congestive changes are noted. There is no focal consolidation or pleural effusions cardiomegaly is noted. Postsurgical changes are noted. IMPRESSION: Mild congestive changes. No focal consolidation identified Cardiomegaly.
[2018-11-04] MEDS: Epoetin Alfa 20000 Units/mL Vial SUBQ SCH (15:42)
--- NOTE | 2018-11-04 17:25 | GI Progress Note ---
Subjective - Review of Systems Service Date: 11/04/18 Events since last encounter: No events Subjective: No Abd pain today Objective - Results Result Diagrams: 11/03/18 05:48 11/03/18 05:48 Recent Labs: Laboratory Last Values WBC 4.1 Th/cmm (4.8-10.8) L 11/03/18 05:48 RBC 3.01 Mil/cmm (3.80-5.10) L 11/03/18 05:48 Hgb 9.5 gm/dL (12-16) L 11/03/18 05:48 Hct 27.8 % (41.0-60) L 11/03/18 05:48 MCV 92.5 fl (81-100) 11/03/18 05:48 MCH 31.6 pg (27.0-31.0) H 11/03/18 05:48 MCHC Differential 34.2 pg (28.0-36.0) 11/03/18 05:48 RDW 16.5 % (11.5-20.0) 11/03/18 05:48 Plt Count 168 Th/cmm (150-400) 11/03/18 05:48 MPV 7.6 fl 11/03/18 05:48 Neutrophils % 73.9 % (40.0-80.0) 11/03/18 05:48 Lymphocytes % 16.0 % (20.0-50.0) L 11/03/18 05:48 Monocytes % 7.2 % (2.0-10.0) 11/03/18 05:48 Eosinophils % 2.1 % (0.0-5.0) 11/03/18 05:48 Basophils % 0.8 % (0.0-2.0) 11/03/18 05:48 Eos Smear Source URINE 11/02/18 05:50 Eos Smear Total Cells NONE SEEN (NONE SEEN) 11/02/18 05:50 PT 12.7 SECONDS (9.5-11.5) H 11/01/18 06:10 INR 1.23 (0.5-1.4) 11/01/18 06:10 Sodium 139 mEq/L (136-145) 11/03/18 05:48 Potassium 4.0 mEq/L (3.5-5.1) 11/03/18 05:48 Chloride 104 mEq/L (98-107) 11/03/18 05:48 Carbon Dioxide 26.8 mEq/L (21.0-31.0) 11/03/18 05:48 Anion Gap 12.2 (7.0-16.0) 11/03/18 05:48 BUN 66 mg/dL (7-25) H 11/03/18 05:48 Creatinine 2.2 mg/dL (0.6-1.2) H 11/03/18 05:48 Est GFR ( Amer) 29.1 ml/min (>90) 11/03/18 05:48 Est GFR (Non-Af Amer) 24.0 ml/min 11/03/18 05:48 BUN/Creatinine Ratio 30.0 11/03/18 05:48 Glucose 93 mg/dL (70-105) 11/03/18 05:48 POC Glucose 196 MG/DL (70 - 105) H 11/04/18 16:42 Whole Bld Lactic Acid 0.69 mmol/L (0.60-1.99) 10/31/18 14:34 Calcium 9.4 mg/dL (8.6-10.3) 11/03/18 05:48 Iron 52 ug/dL (27-139) 11/03/18 05:48 TIBC 227 ug/dL (250-450) L 11/03/18 05:48 Iron Saturation 23 % (15-55) 11/03/18 05:48 Unsaturated IBC 175 ug/dL (118-369) 11/03/18 05:48 Total Bilirubin 1.3 mg/dL (0.3-1.0) H 11/03/18 05:48 AST 27 U/L (13-39) 11/03/18 05:48 ALT 23 U/L (7-52) 11/03/18 05:48 Alkaline Phosphatase 322 U/L (34-104) H 11/03/18 05:48 Ammonia 77 umol/L (16-53) H 11/03/18 05:48 B-Natriuretic Peptide 1100.0 pg/mL (5.0-100.0) H 11/02/18 05:07 Total Protein 7.1 gm/dL (6.0-8.3) 11/03/18 05:48 Albumin 3.2 gm/dL (3.7-5.3) L 11/03/18 05:48 Globulin 3.9 gm/dL 11/03/18 05:48 Albumin/Globulin Ratio 0.8 (1.0-1.8) L 11/03/18 05:48 Triglycerides 50 mg/dL (<150) 11/01/18 06:10 Cholesterol 104 mg/dL (<200) 11/01/18 06:10 LDL Cholesterol Direct 39 mg/dL (75-193) L 11/01/18 06:10 HDL Cholesterol 45 mg/dL (23-92) 11/01/18 06:10 Free T4 1.50 ng/dL (0.82-1.77) 11/01/18 06:10 Free T3 1.6 pg/mL (2.0-4.4) L 11/01/18 06:10 TSH 9.55 uIU/ml (0.34-5.60) H 11/01/18 06:10 Urine Source CATH 10/31/18 17:03 Urine Color YELLOW 10/31/18 17:03 Urine Clarity CLOUDY (CLEAR) H 10/31/18 17:03 Urine pH 5.5 (4.6 - 8.0) 10/31/18 17:03 Ur Specific [place] 1.020 (1.005-1.030) 10/31/18 17:03 Urine Protein 30 mg/dL (NEGATIVE) H 10/31/18 17:03 Urine Glucose (UA) NEGATIVE mg/dL (NEGATIVE) 10/31/18 17:03 Urine Ketones NEGATIVE mg/dL (NEGATIVE) 10/31/18 17:03 Urine Blood LARGE (NEGATIVE) H 10/31/18 17:03 Urine Nitrate POSITIVE (NEGATIVE) H 10/31/18 17:03 Urine Bilirubin NEGATIVE (NEGATIVE) 10/31/18 17:03 Urine Urobilinogen 0.2 E.U./dL (0.2 - 1.0) 10/31/18 17:03 Ur Leukocyte Esterase LARGE (NEGATIVE) H 10/31/18 17:03 Urine RBC 5-10 /hpf (0-5) H 10/31/18 17:03 Urine WBC 50-100 /hpf (0-5) H 10/31/18 17:03 Ur Epithelial Cells MODERATE /lpf (FEW) 10/31/18 17:03 Urine Bacteria MANY /hpf (NONE SEEN) H 10/31/18 17:03 Ur Random Sodium 19 mmol/L 11/02/18 05:50 Urine Creatinine 96.0 mg/dl (28.0-217.0) 11/02/18 05:50 Microalb/Creat Ratio 307.6 mg/g creat (0.0-30.0) H 11/02/18 06:18 Fluid Source PARACENTHESIS 11/01/18 14:30 Fluid Color RED 11/01/18 14:30 Fluid Appearance BLOODY 11/01/18 14:30 Fluid WBC 124 /cumm 11/01/18 14:30 Fluid RBC 4575 /cumm 11/01/18 14:30 Fluid Neutrophils 4 % 11/01/18 14:30 Fluid Lymphocytes 76 % 11/01/18 14:30 Fluid Monocytes 20 % 11/01/18 14:30 Fluid Total Protein 4.6 g/dL 11/01/18 14:30 - Physical Exam Vitals and I&O: Vital Signs Temp 97.3 F 11/04/18 15:48 Pulse 72 11/04/18 16:40 Resp 18 11/04/18 15:48 BP 120/80 11/04/18 16:40 Pulse Ox 98 11/04/18 15:48 Intake & Output 11/03/18 11/04/18 11/04/18 18:59 06:59 18:59 Intake Total 50 600 600 Output Total 600 600 Balance 50 0 0 Weight (lbs) 93.803 kg 93.44 kg 89.868 kg Intake: Intake, IV Amount 100 cefTRIAXone 2 gm In 100 Sodium Chloride 0.9% 100 ml @ 100 mls/hr IV Q24H [facility] Rx#:[id number] Oral 50 500 600 Output: Urine 600 600 Other: # Voids 3 # Bowel Movements 2 1 3 Stool Characteristics Soft Soft Weight Source Bedscale Bedscale Bedscale Active Medications: Current Medications Acetaminophen (Tylenol) 650 mg PO Q8H PRN PRN Reason: Pain (Moderate) LEVEL 4-6 Stop: 12/31/18 00:36 Last Admin: 11/03/18 21:31 Dose: 650 mg Carvedilol (Coreg) 25 mg PO BID [facility] Stop: 12/31/18 08:59 Last Admin: 11/04/18 16:39 Dose: 25 mg Diphenhydramine HCl (Benadryl) 12.5 mg PO TID PRN PRN Reason: Itching Stop: 12/31/18 00:33 Last Admin: 11/03/18 21:31 Dose: 12.5 mg Epoetin [place] (Epogen) 10,000 units SUBQ MoWeFr [facility] Stop: 12/31/18 14:59 Last Admin: 11/04/18 15:42 Dose: 10,000 units Ferrous Sulfate (Iron) 325 mg PO BID [facility] Stop: 12/31/18 08:59 Last Admin: 11/04/18 16:39 Dose: 325 mg Furosemide (Lasix) 40 mg PO DAILY [facility] Stop: 12/31/18 08:59 Last Admin: 11/04/18 08:24 Dose: 40 mg Heparin Sodium (Porcine) (Heparin) 5,000 units SUBQ Q12H [facility] Stop: 12/31/18 08:59 Last Admin: 11/04/18 08:24 Dose: 5,000 units Hydralazine HCl (Apresoline) 25 mg PO BID [facility] Stop: 01/02/19 08:59 Last Admin: 11/04/18 16:40 Dose: 25 mg Ceftriaxone Sodium 2 gm/ (Sodium Chloride) 100 mls @ 100 mls/hr IV Q24H [facility] Stop: 01/02/19 08:59 Last Admin: 11/04/18 08:26 Dose: 100 mls/hr Insulin Aspart (Novolog Insulin Sliding Scale) 0 units SUBQ ACHS [facility]; Protocol Stop: 12/30/18 20:59 Last Admin: 11/04/18 16:43 Dose: 2 units Lactobacillus Rhamnosus (Culturelle 15b) 1 each PO DAILY [facility] Stop: 01/01/19 08:59 Last Admin: 11/04/18 08:25 Dose: 1 each Lactulose (Cephulac) 30 gm PO DAILY [facility] Stop: 12/31/18 08:59 Last Admin: 11/04/18 08:37 Dose: Not Given Levetiracetam (Keppra) 500 mg PO Q12HR [facility] Stop: 12/30/18 20:59 Last Admin: 11/04/18 08:24 Dose: 500 mg Levothyroxine Sodium (Synthroid) 0.025 mg PO QDAC [facility] Stop: 12/31/18 11:29 Last Admin: 11/04/18 08:24 Dose: 0.025 mg Miscellaneous (Vte Chemical Prophylaxis Screen/ Admission) 1 ea PRN PRN PRN Reason: PROTOCOL Stop: 12/31/18 08:59 Miscellaneous (Probiotic Screen) 1 ea PRN PRN PRN Reason: PROTOCOL Stop: 12/31/18 10:52 Pantoprazole Sodium (Protonix) 40 mg PO QDAC [facility] Stop: 12/31/18 11:29 Last Admin: 11/04/18 08:24 Dose: 40 mg General: Alert, Oriented x3, No acute distress Cardiovascular: Regular rate, Normal S1, Normal S2 Lungs: Clear to auscultation Abdomen: Bowel sounds, Soft, Obese Extremities: no Clubbing, no Cyanosis, no Edema Neurological: Normal speech Assessment/Plan - Assessment Assessment: 1. Ascites 2. Anemia - Plan Plan: 1. Ascites S/P paracentesis. High protein most likely due to CHF and renal disease Albumin was not checked Repeat if needed and check Albumin Diuretics. 2. Anemia Most likely multifactorial ( erinn renal disease) Will check on previous W/U
[2018-11-05 05:36] LABS: % BASOPHILS 1.3 % (0.0-2.0); % EOSINOPHILS 2.1 % (0.0-5.0); % LYMPHOCYTES 21.4 % (20.0-50.0); % MONOCYTES 9.2 % (2.0-10.0); HEMATOCRIT 25.7 % (41.0-60); HEMOGLOBIN 8.6 gm/dL (12-16); MEAN CELL VOLUME 92.5 fl (81-100); MEAN CORPUSCULAR HGB CONC 33.5 pg (28.0-36.0); MEAN PLATELET VOLUME 7.5 fl; PLATELET COUNT 164 Th/cmm (150-400); RED BLOOD COUNT 2.78 Mil/cmm (3.80-5.10); RED CELL DISTRIBUTION WIDTH 16.8 % (11.5-20.0)
[2018-11-05 05:45] LABS: WHITE BLOOD COUNT 3.8 Th/cmm (4.8-10.8)
[2018-11-05 06:08] LABS: ALB/GLOB RATIO 0.8 (1.0-1.8); ANION GAP 11.5 (7.0-16.0); CALCIUM SERUM 9.3 mg/dL (8.6-10.3); CARBON DIOXIDE 29.4 mEq/L (21.0-31.0); GFR AFRICAN-AMERICAN 32.5 ml/min (>90); GFR NON AFRICAN-AMERICAN 26.8 ml/min; POTASSIUM SERUM 3.9 mEq/L (3.5-5.1); TOTAL PROTEIN,SERUM 6.7 gm/dL (6.0-8.3)
[2018-11-05] MEDS: Levothyroxine 0.025 Mg Tab PO SCH (08:06)
[2018-11-05] MEDS: Pantoprazole 40 mg EC Tab PO SCH (08:06)
--- NOTE | 2018-11-05 08:22 | General Progress Note ---
Subjective - Review of Systems Service Date: 11/05/18 Subjective: Patient resting comfortably in bed. no acute distress. no abd pain. Doing much better. Objective - Results Result Diagrams: 11/05/18 04:40 11/05/18 04:40 Recent Labs: Laboratory Last Values WBC 3.8 Th/cmm (4.8-10.8) L 11/05/18 04:40 RBC 2.78 Mil/cmm (3.80-5.10) L 11/05/18 04:40 Hgb 8.6 gm/dL (12-16) L 11/05/18 04:40 Hct 25.7 % (41.0-60) L 11/05/18 04:40 MCV 92.5 fl (81-100) 11/05/18 04:40 MCH 31.0 pg (27.0-31.0) 11/05/18 04:40 MCHC Differential 33.5 pg (28.0-36.0) 11/05/18 04:40 RDW 16.8 % (11.5-20.0) 11/05/18 04:40 Plt Count 164 Th/cmm (150-400) 11/05/18 04:40 MPV 7.5 fl 11/05/18 04:40 Neutrophils % 66.0 % (40.0-80.0) 11/05/18 04:40 Lymphocytes % 21.4 % (20.0-50.0) 11/05/18 04:40 Monocytes % 9.2 % (2.0-10.0) 11/05/18 04:40 Eosinophils % 2.1 % (0.0-5.0) 11/05/18 04:40 Basophils % 1.3 % (0.0-2.0) 11/05/18 04:40 Eos Smear Source URINE 11/02/18 05:50 Eos Smear Total Cells NONE SEEN (NONE SEEN) 11/02/18 05:50 PT 12.7 SECONDS (9.5-11.5) H 11/01/18 06:10 INR 1.23 (0.5-1.4) 11/01/18 06:10 Sodium 139 mEq/L (136-145) 11/05/18 04:40 Potassium 3.9 mEq/L (3.5-5.1) 11/05/18 04:40 Chloride 102 mEq/L (98-107) 11/05/18 04:40 Carbon Dioxide 29.4 mEq/L (21.0-31.0) 11/05/18 04:40 Anion Gap 11.5 (7.0-16.0) 11/05/18 04:40 BUN 56 mg/dL (7-25) H 11/05/18 04:40 Creatinine 2.0 mg/dL (0.6-1.2) H 11/05/18 04:40 Est GFR ( Amer) 32.5 ml/min (>90) 11/05/18 04:40 Est GFR (Non-Af Amer) 26.8 ml/min 11/05/18 04:40 BUN/Creatinine Ratio 28.0 11/05/18 04:40 Glucose 194 mg/dL (70-105) H 11/05/18 04:40 POC Glucose 171 MG/DL (70 - 105) H 11/05/18 06:37 Whole Bld Lactic Acid 0.69 mmol/L (0.60-1.99) 10/31/18 14:34 Calcium 9.3 mg/dL (8.6-10.3) 11/05/18 04:40 Iron 52 ug/dL (27-139) 11/03/18 05:48 TIBC 227 ug/dL (250-450) L 11/03/18 05:48 Iron Saturation 23 % (15-55) 11/03/18 05:48 Unsaturated IBC 175 ug/dL (118-369) 11/03/18 05:48 Total Bilirubin 1.0 mg/dL (0.3-1.0) 11/05/18 04:40 AST 25 U/L (13-39) 11/05/18 04:40 ALT 21 U/L (7-52) 11/05/18 04:40 Alkaline Phosphatase 300 U/L (34-104) H 11/05/18 04:40 Ammonia 77 umol/L (16-53) H 11/03/18 05:48 B-Natriuretic Peptide 821.0 pg/mL (5.0-100.0) H 11/05/18 04:40 Total Protein 6.7 gm/dL (6.0-8.3) 11/05/18 04:40 Albumin 3.0 gm/dL (3.7-5.3) L 11/05/18 04:40 Globulin 3.7 gm/dL 11/05/18 04:40 Albumin/Globulin Ratio 0.8 (1.0-1.8) L 11/05/18 04:40 Triglycerides 50 mg/dL (<150) 11/01/18 06:10 Cholesterol 104 mg/dL (<200) 11/01/18 06:10 LDL Cholesterol Direct 39 mg/dL (75-193) L 11/01/18 06:10 HDL Cholesterol 45 mg/dL (23-92) 11/01/18 06:10 Free T4 1.50 ng/dL (0.82-1.77) 11/01/18 06:10 Free T3 1.6 pg/mL (2.0-4.4) L 11/01/18 06:10 TSH 9.55 uIU/ml (0.34-5.60) H 11/01/18 06:10 Urine Source CATH 10/31/18 17:03 Urine Color YELLOW 10/31/18 17:03 Urine Clarity CLOUDY (CLEAR) H 10/31/18 17:03 Urine pH 5.5 (4.6 - 8.0) 10/31/18 17:03 Ur Specific [place] 1.020 (1.005-1.030) 10/31/18 17:03 Urine Protein 30 mg/dL (NEGATIVE) H 10/31/18 17:03 Urine Glucose (UA) NEGATIVE mg/dL (NEGATIVE) 10/31/18 17:03 Urine Ketones NEGATIVE mg/dL (NEGATIVE) 10/31/18 17:03 Urine Blood LARGE (NEGATIVE) H 10/31/18 17:03 Urine Nitrate POSITIVE (NEGATIVE) H 10/31/18 17:03 Urine Bilirubin NEGATIVE (NEGATIVE) 10/31/18 17:03 Urine Urobilinogen 0.2 E.U./dL (0.2 - 1.0) 10/31/18 17:03 Ur Leukocyte Esterase LARGE (NEGATIVE) H 10/31/18 17:03 Urine RBC 5-10 /hpf (0-5) H 10/31/18 17:03 Urine WBC 50-100 /hpf (0-5) H 10/31/18 17:03 Ur Epithelial Cells MODERATE /lpf (FEW) 10/31/18 17:03 Urine Bacteria MANY /hpf (NONE SEEN) H 10/31/18 17:03 Ur Random Sodium 19 mmol/L 11/02/18 05:50 Urine Creatinine 96.0 mg/dl (28.0-217.0) 11/02/18 05:50 Microalb/Creat Ratio 307.6 mg/g creat (0.0-30.0) H 11/02/18 06:18 Fluid Source PARACENTHESIS 11/01/18 14:30 Fluid Color RED 11/01/18 14:30 Fluid Appearance BLOODY 11/01/18 14:30 Fluid WBC 124 /cumm 11/01/18 14:30 Fluid RBC 4575 /cumm 11/01/18 14:30 Fluid Neutrophils 4 % 11/01/18 14:30 Fluid Lymphocytes 76 % 11/01/18 14:30 Fluid Monocytes 20 % 11/01/18 14:30 Fluid Total Protein 4.6 g/dL 11/01/18 14:30 - Physical Exam Vitals and I&O: Vital Signs Temp 96.8 F 11/05/18 07:39 Pulse 84 11/05/18 07:39 Resp 18 11/05/18 07:39 BP 130/78 11/05/18 07:39 Pulse Ox 98 11/05/18 07:39 Intake & Output 11/04/18 11/05/18 11/05/18 18:59 06:59 18:59 Intake Total 1200 700 Output Total 1750 600 Balance -550 100 Weight (lbs) 89.868 kg 90.463 kg Intake: Intake, IV Amount 100 cefTRIAXone 2 gm In 100 Sodium Chloride 0.9% 100 ml @ 100 mls/hr IV Q24H [facility] Rx#:[id number] Oral 1200 600 Output: Urine 1750 600 Other: # Bowel Movements 1 Weight Source Bedscale Bedscale Active Medications: Current Medications Acetaminophen (Tylenol) 650 mg PO Q8H PRN PRN Reason: Pain (Moderate) LEVEL 4-6 Stop: 12/31/18 00:36 Last Admin: 11/03/18 21:31 Dose: 650 mg Carvedilol (Coreg) 25 mg PO BID [facility] Stop: 12/31/18 08:59 Last Admin: 11/04/18 16:39 Dose: 25 mg Diphenhydramine HCl (Benadryl) 12.5 mg PO TID PRN PRN Reason: Itching Stop: 12/31/18 00:33 Last Admin: 11/04/18 22:46 Dose: 12.5 mg Epoetin [place] (Epogen) 10,000 units SUBQ MoWeFr [facility] Stop: 12/31/18 14:59 Last Admin: 11/04/18 15:42 Dose: 10,000 units Ferrous Sulfate (Iron) 325 mg PO BID [facility] Stop: 12/31/18 08:59 Last Admin: 11/04/18 16:39 Dose: 325 mg Furosemide (Lasix) 40 mg PO DAILY [facility] Stop: 12/31/18 08:59 Last Admin: 11/04/18 08:24 Dose: 40 mg Heparin Sodium (Porcine) (Heparin) 5,000 units SUBQ Q12H [facility] Stop: 12/31/18 08:59 Last Admin: 11/04/18 20:38 Dose: 5,000 units Hydralazine HCl (Apresoline) 25 mg PO BID [facility] Stop: 01/02/19 08:59 Last Admin: 11/04/18 16:40 Dose: 25 mg Ceftriaxone Sodium 2 gm/ (Sodium Chloride) 100 mls @ 100 mls/hr IV Q24H [facility] Stop: 01/02/19 08:59 Last Infusion: 11/05/18 06:09 Dose: Infused Insulin Aspart (Novolog Insulin Sliding Scale) 0 units SUBQ ACHS [facility]; Protocol Stop: 12/30/18 20:59 Last Admin: 11/04/18 20:42 Dose: 2 units Lactobacillus Rhamnosus (Culturelle 15b) 1 each PO DAILY [facility] Stop: 01/01/19 08:59 Last Admin: 11/04/18 08:25 Dose: 1 each Lactulose (Cephulac) 30 gm PO DAILY [facility] Stop: 12/31/18 08:59 Last Admin: 11/04/18 08:37 Dose: Not Given Levetiracetam (Keppra) 500 mg PO Q12HR [facility] Stop: 12/30/18 20:59 Last Admin: 11/04/18 20:39 Dose: 500 mg Levothyroxine Sodium (Synthroid) 0.025 mg PO QDAC [facility] Stop: 12/31/18 11:29 Last Admin: 11/05/18 08:06 Dose: 0.025 mg Miscellaneous (Vte Chemical Prophylaxis Screen/ Admission) 1 ea PRN PRN PRN Reason: PROTOCOL Stop: 12/31/18 08:59 Miscellaneous (Probiotic Screen) 1 ea PRN PRN PRN Reason: PROTOCOL Stop: 12/31/18 10:52 Pantoprazole Sodium (Protonix) 40 mg PO QDAC [facility] Stop: 12/31/18 11:29 Last Admin: 11/05/18 08:06 Dose: 40 mg General: Alert, Oriented x3, No acute distress HEENT: Atraumatic, PERRLA Neck: Supple Cardiovascular: Regular rate, Normal S1, Normal S2 Lungs: Clear to auscultation Abdomen: Bowel sounds, Soft, Obese Extremities: no Clubbing, no Cyanosis, no Edema Neurological: Normal speech Assessment/Plan - Assessment Assessment: abdominal distension s/p paracentesis generalized weakness UTI +E. coli hepatic encephalopathy new onset hypothyrodism HTN DM CAD CHF Dyslipidemia Sz disorder paroxysmal AF CKD Iron deficiency CVA w/ right sided weakness - Plan Plan: dc patient to SNF if okay with consultants. Nutritional Asmnt/Malnutr-PDOC - Dietary Evaluation Malnutrition Findings (Please click <Entered> for more info): Nutritional Asmnt/Malnutrition Start: 11/01/18 14: 20 Text: Status: Complete Freq: Protocol: Document 11/01/18 14:20 ALICIA (Rec: 11/01/18 14:30 [email or web address]) Nutritional Asmnt/Malnutrition Patient General Information Nutritional Screening High Risk Diagnosis anasarca, CHF, hypoalbuminemia , acute kidney injury Pertinent Medical Hx/Surgical Hx HTN, DM, CAD, CHF, dyslipidemia, Sz disorder, paroxysmal AF, CKD, iron deficiency, CVA w/ right sided weakness, cirrhosis Subjective Information Received nutrition consult for DM. Pt resting in bed w/ daughter at bedside during visit. Pt's daughter states pt follows diet given by retirement, but does not know which diet. Discussed renal diet limitations and pt verbalized understanding; pt states she will follow diet restrictions. Per EMR, pt finished 100% dinner last night. Current Diet Order/ Nutrition Support renal Pertinent Medications iron, lasix, heparin, novolog, culturelle, synthroid, protonix Pertinent Labs 11/01: glucose 234, Na 138, BUN 79, Cr 2.7, POC 204, Alb 3.4, GFR 19.0 12/6: glucose 238, Na 134, BUN 80, Cr 2.8, POC 237, Alb 3.4, GFR 18.2 Nutritional Hx/Data Height 1.57 m Height (Calculated Centimeters) 157.5 Current Weight (lbs) 93.44 kg Weight (Calculated Kilograms) 93.4 Weight (Calculated Grams) 78797.0 [place] Body Weight 110 lb Body Mass Index (BMI) 37.6 Weight Status Obese GI Symptoms GI Symptoms None Last BM none noted Difficult in: None Food Allergies No Skin Integrity/Comment: reddened lower abdomen and left groin, scar on left chest , kirill 15 Estimated Nutritional Goals BEE in Kcals: Adj wt of IBW Calories/Kcals/Kg 25-30 (based on adj wt 60.9 kg ) Kcals Calculated 9750-7654 Protein: Adj wt of IBW Protein g/k.8-1 (based on IBW 50 kg) Protein Calculated 40-50 g Fluid: ml 1200 ml (per MD) Nutritional Problem 1. Problem Problem Altered nutrition related lab values Etiology endocrine dysfunction, renal dysfunction Signs/Symptoms: glucose 234, BUN 79, Cr 2.7, POC 204, GFR 19.0 Intervention/Recommendation Comments 1. Recommend to start CCHO 60 gm diet d/t elevated bs and hx of DM 2. Continue with renal diet as ordered. Limit protein to 50 g/day d/t elevated renal labs and pt not on HD 3. Monitor PO intake, wt, labs and skin integrity 4. F/U as high risk in 2-3 days, 11/03- Expected Outcomes/Goals Expected Outcomes/Goals 1. PO intake to meet at least 75% of all meals 2. Wt stability, skin integrity to improve, labs to approach normal limits Reviewed by Mikaela Jensen RD
[2018-11-05] MEDS: Levetiracetam 500 mg/5mL 5mL UDSyr *for ORAL USE ONLY PO SCH (08:42)
[2018-11-05] MEDS: Lactulose 10 Gm/15 mL 30mL UDC PO SCH (08:42)
[2018-11-05] MEDS: Ferrous Sulfate 325 MG TAB PO SCH ×2 (08:43→16:33)
[2018-11-05] MEDS: Lactobacillus Rhamnosus GG 15 Billion CFU CAP.SPRINK PO SCH (08:43)
[2018-11-05] MEDS: Multivitamin w/ Minerals Tab PO SCH (08:43)
[2018-11-05] MEDS: INSULIN ASPART SLIDING SCALE 100 UNITS/ML UNIT SUBQ SCH ×3 (08:44→16:48)
--- NOTE | 2018-11-05 09:54 | GI Progress Note ---
Subjective - Review of Systems Service Date: 11/05/18 Events since last encounter: No events Subjective: No Abd pain today constipated Objective - Results Result Diagrams: 11/05/18 04:40 11/05/18 04:40 Recent Labs: Laboratory Last Values WBC 3.8 Th/cmm (4.8-10.8) L 11/05/18 04:40 RBC 2.78 Mil/cmm (3.80-5.10) L 11/05/18 04:40 Hgb 8.6 gm/dL (12-16) L 11/05/18 04:40 Hct 25.7 % (41.0-60) L 11/05/18 04:40 MCV 92.5 fl (81-100) 11/05/18 04:40 MCH 31.0 pg (27.0-31.0) 11/05/18 04:40 MCHC Differential 33.5 pg (28.0-36.0) 11/05/18 04:40 RDW 16.8 % (11.5-20.0) 11/05/18 04:40 Plt Count 164 Th/cmm (150-400) 11/05/18 04:40 MPV 7.5 fl 11/05/18 04:40 Neutrophils % 66.0 % (40.0-80.0) 11/05/18 04:40 Lymphocytes % 21.4 % (20.0-50.0) 11/05/18 04:40 Monocytes % 9.2 % (2.0-10.0) 11/05/18 04:40 Eosinophils % 2.1 % (0.0-5.0) 11/05/18 04:40 Basophils % 1.3 % (0.0-2.0) 11/05/18 04:40 Eos Smear Source URINE 11/02/18 05:50 Eos Smear Total Cells NONE SEEN (NONE SEEN) 11/02/18 05:50 PT 12.7 SECONDS (9.5-11.5) H 11/01/18 06:10 INR 1.23 (0.5-1.4) 11/01/18 06:10 Sodium 139 mEq/L (136-145) 11/05/18 04:40 Potassium 3.9 mEq/L (3.5-5.1) 11/05/18 04:40 Chloride 102 mEq/L (98-107) 11/05/18 04:40 Carbon Dioxide 29.4 mEq/L (21.0-31.0) 11/05/18 04:40 Anion Gap 11.5 (7.0-16.0) 11/05/18 04:40 BUN 56 mg/dL (7-25) H 11/05/18 04:40 Creatinine 2.0 mg/dL (0.6-1.2) H 11/05/18 04:40 Est GFR ( Amer) 32.5 ml/min (>90) 11/05/18 04:40 Est GFR (Non-Af Amer) 26.8 ml/min 11/05/18 04:40 BUN/Creatinine Ratio 28.0 11/05/18 04:40 Glucose 194 mg/dL (70-105) H 11/05/18 04:40 POC Glucose 171 MG/DL (70 - 105) H 11/05/18 06:37 Whole Bld Lactic Acid 0.69 mmol/L (0.60-1.99) 10/31/18 14:34 Calcium 9.3 mg/dL (8.6-10.3) 11/05/18 04:40 Iron 52 ug/dL (27-139) 11/03/18 05:48 TIBC 227 ug/dL (250-450) L 11/03/18 05:48 Iron Saturation 23 % (15-55) 11/03/18 05:48 Unsaturated IBC 175 ug/dL (118-369) 11/03/18 05:48 Total Bilirubin 1.0 mg/dL (0.3-1.0) 11/05/18 04:40 AST 25 U/L (13-39) 11/05/18 04:40 ALT 21 U/L (7-52) 11/05/18 04:40 Alkaline Phosphatase 300 U/L (34-104) H 11/05/18 04:40 Ammonia 77 umol/L (16-53) H 11/03/18 05:48 B-Natriuretic Peptide 821.0 pg/mL (5.0-100.0) H 11/05/18 04:40 Total Protein 6.7 gm/dL (6.0-8.3) 11/05/18 04:40 Albumin 3.0 gm/dL (3.7-5.3) L 11/05/18 04:40 Globulin 3.7 gm/dL 11/05/18 04:40 Albumin/Globulin Ratio 0.8 (1.0-1.8) L 11/05/18 04:40 Triglycerides 50 mg/dL (<150) 11/01/18 06:10 Cholesterol 104 mg/dL (<200) 11/01/18 06:10 LDL Cholesterol Direct 39 mg/dL (75-193) L 11/01/18 06:10 HDL Cholesterol 45 mg/dL (23-92) 11/01/18 06:10 Free T4 1.50 ng/dL (0.82-1.77) 11/01/18 06:10 Free T3 1.6 pg/mL (2.0-4.4) L 11/01/18 06:10 TSH 9.55 uIU/ml (0.34-5.60) H 11/01/18 06:10 Urine Source CATH 10/31/18 17:03 Urine Color YELLOW 10/31/18 17:03 Urine Clarity CLOUDY (CLEAR) H 10/31/18 17:03 Urine pH 5.5 (4.6 - 8.0) 10/31/18 17:03 Ur Specific [place] 1.020 (1.005-1.030) 10/31/18 17:03 Urine Protein 30 mg/dL (NEGATIVE) H 10/31/18 17:03 Urine Glucose (UA) NEGATIVE mg/dL (NEGATIVE) 10/31/18 17:03 Urine Ketones NEGATIVE mg/dL (NEGATIVE) 10/31/18 17:03 Urine Blood LARGE (NEGATIVE) H 10/31/18 17:03 Urine Nitrate POSITIVE (NEGATIVE) H 10/31/18 17:03 Urine Bilirubin NEGATIVE (NEGATIVE) 10/31/18 17:03 Urine Urobilinogen 0.2 E.U./dL (0.2 - 1.0) 10/31/18 17:03 Ur Leukocyte Esterase LARGE (NEGATIVE) H 10/31/18 17:03 Urine RBC 5-10 /hpf (0-5) H 10/31/18 17:03 Urine WBC 50-100 /hpf (0-5) H 10/31/18 17:03 Ur Epithelial Cells MODERATE /lpf (FEW) 10/31/18 17:03 Urine Bacteria MANY /hpf (NONE SEEN) H 10/31/18 17:03 Ur Random Sodium 19 mmol/L 11/02/18 05:50 Urine Creatinine 96.0 mg/dl (28.0-217.0) 11/02/18 05:50 Microalb/Creat Ratio 307.6 mg/g creat (0.0-30.0) H 11/02/18 06:18 Fluid Source PARACENTHESIS 11/01/18 14:30 Fluid Color RED 11/01/18 14:30 Fluid Appearance BLOODY 11/01/18 14:30 Fluid WBC 124 /cumm 11/01/18 14:30 Fluid RBC 4575 /cumm 11/01/18 14:30 Fluid Neutrophils 4 % 11/01/18 14:30 Fluid Lymphocytes 76 % 11/01/18 14:30 Fluid Monocytes 20 % 11/01/18 14:30 Fluid Total Protein 4.6 g/dL 11/01/18 14:30 - Physical Exam Vitals and I&O: Vital Signs Temp 96.8 F 11/05/18 07:39 Pulse 84 11/05/18 08:43 Resp 18 11/05/18 07:39 BP 130/78 11/05/18 08:43 Pulse Ox 98 11/05/18 07:39 Intake & Output 11/04/18 11/05/18 11/05/18 18:59 06:59 18:59 Intake Total 1200 700 Output Total 1750 600 Balance -550 100 Weight (lbs) 89.868 kg 90.463 kg Intake: Intake, IV Amount 100 cefTRIAXone 2 gm In 100 Sodium Chloride 0.9% 100 ml @ 100 mls/hr IV Q24H [facility] Rx#:[id number] Oral 1200 600 Output: Urine 1750 600 Other: # Bowel Movements 1 Weight Source Bedscale Bedscale Active Medications: Current Medications Acetaminophen (Tylenol) 650 mg PO Q8H PRN PRN Reason: Pain (Moderate) LEVEL 4-6 Stop: 12/31/18 00:36 Last Admin: 11/03/18 21:31 Dose: 650 mg Carvedilol (Coreg) 25 mg PO BID [facility] Stop: 12/31/18 08:59 Last Admin: 11/05/18 08:42 Dose: 25 mg Diphenhydramine HCl (Benadryl) 12.5 mg PO TID PRN PRN Reason: Itching Stop: 12/31/18 00:33 Last Admin: 11/04/18 22:46 Dose: 12.5 mg Epoetin [place] (Epogen) 10,000 units SUBQ MoWeFr [facility] Stop: 12/31/18 14:59 Last Admin: 11/04/18 15:42 Dose: 10,000 units Ferrous Sulfate (Iron) 325 mg PO BID [facility] Stop: 12/31/18 08:59 Last Admin: 11/05/18 08:43 Dose: 325 mg Furosemide (Lasix) 40 mg PO DAILY [facility] Stop: 12/31/18 08:59 Last Admin: 11/05/18 08:43 Dose: 40 mg Heparin Sodium (Porcine) (Heparin) 5,000 units SUBQ Q12H [facility] Stop: 12/31/18 08:59 Last Admin: 11/05/18 08:43 Dose: 5,000 units Hydralazine HCl (Apresoline) 25 mg PO BID [facility] Stop: 01/02/19 08:59 Last Admin: 11/05/18 08:43 Dose: 25 mg Ceftriaxone Sodium 2 gm/ (Sodium Chloride) 100 mls @ 100 mls/hr IV Q24H [facility] Stop: 01/02/19 08:59 Last Infusion: 11/05/18 06:09 Dose: Infused Insulin Aspart (Novolog Insulin Sliding Scale) 0 units SUBQ ACHS [facility]; Protocol Stop: 12/30/18 20:59 Last Admin: 11/05/18 08:44 Dose: 3 units Lactobacillus Rhamnosus (Culturelle 15b) 1 each PO DAILY [facility] Stop: 01/01/19 08:59 Last Admin: 11/05/18 08:43 Dose: 1 each Lactulose (Cephulac) 30 gm PO DAILY [facility] Stop: 12/31/18 08:59 Last Admin: 11/05/18 08:42 Dose: 30 gm Levetiracetam (Keppra) 500 mg PO Q12HR [facility] Stop: 12/30/18 20:59 Last Admin: 11/05/18 08:42 Dose: 500 mg Levothyroxine Sodium (Synthroid) 0.025 mg PO QDAC [facility] Stop: 12/31/18 11:29 Last Admin: 11/05/18 08:06 Dose: 0.025 mg Miscellaneous (Vte Chemical Prophylaxis Screen/ Admission) 1 ea PRN PRN PRN Reason: PROTOCOL Stop: 12/31/18 08:59 Miscellaneous (Probiotic Screen) 1 ea MC PRN PRN PRN Reason: PROTOCOL Stop: 12/31/18 10:52 Pantoprazole Sodium (Protonix) 40 mg PO QDAC [facility] Stop: 12/31/18 11:29 Last Admin: 11/05/18 08:06 Dose: 40 mg General: Oriented x3, No acute distress Cardiovascular: Regular rate, Normal S1, Normal S2 Lungs: Clear to auscultation Abdomen: Bowel sounds, Soft, Obese, no Tender, no Mass Extremities: no Clubbing, no Cyanosis, no Edema Neurological: Normal speech Assessment/Plan - Assessment Assessment: 1. Ascites 2. Anemia 3. Abd pain 4. Constipation - Plan Plan: 1. Ascites S/P paracentesis. High protein most likely due to CHF and renal disease Albumin was not checked Repeat if needed and check Albumin Diuretics. 2. Anemia Most likely multifactorial ( erinn renal disease) Will check on previous W/U 3. Abdominal pain better most likely constipation and ascites 4. Constipation Try mineral oil
--- NOTE | 2018-11-05 12:41 | General Progress Note ---
Subjective - Review of Systems Service Date: 11/05/18 Subjective: alert, less abd discomfort Objective - Results Result Diagrams: 11/05/18 04:40 11/05/18 04:40 Recent Labs: Laboratory Last Values WBC 3.8 Th/cmm (4.8-10.8) L 11/05/18 04:40 RBC 2.78 Mil/cmm (3.80-5.10) L 11/05/18 04:40 Hgb 8.6 gm/dL (12-16) L 11/05/18 04:40 Hct 25.7 % (41.0-60) L 11/05/18 04:40 MCV 92.5 fl (81-100) 11/05/18 04:40 MCH 31.0 pg (27.0-31.0) 11/05/18 04:40 MCHC Differential 33.5 pg (28.0-36.0) 11/05/18 04:40 RDW 16.8 % (11.5-20.0) 11/05/18 04:40 Plt Count 164 Th/cmm (150-400) 11/05/18 04:40 MPV 7.5 fl 11/05/18 04:40 Neutrophils % 66.0 % (40.0-80.0) 11/05/18 04:40 Lymphocytes % 21.4 % (20.0-50.0) 11/05/18 04:40 Monocytes % 9.2 % (2.0-10.0) 11/05/18 04:40 Eosinophils % 2.1 % (0.0-5.0) 11/05/18 04:40 Basophils % 1.3 % (0.0-2.0) 11/05/18 04:40 Eos Smear Source URINE 11/02/18 05:50 Eos Smear Total Cells NONE SEEN (NONE SEEN) 11/02/18 05:50 PT 12.7 SECONDS (9.5-11.5) H 11/01/18 06:10 INR 1.23 (0.5-1.4) 11/01/18 06:10 Sodium 139 mEq/L (136-145) 11/05/18 04:40 Potassium 3.9 mEq/L (3.5-5.1) 11/05/18 04:40 Chloride 102 mEq/L (98-107) 11/05/18 04:40 Carbon Dioxide 29.4 mEq/L (21.0-31.0) 11/05/18 04:40 Anion Gap 11.5 (7.0-16.0) 11/05/18 04:40 BUN 56 mg/dL (7-25) H 11/05/18 04:40 Creatinine 2.0 mg/dL (0.6-1.2) H 11/05/18 04:40 Est GFR ( Amer) 32.5 ml/min (>90) 11/05/18 04:40 Est GFR (Non-Af Amer) 26.8 ml/min 11/05/18 04:40 BUN/Creatinine Ratio 28.0 11/05/18 04:40 Glucose 194 mg/dL (70-105) H 11/05/18 04:40 POC Glucose 229 MG/DL (70 - 105) H 11/05/18 11:24 Whole Bld Lactic Acid 0.69 mmol/L (0.60-1.99) 10/31/18 14:34 Calcium 9.3 mg/dL (8.6-10.3) 11/05/18 04:40 Iron 52 ug/dL (27-139) 11/03/18 05:48 TIBC 227 ug/dL (250-450) L 11/03/18 05:48 Iron Saturation 23 % (15-55) 11/03/18 05:48 Unsaturated IBC 175 ug/dL (118-369) 11/03/18 05:48 Ferritin 382 ng/mL (15-150) H 11/03/18 05:48 Total Bilirubin 1.0 mg/dL (0.3-1.0) 11/05/18 04:40 AST 25 U/L (13-39) 11/05/18 04:40 ALT 21 U/L (7-52) 11/05/18 04:40 Alkaline Phosphatase 300 U/L (34-104) H 11/05/18 04:40 Ammonia 77 umol/L (16-53) H 11/03/18 05:48 B-Natriuretic Peptide 821.0 pg/mL (5.0-100.0) H 11/05/18 04:40 Total Protein 6.7 gm/dL (6.0-8.3) 11/05/18 04:40 Albumin 3.0 gm/dL (3.7-5.3) L 11/05/18 04:40 Globulin 3.7 gm/dL 11/05/18 04:40 Albumin/Globulin Ratio 0.8 (1.0-1.8) L 11/05/18 04:40 Triglycerides 50 mg/dL (<150) 11/01/18 06:10 Cholesterol 104 mg/dL (<200) 11/01/18 06:10 LDL Cholesterol Direct 39 mg/dL (75-193) L 11/01/18 06:10 HDL Cholesterol 45 mg/dL (23-92) 11/01/18 06:10 Free T4 1.50 ng/dL (0.82-1.77) 11/01/18 06:10 Free T3 1.6 pg/mL (2.0-4.4) L 11/01/18 06:10 TSH 9.55 uIU/ml (0.34-5.60) H 11/01/18 06:10 Urine Source CATH 10/31/18 17:03 Urine Color YELLOW 10/31/18 17:03 Urine Clarity CLOUDY (CLEAR) H 10/31/18 17:03 Urine pH 5.5 (4.6 - 8.0) 10/31/18 17:03 Ur Specific [place] 1.020 (1.005-1.030) 10/31/18 17:03 Urine Protein 30 mg/dL (NEGATIVE) H 10/31/18 17:03 Urine Glucose (UA) NEGATIVE mg/dL (NEGATIVE) 10/31/18 17:03 Urine Ketones NEGATIVE mg/dL (NEGATIVE) 10/31/18 17:03 Urine Blood LARGE (NEGATIVE) H 10/31/18 17:03 Urine Nitrate POSITIVE (NEGATIVE) H 10/31/18 17:03 Urine Bilirubin NEGATIVE (NEGATIVE) 10/31/18 17:03 Urine Urobilinogen 0.2 E.U./dL (0.2 - 1.0) 10/31/18 17:03 Ur Leukocyte Esterase LARGE (NEGATIVE) H 10/31/18 17:03 Urine RBC 5-10 /hpf (0-5) H 10/31/18 17:03 Urine WBC 50-100 /hpf (0-5) H 10/31/18 17:03 Ur Epithelial Cells MODERATE /lpf (FEW) 10/31/18 17:03 Urine Bacteria MANY /hpf (NONE SEEN) H 10/31/18 17:03 Ur Random Sodium 19 mmol/L 11/02/18 05:50 Urine Creatinine 96.0 mg/dl (28.0-217.0) 11/02/18 05:50 Microalb/Creat Ratio 307.6 mg/g creat (0.0-30.0) H 11/02/18 06:18 Fluid Source PARACENTHESIS 11/01/18 14:30 Fluid Color RED 11/01/18 14:30 Fluid Appearance BLOODY 11/01/18 14:30 Fluid WBC 124 /cumm 11/01/18 14:30 Fluid RBC 4575 /cumm 11/01/18 14:30 Fluid Neutrophils 4 % 11/01/18 14:30 Fluid Lymphocytes 76 % 11/01/18 14:30 Fluid Monocytes 20 % 11/01/18 14:30 Fluid Total Protein 4.6 g/dL 11/01/18 14:30 - Physical Exam Vitals and I&O: Vital Signs Temp 98.6 F 11/05/18 11:22 Pulse 80 11/05/18 11:22 Resp 18 11/05/18 11:22 BP 102/81 11/05/18 11:22 Pulse Ox 100 11/05/18 11:22 Intake & Output 11/04/18 11/05/18 11/05/18 18:59 06:59 18:59 Intake Total 1200 700 Output Total 1750 600 Balance -550 100 Weight (lbs) 89.868 kg 90.463 kg Intake: Intake, IV Amount 100 [id number] 2 gm In 100 Sodium Chloride 0.9% 100 ml @ 100 mls/hr IV Q24H [facility] Rx#:[id number] Oral 1200 600 Output: Urine 1750 600 Other: # Bowel Movements 1 Weight Source Bedscale Bedscale Active Medications: Current Medications Acetaminophen (Tylenol) 650 mg PO Q8H PRN PRN Reason: Pain (Moderate) LEVEL 4-6 Stop: 12/31/18 00:36 Last Admin: 11/03/18 21:31 Dose: 650 mg Carvedilol (Coreg) 25 mg PO BID GEORGIE Stop: 12/31/18 08:59 Last Admin: 11/05/18 08:42 Dose: 25 mg Diphenhydramine HCl (Benadryl) 12.5 mg PO TID PRN PRN Reason: Itching Stop: 12/31/18 00:33 Last Admin: 11/04/18 22:46 Dose: 12.5 mg Epoetin [place] (Epogen) 10,000 units SUBQ MoWeFr [facility]IE Stop: 12/31/18 14:59 Last Admin: 11/04/18 15:42 Dose: 10,000 units Ferrous Sulfate (Iron) 325 mg PO BID GE[facility]IE Stop: 12/31/18 08:59 Last Admin: 11/05/18 08:43 Dose: 325 mg Furosemide (Lasix) 40 mg PO DAILY GEORIGE Stop: 12/31/18 08:59 Last Admin: 11/05/18 08:43 Dose: 40 mg Heparin Sodium (Porcine) (Heparin) 5,000 units SUBQ Q12H [facility] Stop: 12/31/18 08:59 Last Admin: 11/05/18 08:43 Dose: 5,000 units Hydralazine HCl (Apresoline) 25 mg PO BID [facility] Stop: 01/02/19 08:59 Last Admin: 11/05/18 08:43 Dose: 25 mg Ceftriaxone Sodium 2 gm/ (Sodium Chloride) 100 mls @ 100 mls/hr IV Q24H [facility]IE Stop: 01/02/19 08:59 Last Infusion: 11/05/18 06:09 Dose: Infused Insulin Aspart (Novolog Insulin Sliding Scale) 0 units SUBQ ACHS [facility]; Protocol Stop: 12/30/18 20:59 Last Admin: 11/05/18 08:44 Dose: 3 units Lactobacillus Rhamnosus (Culturelle 15b) 1 each PO DAILY GEORGIE Stop: 01/01/19 08:59 Last Admin: 11/05/18 08:43 Dose: 1 each Lactulose (Cephulac) 30 gm PO DAILY GEOR[facility]IE Stop: 12/31/18 08:59 Last Admin: 11/05/18 08:42 Dose: 30 gm Levetiracetam (Keppra) 500 mg PO Q12HR [facility] Stop: 12/30/18 20:59 Last Admin: 11/05/18 08:42 Dose: 500 mg Levothyroxine Sodium (Synthroid) 0.025 mg PO QDAC [facility] Stop: 12/31/18 11:29 Last Admin: 11/05/18 08:06 Dose: 0.025 mg Mineral Oil (Mineral Oil 30 Ml) 30 ml PO DAILY PRN PRN Reason: Constipation Stop: 01/04/19 10:03 Miscellaneous (Vte Chemical Prophylaxis Screen/ Admission) 1 ea PRN PRN PRN Reason: PROTOCOL Stop: 12/31/18 08:59 Miscellaneous (Probiotic Screen) 1 ea MC PRN PRN PRN Reason: PROTOCOL Stop: 12/31/18 10:52 Pantoprazole Sodium (Protonix) 40 mg PO QDAC [facility] Stop: 12/31/18 11:29 Last Admin: 11/05/18 08:06 Dose: 40 mg General: Oriented x3, No acute distress HEENT: Atraumatic, PERRLA Neck: Supple Cardiovascular: Regular rate, Normal S1, Normal S2 Lungs: Clear to auscultation Abdomen: Bowel sounds, Soft, Obese, no Tender, no Mass Extremities: no Clubbing, no Cyanosis, no Edema Neurological: Normal speech Skin: no Rash Assessment/Plan - Assessment Assessment: CKD Ascites S/P paracentesis Hx of Liver Failure Hx Hepatic Enceph Cx UTI Morbid Obesity - Plan Plan: Lab - Result Diagrams 11/05/18 04:40 11/05/18 04:40 Current Medications Acetaminophen (Tylenol) 650 mg PO Q8H PRN PRN Reason: Pain (Moderate) LEVEL 4-6 Stop: 12/31/18 00:36 Last Admin: 11/03/18 21:31 Dose: 650 mg Carvedilol (Coreg) 25 mg PO BID [facility] Stop: 12/31/18 08:59 Last Admin: 11/05/18 08:42 Dose: 25 mg Diphenhydramine HCl (Benadryl) 12.5 mg PO TID PRN PRN Reason: Itching Stop: 12/31/18 00:33 Last Admin: 11/04/18 22:46 Dose: 12.5 mg Epoetin [place] (Epogen) 10,000 units SUBQ MoWeFr [facility] Stop: 12/31/18 14:59 Last Admin: 11/04/18 15:42 Dose: 10,000 units Ferrous Sulfate (Iron) 325 mg PO BID [facility] Stop: 12/31/18 08:59 Last Admin: 11/05/18 08:43 Dose: 325 mg Furosemide (Lasix) 40 mg PO DAILY [facility] Stop: 12/31/18 08:59 Last Admin: 11/05/18 08:43 Dose: 40 mg Heparin Sodium (Porcine) (Heparin) 5,000 units SUBQ Q12H [facility] Stop: 12/31/18 08:59 Last Admin: 11/05/18 08:43 Dose: 5,000 units Hydralazine HCl (Apresoline) 25 mg PO BID [facility]IE Stop: 01/02/19 08:59 Last Admin: 11/05/18 08:43 Dose: 25 mg Ceftriaxone Sodium 2 gm/ (Sodium Chloride) 100 mls @ 100 mls/hr IV Q24H [facility] Stop: 01/02/19 08:59 Last Infusion: 11/05/18 06:09 Dose: Infused Insulin Aspart (Novolog Insulin Sliding Scale) 0 units SUBQ ACHS [facility]; Protocol Stop: 12/30/18 20:59 Last Admin: 11/05/18 08:44 Dose: 3 units Lactobacillus Rhamnosus (Culturelle 15b) 1 each PO DAILY GE[facility]IE Stop: 01/01/19 08:59 Last Admin: 11/05/18 08:43 Dose: 1 each Lactulose (Cephulac) 30 gm PO DAILY [facility]IE Stop: 12/31/18 08:59 Last Admin: 11/05/18 08:42 Dose: 30 gm Levetiracetam (Keppra) 500 mg PO Q12HR [facility] Stop: 12/30/18 20:59 Last Admin: 11/05/18 08:42 Dose: 500 mg Levothyroxine Sodium (Synthroid) 0.025 mg PO QDAC [facility] Stop: 12/31/18 11:29 Last Admin: 11/05/18 08:06 Dose: 0.025 mg Mineral Oil (Mineral Oil 30 Ml) 30 ml PO DAILY PRN PRN Reason: Constipation Stop: 01/04/19 10:03 Miscellaneous (Vte Chemical Prophylaxis Screen/ Admission) 1 ea MC PRN PRN PRN Reason: PROTOCOL Stop: 12/31/18 08:59 Miscellaneous (Probiotic Screen) 1 ea MC PRN PRN PRN Reason: PROTOCOL Stop: 12/31/18 10:52 Pantoprazole Sodium (Protonix) 40 mg PO QDAC [facility] Stop: 12/31/18 11:29 Last Admin: 11/05/18 08:06 Dose: 40 mg Lab - Result Diagrams 11/05/18 04:40 11/05/18 04:40 kidney fnc remain stable agree w/ DC back to [facility] F/U w/ me in 3 wks Nutritional Asmnt/Malnutr-PDOC - Dietary Evaluation Malnutrition Findings (Please click <Entered> for more info): Nutritional Asmnt/Malnutrition Start: 11/01/18 14: 20 Text: Status: Complete Freq: Protocol: Document 11/01/18 14:20 ALICIA (Rec: 11/01/18 14:30 ALICIA [email or web address]) Nutritional Asmnt/Malnutrition Patient General Information Nutritional Screening High Risk Diagnosis anasarca, CHF, hypoalbuminemia , acute kidney injury Pertinent Medical Hx/Surgical Hx HTN, DM, CAD, CHF, dyslipidemia, Sz disorder, paroxysmal AF, CKD, iron deficiency, CVA w/ right sided weakness, cirrhosis Subjective Information Received nutrition consult for DM. Pt resting in bed w/ daughter at bedside during visit. Pt's daughter states pt follows diet given by correction, but does not know which diet. Discussed renal diet limitations and pt verbalized understanding; pt states she will follow diet restrictions. Per EMR, pt finished 100% dinner last night. Current Diet Order/ Nutrition Support renal Pertinent Medications iron, lasix, heparin, novolog, culturelle, synthroid, protonix Pertinent Labs 11/01: glucose 234, Na 138, BUN 79, Cr 2.7, POC 204, Alb 3.4, GFR 19.0 10/31: glucose 238, Na 134, BUN 80, Cr 2.8, POC 237, Alb 3.4, GFR 18.2 Nutritional Hx/Data Height 1.57 m Height (Calculated Centimeters) 157.5 Current Weight (lbs) 93.44 kg Weight (Calculated Kilograms) 93.4 Weight (Calculated Grams) 61135.0 [place] Body Weight 110 lb Body Mass Index (BMI) 37.6 Weight Status Obese GI Symptoms GI Symptoms None Last BM none noted Difficult in: None Food Allergies No Skin Integrity/Comment: reddened lower abdomen and left groin, scar on left chest , kirill 15 Estimated Nutritional Goals BEE in Kcals: Adj wt of IBW Calories/Kcals/Kg 25-30 (based on adj wt 60.9 kg ) Kcals Calculated 9401-2998 Protein: Adj wt of IBW Protein g/k.8-1 (based on IBW 50 kg) Protein Calculated 40-50 g Fluid: ml 1200 ml (per MD) Nutritional Problem 1. Problem Problem Altered nutrition related lab values Etiology endocrine dysfunction, renal dysfunction Signs/Symptoms: glucose 234, BUN 79, Cr 2.7, POC 204, GFR 19.0 Intervention/Recommendation Comments 1. Recommend to start CCHO 60 gm diet d/t elevated bs and hx of DM 2. Continue with renal diet as ordered. Limit protein to 50 g/day d/t elevated renal labs and pt not on HD 3. Monitor PO intake, wt, labs and skin integrity 4. F/U as high risk in 2-3 days, 11/03- Expected Outcomes/Goals Expected Outcomes/Goals 1. PO intake to meet at least 75% of all meals 2. Wt stability, skin integrity to improve, labs to approach normal limits Reviewed by Mikaela Jensen RD
[2018-11-05] MEDS: cefTRIAXone 2 GM in Sodium Chloride 0.9% 100 ML IV SCH (12:54)
--- NOTE | 2018-11-10 09:59 | Discharge Summary ---
DATE OF DISCHARGE: 11/05/2018 PRELIMINARY DIAGNOSES: 1. Abdominal distention. 2. Generalized weakness. 3. Urinary tract infection. 4. Hepatic encephalopathy. 5. New onset hypothyroidism. 6. Hypertension. 7. Diabetes. 8. Coronary artery disease. 9. Congestive heart failure. 10. Dyslipidemia. 11. Seizure disorder. 12. Paroxysmal atrial fibrillation. 13. Chronic kidney disease. 14. Iron-deficiency anemia. 15. Cerebrovascular accident with right-sided weakness. DISCHARGE DIAGNOSES: 1. Abdominal distention, status post paracentesis. 2. Generalized weakness. 3. Urinary tract infection positive for Escherichia coli. 4. Hepatic encephalopathy. 5. New onset hypothyroidism. 6. Hypertension. 7. Diabetes. 8. Coronary artery disease. 9. Congestive heart failure. 10. Dyslipidemia. 11. Seizure disorder. 12. Paroxysmal atrial fibrillation 13. Chronic kidney disease. 14. Iron-deficiency anemia. 15. Cerebrovascular accident with right-sided weakness. HISTORY OF PRESENT ILLNESS: This is a 62-year-old female who presents to [facility], transferred from alf facility for increased abdominal distention and generalized weakness. The patient has a past medical history of hypertension, diabetes, coronary artery disease, CHF, dyslipidemia, seizure disorder, paroxysmal atrial fibrillation, chronic kidney disease, iron deficiency, CVA accident with right-sided weakness. The patient was found to have a diffuse abdominal and pelvic ascites noted on CT of the abdomen with extensive anasarca. The patient reports no abdominal pain, nausea or vomiting. Her initial lab work revealed a white count of 4.6; hemoglobin of 8.9; hematocrit 26.4; platelets 159,000. Sodium was 138, potassium 4.2, BUN 79, creatinine 2.7, glucose 234, alkaline phosphatase was elevated at 320. Her ammonia level was also elevated at 105. BNP was 1140 and her TSH was 9.55. The patient was subsequently admitted for further evaluation and treatment. HOSPITAL COURSE: The patient underwent ultrasound-guided paracentesis and 2500 ascitic fluid was drained. The patient's abdominal pain and distention improved. She was also seen and evaluated by GI, see dictated report. The patient also was seen and evaluated by Cardiology. Please see dictated report as well as Nephrology see dictated report. The patient had a urine C and S. which was positive for E. coli. Sensitivity report was noted and antibiotics were adjusted to the sensitivity report. The patient was also found to be new onset hypothyroidism and was started on 50 mcg of levothyroxine. During her hospital stay, it was also noted that the patient was on atorvastatin. Given her history of liver insufficiency, it was recommended that her atorvastatin was discontinued. Her initial ammonia level was 105 and the patient was given lactulose during her hospital stay; however, her ammonia level was checked throughout her hospital stay. The patient was subsequently discharged in stable condition to be transferred back to alf facility and to continue her hospital medications. JOB# [id number]
== END 2018-11-05 18:25 ==
LOC: ER 14:14 → TELE 16:49 → MSI 11-04 08:42
PROVIDERS: ADMIT Family Medicine; ATTEND Family Medicine
PROC: 0W9G3ZZ Drainage of Peritoneal Cavity, Percutaneous Approach (ICD-10-PCS; principal; 2018-11-01)
DX: R18.8 Other ascites (principal); E11.21 Type 2 diabetes mellitus with diabetic nephropathy; N18.4 Chronic kidney disease, stage 4 (severe); N17.9 Acute kidney failure, unspecified; D70.9 Neutropenia, unspecified; E66.01 Morbid (severe) obesity due to excess calories; I13.0 Hypertensive heart and chronic kidney disease with heart failure and stage 1 through stage 4 chronic kidney disease, or unspecified chronic kidney disease; I48.0 Paroxysmal atrial fibrillation; K72.90 Hepatic failure, unspecified without coma; I50.22 Chronic systolic (congestive) heart failure; E88.09 Other disorders of plasma-protein metabolism, not elsewhere classified; G40.909 Epilepsy, unspecified, not intractable, without status epilepticus; N39.0 Urinary tract infection, site not specified; E11.22 Type 2 diabetes mellitus with diabetic chronic kidney disease; I69.951 Hemiplegia and hemiparesis following unspecified cerebrovascular disease affecting right dominant side; E03.9 Hypothyroidism, unspecified; I25.10 Atherosclerotic heart disease of native coronary artery without angina pectoris; R31.9 Hematuria, unspecified; D50.9 Iron deficiency anemia, unspecified; B96.20 Unspecified Escherichia coli [E. coli] as the cause of diseases classified elsewhere; K59.00 Constipation, unspecified; Z83.3 Family history of diabetes mellitus; Z82.49 Family history of ischemic heart disease and other diseases of the circulatory system; Z68.36 Body mass index [BMI] 36.0-36.9, adult; Z79.4 Long term (current) use of insulin; Z90.12 Acquired absence of left breast and nipple
CPT/HCPCS: 36415-UA; 71045-TC; 76942-TC; 80053-TC; 80061-TC; 81001-TC; 81015-TC; 82043-90; 82140-TC; 82570-TC; 82728-90; 82948-90; 83036-90; 83540-90; 83550-90; 83605; 83880-TC; 84157-TC; 84300-TC; 84439-90; 84443-TC; 84479-90; 85025-TC; 85610-TC; 87086-90; 89051-TC; 93005; 94760; J0696; J0885; J1644; J1815; Z7610